=== PATIENT | female | born 1930 | race Caucasian/White ===

== ENCOUNTER 2018-06-11 18:42 | Inpatient (IN) | payer MEDICARE, OTHER ==
[~2018-06-11] VITALS: Ht 152.4 cm; Wt 66.4 kg
--- OUTSIDE RECORDS SUMMARY | ~2018-06-11 | XMS | Clinical Summary ---
Demographics + + + | Address | [address] | | | [place] [address] | + + + | Home Phone | | + + + | Preferred Language | Unknown | + + + | Marital Status | | + + + | Restorationist Affiliation | Unknown | + + + | Race | Unknown | + + + | Ethnic Group | Unknown | + + + Author + + + | Author | [facility] [employer] | + + + | Organization | [email or web address] | + + + | Address | Unknown | + + + | Phone | Unavailable | + + + Support + + +---------+ + | Name | Relationship | Address | Phone | + + +---------+ + | Fausto Mcgregor | ECON | Unknown | | | ([place]) | | | | + + +---------+ + | Deborah Kenyon | ECON | Unknown | | + + +---------+ + | Mat Arambula | ECON | Unknown | | + + +---------+ + Care Team Providers + +------+ + | Care [employer] Member Name | Role | Phone | + +------+ + | Devante Mercer MD | PP | | + +------+ + Allergies + [...] | Diarrhea | Low | 04/22/19 | | | | | | 16 | | + + + + + + Current Medications + + +--------+---------+------+------+-------+ | Prescription | Sig. | Disp. | Refills | Star | End | Statu | | | | | | t | Date | s | | | | | | Date | | | + + +--------+---------+------+------+-------+ | diltiazem | Take 300 mg by mouth | | | | | Activ | | (CARDIZEM CD) 300 MG | daily. | | | | | e | | 24 hr capsule | | | | | | | + + +--------+---------+------+------+-------+ | fenofibrate | Take 160 mg by mouth | | | | | Activ | | (TRICOR) 160 MG | daily. | | | | | e | | tablet | | | | | | | + + +--------+---------+------+------+-------+ | fluticasone | 2 sprays by Each | | | | | Activ | | (FLONASE) 50 MCG/ACT | Nare route daily. | | | | | e | | nasal | | | | | | | + + +--------+---------+------+------+-------+ | glipiZIDE | Take 10 mg by mouth | | | | | Activ | | (GLUCOTROL) 10 MG 24 | daily. | | | | | e | | hr tablet | | | | | | | + + +--------+---------+------+------+-------+ | latanoprost | Place 1 drop into | | | | | Activ | | (XALATAN) 0.005 % | both eyes nightly. | | | | | e | | ophthalmic solution | | | | | | | + + +--------+---------+------+------+-------+ | metFORMIN | Take 1,000 mg by | | | | | Activ | | (GLUCOPHAGE) 500 MG | mouth 2 (two) times | | | | | e | | tablet | daily with meals. | | | | | | + + +--------+---------+------+------+-------+ | potassium chloride | Take 20 mEq by mouth | | | | | Activ | | SA (ORALIA SAMSON) | daily. | | | | | e | | 20 MEQ tablet | | | | | | | + + +--------+---------+------+------+-------+ | torsemide | Take 20 mg by mouth | | | | | Activ | | (DEMADEX) 20 MG | every morning. | | | | | e | | tablet | | | | | | | + + +--------+---------+------+------+-------+ | Calcium | Take 1,000 mg by | | | | | Activ | | Carb-Cholecalciferol | mouth daily. | | | | | e | | 1000-800 MG-UNIT | | | | | | | | TABS | | | | | | | + + +--------+---------+------+------+-------+ | Cranberry 450 MG | Take 450 mg by mouth | | | | | Activ | | TABS | daily. | | | | | e | + + +--------+---------+------+------+-------+ | ascorbic acid | Take 1,000 mg by | | | | | Activ | | (VITAMIN C) 1000 MG | mouth daily. | | | | | e | | tablet | | | | | | | + + +--------+---------+------+------+-------+ | Cholecalciferol | Take 1,000 Units by | | | | | Activ | | 1000 UNITS capsule | mouth daily. | | | | | e | + + +--------+---------+------+------+-------+ | vitamin E 400 UNIT | Take 400 Units by | | | | | Activ | | capsule | mouth daily. | | | | | e | + + +--------+---------+------+------+-------+ | fish oil omega-3 | Take 1 g by mouth | | | | | Activ | | fatty acids 1000 MG | daily. | | | | | e | | capsule | | | | | | | + + +--------+---------+------+------+-------+ | Multiple | Take by mouth | | | | | Activ | | Vitamins-Minerals | daily. | | | | | e | | ([facility] | | | | | | | | PO) | | | | | | | + + +--------+---------+------+------+-------+ | cyanocobalamin | Take 1,000 mcg by | | | | | Activ | | (VITAMIN B-12) 1000 | mouth every other | | | | | e | | MCG tablet | day. | | | | | | + + +--------+---------+------+------+-------+ | warfarin | Take 1 tablet by | 30 | 11 | 02/2 | | Activ | | (COUMADIN) 2 MG | mouth daily. | tablet | | 1/20 | | e | | tablet | | | | 17 | | | + + +--------+---------+------+------+-------+ | levothyroxine | Take 1 tablet by | 30 | 11 | 02/2 | | Activ | | (SYNTHROID) 125 MCG | mouth every morning | tablet | | 1/20 | | e | | tablet | before breakfast. | | | 17 | | | + + +--------+---------+------+------+-------+ | omeprazole | Take 20 mg by mouth | | | | | Activ | | (PRILOSEC) 20 MG | every morning before | | | | | e | | capsule | breakfast. | | | | | | + + +--------+---------+------+------+-------+ | loperamide | Take 2 mg by mouth 4 | | | | | Activ | | (IMODIUM) 2 MG | (four) times daily | | | | | e | | capsule | as needed for | | | | | | | | Diarrhea. | | | | | | + + +--------+---------+------+------+-------+ | metoprolol | Take 1 tablet by | | | 04/0 | | Activ | | (TOPROL-XL) 100 MG | mouth nightly. | | | 3/20 | | e | | 24 hr tablet | | | | 19 | | | + + +--------+---------+------+------+-------+ | metoprolol | Take 100 mg by mouth | | | | 04/0 | Disco | | (TOPROL-XL) 50 MG 24 | nightly. | | | | 3/20 | ntinu | | hr tablet | | | | | 19 | ed | + + +--------+---------+------+------+-------+ Active Problems + + + | Problem | Noted Date | + + + | Impaired glucose tolerance | 05/03/2017 | + + + | Chronic atrial fibrillation (HCC) | 04/26/2016 | + + + | Hyperlipidemia | 03/24/2015 | + + + + + | Last Assessment & Plan: Hyperlipidemia, managed by PCP. | + + + + + | DMII (diabetes mellitus, type 2) | 03/24/2015 | + + + + + | Last Assessment & Plan: DM2, managed by PCP. | + + + + + | Essential hypertension | 03/24/2015 | + + + + + | Last Assessment & Plan: Hypertensive heart disease. | | Hypertension, treated controlled, continue current meds at | | current dose (diltiazem, metoprolol, torsemide, potassium.Lab, | | 12/04/2014: K: 4.0, BUN/Cr: 29/1.0 (GFR 55), glu: 146, M.0, | | INR: 2.0 | + + Resolved Problems + + + + | Problem | Noted | Resolved | | | Date | Date | + + + + | Annual physical exam | 05/03/19 | | | | 18 | 8 | + + + + | Persistent atrial fibrillation (HCC) | 03/23/19 | | | | 16 | 7 | + + + + + + | Last Assessment & Plan: Persistent atrial fibrillation, heart | | rate control, well-tolerated, CHADS2 Score 3 (CHF, HTN, age) on | | Eliquis. 84yo WF, with relatively new onset atrial | | fibrillation, November 2014. She presented to emergency room | | with shortness of breath, or soldering atrial fibrillation with | | rapid heart rate, congestive heart failure. Heart rate was | | controlled medically, his heart failure improved. She has a | | history of diabetes, but there is no history of CVA or TIAs. She | | is , lives with her , still drives, does | | housework, modestly active. She admits exertional shortness of | | breath, but no orthopnea or PND. Denies any chest discomfort. | | Denies any new visual disturbances, dysarthria, dysphasia, | | lateralizing signs or symptoms. No significant bleeding or | | bruising. There is no prior history of coronary artery disease, | | myocardial infarctions congenital heart disease, rheumatic heart | | disease, or syncope. She informs me that she is feeling better, | | able to do her work. We did talk about atrial fibrillation, the | | cause is most likely hypertensive heart disease. With regards to | | treatment strategy, rhythm control versus rate control. At this | | point she is happy with her current medical management, which is | | rate control and long-term anticoagulation. At this point we | | are not considering antiarrhythmic medications. | | Electrocardioversion has not been ruled out. 24 Holter monitor | | reveals reasonable heart rate control. No changes in medical | | therapy at this time.Hx CABG: noHx PCI/stent: noHx Pacemaker/ICD: | | NoLast Cath: naLast Echo, 12/02/2014: "significant LVH, LVEF | | 77%, LAE, BRODIE, RVE, trace AI, mild-moderate MR< mild-moderate TR, | | mild PI, moderate Pulmonary HTN, est systolic PAP 50mmHg.Last | | Stress Test: na24hr HM, 03/26/2015: A fib, 66-132, averaging | | 85bpm, rare PVC's 15 pauses (2.0-2.3sec), no symptoms | | reported.ECG, 03/23/2015: A fib, 92bpm, LAD, PRWP, LVH with ST-T | | changes. | + + Encounters +--------+---------+ + + + | Date | Type | Specialty | Care Team | Description | +--------+---------+ + + + | 06/06/ | Office | | Denise Chakraborty, | Essential | | 2019 | Visit | | MD | hypertension | | | | | | (Primary Dx); | | | | | | Chronic atrial | | | | | | fibrillation (HCC); | | | | | | Mixed hyperlipidemia | +--------+---------+ + + + from Last 3 Months [...] | Father | | | heart disease (MS), HTN,Hyperlipidemia | | | | (Age | | | | | 80) | | + +------+ + + | Mother | | | HTN,CVA | | | | (Age | | | | | 89) | | + +------+ + + Social [...] + +---------+ + | Alcohol Use | Drinks/We | oz/Week | Comments | | | ek | | | + + +---------+ + | No | 0 | 0.0 | | | | Standard | | | | | drinks or | | | | | | | | | | equivalen | | | | | t | | | + + +---------+ + + + + | Sex Assigned at | Date Recorded | | | | + + + | Not on file | | + + + Last Filed Vital Signs + + + + | Vital Sign | Reading | Time Taken | + + + + | Blood Pressure | 124/70 | 06/06/2018 12:43 PM PDT | + + + + | Pulse | 100 | 06/06/2018 12:43 PM PDT | + + + + | Temperature | - | - | + + + + | Respiratory Rate | 18 | 04/22/2015 11:22 AM PST | + + + + | Oxygen Saturation | 96% | 06/06/2018 12:43 PM PDT | + + + + | Inhaled Oxygen | - | - | | Concentration | | | + + + + | Weight | 68.8 kg (151 lb 9.6 | 06/06/2018 12:43 PM PDT | | | oz) | | + + + + | Height | 149.9 cm (4' 11") | 06/06/2018 12:43 PM PDT | + + + + | Body Mass Index | 30.62 | 06/06/2018 12:43 PM PDT | + + + + Plan of Treatment +--------+ + + + + | Date | Type | Specialty | Care Team | Description | +--------+ + + + + | 06/14/ | Clinical | | | | | 2018 | Support | | | | +--------+ + + + + | 08/08/ | Office | | Denise Chakraborty, | | | 2018 | Visit | | MD Eduardo Nguyen | | | | | | [address], | | | | | | [place] [address] | | | | | | [phone] | | | | | | | | +--------+ + + + + + + + + + | Health Maintenance | Due Date | Last Done | Comments | + + + + + | Diabetic Eye Exam | | | | | | 0 | | | + + + + + | Diabetic Foot Exam | | | | | | 0 | | | + + + + + | Hemoglobin A1c | | | | | | 0 | | | + + + + + | Microalbumin | | | | | Screening | 0 | | | + + + + + | Vaccine: | | | | | Dtap/Tdap/Td (1 - | 9 | | | | Tdap) | | | | + + + + + | Vaccine: Zoster (1 | | | | | of 2) | 0 | | | + + + + + | DEXA SCAN SCREENING | | | | | | 5 | | | + + + + + | Vaccine: | | | | | Pneumococcal 65+ | 5 | | | | Low/Medium Risk (1 | | | | | of 2 - PCV13) | | | | + + + + + | Vaccine: Influenza | | | | | (Season Ended) | 9 | | | + + + + + Procedures + +--------+ + + + | Procedure Name | Priori | Date/Time | Associated Diagnosis | Comments | | | ty | | | | + +--------+ + + + | EKG STANDARD 12 LEAD | Routin | 06/06/2018 | Essential | Results for this | | | e | 12:50 PM | hypertension | procedure are in the | | | | PDT | Chronic atrial | results section. | | | | | fibrillation (HCC) | | + +--------+ + + + from Last 3 Months Results EK STANDARD 12 LEAD (06/06/2018 12:50 PM) + + + + + | Component | Value | Ref Range | Performed At | + + + + + | Ventricular Rate | 113 | BPM | [facility] | + + + + + | Atrial Rate | 113 | BPM | [facility] | + + + + + | P-R Interval | 230 | ms | [facility] | + + + + + | QRS Duration | 112 | ms | [facility] | + + + + + | Q-T Interval | 320 | ms | [facility] | + + + + + | QTC Calculation | 438 | ms | [facility] | | (Bezet) | | | | + + + + + | Calculated R [place] | -35 | degrees | [facility] | + + + + + | Calculated T [place] | 64 | degrees | [facility] | + + + + + | Diagnosis | Sinus tachycardia with | | [facility] | | | 1st degree A-V blockLeft | | | | | axis deviationMinimal | | | | | voltage criteria for | | | | | LVH, may be normal | | | | | variantSeptal infarct | | | | | (cited on or before | | | | | 23-MAR-2015)Abnormal | | | | | ECGWhen compared with | | | | | ECG of 03-MAY-2017 | | | | | 11:08,Sinus rhythm has | | | | | replaced Atrial | | | | | fibrillationPlease refer | | | | | to Providers office | | | | | visit note for Providers | | | | | | | | | | Interpretation.Confirmed | | | | | by [facility] Read Only, | | | | | [facility] Wendy ([id number]), | | | | | content editor Martell Kelly | | | | | ([id number]) on 06/07/2018 | | | | | 10:37:53 AM | | | + + + + + + + + + + | Performing | Address | City/State/Zipcode | Phone Number | | Organization | | | | + + + + + | [facility] | [address] | [place] [address] | | + + + + + from Last 3 Months Insurance + +--------+ +------+-------+ + | Payer | Benefi | Subscriber | Type | Phone | Address | | | t Plan | ID | | | | | | / | | | | | | | Group | | | | | + +--------+ +------+-------+ + | MEDICARE | MEDICA | [id number] | | | [address] | | | RE | | | | [place] [address] | | | IP-OP | | | | | + +--------+ +------+-------+ + | COMMERCIAL OTHER | COMMER | [id number] | | | | | | CIAL | | | | | | | GENERI | | | | | | | C PLAN | | | | | + +--------+ +------+-------+ + + +--------+ +--------+ + + | Guarantor Name | [employer]oun | Relation to | Date | Phone | Billing Address | | | t Type | Patient | of | | | | | | | | | | + +--------+ +--------+ + + | SHARI MCGREGOR | Person | Self [birth year] Home: | [address] | | | al/Fam | | [phone] | [phone] [place] | | | sonal | | | [phone] | [phone] | + +--------+ +--------+ + +
--- OUTSIDE RECORDS SUMMARY | ~2018-06-11 | XMS | Encounter Summary ---
Demographics + + + | Address | [address] | | | [place] [address] | + + + | Home Phone | | + + + | Preferred Language | Unknown | + + + | Marital Status | | + + + | Muslim Affiliation | Unknown | + + + | Race | Unknown | + + + | Ethnic Group | Unknown | + + + Author + + + | Author | [employer] | + + + | Organization | [facility] | + + + | Address | Unknown | + + + | Phone | Unavailable | + + + Support + + +---------+ + | Name | Relationship | Address | Phone | + + +---------+ + | Fausto Clark | ECON | Unknown | | | ([place]) | | | | + + +---------+ + | Deborah Kenyon | ECON | Unknown | | + + +---------+ + | Mat Arambula | ECON | Unknown | | + + +---------+ + Care Team Providers + +------+ + | Care Label Coder Name | Role | Phone | + +------+ + | Mandeep Mercer MD | PCP | | + +------+ + Reason for Referral Echo (Routine) + +--------+ + + + + | Status | Reason | Specialty | Diagnoses / | Referred By | Referred To | | | | | Procedures | Contact | Contact | + +--------+ + + + + | Authorized | | | Diagnoses | [place], | Department, | | | | | Essential | MD Denise | [facility] | | | | | hypertension | [address] | Diagnostic | | | | | Chronic | Wendy Stack | [address] | | | | | atrial | Juaquin F | Adal [address] | | | | | fibrillation | [place] | [place] | | | | | ([facility]) | [address] | [address] | | | | | Mixed | Phone: | Phone: | | | | | hyperlipidem | [phone] | [phone] | | | | | ia | Fax: | Fax: | | | | | Procedures | [phone] | [phone] | | | | | Echo cardiac | | | | | | | adult | | | | | | | complete | | | + +--------+ + + + + Reason for Visit + + + | Reason | Comments | + + + | Follow-up | Annual | + + + Encounter Details +--------+---------+ + + + | Date | Type | Department | Care Team | Description | +--------+---------+ + + + | 06/06/ | Office | [facility] | Denise Pinto, | Essential | | 2019 | Visit | Cardiology Natty | [address] | hypertension | | | | [address] | Dr Jaimes, | (Primary Dx); | | | | [address] | [place] [address] | Chronic atrial | | | | [place] [address] | [phone] | fibrillation (HCC); | | | | [phone] | | Mixed hyperlipidemia | +--------+---------+ + + + Social History [...] on file | | + + + as of this encounter Last Filed Vital [...] Respiratory Rate | - | - | + + + + | Oxygen [...] PM PDT | + + + + in this encounter Instructions Patient Instructions - Denise Pinto MD - 06/06/2018 12:45 PM PDTIncrease Metoprolol t o 100 mg daily. Take 2 pills of the 50 mg once in the morning. in this encounter Progress Notes Denise Pinto MD - 06/06/2018 12:45 PM PDTFormatting of this note may be different fro m the original. Date of visit: 06/06/2018 Primary Care Physician: MANDEEP MERCER CHIEF COMPLAINT: Chief Complaint Patient presents with Follow-up Annual HISTORY OF PRESENT ILLNESS: Francisca is 87 y.o. here for follow-up visit good historian and modestly active. No recent hospitalization, lately has been feeling mildly shortness of breath. Weight has b een stable. No change in medications. Last hospitalization was June 2016 secondary to diverticulitis. Has a history of chronic atrial fibrillation. She has been on anticoagulation and toleratin g therapy well. Follows up with [facility] Coumadin clinic. Past medical history, SH, FH, and medications were reviewed in the chart. Medications: Outpatient Encounter Prescriptions as of 06/06/2018 Medication Sig Dispense Refill ascorbic acid (VITAMIN C) 1000 MG tablet Take 1,000 mg by mouth daily. Calcium Carb-Cholecalciferol 1000-800 MG-UNIT TABS Take 1,000 mg by mouth daily. Cholecalciferol 1000 UNITS capsule Take 1,000 Units by mouth daily. Cranberry 450 MG TABS Take 450 mg by mouth daily. cyanocobalamin (VITAMIN B-12) 1000 MCG tablet Take 1,000 mcg by mouth every other day. diltiazem (CARDIZEM CD) 300 MG 24 hr capsule Take 300 mg by mouth daily. fenofibrate (TRICOR) 160 MG tablet Take 160 mg by mouth daily. fish oil omega-3 fatty acids 1000 MG capsule Take 1 g by mouth daily. fluticasone (FLONASE) 50 MCG/ACT nasal 2 sprays by Each Nare route daily. glipiZIDE (GLUCOTROL) 10 MG 24 hr tablet Take 10 mg by mouth daily. latanoprost (XALATAN) 0.005 % ophthalmic solution Place 1 drop into both eyes nightly. loperamide (IMODIUM) 2 MG capsule Take 2 mg by mouth 4 (four) times daily as needed for Diarrhea. metFORMIN (GLUCOPHAGE) 500 MG tablet Take 1,000 mg by mouth 2 (two) times daily with me als. metoprolol (TOPROL-XL) 50 MG 24 hr tablet Take 50 mg by mouth nightly. Multiple Vitamins-Minerals ( MACULAR HEALTH PO) Take by mouth daily. omeprazole (PRILOSEC) 20 MG capsule Take 20 mg by mouth every morning before breakfast. potassium chloride SA (K-DUR,KLOR-CON) 20 MEQ tablet Take 20 mEq by mouth daily. torsemide (DEMADEX) 20 MG tablet Take 20 mg by mouth every morning. vitamin E 400 UNIT capsule Take 400 Units by mouth daily. levothyroxine (SYNTHROID) 125 MCG tablet Take 1 tablet by mouth every morning before br eakfast. 30 tablet 11 warfarin (COUMADIN) 2 MG tablet Take 1 tablet by mouth daily. 30 tablet 11 No facility-administered encounter medications on file as of 06/06/2018. Allergies Allergies Allergen Reactions Celebrex [Celecoxib] Hives and Rash Warfarin Diarrhea REVIEW OF SYSTEMS: Constitutional: mild fatigue. HEENT: Negative for nosebleeds, ear discharge, nasal congestion or soar throat. Eyes: Negative for visual disturbance, redness, or secretion. Respiratory: Negative for cough, sputum production, hemoptysis, wheezing. Cardiovascular: As history of present illness. Gastrointestinal: Negative for nausea, vomiting, diarrhea, abdominal pain and blood in stoo l. Genitourinary: Negative for dysuria or hematuria. Musculoskeletal: Chronic arthritic and back pain. Skin: Negative for rash. Neurological: Negative for dizziness. No numbness. No recent falls. No slurred speech. Hematological: No significant bruising. Psychiatric/Behavioral: No depression or anxiety. PHYSICAL EXAM Vital Signs: BP 124/70 (BP Location: Left upper arm, Patient Position: Sitting) | Pulse 100 | Ht 1.499 m (4' 11") | Wt 68.8 kg (151 lb 9.6 oz) | SpO2 96% | BMI 30.62 kg/m GENERAL APPEARANCE: Alert, oriented, cooperative, no distress, appears stated age. HEENT: Extraocular movements were intact. No jaundice. Pupiles round and reactive. NECK: No JVD, lymphadenopathy. Carotid upstrokes normal. No carotid bruit heard. CARDIAC: regular rate and rhythm with ectopy. CHEST: Normal bilateral symmetrical chest excursion.ackles or wheezing. No evidence of dull ness. ABDOMEN: Soft.No tenderness or guarding. No palpable organs. Active bowel sounds. EXTREMITIES: No lower extremities edema, cyanosis or clubbing. NEURO: Alert and oriented times three with no focal deficit. Cranial nerves are grossly no rmal. SKIN: Warm and dry. No rash. Psych: Normal affect and mood. DATA 07/02/2016 WBC 11.8, hemoglobin 13.4, platelets 274, sodium 135, potassium 4.1, chloride 100, bicarbon ate 26, BUN 20, creatinine 0.93. GFR 57, 05, calcium 9.7. AST 13, AST 14, alk phos 91, pays 22. Lab Results Component Value Date/Time NA 138 05/01/2017 01:30 PM K 4.7 05/01/2017 01:30 PM CO2 25 05/01/2017 01:30 PM BUN 27 (A) 05/01/2017 01:30 PM CREATININE 0.94 05/01/2017 01:30 PM No results found for: WBC, HGB, HCT, MCV, PLT Lab Results Component Value Date GLUF 155 (A) 05/01/2017 EC06/06/2018 Showed atrial flutter with rapid ventricular response. Poor progression cannot rule out an anterior infarct of undetermined age. 05/03/2017 Ordered and reviewed by myself, showed atrial fibrillation, left axis deviation, poor R-wav e progression cannot rule out anterior infarct of undetermined age, controlled ventricular r ate. Last Echo, 12/02/2014: "significant LVH, LVEF 77%, LAE, BRODIE, RVE, trace AI, mild-moderate MR< mild-moderate TR, mi ld PI, moderate Pulmonary HTN, est systolic PAP 50mmHg. Last Stress Test: na 24hr , 03/26/2015: A fib, 66-132, averaging 85bpm, rare PVC's 15 pauses (2.0-2.3sec), no s ymptoms reported. ASSESSMENT: Patient is 87 y.o. female with the following medical problems 1. Chronic atrial fibrillation, rapid ventricular response. CHADSVASc score of 4. On antico agulation. Rate control strategy. 2. Hypertension blood pressures controlled. 3. Hypothyroidism. 4. Moderate pulmonary hypertension. 5. Mild mitral regurgitation. 6. Chronic kidney disease stage II. Plan: Patient is tachycardic today. 1. Continue with anticoagulation. Continue with rate control. 2. Increase metoprolol to 100 mg daily continue with diltiazem. 3. Walk in ECG in one week. 4. Consider adding digoxin if continues to be tachycardic. 5. Echocardiogram to evaluate LV function. 6. Continue the blood pressure control. 7. Follow-up in 1 month or earlier if needed. *This report has been prepared using a voice recognition system. The report was reviewed fo r accuracy, however, sound-alike word errors, addition and/or deletions may occur. If there is any question about this report please contact me. Denise Pinto MD, MPHin this encounter Plan of Treatment +--------+ + + + + | Date | Type | Specialty | Care Team | Description | +--------+ + + + + | 06/14/ | Clinical | Cardiology | | | | 2019 | Support | | | | +--------+ + + + + | 08/08/ | Office | Cardiology | Denise Pinto, | | | 2018 | Visit | | MD Eduardo Nguyen | | | | | | Dr [place], | | | | | | [place] [address] | | | | | | [phone] | | | | | | | | +--------+ + + + + + +--------+ + + | Name | Priori | Associated Diagnoses | Order Schedule | | | ty | | | + +--------+ + + | Echo cardiac adult complete | Routin | Essential | Expected: | | | e | hypertension | 06/06/2018, Expires: | | | | Chronic atrial | 06/07/2019 | | | | fibrillation (HCC) | | | | | Mixed hyperlipidemia | | + +--------+ + + as of this encounter Procedures + +--------+ [...] | | + +--------+ + + + in this encounter Results [facility] STANDARD 12 LEAD (06/06/2018 12:50 PM) + [...] + + + + | Calculated R [place] | -35 | degrees | [facility] | + + + + + | Calculated T [place] | 64 | degrees | [facility] | + + + + + | Diagnosis | Sinus tachycardia with | | [facility] | | | 1st degree A-V [...] | | | | | by ICA [place] Read Only, | | | | | ICA Wendy (502), | | | | | editorial cartoonist Martell Kelly | | | | | (253) on 06/07/2018 | | | | | 10:37:53 AM | | | + + + + + + + + + + | Performing | Address | City/State/Zipcode | Phone Number | | Organization | | | | + + + + + | [facility] | [address] | [place] [address] | | + + + + + in this encounter Visit Diagnoses + + | Diagnosis | + + | Essential hypertension - Primary | + + | Unspecified essential hypertension | + + | Chronic atrial fibrillation (HCC) | + + | Atrial fibrillation | + + | Mixed hyperlipidemia | + +
--- OUTSIDE RECORDS SUMMARY | ~2018-06-11 | XMS | Encounter Summary ---
Demographics + + + | Address | [address] | | | [place] [address] | + + + | Home Phone | | + + + | Preferred Language | Unknown | + + + | Marital Status | | + + + | Latter Day Affiliation | Unknown | + + + | Race | Unknown | + + + | Ethnic Group | Unknown | + + + Author + + + | Author | [employer] | + + + | Organization | [facility] [employer] [facility] | + + + | Address | Unknown | + + + | Phone | Unavailable | + + + Support + + +---------+ + | Name | Relationship | Address | Phone | + + +---------+ + | Fausto Clark | ECON | Unknown | | | ([place]) | | | | + + +---------+ + | Deborah Kenyon | ECON | Unknown | | + + +---------+ + | Mat Arambula | ECON | Unknown | | + + +---------+ + Care Team Providers + +------+ + | Care Magneto Electrician Name | Role | Phone | + [...] | | | | fibrillation | [address] | [place] | | | | | ([facility]) | [address] | [address] | | | | | Mixed | Phone: | Phone: | | | | | hyperlipidem | [phone] | [phone] | | | | | ia | Fax: | Fax: | | | | | Procedures | [phone] | [phone] | | | | | Echo cardiac [...] + + | 06/06/ | Office | [facility] | Denise Pinto, | Essential | | 2019 | Visit | Cardiology Natty | [address] | hypertension | | | | [address] | Dr Jaimes, | (Primary Dx); | | | | [address] | [place] [address] | Chronic atrial | | | | [place] [address] | [phone] | fibrillation (HCC); | | | | [phone] | | Mixed hyperlipidemia | +--------+---------+ + [...] toleratin g therapy well. Follows up with [facility] Coumadin clinic. Past medical history, SH, FH, [...] | | | | | | [place] [address] | | | | | | [phone] | | | | | | | [...] + + + in this encounter Results [facility] STANDARD 12 LEAD (06/06/2018 12:50 PM) + [...] + + + + | Calculated R [place] | -35 | degrees | [facility] | + + + + + | Calculated T [place] | 64 | degrees | [facility] | + + + + + | Diagnosis | Sinus tachycardia with | | [facility] | | | 1st degree [...] | | | | | by ICA [place] Read Only, | | | | | ICA Wendy (502), | | | | | desk editor Martell Kelly | | | | | (253) on 06/07/2018 | | | | | 10:37:53 AM | | | + + + + + + + + + + | Performing | Address | City/State/Zipcode | Phone Number | | Organization | | | | + + + + + | [facility] | [address] | [place] [address] | | + + + + + in this encounter Visit Diagnoses + + | Diagnosis | + + | Essential hypertension - Primary | + + | Unspecified essential hypertension | + + | Chronic atrial fibrillation (HCC) | + + | Atrial fibrillation | + + | Mixed hyperlipidemia | + +
--- OUTSIDE RECORDS SUMMARY | ~2018-06-11 | XMS | Clinical Summary ---
Demographics + + + | Address | [address] | | | [place] [address] | + + + | Home Phone | | + + + | Preferred Language | Unknown | + + + | Marital Status | Single | + + + | Hoahaoism Affiliation | Unknown | + + + | Race | Unknown | + + + | Ethnic Group | Other Race | + + + Author + + + | Author | [facility] | + + + | Organization | [facility] | + + + | Address | Unknown | + + + | Phone | Unavailable | + + + Care Team Providers + +------+ + | Care Instantizer Operator Name | Role | Phone | + +------+ + PP | Unavailable | + +------+ + Source Comments RODO is fully live on both [facility] Ambulatory and [facility] InPatient.[facility] Allergies Not on File Current [...] | | | | vaccination (#1) | 8 | | | + + [...] | Medica | +1- | [address] | | | RE A & | | re | [address] | [place] [address] | | | B | | | [...] Self | [birth year] Home: | [address] | | | al/Fam | | 1931 | [phone] | [place] [address] | | | sonal | | | [phone] | | + +--------+ +--------+ + +"
--- OUTSIDE RECORDS SUMMARY | ~2018-06-11 | XMS | Encounter Summary ---
Demographics + + + | Address | [address] | | | [place] [address] | + + + | Home Phone | | + + + | Preferred Language | Unknown | + + + | Marital Status | | + + + | Alevism Affiliation | Unknown | + + + | Race | Unknown | + + + | Ethnic Group | Unknown | + + + Author + + + | Author | [employer] | + + + | Organization | [facility] [employer] [facility] | + + + | Address | Unknown | + + + | Phone | Unavailable | + + + Support + + +---------+ + | Name | Relationship | Address | Phone | + + +---------+ + | Fausto Clark | ECON | Unknown | | | ([place]) | | | | + + +---------+ + | Deborah Kenyon | ECON | Unknown | | + + +---------+ + | Mat Arambula | ECON | Unknown | | + + +---------+ + Care Team Providers + +------+ + | Care Clinical Massage Therapist Name | Role | Phone | [...] | | | | fibrillation | [place] | [place] | | | | | ([facility]) | [address] | [address] | | | | | Mixed | Phone: | Phone: | | | | | hyperlipidem | [phone] | [phone] | | | | | ia | Fax: | Fax: | | | | | Procedures | [phone] | [phone] | | | | | Echo cardiac [...] + + | 06/06/ | Office | [facility] | Denise Pinto, | Essential | | 2019 | Visit | Cardiology Natty | [address] | hypertension | | | | [address] | Dr Jaimes, | (Primary Dx); | | | | [address] | [place] [address] | Chronic atrial | | | | [place] [address] | [phone] | fibrillation (HCC); | | | | [phone] | | Mixed hyperlipidemia | +--------+---------+ + [...] toleratin g therapy well. Follows up with [facility] Coumadin clinic. Past medical history, SH, [...] | | | | | | [place] [address] | | | | | | [phone] | | | | | | | [...] + + + in this encounter Results [facility] STANDARD 12 LEAD (06/06/2018 12:50 PM) + [...] + + + + | Calculated R [place] | -35 | degrees | [facility] | + + + + + | Calculated T [place] | 64 | degrees | [facility] | + + + + + | Diagnosis | Sinus tachycardia with | | [facility] | | | 1st degree [...] | | | | | by ICA [place] Read Only, | | | | | ICA Wendy (502), | | | | | senior editor Martell Kelly | | | | | (253) on 06/07/2018 | | | | | 10:37:53 AM | | | + + + + + + + + + + | Performing | Address | City/State/Zipcode | Phone Number | | Organization | | | | + + + + + | [facility] | [address] | [place] [address] | | + + + + + in this encounter Visit Diagnoses + + | Diagnosis | + + | Essential hypertension - Primary | + + | Unspecified essential hypertension | + + | Chronic atrial fibrillation (HCC) | + + | Atrial fibrillation | + + | Mixed hyperlipidemia | + +
--- OUTSIDE RECORDS SUMMARY | ~2018-06-11 | XMS | Clinical Summary ---
Demographics + + + | Address | [address] | | | [place] [address] | + + + | Home Phone | | + + + | Preferred Language | Unknown | + + + | Marital Status | | + + + | Orthodox Affiliation | Unknown | + + + | Race | Unknown | + + + | Ethnic Group | Unknown | + + + Author + + + | Author | [employer] | + + + | Organization | [facility] | + + + | Address | Unknown | + + + | Phone | Unavailable | + + + Support + + +---------+ + | Name | Relationship | Address | Phone | + + +---------+ + | Fausto Mcgregor | ECON | Unknown | | | ([place]) | | | | + + +---------+ + | Deborah Kenyon | ECON | Unknown | | + + +---------+ + | Mat Arambula | ECON | Unknown | | + + +---------+ + Care Team Providers + +------+ + | Care Forest Worker Name | Role | Phone | + [...] | | | | e | | ([facility] | | | | | [...] | Father | | | heart disease ([place]), HTN,Hyperlipidemia | | | | (Age | [...] [place], | | | | | | [place] [address] | | | | | | [phone] | | | | | | | [...] + + + + | Calculated R [place] | -35 | degrees | [facility] | + + + + + | Calculated T [place] | 64 | degrees | [facility] [...] | | | | | by ICA [place] Read Only, | | | | | ICA Wendy (502), | | | | | advertising editor Martell Kelly | | | | | (253) on 06/07/2018 | | | | | 10:37:53 AM | | | + + + + + + + + + + | Performing | Address | City/State/Zipcode | Phone Number | | Organization | | | | + + + + + | [facility] | [address] | [place] [address] | | + + + + + [...] +------+-------+ + | MEDICARE | MEDICA | [id number] | | | [address] | | | RE | | | | [place] [address] | | | IP-OP | | | | | + +--------+ +------+-------+ + | COMMERCIAL OTHER | COMMER | [id number] | | | | | | CIAL [...] | [place]onal | | | [address] | [address] | + +--------+ +--------+ + +
--- OUTSIDE RECORDS SUMMARY | ~2018-06-11 | XMS | Clinical Summary ---
Demographics + + + | Address | [address] | | | [place] [address] | + + + | Home Phone | | + + + | Preferred Language | Unknown | + + + | Marital Status | Single | + + + | Latter Day Affiliation | Unknown | + + + | Race | Unknown | + + + | Ethnic Group | Other Race | + + + Author + + + | Author | [facility] | + + + | Organization | [facility] | + + + | Address | Unknown | + + + | Phone | Unavailable | + + + Care Team Providers + +------+ + | Care Food Services Coordinator Name | Role | Phone | + +------+ + PP | Unavailable | + +------+ + Source Comments RODO is fully live [facility] and [facility] Allergies Not on File Current Medications Not [...] RE A & | | re | [address] | [place] [address] | | | B | | | [...] Self | [birth year] | Home: | [address] | | | al/Fam | | 1931 | [phone] | [place] [address] | | | sonal | | | [address] | | + +--------+ +--------+ + +"
--- OUTSIDE RECORDS SUMMARY | ~2018-06-11 | XMS | Clinical Summary ---
Demographics + + + | Address | [address] | | | [place] [address] | + + + | Home Phone | | + + + | Preferred Language | Unknown | + + + | Marital Status | | + + + | Pentecostal Affiliation | Unknown | + + + | Race | Unknown | + + + | Ethnic Group | Unknown | + + + Author + + + | Author | [employer] [facility] | + + + | Organization | [facility] | + + + | Address | Unknown | + + + | Phone | Unavailable | + + + Support + + +---------+ + | Name | Relationship | Address | Phone | + + +---------+ + | Fausto Mcgregor | ECON | Unknown | | | ([place]) | | | | + + +---------+ + | Deborah Kenyon | ECON | Unknown | | + + +---------+ + | Mat Arambula | ECON | Unknown | | + + +---------+ + Care Team Providers + +------+ + | Care Talent Scout Name | Role | Phone | + [...] | | | | e | | ([facility] | | | | [...] | Father | | | heart disease ([place]), HTN,Hyperlipidemia | | | | (Age | [...] [place], | | | | | | [place] [address] | | | | | | [phone] | | | | | | | [...] + + + + | Calculated R [place] | -35 | degrees | [facility] | + + + + + | Calculated T [place] | 64 | degrees | [facility] [...] | | | | | by I[facility] [place] Read Only, | | | | | ICA Wendy (502), | | | | | editor producer Martell Kelly | | | | | (253) on 06/07/2018 | | | | | 10:37:53 AM | | | + + + + + + + + + + | Performing | Address | City/State/Zipcode | Phone Number | | Organization | | | | + + + + + | [facility] | [address] | [place] [address] | | + + + + + [...] +------+-------+ + | MEDICARE | MEDICA | [id number] | | | [address] | | | RE | | | | [place] [address] | | | IP-OP | | | | | + +--------+ +------+-------+ + | COMMERCIAL OTHER | COMMER | [id number] | | | | | | CIAL [...] | sonal | | | [address] | [address] | + +--------+ +--------+ + +
--- OUTSIDE RECORDS SUMMARY | ~2018-06-11 | XMS | Clinical Summary ---
Demographics + + + | Address | [address] | | | [place] [address] | + + + | Home Phone | | + + + | Preferred Language | Unknown | + + + | Marital Status | Single | + + + | Shinto Affiliation | Unknown | + + + | Race | Unknown | + + + | Ethnic Group | Other Race | + + + Author + + + | Author | [facility] | + + + | Organization | [facility] | + + + | Address | Unknown | + + + | Phone | Unavailable | + + + Care Team Providers + +------+ + | Care Claim Rep Name | Role | Phone | + +------+ + PP | Unavailable | + +------+ + Source Comments RODO is fully live on both [facility] Ambulatory and [facility] InPatient.[facility] Allergies Not on File Current Medications [...] RE A & | | re | [address] | [place] [address] | | | B | | | [...] Self | [birth year] | Home: | [address] | | | al/Fam | | 1931 | [phone] | [place] [address] | | | sonal | | | [address] | | + +--------+ +--------+ + +"
[~2018-06-11 18:42] MED LIST: ASPIRIN EC81 MG PO; CALCIUM + VITA1 EACH PO; CARTIA XT300 MG PO; CARVEDILOL3.125 MG PO; CARVEDILOL6.25 MG PO; CIPRO500 MG PO; COUMADIN2 MG PO; COUMADIN4 MG PO; CRANBERRY450 MG PO; DILTIAZEM 24HR300 M1 PO; FENOFIBRATE160 MG PO; FLAGYL500 MG PO; FLUTICASONE PRO16 GM NAS; GLIPIZIDE ER10 MG PO; GLIPIZIDE XL10 MG PO; HYDROCHLOROTHIA25 MG PO; IMODIUM A-D2 M2 PO; KLOR-CON M2020 MEQ PO; LATANOPROST2.5 ML OU; LEVOTHYROXINE75 MCG PO; LOSARTAN POTASS50 MG PO; MACUVEX CAPSUL1 EACH PO; METFORMIN HCL500 MG PO; METOPROLOL SUCC50 MG PO; NORCO 5-325 TA1 EACH; NORCO 5-325 TA1 EACH PO; OMEGA 3 1,0001 EACH PO; OMEPRAZOLE20 MG PO; POTASSIUM CHLO10 ME1 PO; PRILOSEC OTC20 MG PO; RESTASIS1 DROP OD; SERTRALINE HCL25 MG PO; TOPROL XL100 MG PO; TORSEMIDE20 MG PO; VITAMIN B12-FO1 EACH PO; VITAMIN C1000 MG PO; VITAMIN D1000 UNIT PO; VITAMIN E400 UNI5 PO; WARFARIN SODIUM2 MG PO
[2018-06-11] MEDS ORDERED: TORSEMIDE20 MG PO (19:32)
--- NOTE | 2018-06-11 22:20 | NUR ---
ADMIT TO CCU. PT IS AWAKE, ALERT ORIENTED X3. GOOD HISTORIAN. STATES FELT WEAK EARLIER TODAY, HAD BEEN INSTRUCTED TO INCREASE METOPROLOL. HR NOW 60-70'S. FINISHING SANDWICH WHICH SHE HAD STARTED TO EAT IN THE ED. WAS ABLE TO STAND AND WALK A FEW STEPS FROM STRETCHER TO BED AND MONSERRAT WELL.
--- NOTE | 2018-06-11 22:45 | NUR ---
UP TO BSC TO VOID, MONSERRAT WELL.
--- NOTE | 2018-06-12 01:06 | NUR ---
HAS BEEN SLEEPING. USES CALL LIGHT APPROPRIATLY. UP TO BSC TO VOID AND MONSERRAT WELL. HR 70'S AT REST. SCD'S IN PLACE.
--- NOTE | 2018-06-12 03:15 | NUR ---
C/O BEING HUNGRY, GIVEN MILK AND PEANUT BUTTER ON CRACKERS, PT ATE 100%. THEN UP TO BSC TO VOID. HR HAS BEEN GRADUALLY INCREASING, 90'S WHILE AT REST UP TO 115 WITH ACTIVITY.
--- NOTE | 2018-06-12 05:00 | NUR ---
HAS BEEN RESTING. RHYTHM IS A-FLUTTER AT TIMES WITH 2:1 CONDUCTION. DENIES DIZZYNESS OR SOB.
--- NOTE | 2018-06-12 06:45 | NUR ---
UP TO VOID, MONSERRAT WELL. RESTING HR IS TRENDING UPWARDS. DR HAIDER CALLED. WILL GIVE AM MEDS NOW.
--- NOTE | 2018-06-12 08:27 | NUR ---
PATIENT RESTING IN BED UPON INITIAL ASSESSMENT. PATIENT USES CALL LIGHT AND STATES, "I'M HUNGRY, WHEN IS BREAKFAST GOING TO BE HERE?" PATIENT STATES SHE IS FEELING PRETTY WELL OVERALL AND IS READY TO GET OUT OF THE BED. HR NOTED TO BE IN THE 110-120s, AFLUTTER OR AFIB. PATIENT HELPED UP TO BEDSIDE CHAIR FOR BREAKFAST. CBG 125 - NO INSULIN NEEDED. ASSESSMENT COMPLETE. BILATERAL LOWER LEG EDEMA NOTED, 2+ IN ANKLES AND 1+ IN LOWER LEGS. BILATERAL CRACKLES AUSCULATED IN LOWER LUNG BASES POSTERIORLY. CALL LIGHT WITHIN REACH.
--- NOTE | 2018-06-12 08:54 | NUR ---
PATIENT UP TO BATHROOM TO VOID AGAIN. IVF FINISHED INFUSING AT THIS TIME. PATIENT SALINE LOCKED. CALL LIGHT WITHIN REACH. CONTINUE TO MONITOR. HR UP TO 130s WHILE AMBULATING, BUT NOW IN THE 90s, AFIB WHILE SITTING IN CHAIR.
--- NOTE | 2018-06-12 11:08 | NUR ---
MED REC COMPLETE
[2018-06-12] MEDS ORDERED: PRADAXA150 MG PO (11:10)
--- NOTE | 2018-06-12 11:20 | NUR ---
PATIENT AMBULATED HALLWAY WITH STANDBY ASSIST. HEART RATE REMAINED 120-123 DURING WALK AND TOLERATED WELL. PATIENT STATED "IT FEELS GOOD TO WALK." PATIENT DENIES ANY FURTHER NEED AT THIS TIME.
--- NOTE | 2018-06-12 12:30 | NUR ---
PT STATES SHE IS RETURNING TO HER HOME [place]. STATES WE ARE VERY INDEPENDENT AT THIS POINT, WE DON'T HAVE ANY PROBLEMS GETTING OUR BILLS PAID OR TAKING OURSELVES TO THE STORE OR GOING TO THE DRS OFFICE AT THIS TIME.
--- NOTE | 2018-06-12 13:49 | NUR ---
HAS RECIEVED MAG RIDERS TODAY. TOTAL OF 4 MG. SL TO LFA IS PATENT.
--- NOTE | 2018-06-12 14:00 | NUR ---
STAFF IN WITH PT NEEDS ME TO CHECK BACK AGAIN LATER. WILL FOLLOW NEEDED
--- NOTE | 2018-06-12 14:00 | EKG ---
[facility] [address] [facility] [place] [address] Signed Atrial fibrillation with slow ventricular response Left axis deviation Minimal voltage criteria for LVH, may be normal variant Possible Anterior infarct , age undetermined Abnormal ECG No previous ECGs available Confirmed by SHIRA HAIDER MD ([id number]) on 06/12/2018 2:00:15 PM Electronically Signed By: SHIRA HAIDER MD 06/12/18 1400 PATIENT NAME: MCGREGORSHARI Electrocardiogram DATE OF : [birth year] PHYSICIAN: SHIRA HAIDER MD REPORT #: [id number] REPORT IS CONFIDENTIAL AND NOT TO BE RELEASED WITHOUT AUTHORIZATION
--- NOTE | 2018-06-12 14:18 | NUR ---
PATIENT ASLEEP IN CHAIR AT THIS TIME. HR 100-106 AFIB AT THIS TIME. CONTINUE TO MONITOR.
--- NOTE | 2018-06-12 17:30 | NUR ---
PATIENT'S HEART RATE HAS BEEN TRENDING BACK UP SINCE AROUND 1600. LAST DOSE OF CARDIZEN WAS GIVEN AT 1240 AND NEXT DOSE IS DUE AT 1845. DR. HAIDER TO BE NOTIFIED. PATIENT GIVEN A BATH WHILE IN THE CHAIR, AND PROVIDED WITH A SHAMPOO CAP. PATIENT APPRECIATED THIS VERY MUCH. PT NOW EATING DINNER IN CHAIR. PATIENT'S AT BEDSIDE. CONTINUE TO MONITOR.
--- NOTE | 2018-06-12 17:45 | NUR ---
DR. HAIDER NOTIFIED OF ELEVATED HEART RATE. CHANGE MADE TO NEXT DOSE OF MEDICATIONS. SEE EMAR.
--- NOTE | 2018-06-12 20:24 | NUR ---
SITTING IN CHAIR. REQUESTING TO BRUSH TEETH. HS CARE DONE AND BACK TO BED. FEET AND ANKLES ARE EDEMATOUS FROM BEING DEPENDENT, L GREATER THAN R. HR 90'S. DENIES NEED TO VOID AT THIS TIME.
--- NOTE | 2018-06-12 21:50 | NUR ---
MEDS GIVEN. AMB TO BR TO VOID, HR TO 120. PT C/O FEELING BLOATED AND UNCOMFORTABLE SHE DIDN'T HAVE A BM TODAY. WILL ORDER MIRALAX.
--- NOTE | 2018-06-12 23:20 | NUR ---
AMB TO BR TO VOID. HR TO 122 WHILE UP. EDEMA IN FEET IS BETTER SINCE HAVING FEET UP. PT ADVICED NOT TO SIT WITH FEET DEPENDENT, TO KEEP FEET ELEVATED.
--- NOTE | 2018-06-12 23:43 | NUR ---
MEDS GIVEN. NO CHANGE.
--- NOTE | 2018-06-13 00:51 | NUR ---
AMB TO BR TO VOID. HR TO 118. NO SOB.
--- NOTE | 2018-06-13 02:29 | NUR ---
AWAKE, AMB TO BR TO VOID. HR 80'S RESTING AND UP TO 90'S WHILE UP.
--- NOTE | 2018-06-13 03:15 | NUR ---
TO BR THOUGHT NEEDED TO HAVE BM, DID HAVE UNMEASURED VOID. MONSERRAT BEING UP WELL HR 80-90'S WHILE UP.
--- NOTE | 2018-06-13 04:56 | NUR ---
AWAKE, STATES NOT SLEEPING WELL, NO SPEC C/O. HR CONTOLLED.
--- NOTE | 2018-06-13 07:00 | NUR ---
UP TO CHAIR PER REQUEST. MONSERRAT WELL HR CONTROLLED.
--- NOTE | 2018-06-13 07:30 | NUR ---
REPORT RECIEVED. PATIENT IS SITING UP IN CHAIR. IS W/O C/O. TALKED WITH PATIENT ABOUT PLAN OF CARE FOR DAY, IS UNDERSTANDING.
--- NOTE | 2018-06-13 08:00 | NUR ---
ASSESSMENT DONE. DENIES PAIN. READY FOR BREAKFAST. HR-60 TO 70. DENIES DIZZINESS WITH AMBULATION. IS STABLE ON FEET. ACCUCHECK-149. ROUTINE MEDS GIVEN WELL INSULIN 1 UNIT.
--- NOTE | 2018-06-13 08:30 | NUR ---
TOOK BREAKFAST WELL.
--- NOTE | 2018-06-13 08:38 | NUR ---
HR TO 39 FOR SECOND. PATIENT DENIES DIZZINESS. STATES SHE FEELS FINE.
--- NOTE | 2018-06-13 08:57 | NUR ---
PAUSE OF 2.45 SECONDS NOTED. PATIENT IS SITTING IN CHAIR, DENIES PROBLEMS.
--- NOTE | 2018-06-13 09:22 | NUR ---
DR. HAIDER HERE TO SEE PATIENT. ORDERS RECIEVED.
--- NOTE | 2018-06-13 11:35 | NUR ---
ASSESSMENT DONE. PATIENT DENIES POBLEMS. SITTING IN CHAIR. VISITING WITH AND FRIEND. REMAINS IN AFLUTTER. HR60-80 DEPENDING AON ACTIVITY.
--- NOTE | 2018-06-13 12:00 | NUR ---
ASSESSMENT DONE. NO CHANGES. DENIES PROBLEMS. ACCUCHECK-149. ONE UNIT INSULIN GIVEN.
--- NOTE | 2018-06-13 12:40 | NUR ---
TOOK LUNCH WELL. DENIES PROBLEMS. NO CHANGE IN RHYTHM.
--- NOTE | 2018-06-13 14:00 | NUR ---
SUPPOSITORY GIVEN. PATIENT HAS BEEN IN CHAIR.
--- NOTE | 2018-06-13 14:37 | NUR ---
PT WAS SITTING IN CHAIR, IN HER PERSONAL ROBE. SHE STATED SHE IS FEELING SO MUCH BETTER, HOPES TO BE DC'D TOMORROW. BY HER SIDE.SHE THANKED ME FOR COMING BY AND INVITED ME BACK. EXTENDED A BLESSING, WILL FOLLOW NEEDED
--- NOTE | 2018-06-13 15:30 | NUR ---
PATIENT STATES SHE HAS HAD 3 STOOLS SINCE SUPPOSITORY. SITTING IN CHAIR. NO CHANGES.
--- NOTE | 2018-06-13 16:00 | NUR ---
ASSESSMENT DONE. CONTINUE TO SIT IN CHAIR. NO CHANGES IS RHYTHM. IS IN ROOM.
--- NOTE | 2018-06-13 17:00 | NUR ---
1 UNIT INSULIN GIVEN FOR ACCUCHECK OF 145.
--- NOTE | 2018-06-13 19:47 | NUR ---
REPORT RC'D FROM DAY SHIFT NURSE JASE. PT ASSISTED BACK TO CHAIR FROM RESTROOM. FULL ASSESSMENT TO BE COMPLETED.
--- NOTE | 2018-06-13 21:24 | NUR ---
PT AAOX4 AND RESPONDING APPROPRIATELY. AFLUTTER ON MONITOR, HEAR SOUNDS IRREGULR, HR 70'S. ON ROOM AIR AND LUNG SOUNDS CLEAR THROUGHOUT. BOWEL TONES ACTIVE X4, DENIES NAUSEA, MIRALAX HELD FOR BM X3 TODAY. VOIDING QS. EDEMA TO BILATERAL LOWER EXTREMITIES, SEE DOCUMENTATION. DENIES N/T. DENIES PAIN. IV SITE FLUSHED, SMALL LEAK NOTED, WILL MONITOR. EDUCATION PROVIDED ON SAFETY AND FALL PREVENTION, PT VERBALIZED UNDERSTADNING AND AGREEABLE. DENIES OTHER NEEDS. CALL LIGHT WITHIN REACH.
--- NOTE | 2018-06-13 22:40 | NUR ---
CALL LIGHT ANSWERED, PT REQUESTING TO USE RESTROOM. PT SBA TO RESTROOM, GAIT STADY. UNMEASURABLE VOID. PT SBA BACK TO BED, TOLERATED WELL. DENIES OTHER NEEDS. CALL LIGHT WITHIN REACH.
--- NOTE | 2018-06-14 00:50 | NUR ---
CALL LIGHT ANSWERED, PT ASSISTED TO RESTROOM AND BACK TO BED, GAIT STEADY, TOLERATED WELL. NO ACUTE CHANGES TO ASSESSMENT.
--- NOTE | 2018-06-14 03:24 | NUR ---
CALL LIGHT ANSWERED, PT ASSISTED TO RESTROOM AND BACK TO BED, GAIT STEADY. CALL LIGHT WITHIN REACH.
--- NOTE | 2018-06-14 05:02 | NUR ---
PT RESTING WITH EYES CLOSED, RESPIRATIONS EVEN AND UNLABORED.
--- NOTE | 2018-06-14 06:30 | NUR ---
PT RESTED THROUGHOUT THE NIGHT WITH MINIMAL INTERVENTIONS. HR AND BLOOD PRESSURE STABLE. CALLING APPROPRIATELY. VOIDING QS. LUNGS REMAIN CLEAR.
--- NOTE | 2018-06-14 07:55 | NUR ---
REPORT RECEIVED FROM NIGHTSWYFT. PT UP IN CHAIR, DEBBIO. OLYA PAIN. CALL LIGHT IN REACH. NO NEEDS AT THIS TIME.
--- NOTE | 2018-06-14 08:57 | NUR ---
SBA TO BATHRTOOM TO CELAN UP. PT REFUSED SHOWER AND OPTED FOR WET WIPES. BACK TO CHAIR. ASSESSEMENT DONE. LUNGS CLEAR, HEART RATE IRREGULAR. EDEMA IN LLE +1 TRACE IN RLE. DENIES RADHA/NUMBNESS/TINGLING. ABDOMEN DISTENDED, NON-TENDER. PT REPORTING BM YESTERDAY. REFUSING MIRALAX. BOWEL TONES ACTIVE. VSS. ATE 100% BREAKFAST. CALL LIGHT IN REACH. DENEIS FURTHER NEEDS.
--- NOTE | 2018-06-14 09:20 | NUR ---
SPOKE WITH PATIENT AND IN ROOM. PATIENT IS ABLE TO DISCUSS DIAGNOSIS AND HER MEDICATIONS. SHE IS AWARE THAT SOME MAY CHANGE AT DISCHARGE. SHE STATES SHE KNOWS SHE WILL BE SEEING DR PULIDO AND DR BLANCO FOR FOLLOW UP. SHE STATES WILL DRIVE HER HOME AND TO APPOINTMENTS. WE DISCUSSED CHW PROGRAM AND SHE IS INTERESTED IN THIS. WE DISCUSSED FOR HER TO FEEL FREE TO ASK QUESTIONS AT DISCHARGE IF SHE IS NOT UNDERSTANDING SOMETHING. DISCUSSED SHE SHOULD KNOW HER DIAGNOSIS, TEST RESULTS, MEDICATIONS AND THEIR SIDE EFFECTS BEFORE SHE GOES HOME. SHE STATES SHE FEELS COMFORTABLE WITH THE PLAN OF GOING HOME WITH THIS FOLLOW UP. NO FURTHER QUESTIONS AT THIS TIME. STAFF UUPDATED.
--- NOTE | 2018-06-14 10:06 | NUR ---
SBA TO BATHROOM. MINIMAL HELP. VOIDED 300ML. BACK UP TO CHAIR. HEART RATE STABLE WITH A HIGH ON 110. CALL LIGHT IN REACH. DENIES SOB. NO FURTHER NEEDS. AT BEDSIDE.
[2018-06-14] MEDS ORDERED: TOPROL XL50 MG PO (10:54)
--- NOTE | 2018-06-14 12:27 | NUR ---
PT SITTING IN CHAIR, ALERT AND ORIENTED. HER IS AT BS. SHE STATED SHE IS PLANNING ON DC TODAY. VERY PLEASANT VISIT, GAVE EXIT INSTRUCTIONS TO . EXTENDED A BLESSING, WILL FOLLOW NEEDED
== END 2018-06-14 13:00 | disposition home or self-care (01) | DRG 309 ==
LOC: ED 18:42 → CCU 18:43
PROVIDERS: ADMIT Internal Medicine
DX: I49.5 Sick sinus syndrome (principal); N17.9 Acute kidney failure, unspecified; I50.32 Chronic diastolic (congestive) heart failure; I48.91 Unspecified atrial fibrillation; E86.0 Dehydration; I11.0 Hypertensive heart disease with heart failure; K21.9 Gastro-esophageal reflux disease without esophagitis; E11.9 Type 2 diabetes mellitus without complications; E03.9 Hypothyroidism, unspecified; E78.5 Hyperlipidemia, unspecified; H35.3190 Nonexudative age-related macular degeneration, unspecified eye, stage unspecified; H54.8 Legal blindness, as defined in USA; Z79.01 Long term (current) use of anticoagulants; Z79.84 Long term (current) use of oral hypoglycemic drugs; Z79.51 Long term (current) use of inhaled steroids; Z79.899 Other long term (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 therapy; Z88.8 Allergy status to other drugs, medicaments and biological substances
CPT/HCPCS: 36415; 80048; 80053; 80076; 84484; 85025; 93005; 93010; 99285-25; J1815; J7030

== ENCOUNTER 2018-07-09 09:03 | Emergency (ER) | payer MEDICARE, OTHER ==
[~2018-07-09] VITALS: Ht 152.4 cm; Wt 69.4 kg
--- OUTSIDE RECORDS SUMMARY | ~2018-07-09 | XMS | Clinical Summary ---
Demographics + + + | Address | [address] | | | [place] [address] | + + + | Home Phone | | + + + | Preferred Language | Unknown | + + + | Marital Status | Single | + + + | Zoroastrianism Affiliation | Unknown | + + + | Race | Unknown | + + + | Ethnic Group | Other Race | + + + Author + + + | Author | [facility] | + + + | Organization | [facility] | + + + | Address | Unknown | + + + | Phone | Unavailable | + + + Care Team Providers + +------+ + | Care Video Production Intern Name | Role | Phone | + +------+ + PP | Unavailable | + +------+ + Source Comments RODO is fully live on both [facility] Ambulatory and [facility] InPatient.[facility] Allergies Not on File Current Medications Not on file Active Problems Not on file Social History + +-------+ +--------+------+ | Tobacco [...] on file | | + + + Plan of Treatment + + + + + | Health Maintenance | Due Date | Last Done | Comments | + + + + + | Pneumococcal (Adult) | | | | | (1 of 2 - PCV13) | 5 | | | + + + + + | Influenza (Flu) | | | | | vaccination (Season | 9 | | | | Ended) | | | | + + + + + Results Not on filefrom Last 3 Months Insurance + +--------+ +--------+ + + | Payer | Benefi | Subscriber | Type | Phone | Address | | | t Plan | ID | | | | | | / | | | | | | | Group | | | | | + +--------+ +--------+ + + | MEDICARE | MEDICA | xxxxxxxxxx | Medica | +1- | [address] | | | RE A & | | re | [phone] | [place] [address] | | | B | | | | | + +--------+ +--------+ + + | COMMERCIAL GROUP | COMMER | xxxxxxx | Indemn | | | | | CIAL | | ity | | | | | GROUP | | | | | + +--------+ +--------+ + + + +--------+ +--------+ + + | Guarantor Name | Accoun | Relation to | Date | Phone | Billing Address | | | t Type | Patient | of | | | | | | | | | | + +--------+ +--------+ + + | SHARI MCGREGOR | Person | Self [birth year] Home: | [address] | | | al/Fam | | 1931 | [phone] | [place] [address] | | | sonal | | | [phone] | | + +--------+ +--------+ + +"
--- OUTSIDE RECORDS SUMMARY | ~2018-07-09 | XMS | Clinical Summary ---
Demographics + + + | Address | [address] | | | [place] [address] | + + + | Home Phone | | + + + | Preferred Language | Unknown | + + + | Marital Status | Single | + + + | Anabaptism Affiliation | Unknown | + + + | Race | Unknown | + + + | Ethnic Group | Other Race | + + + Author + + + | Author | [facility] | + + + | Organization | [facility] | + + + | Address | Unknown | + + + | Phone | Unavailable | + + + Care Team Providers + +------+ + | Care Undercover Operator Name | Role | Phone | + +------+ + PP | Unavailable | + +------+ + Source Comments RODO is fully live on both [facility] Ambulatory and [facility] InPatient.[facility] Allergies Not on File Current Medications Not [...] | Medica | +1- | [address] | | | RE A & | | re | [phone] | [place] [address] | | | B | | | [...] Self | [birth year] | Home: | [address] | | | al/Fam | | 1931 | [phone] | [place] [address] | | | sonal | | | [phone] | | + +--------+ +--------+ + +"
--- OUTSIDE RECORDS SUMMARY | ~2018-07-09 | XMS | Clinical Summary ---
Demographics + + + | Address | [address] | | | [place] [address] | + + + | Home Phone | | + + + | Preferred Language | Unknown | + + + | Marital Status | | + + + | Congregational Affiliation | Unknown | + + + | Race | Unknown | + + + | Ethnic Group | Unknown | + + + Author + + + | Author | [facility] | + + + | Organization | [facility] | + + + | Address | Unknown | + + + | Phone | Unavailable | + + + Support + + +---------+ + | Name | Relationship | Address | Phone | + + +---------+ + | Fausto Mcgregor | ECON | Unknown | | | ([place]) | | | | + + +---------+ + | Deborah Kenyon | ECON | Unknown | | + + +---------+ + | Mat Arambula | ECON | Unknown | | + + +---------+ + Care Team Providers + +------+ + | Care Tower Operator Name | Role | Phone | [...] | | | | e | | ([facility] | | | | | | [...] 19 | | | + + +--------+---------+------+------+-------+ Active Problems + [...] | Father | | | heart disease ([place]), HTN,Hyperlipidemia | | | | (Age | [...] Description | +--------+---------+ + + + | 07/11/ | Office | | Denise Chakraborty, | | | 2018 | Visit | | MD Eduardo Nguyen | | | | | | Dr Jaimes, | | | | | | [place] [address] | | | | | | [phone] | | | | | | | | +--------+---------+ + + + | 08/08/ | Office | | Denise Chakraborty, | | | 2018 | Visit | | MD Eduardo Nguyen | | | | | | Dr Jaimes, | | | | | | [place] [address] | | | | | | [phone] | | | | | | | [...] + + from Last 3 Months Results EKG STANDARD 12 LEAD (06/06/2018 12:50 PM) + [...] + + + + | Calculated R [place] | -35 | degrees | [facility] | + + + + + | Calculated T [place] | 64 | degrees | [facility] E[facility] [...] | | | | | by [facility] [place] [facility], | | | | | [facility] Wendy ([id number]), | | | | | assignment editor Guerdamario Martell | | | | | ([phone]) on 06/07/2018 | | | | | 10:37:53 AM | | | + + + + + + + + + + | Performing | Address | City/State/Zipcode | Phone Number | | Organization | | | | + + + + + | [facility] | [address] | [place] [address] | | + + + + + [...] +------+-------+ + | MEDICARE | MEDICA | [id number] | | | [address] | | | RE | | | | [place] [address] | | | IP-OP | | | | | + +--------+ +------+-------+ + | COMMERCIAL OTHER | COMMER | [id number] | | | | | | CIAL [...] [address] | | | al/Fam | | 1931 | [phone] | [place] | | | sonal | | | [phone] | [phone] | + +--------+ +--------+ + +
--- OUTSIDE RECORDS SUMMARY | ~2018-07-09 | XMS | Encounter Summary ---
Demographics + + + | Address | [address] | | | [place] [address] | + + + | Home Phone | | + + + | Preferred Language | Unknown | + + + | Marital Status | | + + + | Jainism Affiliation | Unknown | + + + | Race | Unknown | + + + | Ethnic Group | Unknown | + + + Author + + + | Author | [employer] [facility] [employer] | + + + | Organization | [facility] | + + + | Address | Unknown | + + + | Phone | Unavailable | + + + Support + + +---------+ + | Name | Relationship | Address | Phone | + + +---------+ + | Fausto Clark | ECON | Unknown | | | ([place]) | | | | + + +---------+ + | Deborah Kenyon | ECON | Unknown | | + + +---------+ + | Mat Arambula | ECON | Unknown | | + + +---------+ + Care Team Providers + +------+ + | Care Hotel Front Desk Clerk Name | Role | Phone | + [...] | | | | fibrillation | [place] | [place] | | | | | ([facility]) | [address] | [address] | | | | | Mixed | Phone: | Phone: | | | | | hyperlipidem | [phone] | [phone] | | | | | ia | Fax: | Fax: | | | | | Procedures | [phone] | [phone] | | | | | Echo cardiac [...] + + | 06/06/ | Office | [facility] | Denise Pinto, | Essential | | 2019 | Visit | Cardiology [place] | [address] | hypertension | | | | [address] | Dr Jaimes, | (Primary Dx); | | | | [place] [address] | [place] [address] | Chronic atrial | | | | [place] [address] | [phone] | fibrillation (HCC); | | | | [phone] | | Mixed hyperlipidemia | +--------+---------+ + [...] toleratin g therapy well. Follows up with [facility] Coumadin clinic. Past medical history, SH, FH, [...] MD, MPHin this encounter Plan of Treatment +--------+---------+ + + + | Date | Type | Specialty | Care Team | Description | +--------+---------+ + + + | 07/11/ | Office | Cardiology | Denise Pinto, | | | 2018 | Visit | | MD Eduardo Nguyen | | | | | | Dr Jaimes, | | | | | | [place] [address] | | | | | | [phone] | | | | | | | | +--------+---------+ + + + | 08/08/ | Office | Cardiology | Denise iPnto, | | | 2018 | Visit | | MD Eduadro Nguyen | | | | | | Dr Jaimes, | | | | | | [place] [address] | | | | | | [phone] | | | | | | | | +--------+---------+ + + + + +--------+ + + [...] + + + in this encounter Results EKG STANDARD 12 LEAD (06/06/2018 12:50 PM) + + + + + | Component | Value | Ref Range | Performed At | + + + + + | Ventricular Rate | 113 | BPM | [facility] | + + + + + | Atrial Rate | 113 | BPM | [facility] | + + + + + [...] + + + + | Calculated R [place] | -35 | degrees | [facility] | + + + + + | Calculated T [place] | 64 | degrees | [facility] | + + + + + | Diagnosis | Sinus tachycardia with | | [facility] E[facility] | | | 1st degree A-V [...] | | | | | by [facility] [place] Read Only, | | | | | [facility] Wendy ([id number]), | | | | | supervising film or videotape editor Martell Kelly | | | | | ([id number]) on 06/07/2018 | | | | | 10:37:53 AM | | | + + + + + + + + + + | Performing | Address | City/State/Zipcode | Phone Number | | Organization | | | | + + + + + | [facility] | [address] | [place] [address] | | + + + + + in this encounter Visit Diagnoses + + | Diagnosis | + + | Essential hypertension - Primary | + + | Unspecified essential hypertension | + + | Chronic atrial fibrillation (HCC) | + + | Atrial fibrillation | + + | Mixed hyperlipidemia | + +
--- OUTSIDE RECORDS SUMMARY | ~2018-07-09 | XMS | Clinical Summary ---
Demographics + + + | Address | [address] | | | [place] [address] | + + + | Home Phone | | + + + | Preferred Language | Unknown | + + + | Marital Status | | + + + | Quaker Affiliation | Unknown | + + + | Race | Unknown | + + + | Ethnic Group | Unknown | + + + Author + + + | Author | [employer] [facility] | + + + | Organization | [facility] | + + + | Address | Unknown | + + + | Phone | Unavailable | + + + Support + + +---------+ + | Name | Relationship | Address | Phone | + + +---------+ + | Fausto Mcgregor | ECON | Unknown | | | ([place]) | | | | + + +---------+ + | Deborah Kenyon | ECON | Unknown | | + + +---------+ + | Mat Arambula | ECON | Unknown | | + + +---------+ + Care Team Providers + +------+ + | Care Gifted Teacher Name | Role | Phone | + [...] | | | Activ | | SA (ROALIA SAMSON) | daily. | | | | [...] | | | | e | | ([facility] | | | | [...] | Father | | | heart disease ([place]), HTN,Hyperlipidemia | | | | (Age | [...] | | | | | | [place] [address] | | | | | | [phone] | | | | | | | | +--------+---------+ + + + | 08/08/ | Office | | Denise Chakraborty, | | | 2018 | Visit | | MD Eduardo Nguyen | | | | | | Dr Jaimes, | | | | | | [place] [address] | | | | | | [phone] | | | | | | | [...] + + + + | Calculated R [place] | -35 | degrees | [facility] | + + + + + | Calculated T [place] | 64 | degrees | [facility] E[facility] [...] | | | | | by [facility] Read Only, | | | | | [facility] Wendy ([id number]), | | | | | news assignment editor Guerdamario Martell | | | | | ([phone]) on 06/07/2018 | | | | | 10:37:53 AM | | | + + + + + + + + + + | Performing | Address | City/State/Zipcode | Phone Number | | Organization | | | | + + + + + | [facility] | [address] | [place] [address] | | + + + + + [...] +------+-------+ + | MEDICARE | MEDICA | [id number] | | | [address] | | | RE | | | | [place] [address] | | | IP-OP | | | | | + +--------+ +------+-------+ + | COMMERCIAL OTHER | COMMER | [id number] | | | | | | CIAL [...] | sonal | | | [phone] | [phone] | + +--------+ +--------+ + +
--- OUTSIDE RECORDS SUMMARY | ~2018-07-09 | XMS | Encounter Summary ---
Demographics + + + | Address | [address] | | | [place] [address] | + + + | Home Phone | | + + + | Preferred Language | Unknown | + + + | Marital Status | | + + + | Jainism Affiliation | Unknown | + + + | Race | Unknown | + + + | Ethnic Group | Unknown | + + + Author + + + | Author | [facility] | + + + | Organization | [facility] | + + + | Address | Unknown | + + + | Phone | Unavailable | + + + Support + + +---------+ + | Name | Relationship | Address | Phone | + + +---------+ + | Fausto Clark | ECON | Unknown | | | ([place]) | | | | + + +---------+ + | Deborah Kenyon | ECON | Unknown | | + + +---------+ + | Mat Arambula | ECON | Unknown | | + + +---------+ + Care Team Providers + +------+ + | Care Implementation Engineer Name | Role | Phone | + [...] | | | | fibrillation | [address] | [place] | | | | | ([facility]) | [address] | [address] | | | | | Mixed | Phone: | Phone: | | | | | hyperlipidem | [phone] | [phone] | | | | | ia | Fax: | Fax: | | | | | Procedures | [phone] | [phone] | | | | | Echo cardiac [...] + + | 06/06/ | Office | [facility] | Denise Pinto, | Essential | | 2019 | Visit | Cardiology [place] | [address] | hypertension | | | | [address] | Dr Jaimes, | (Primary Dx); | | | | [place] [address] | [place] [address] | Chronic atrial | | | | [place] [address] | [phone] | fibrillation (HCC); | | | | [phone] | | Mixed hyperlipidemia | +--------+---------+ + [...] toleratin g therapy well. Follows up with [facility]. Past medical history, SH, FH, [...] | | | | | | [place] [address] | | | | | | [phone] | | | | | | | | +--------+---------+ + + + | 08/08/ | Office | Cardiology | Denise Pinto, | | | 2018 | Visit | | MD Eduardo Nguyen | | | | | | Dr Jaimes, | | | | | | [place] [address] | | | | | | [phone] | | | | | | | [...] + + + + | Calculated R [place] | -35 | degrees | [facility] EKG | + + + + + | Calculated T [place] | 64 | degrees | [facility] EKG | + + + + + | Diagnosis | Sinus tachycardia with | | [facility] EKG | | | 1st [...] | | | | | by [facility] [place] Read Only, | | | | | [facility] Wendy ([id number]), | | | | | medical transcription editor Martell Kelly | | | | | ([id number]) on 06/07/2018 | | | | | 10:37:53 AM | | | + + + + + + + + + + | Performing | Address | City/State/Zipcode | Phone Number | | Organization | | | | + + + + + | [facility] EKG | [address] | [place] [address] | | + + + + + in this encounter Visit Diagnoses + + | Diagnosis | + + | Essential hypertension - Primary | + + | Unspecified essential hypertension | + + | Chronic atrial fibrillation (HCC) | + + | Atrial fibrillation | + + | Mixed hyperlipidemia | + +
[~2018-07-09 09:03] MED LIST changes: +PRADAXA150 MG PO; +TOPROL XL50 MG PO
--- OUTSIDE RECORDS SUMMARY | 2018-07-09 09:06 | XMS ---
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 E.D. VISIT COUNT (12 MO.) 2 [facility] TOTAL 2 NOTE: Visits indicate total known visits. ED/UCC VISIT TRACKING (12 MO.) 07/09/2018 09:04 [facility] [place] TYPE: Emergency COMPLAINT: - WEAKNESS 06/11/2018 18:42 [facility] [place] TYPE: Emergency COMPLAINT: - WEAKNESS INPATIENT VISIT TRACKING (12 MO.) 06/12/2018 12:[address] 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 (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 therapy - Nonexudative age-related macular degeneration, unspecified eye, stage unspecified - Nonexudative age-related macular degeneration, unspecified eye, stage unspecified - Other mcc (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 therapy - Hyperlipidemia, unspecified - Sick sinus syndrome - Hyperlipidemia, unspecified - Dehydration - Sick sinus syndrome - Legal blindness, 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[place] - Hypothyroidism, unspecified - Allergy status to other drugs, medicaments and biological substances status - Hypothyroidism, unspecified - Unspecified atrial fibrillation - Type 2 diabetes mellitus without complications - Acute kidney failure, unspecified - Allergy status to other drugs, medicaments and biological substances status - 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
--- NOTE | 2018-07-10 13:38 | EKG ---
[facility] [address] [place] [address] Signed Atrial fibrillation Left axis deviation Minimal voltage criteria for LVH, may be normal variant Septal infarct (cited on or before 11-JUN-2018) Abnormal ECG When compared with ECG of 11-JUN-2018 18:45, Current undetermined rhythm precludes rhythm comparison, needs review T wave inversion no longer evident in Inferior leads Confirmed by SHIRA HAIDER MD ([id number]) on 07/10/2018 1:38:14 PM Electronically Signed By: SHIRA HAIDER MD 07/10/18 1338 PATIENT NAME: SHARI MCGREGOR Electrocardiogram DATE OF : [birth year] PHYSICIAN: SHIRA HAIDER MD REPORT #: [id number] REPORT IS CONFIDENTIAL AND NOT TO BE RELEASED WITHOUT AUTHORIZATION
== END 2018-07-09 15:05 | disposition home or self-care (01) ==
LOC: ED 09:03
DX: R53.1 Weakness (principal); E11.9 Type 2 diabetes mellitus without complications; I10 Essential (primary) hypertension; E78.5 Hyperlipidemia, unspecified; I48.91 Unspecified atrial fibrillation; Z87.891 Personal history of nicotine dependence; Z88.1 Allergy status to other antibiotic agents; Z79.84 Long term (current) use of oral hypoglycemic drugs; Z79.899 Other long term (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 therapy
CPT/HCPCS: 80053; 81001; 83690; 85025; 93005; 93010; 99285-25

== ENCOUNTER 2018-09-01 17:34 | Emergency (ER) | payer MEDICARE, OTHER ==
[~2018-09-01] VITALS: Ht 152.4 cm; Wt 69.4 kg
--- NOTE | 2018-09-02 17:28 | EKG ---
[facility] [address] [facility] [place], [place] [address] Signed Atrial fibrillation Left axis deviation Left ventricular hypertrophy with QRS widening Abnormal ECG Confirmed by YAMILA MARES DO ([id number]) on 09/02/2018 5:28:06 PM Electronically Signed By: YAMILA MARES DO 09/02/18 1728 PATIENT NAME: SHARI MCGREGOR Electrocardiogram DATE OF : [birth year] PHYSICIAN: YAMILA MARES DO REPORT #: [id number] REPORT IS CONFIDENTIAL AND NOT TO BE RELEASED WITHOUT AUTHORIZATION
== END 2018-09-01 18:49 | disposition home or self-care (01) ==
LOC: ED 17:34
DX: R06.00 Dyspnea, unspecified (principal); I10 Essential (primary) hypertension; E11.9 Type 2 diabetes mellitus without complications; Z88.1 Allergy status to other antibiotic agents; Z79.899 Other long term (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 therapy
CPT/HCPCS: 71045; 80053; 83735; 83880; 84484; 85025; 93005; 93010; 99285-25

== ENCOUNTER 2019-01-21 16:05 | Emergency (ER) | payer MEDICARE, OTHER ==
[~2019-01-21] VITALS: Ht 152.4 cm; Wt 64.9 kg
--- OUTSIDE RECORDS SUMMARY | ~2019-01-21 | XMS | Encounter Summary ---
Demographics + + + | Address | [address] | | | [place] [address] | + + + | Home Phone | | + + + | Preferred Language | Unknown | + + + | Marital Status | Single | + + + | Buddhist Affiliation | Unknown | + + + | Race | Unknown | + + + | Ethnic Group | Other Race | + + + Author + + + | Author | [facility] | + + + | Organization | [facility] | + + + | Address | Unknown | + + + | Phone | Unavailable | + + + Care Team Providers + +------+ + | Care Medical Coordinator Pesticide Use Name | Role | Phone | + +------+ + PCP | Unavailable | + +------+ + Encounter Details +--------+ + + + + | Date | Type | Department | Care Team | Description | +--------+ + + + + | 09/14/ | Hospital | Dermatopathology | | | | 2012 | Encounter | [address] | | | | | | Mailcode: CH16D | | | | | | [facility] | | | | | | and Healing, | | | | | | [address] | | | | | | Floor [place], [place] | | | | | | [address] | | | | | | [phone] | | | +--------+ + + + + Social History + +-------+ +--------+------+ | Tobacco Use | Types | Packs/Day | Years | Date | | | | | Used | | + +-------+ +--------+------+ | Never Assessed | | | | | + +-------+ +--------+------+ + + + | Sex Assigned at | Date Recorded | | | | + + + | Not on file | | + + + + + + + | Job Start Date | Occupation | Industry | + + + + | Not on file | Not on file | Not on file | + + + + + + + + | Travel History | Travel Start | Travel End | + + + + + + | No recent travel history available. | + + documented as of this encounter Plan of Treatment Not on filedocumented as of this encounter Procedures + +--------+ + + + | Procedure Name | Priori | Date/Time | Associated Diagnosis | Comments | | | ty | | | | + +--------+ + + + | DERMATOPATHOLOGY(WET | Routin | 09/14/2012 | | Results for this | | [facility]) | e | | | procedure are in the | | | | | | results section. | + +--------+ + + + documented in this encounter Results DERMATOPATHOLOGY(WET [facility]) (09/14/2012) + + + + + + | Component | Value | Ref Range | Performed | Pathologist | | | | | At | Signature | + + + + + + | DERMATOPATH | SOURCE OF SPECIMEN:A Lt. | | [facility] | | | OLOGY(WET | dorsal foot, shave | | DERMATOPATH | | | [facility]) | biopsy CLINICAL | | OLOGY | | | | DESCRIPTION:10x8 mm | | | | | | variegated brown | | | | | | asymmetrical macule with | | | | | | irregular borders; | | | | | | r/oatypical nevus. | | | | | | GROSS | | | | | | DESCRIPTION:Received in | | | | | | formalin is a specimen | | | | | | labeled Francisca Clark:Karen: | | | | | | Specimen is labeled "L | | | | | | dorsal foot" and | | | | | | consists of an irregular | | | | | | shaveof brown-foy skin, | | | | | | [id number]. The surgical | | | | | | margin is inked black; | | | | | | thetissue is serially | | | | | | sectioned, and entirely | | | | | | submitted in cassette | | | | | | A1. MICROSCOPIC | | | | | | DESCRIPTION:There is a | | | | | | moderately broad, mostly | | | | | | well circumscribed, | | | | | | predominatelyjunctional | | | | | | melanocytic neoplasm | | | | | | characterized by nests, | | | | | | some of themfocally | | | | | | confluent, as well as | | | | | | single melanocytes | | | | | | primarily | | | | | | distributedalong the | | | | | | hyperpigmented basal | | | | | | layer. Most of the | | | | | | melanocytic nuclei | | | | | | aremoderately large and | | | | | | oval to fusiform, and | | | | | | most of the cells | | | | | | containamphophilic | | | | | | cytoplasm with melanin. | | | | | | There is a sparse | | | | | | underlyinglymphocytic | | | | | | infiltrate. 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 | | | | | | NOTE: The nevus | | | | | | appears to be completely | | | | | | excised in these | | | | | | sections. | | | | | | KPW:emr7/[id number] My | | | | | | electronic signature | | | | | | indicates that I have | | | | | | personally reviewed | | | | | | alldiagnostic slides, | | | | | | the gross and/or | | | | | | microscopic portion of | | | | | | thisreport and | | | | | | formulated the final | | | | | | diagnosis. | | | | | | Rendering Diagnostician: | | | | | | Nicolas De Anda | | | | | | Khloei | | | | | | alexsandra Signed 09/18/2012 | | | | | | 2:31PM | | | | + + + + + + + + | Specimen | + + | | + + + + + + + | Performing | Address | City/State/Zipcode | Phone Number | | Organization | | | | + + + + + | [facility] | Mailcode [address], [address] | [place] [address] | | | DERMATOPATHOLOGY | [address] | | | + + + + + documented in this encounter Visit Diagnoses Not on filedocumented in this encounter
--- OUTSIDE RECORDS SUMMARY | ~2019-01-21 | XMS | Encounter Summary ---
Demographics + + + | Address | [address] | | | [place] [address] | + + + | Home Phone | | + + + | Preferred Language | Unknown | + + + | Marital Status | | + + + | Mosque Affiliation | Unknown | + + + | Race | Unknown | + + + | Ethnic Group | Unknown | + + + Author + + + | Author | [facility] | | | and [place] | + + + | Organization | [facility] | | | and [place] | + + + | Address | Unknown | + + + | Phone | Unavailable | + + + Support + + +---------+ + | Name | Relationship | Address | Phone | + + +---------+ + | Fausto Eisenberg) | ECON | Unknown | | | [place] | | | | + + +---------+ + | Deborah Kenyon | ECON | Unknown | | + + +---------+ + | Mat Arambula | ECON | Unknown | | + + +---------+ + Care Team Providers + +------+ + | Care Polymerization Supervisor Name | Role | Phone | + +------+ + | Devante Mercer MD | PCP | | + +------+ + Reason for Visit Auth/Cert +--------+--------+ + + + + | Status | Reason | Specialty | Diagnoses / | Referred By | Referred To | | | | | Procedures | Contact | Contact | +--------+--------+ + + + + | | | | Diagnoses | | | | | | | Symptomatic | | | | | | | bradycardia | | | +--------+--------+ + + + + Encounter Details +--------+---------+ + + + | Date | Type | Department | Care Team | Description | +--------+---------+ + + + | 01/12/ | Surgery | [facility] | Leland Ulloa MD | CV EP PPM SYSTEM | | 2019 | | CENTER CV INTRA OP | [address] | IMPLANT | | | | [address] | [place] [address] | | | | | [place], [place] | [phone] | | | | | [address] | | | | | | [phone] | | | +--------+---------+ + + + Social History + +-------+ +--------+------+ | Tobacco Use | Types | Packs/Day | Years | Date | | | | | Used | | + +-------+ +--------+------+ | Never Smoker | | | | | + +-------+ +--------+------+ + +---+---+---+ | Smokeless Tobacco: | | | | | Never Used | | | | + +---+---+---+ + + +---------+ + | Alcohol Use | Drinks/Week | oz/Week | Comments | + + +---------+ + | Not Currently | | | | + + +---------+ + + + + + | Alcohol Habits | Answer | Date Recorded | + + + + | How often do you have a drink containing | Never | 11/13/2018 | | alcohol? | | | + + + + | How many drinks containing alcohol do you | Not asked | | | have on a typical day when you are | | | | drinking? | | | + + + + | How often do you have six or more drinks on | Not asked | | | one occasion? | | | + + + + + + + | Sex Assigned at [...] + + documented as of this encounter Last Filed Vital Signs + + + + + | Vital Sign | Reading | Time Taken | Comments | + + + + + | Blood Pressure | 115/58 | 01/13/2019 11:39 AM | | | | | PST | | + + + + + | Pulse | 89 | 01/13/2019 11:39 AM | | | | | PST | | + + + + + | Temperature | 36.8 C (98.2 F) | 01/13/2019 11:39 AM | | | | | PST | | + + + + + | Respiratory Rate | 20 | 01/13/2019 11:39 AM | | | | | PST | | + + + + + | Oxygen Saturation | 96% | 01/13/2019 11:39 AM | | | | | PST | | + + + + + | Inhaled Oxygen | - | - | | | Concentration | | | | + + + + + | Weight | 64.5 kg (142 lb 3.2 | 01/13/2019 4:12 AM | | | | oz) | PST | | + + + + + | Height | - | - | | + + + + + | Body Mass Index | 28.72 | 11/28/2018 10:36 AM | | | | | PDT | | + + + + + documented in this encounter Discharge Summaries Bettye Cheney DO - 01/13/2019 11:02 AM PSTFormatting of this note might be different fr om the original. ADULT HOSPITALIST DISCHARGE SUMMARY Patient: Francisca Clark : 1930 Date of Admission: 01/11/2019 Date of Discharge: 01/13/2019 Treatment Team: Denise Chakraborty MD; Leland Ulloa MD Discharging Provider: Bettye Cheney DO Discharge Diagnoses: Principal Problem: Symptomatic bradycardia Active Problems: DMII (diabetes mellitus, type 2) Paroxysmal atrial fibrillation Essential hypertension Procedures Performed: Chief Complaint: No chief complaint on file. Hospital Course: Francisca Clark is a 88 y.o. female who was admitted on 01/11/2019 with symptomatic bradycardia secondary to sick sinus syndrome. The patient is a88 y.o.femalewith significant past medical history of paroxysmal atri al fibrillation on pradaxa, hx cardioversion twice in the past and follows w Dr. Chakraborty, t ype 2 diabetes mellitus, hypertension, chronic kidney disease stage II, and hypothyroidism w mónica presented to emergency department of [facility] in [facility] today w ith severe dizziness and shortness of breath secondary to bradycardia. In emergency department she was found to be bradycardic with documented heart rate as low a s 34.Blood work-up was essentially normal. Shows sinus bradycardia with heart rate of 47/min. She was transferred to [facility] for Cardiology evaluation for possible pacemaker. Dr. Chakraborty has been consulted. Pacemaker was placed 01/12/19 without complication. Patient symptomatica lly improved post placement. Pradaxa was resumed prior to discharge. Discharge Exam and Data: Vital Signs: BP 115/58 | Pulse 89 | Temp 36.8 C (98.2 F) (Oral) | Resp 20 | Wt 64.5 kg (142 lb 3 .2 oz) | SpO2 96% | BMI 28.72 kg/m General: Alert, no distress, lying in bed Eyes: PERRL, no scleral icterus, no dischage ENT: External ears normal, Nose normal, oropharynx moist no exudates Neck: Supple, no thyromegaly Cardiovascular: Regular rate and rhythm, no murmurs, no rub Chest: Dressing over pacer c/d/i. Minimal shoulder pain. Mild left arm swelling. Respiratory: No respiratory distress, clear bilaterally, no wheezing Abdomen: Soft, non-tender, non-distended, active bowel sounds Back: No tenderness or deformity Skin: Warm and dry, no rashes Extremities: No edema, no joint deformities Neuro: No gross motor/sensory deficit. CN grossly intact. Alert and oriented to person, pl gavin, time. Recent Labs Recent Labs Lab 01/12/19 0539 WBC 9.94 HGB 12.4 HCT 37.8 PLT 381 Recent Labs Lab 01/12/19 0539 NA 140 K 3.9 CL 105 CO2 29 BUN 21 CALCIUM 9.7 No results for input(s): INR in the last 168 hours. Recent Radiology Results CXR 01/13/19 Pacing leads appear appropriately position and are stable. Bibasilar atelectasis and tiny bilateral effusions. No discharge procedures on file. Outstanding Issues: None Discharge Information: Follow up: Denise Chakraborty MD [address] [facility] [id number] In 2 weeks For follow up Discharge Medications New Medications Details metoprolol succinate 50 mg 24 hr tablet Take 1 tablet by mouth Daily. aka: TOPROL-XL Start: January 14, 2019 Unchanged Medications Details amiodarone 200 mg tablet Take 1 tablet by mouth Daily. aka: PACERONE ascorbic acid 1000 MG tablet Take 1,000 mg by mouth daily. aka: VITAMIN C CALCIUM 1000 + D 1000-800 MG-UNIT Tabs Generic drug: Calcium Carb-Cholecalciferol Take 1,000 mg by mouth daily. cholecalciferol 25 mcg (1,000 units) capsule Take 1,000 Units by mouth daily. aka: VITAMIN D-3 Cranberry 450 MG Caps Take by mouth. cyanocobalamin 1000 MCG tablet Take 1,000 mcg by mouth every other day. aka: VITAMIN B-12 dabigatran 150 mg capsule Take 1 capsule by mouth 2 times daily for 180 days. aka: PRADAXA fish oil 1,000 mg capsule Take 1 g by mouth daily. fluticasone 50 mcg/nasal spray 1 spray by Each Nare route as needed for Rhinitis. aka: FLONASE glipiZIDE 10 mg ER tablet Take 10 mg by mouth daily. aka: GLUCOTROL XL hydroCHLOROthiazide 25 mg tablet Take 1 tablet by mouth daily. isosorbide mononitrate 30 mg ER tablet Take 1 tablet by mouth daily. aka: IMDUR latanoprost 0.005% ophthalmic solution 1 drop nightly. aka: XALATAN levothyroxine 125 mcg tablet Take 125 mcg by mouth every morning before breakfast. aka: SYNTHROID lisinopril 40 MG tablet Take 1 tablet by mouth daily. aka: PRINIVIL,ZESTRIL metFORMIN 500 mg 24 hr tablet Take 1 tablet by mouth 2 (two) times daily with meals. aka: GLUCOPHAGE-XR MULTIPLE VITAMINS-MINERALS PO Take by mouth daily. tocopherol 400 units capsule Take 400 Units by mouth daily. aka: VITAMIN E Disposition: home Condition: Fair Code Status: Full Code Discharge took 40 minutes, to include final examination, discussion of admission, and prepa ration of prescriptions, instructions for on-going care, follow-up and documentation of disc harge summary. Bettye Cheney DO 1:39 PM documented in this e ncounter Discharge Instructions AttachmentsThe following attachments cannot be sent through Care Everywhere.PacemakerLinda with (Welsh)Pacemaker Implantation, Discharge Instructions for (Welsh)documented in t his encounter Medications at Time of Discharge + + + +---------+ + + | Medication | Sig | Dispensed | Refills | Start | End Date | | | | | | Date | | + + + +---------+ + + | amiodarone | Take 1 tablet by | 30 | 1 | 10/25/19 | | | (PACERONE) 200 mg | mouth Daily. | tablet | | 19 | 0 | | tabletIndications: | | | | | | | Persistent atrial | | | | | | | fibrillation | | | | | | + + + +---------+ + + | ascorbic acid | Take 1,000 mg by | | 0 | 09/14/19 | | | (VITAMIN C) 1000 MG | mouth daily. | | | 19 | | | tablet | | | | | | + + + +---------+ + + | Calcium | Take 1,000 mg by | | 0 | 03/23/19 | | | Carb-Cholecalciferol | mouth daily. | | | 16 | | | (CALCIUM 1000 + D) | | | | | | | 1000-800 MG-UNIT | | | | | | | TABS | | | | | | + + + +---------+ + + | cholecalciferol | Take 1,000 Units by | | 0 | 03/23/19 | | | (VITAMIN D-3) 1,000 | mouth daily. | | | 16 | | | units capsule | | | | | | + + + +---------+ + + | Cranberry 450 MG | Take by mouth. | | 0 | 09/14/19 | | | CAPS | | | | 19 | | + + + +---------+ + + | cyanocobalamin | Take 1,000 mcg by | | 0 | 03/23/19 | | | (VITAMIN B-12) 1000 | mouth every other | | | 16 | | | MCG tablet | day. | | | | | + + + +---------+ + + | dabigatran | Take 1 capsule by | 60 | 5 | 01/14/20 | | | (PRADAXA) 150 mg | mouth 2 times daily | capsule | | 19 | 0 | | capsule | for 180 days. | | | | | + + + +---------+ + + | fish oil 1,000 mg | Take 1 g by mouth | | 0 | 03/23/19 | | | capsule | daily. | | | 16 | | + + + +---------+ + + | fluticasone | 1 spray by Each Nare | | 0 | 09/14/19 | | | (FLONASE) 50 | route as needed for | | | 19 | | | mcg/nasal spray | Rhinitis. | | | | | + + + +---------+ + + | glipiZIDE | Take 10 mg by mouth | | 0 | 09/14/19 | | | (GLUCOTROL XL) 10 mg | daily. | | | 19 | | | ER tablet | | | | | | + + + +---------+ + + | | Take 1 tablet by | 30 | 2 | 09/15/19 | | | hydroCHLOROthiazide | mouth daily. | tablet | | 19 | 0 | | 25 mg tablet | | | | | | + + + +---------+ + + | isosorbide | Take 1 tablet by | 30 | 2 | 09/15/19 | | | mononitrate (IMDUR) | mouth daily. | tablet | | 19 | 0 | | 30 mg ER tablet | | | | | | + + + +---------+ + + | latanoprost | 1 drop nightly. | | 0 | 09/14/19 | | | (XALATAN) 0.005% | | | | 19 | | | ophthalmic solution | | | | | | + + + +---------+ + + | levothyroxine | Take 125 mcg by | | 0 | 09/14/19 | | | (SYNTHROID) 125 mcg | mouth every morning | | | 19 | | | tablet | before breakfast. | | | | | + + + +---------+ + + | lisinopril | Take 1 tablet by | 30 | 2 | 09/15/19 | | | (PRINIVIL,ZESTRIL) | mouth daily. | tablet | | 19 | 0 | | 40 MG tablet | | | | | | + + + +---------+ + + | metFORMIN | Take 1 tablet by | 60 | 2 | 09/14/19 | | | (GLUCOPHAGE-XR) 500 | mouth 2 (two) times | tablet | | 19 | 0 | | mg 24 hr tablet | daily with meals. | | | | | + + + +---------+ + + | metoprolol | Take 1 tablet by | 30 | 5 | 01/15/20 | | | succinate | mouth Daily. | tablet | | 19 | | | (TOPROL-XL) 50 mg 24 | | | | | | | hr tablet | | | | | | + + + +---------+ + + | MULTIPLE | Take by mouth | | 0 | 03/23/19 | | | VITAMINS-MINERALS PO | daily. | | | 16 | | + + + +---------+ + + | tocopherol | Take 400 Units by | | 0 | 09/14/19 | | | (VITAMIN E) 400 | mouth daily. | | | 19 | | | units capsule | | | | | | + + + +---------+ + + documented as of this encounter Progress Notes Lisha Bo RN - 01/13/2019 2:00 PM PSTPatient and family educated on S&S to watch for, follow-up appts, medications, and precautions and insertion site care following pacemak er insertion. Sling was applied. Answered all questions. VS stable. Patient took ID card , information booklet and CD. Patient escorted downstairs via wheelchair and family who sabrina l be transporting patient home. Patient advised to elevate L hand to decrease swelling and to remove ring until swelling is gone per MD. Chart check complete. Denise Abraham MD - 01/13/2019 8:[address] [facility] Service: Cardiology Progress Note Name of Reservoir Engineer: Denise Chakraborty MD I have seen the patient on 01/13/2019. S/P dual chamber pacemaker. Known history of paroxysmal atrial fibrillation on rhythm control strategy and anticoagulat ion. She has been having symptoms of dizziness and chronic shortness of breath plus weaknes s progressively getting worse. She has been using a walker more often. Her symptoms were w orse this morning hence she was evaluated in [facility] where she was found roderick ycardic heart rate reported to be done at the 30s. Hospitalized in September 2018 due to symptomatic atrial flutter/fibrillation had synchronized c ardioversion after starting amiodarone. Went back into atrial arrhythmia, had another cardioversion yesterday by electrophysiology. Continues to be on amiodarone. Was hospitalized in June 2018 secondary to weakness, ported to be bradycardic in the 30s. Admitted to the hospital however her heart rate was overall controlled. She had only one pause of 2.5 seconds. SUBJECTIVE Current Facility-Administered Medications: acetaminophen (TYLENOL) tablet 650 mg, 650 mg, Oral, Q4H PRN, Leland Ulloa MD, 650 mg at 01/12/19 1314 ascorbic acid (VITAMIN C) tablet 1,000 mg, 1,000 mg, Oral, Daily, Leland Ulloa MD, 1, 000 mg at 01/13/19 0805 atropine 1 mg/mL injection 1 mg, 1 mg, Intravenous, Once PRN, Leland Ulloa MD calcium-vitamin D 500 mg-200 units per tablet 1 tablet, 1 tablet, Oral, BID, Leland watkins MD, 1 tablet at 01/13/19 0805 cholecalciferol (VITAMIN D-3) tablet 3,000 Units, 3,000 Units, Oral, Daily, Leland Connolly si, MD, 3,000 Units at 01/13/19 0805 cyanocobalamin (VITAMIN B-12) tablet 1,000 mcg, 1,000 mcg, Oral, Every Other Day, Leland Ulloa MD, 1,000 mcg at 01/13/19 0804 Hypoglycemia Management, , , Until Discontinued AND POCT Glucose, , , PRN AND dextrose 50% injection 12.5-25 g, 12.5-25 g, Intravenous, PRN AND dextrose 10% (D10W) in fusion, , Intravenous, Continuous PRN, Leland Ulola MD Fish Oil delayed release capsule 1,000 mg, 1,000 mg, Oral, Daily, Leland Ulloa MD, 1, 000 mg at 01/13/19 0804 fluticasone (FLONASE) 50 mcg/nasal spray 1 spray, 1 spray, Each Nare, PRN, Leland Abdullahi i, MD glipiZIDE (GLUCOTROL) tablet 10 mg, 10 mg, Oral, QAM AC, Leland Ulloa MD, 10 mg at 0612 hydrALAZINE (APRESOLINE) injection 10 mg, 10 mg, Intravenous, Q4H PRN, Joan Elam D, 10 mg at 01/13/19 0423 hydrALAZINE (APRESOLINE) tablet 25 mg, 25 mg, Oral, BID, Leland Ulloa MD, 25 mg at 0804 insulin glargine (LANTUS SOLOSTAR) injection (pen) 6 Units, 0.1 Units/kg/day, Subcutan eous, CHENCHO, Leland Ulloa MD, 6 Units at 01/13/19 0805 insulin lispro (humaLOG) injection (vial) 0-6 Units, 0-6 Units, Subcutaneous, 4x Daily WC and HS, Leland Ulloa MD, 3 Units at 01/13/19 0806 isosorbide mononitrate (IMDUR) ER tablet 30 mg, 30 mg, Oral, Daily, Leland Ulloa MD, 30 mg at 01/13/19 0804 latanoprost (XALATAN) 0.005% ophthalmic solution 1 drop, 1 drop, Both Eyes, Nightly, F lyla Ulloa MD, 1 drop at 01/12/192037 levothyroxine (SYNTHROID) tablet 125 mcg, 125 mcg, Oral, QALeland DIEGO MD, 125 mcg at 01/13/19 0612 lidocaine 1%-EPINEPHrine 1:100,000 injection 5 mL, 5 mL, Infiltration, Once PRN, Leland Ulloa MD lisinopril (PRINIVIL, ZESTRIL) tablet 40 mg, 40 mg, Oral, Daily, Leland Ulloa MD, 40 mg at 01/13/19 0805 ondansetron (ZOFRAN ODT) disintegrating tablet 4 mg, 4 mg, Oral, Q6H PRN, Leland Ulloa MD, 4 mg at 01/13/19 0423 oxyCODONE (ROXICODONE) tablet 5-10 mg, 5-10 mg, Oral, Q6H PRN, Bettye Cheney DO, 5 mg at 01/12/19 1556 potassium chloride (KLOR-CON) ER tablet 10 mEq, 10 mEq, Oral, BID, Leland Ulloa MD, 1 0 mEq at 01/13/19 0804 sodium chloride (OCEAN) 0.65% nasal spray 2 spray, 2 spray, Each Nare, Q1H PRN, Leland treviño MD OBJECTIVE Vital Signs: BP 130/60 | Pulse 64 | Temp 36.8 C (98.3 F) (Oral) | Resp 18 | Wt 64.5 kg (142 lb 3 .2 oz) | SpO2 95% | BMI 28.72 kg/m Intake/Output Summary (Last 24 hours) at 01/13/2019 0815 Last data filed at 01/12/2019 1240 Gross per 24 hour Intake 236 ml Output 100 ml Net 136 ml Cardiovascular: Regular rhythm, S1 normal and S2 normal. Pulses: Radial pulses are 2+ on the right side, and 2+ on the left side. Pulmonary/Chest: Effort normal and breath sounds normal. No wheezes. No rales. Abdominal: Soft. No tenderness. Musculoskeletal: No edema. Neurological: Alert. No cranial nerve deficit. Skin: Warm and dry. DATA Recent Labs Lab 01/12/19 0539 01/11/19 1435 NA 140 -- K 3.9 -- CO2 29 -- BUN 21 -- CREA 0.9 -- EGFR 59* -- CALCIUM 9.7 -- MG 1.7 1.4* Recent Labs Lab 01/12/19 0539 WBC 9.94 HGB 12.4 HCT 37.8 MCV 84.0 PLT 381 Recent Labs Lab 01/11/19 1435 TSH 6.784* Lab Results Component Value Date GLUF 192 (H) 09/13/2018 TSH 6.784 (H) 01/11/2019 EK01/10/2019 From [facility] showed sinus bradycardia with heart rate 47. 09/05/2018 Ordered and reviewed by myself showed atypical flutter with rapid ventricular response. 06/06/2018 Showed atrial flutter with rapid ventricular response. Poor progression cannot rule out a n anterior infarct of undetermined age. 05/03/2017 Ordered and reviewed by myself, showed atrial fibrillation, left axis deviation, poor R-wav e progression cannot rule out anterior infarct of undetermined age, controlled ventricular r ate. Last Echo, 09/07/2018 Normal LV size with hyperdynamic systolic function EF more than 70%. Mild pulmonary hypertension. 12/02/2014: "significant LVH, LVEF 77%, LAE, BRODIE, RVE, trace AI, mild-moderate MR< mild-moderate TR, mi ld PI, moderate Pulmonary HTN, est systolic PAP 50mmHg. Last Stress Test: na 24hr , 03/26/2015: A fib, 66-132, averaging 85bpm, rare PVC's 15 pauses (2.0-2.3sec), no s ymptoms reported. ASSESSMENT: Patient is 88 y.o. female with the following medical problems 1. Sick sinus syndrome S/P dual chamber pacemaker. 2. Paroxysmal atrial flutter/fibrillation. States post cardioversion. Rhythm control stra tegy on amiodarone, and anticoagulation. 3. Hypertension blood pressures controlled. 4. Hypothyroidism. 5. Mild pulmonary hypertension. 6. Mild mitral regurgitation. 7. Chronic kidney disease stage III. Plan: S/P dual chamber pacemaker. Needs rhythm control strategy secondary to paroxysmal atrial fibrillation that required mul tiple cardioversions. Restart amiodarone 200 mg p.o. daily. Restart anticoagulation with Dabigatran 150 mg bid Had 2 cardioversions one in September and another in the beginning of symptom November 2018. Stop hydralazine. 1. Continue the blood pressure control. 2. Further recommendation will follow. Can be followed as an outpatient. Code Status: Full Code Denise Chakraborty MD 01/13/2019 etzy, Lisha Jones RN - 01/12/2019 5:53 PM PSTPatient had pacemaker placed today, HR 50s-70s, BP 110s-170s, gi joel PRN hydralazine x1. Patient c/o pain x2, given PRN tylenol x1, given PRN oxy x1. Patie nt did become a little teary this evening, states she feels useless d/t arm in sling. Chart check complete. Lay OlveraBettyeDO - 01/12/2019 8:10 AM PSTFormatting of this note might be different f rom the original. [facility] Adult Hospitalist Progress Note Hospital Day: 1 HPI SUMMARY: The patient is a 88 y.o. female with significant past medical history of paroxysmal atrial fibrillation and was cardioverted twice in the past and follows Dr. Chakraborty, type 2 diabete s mellitus, patient hypertension, chronic kidney disease stage II, hypothyroidism presented to emergency department of [facility] in [facility] today with severe di zziness and shortness of breath secondary to bradycardia. In emergency department she was found to be bradycardic with documented heart rate as low a s 34. Blood work-up is essentially normal. Shows sinus bradycardia with heart rate of 47/m in. She was transferred to [facility] for Cardiology evaluation for possible pacemaker. Dr. Chakraborty has been consulted. SUBJECTIVE Events Overnight: Cardiology consulted, plan for pacemaker placement today. Patient did well overnight, HR 50 s-60s. BP running high 170s, prn hydralazine ordered. OBJECTIVE Vital Signs: Blood pressure 170/74, pulse 68, temperature 36.4 C (97.6 F), temperature source Oral, resp. rate 18, weight 63.9 kg (140 lb 14 oz), SpO2 96 %, not currently . General: Alert, no distress, lying in bed Eyes: PERRL, no scleral icterus, no dischage ENT: External ears normal, Nose normal, oropharynx moist no exudates Neck: Supple, no thyromegaly Cardiovascular: Regular rate and rhythm, HR 60s, no murmurs, no rub Respiratory: No respiratory distress, clear bilaterally, no wheezing Abdomen: Soft, non-tender, non-distended, active bowel sounds Back: No tenderness or deformity Skin: Warm and dry, no rashes Extremities: Trace edema, no joint deformities Neuro: No gross motor/sensory deficit. CN grossly intact. Alert and oriented to person, pl gavin, time. DATA No results for input(s): INR in the last 168 hours. Recent Labs Lab 01/12/19 0539 01/11/19 1435 WBC 9.94 -- HGB 12.4 -- HCT 37.8 -- PLT 381 -- NA 140 -- K 3.9 -- CL 105 -- CO2 29 -- BUN 21 -- EGFR 59* -- CALCIUM 9.7 -- ANIONGAP 10 -- MG 1.7 1.4* No results for input(s): TROPONINT, CKMB in the last 168 hours. Invalid input(s): CKTOTAL, TROPONINI, CKMBINDEX, PCOTNI No results for input(s): CLARITYU, LEUKOCYTESUR, UROBILINOGEN, PHUR, BLOODU, KETONES, BILIR UBINUR, GLUCOSEU, RBCU, BACTERIA, COMU in the last 168 hours. Invalid input(s): UCOL, SPECGRAV, NITRITE, UPRO PROBLEM LIST Principal Problem: Symptomatic bradycardia Active Problems: DMII (diabetes mellitus, type 2) Paroxysmal atrial fibrillation Essential hypertension IMPRESSION/PLAN: Symptomatic bradycardia History of Afib s/p cardioversion x2 - Dr. Chakraborty consulted - pradaxa on hold for pacemaker placement today Accelerated hypertension. Patient is on amlodipine, hydrochlorothiazide, lisinopril and is osorbide mononitrate. Will avoid beta-blockers and dihydropyridine calcium channel blockers . Will keep IV hydralazine on board for systolic blood pressure greater than 160. 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 - Patient is on glipizide and on metformin at home, hold while inpatient - A1c is 9.8, start low dose lantus and continue SSI Hypothyroidism. Patient is on levothyroxine and has bradycardia. TSH slightly high at 6, check FT4 DVT prophylaxis. Patient is on Pradaxa. Anticoagulation will be kept on hold as patient g etting pacer today. Bettye Cheney DO 01/12/2019 Denise Ashley M D - 01/12/2019 7:[address] [facility] Service: Cardiology Progress Note Name of Reservoir Engineer: Denise Chakraborty MD I have seen the patient on 01/12/2019. Continues to be bradycardic. Known history of paroxysmal atrial fibrillation on rhythm control strategy and anticoagulat ion. She has been having symptoms of dizziness and chronic shortness of breath plus weaknes s progressively getting worse. She has been using a walker more often. Her symptoms were w orse this morning hence she was evaluated in [facility] where she was found roderick ycardic heart rate reported to be done at the 30s. Hospitalized in September 2018 due to symptomatic atrial flutter/fibrillation had synchronized c ardioversion after starting amiodarone. Went back into atrial arrhythmia, had another cardioversion yesterday by electrophysiology. Continues to be on amiodarone. Was hospitalized in June 2018 secondary to weakness, ported to be bradycardic in the 30s. Admitted to the hospital however her heart rate was overall controlled. She had only one pause of 2.5 seconds. SUBJECTIVE Continues to be tired however no syncopal episodes. Current Facility-Administered Medications: acetaminophen (TYLENOL) tablet 650 mg, 650 mg, Oral, Q4H PRN, George Muro MD ascorbic acid (VITAMIN C) tablet 1,000 mg, 1,000 mg, Oral, Daily, George Muro MD atropine 1 mg/mL injection 1 mg, 1 mg, Intravenous, Once PRN, George Muro MD calcium-vitamin D 500 mg-200 units per tablet 1 tablet, 1 tablet, Oral, BID, George Muro MD cholecalciferol (VITAMIN D-3) tablet 3,000 Units, 3,000 Units, Oral, Daily, George Muro MD cyanocobalamin (VITAMIN B-12) tablet 1,000 mcg, 1,000 mcg, Oral, Every Other Day, Pretty Muro MD Hypoglycemia Management, , , Until Discontinued AND POCT Glucose, , , PRN AND dextrose 50% injection 12.5-25 g, 12.5-25 g, Intravenous, PRN AND dextrose 10% (D10W) in fusion, , Intravenous, Continuous PRN, George Muro MD Fish Oil delayed release capsule 1,000 mg, 1,000 mg, Oral, Daily, George Muro MD fluticasone (FLONASE) 50 mcg/nasal spray 1 spray, 1 spray, Each Nare, PRN, George Muro MD glipiZIDE (GLUCOTROL) tablet 10 mg, 10 mg, Oral, QAM AC, George Muro MD, 10 mg at 01/12/19 0637 hydrALAZINE (APRESOLINE) injection 10 mg, 10 mg, Intravenous, Q4H PRN, George duggan MD, 10 mg at 01/12/19 0639 hydrALAZINE (APRESOLINE) tablet 25 mg, 25 mg, Oral, BID, Denise Chakraborty MD, 25 mg a t 01/11/19 193 insulin lispro (humaLOG) injection (vial) 0-6 Units, 0-6 Units, Subcutaneous, 4x Daily WC and HS, George Muro MD, 1 Units at 01/11/19 1849 isosorbide mononitrate (IMDUR) ER tablet 30 mg, 30 mg, Oral, Daily, George pastrana MD latanoprost (XALATAN) 0.005% ophthalmic solution 1 drop, 1 drop, Both Eyes, Nightly, S ana lilia Muro MD, 1 drop at 01/11/19 1934 levothyroxine (SYNTHROID) tablet 125 mcg, 125 mcg, Oral, QAM AC, George Muro MD, 125 mcg at 01/12/19 0637 lisinopril (PRINIVIL, ZESTRIL) tablet 40 mg, 40 mg, Oral, Daily, George Muro MD, 40 mg at 01/11/19 1523 ondansetron (ZOFRAN ODT) disintegrating tablet 4 mg, 4 mg, Oral, Q6H PRN, George Muro MD potassium chloride (KLOR-CON) ER tablet 10 mEq, 10 mEq, Oral, BID, George Ayon i, MD, 10 mEq at 01/11/19 193 sodium chloride (OCEAN) 0.65% nasal spray 2 spray, 2 spray, Each Nare, Q1H PRN, George Muro MD OBJECTIVE Vital Signs: BP 170/74 | Pulse 68 | Temp 36.4 C (97.6 F) (Oral) | Resp 18 | Wt 63.9 kg (140 lb 1 4 oz) | SpO2 96% | BMI 28.45 kg/m Intake/Output Summary (Last 24 hours) at 01/12/2019 07 Last data filed at 01/12/2019 0508 Gross per 24 hour Intake 236 ml Output 400 ml Net -164 ml Cardiovascular: Regular rhythm, S1 normal and S2 normal. Bradycardic. Pulses: Radial pulses are 2+ on the right side, and 2+ on the left side. Pulmonary/Chest: Effort normal and breath sounds normal. No wheezes. No rales. Abdominal: Soft. No tenderness. Musculoskeletal: No edema. Neurological: Alert. No cranial nerve deficit. Skin: Warm and dry. DATA Recent Labs Lab 01/12/19 0539 01/11/19 1435 NA 140 -- K 3.9 -- CO2 29 -- BUN 21 -- CREA 0.9 -- EGFR 59* -- CALCIUM 9.7 -- MG 1.7 1.4* Recent Labs Lab 01/12/19 0539 WBC 9.94 HGB 12.4 HCT 37.8 MCV 84.0 PLT 381 Recent Labs Lab 01/11/19 1435 TSH 6.784* Lab Results Component Value Date GLUF 192 (H) 09/13/2018 TSH 6.784 (H) 01/11/2019 EK01/10/2019 From [facility] showed sinus bradycardia with heart rate 47. 09/05/2018 Ordered and reviewed by myself showed atypical flutter with rapid ventricular response. 06/06/2018 Showed atrial flutter with rapid ventricular response. Poor progression cannot rule out a n anterior infarct of undetermined age. 05/03/2017 Ordered and reviewed by myself, showed atrial fibrillation, left axis deviation, poor R-wav e progression cannot rule out anterior infarct of undetermined age, controlled ventricular r ate. Last Echo, 09/07/2018 Normal LV size with hyperdynamic systolic function EF more than 70%. Mild pulmonary hypertension. 12/02/2014: "significant LVH, LVEF 77%, LAE, BRODIE, RVE, trace AI, mild-moderate MR< mild-moderate TR, mi ld PI, moderate Pulmonary HTN, est systolic PAP 50mmHg. Last Stress Test: na 24hr , 03/26/2015: A fib, 66-132, averaging 85bpm, rare PVC's 15 pauses (2.0-2.3sec), no s ymptoms reported. ASSESSMENT: Patient is 88 y.o. female with the following medical problems 1. Sick sinus syndrome with symptomatic bradycardia. 2. Paroxysmal atrial flutter/fibrillation. States post cardioversion. Rhythm control stra tegy on amiodarone, and anticoagulation. 3. Sinus bradycardia currently asymptomatic. 4. Hypertension blood pressures controlled. 5. Hypothyroidism. 6. Mild pulmonary hypertension. 7. Mild mitral regurgitation. 8. Chronic kidney disease stage III. Plan: Continues to have symptomatic bradycardia. Needs rhythm control strategy secondary to paroxysmal atrial fibrillation that required mul tiple cardioversions. We will continue with current dose of amiodarone 200 mg p.o. daily. Had 2 cardioversions one in September and another in the beginning of symptom November 2018. Diltiazem and metoprolol were stopped secondary to bradycardia. 1. 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 2. Continue the blood pressure control we will add hydralazine 25 mg twice daily. 3. Further recommendation will follow. Code Status: Full Code Denise Chakraborty MD 01/12/2019 Alecia Estrada RN - 01/11/2019 4:34 PM PST 01/11/19 1558 Vitals Temp 36.7 C (98 F) Temp Source Oral Pulse (!) 36 Heart Rate Source Monitor Resp 28 BP (!) 210/79 BP Method Automatic BP Location Right arm SpO2 97 % MEWS Total Score (!) 6 Pt assessed for MEWS of 6. Pt alert and appears in NAD, no complaints at this time. Pt hodges s not know what her BP normally runs. BP recheck 164/71, discussed with primary RN at [facility]. documented in this en counter Plan of Treatment +--------+---------+ + + + | Date | Type | Specialty | Care Team | Description | +--------+---------+ + + + | 02/20/ | Office | Cardiology | Denise Chakraborty, | | | 2019 | Visit | | MD Eduardo AGUILLON | | | | | | [place] | | | | | | [address] | | | | | | | | +--------+---------+ + + + documented as of this encounter Procedures + +--------+ + + + | Procedure Name | Priori | Date/Time | Associated Diagnosis | Comments | | | ty | | | | + +--------+ + + + | POC GLUCOSE (NON | Routin | 01/13/2019 | | Results for this | | ORD) | e | 11:39 AM | | procedure are in the | | | | PST | | results section. | + +--------+ + + + | POC GLUCOSE (NON | Routin | 01/13/2019 | | Results for this | | ORD) | e | 7:53 AM | | procedure are in the | | | | PST | | results section. | + +--------+ + + + | XR CHEST PA AND | Routin | 01/13/2019 | | Results for this | | LATERAL | e | 7:23 AM | | procedure are in the | | | | PST | | results section. | + +--------+ + + + | POC GLUCOSE (NON | Routin | 01/12/2019 | | Results for this | | ORD) | e | 8:35 PM | | procedure are in the | | | | PST | | results section. | + +--------+ + + + | POC GLUCOSE (NON | Routin | 01/12/2019 | | Results for this | | ORD) | e | 4:13 PM | | procedure are in the | | | | PST | | results section. | + +--------+ + + + | POC GLUCOSE (NON | Routin | 01/12/2019 | | Results for this | | ORD) | e | 11:11 AM | | procedure are in the | | | | PST | | results section. | + +--------+ + + + | CV EP PPM SYSTEM | Routin | 01/12/2019 | Paroxysmal atrial | Results for this | | IMPLANT | e | 10:47 AM | fibrillation (HCC) | procedure are in the | | | | PST | Symptomatic | results section. | | | | | bradycardia | | | | | | Essential | | | | | | hypertension | | + +--------+ + + + | POC GLUCOSE (NON | Routin | 01/12/2019 | | Results for this | | ORD) | e | 8:36 AM | | procedure are in the | | | | PST | | results section. | + +--------+ + + + | CBC WITH | Routin | 01/12/2019 | | Results for this | | DIFFERENTIAL | e | 5:39 AM | | procedure are in the | | | | PST | | results section. | + +--------+ + + + | T4, FREE | Add-On | 01/12/2019 | | Results for this | | | | 5:39 AM | | procedure are in the | | | | PST | | results section. | + +--------+ + + + | MAGNESIUM | Routin | 01/12/2019 | | Results for this | | | e | 5:39 AM | | procedure are in the | | | | PST | | results section. | + +--------+ + + + | BASIC METABOLIC | Routin | 01/12/2019 | | Results for this | | PANEL | e | 5:39 AM | | procedure are in the | | | | PST | | results section. | + +--------+ + + + | POC GLUCOSE (NON | Routin | 01/11/2019 | | Results for this | | ORD) | e | 9:04 PM | | procedure are in the | | | | PST | | results section. | + +--------+ + + + | POC GLUCOSE (NON | Routin | 01/11/2019 | | Results for this | | ORD) | e | 7:07 PM | | procedure are in the | | | | PST | | results section. | + +--------+ + + + | POC GLUCOSE (NON | Routin | 01/11/2019 | | Results for this | | ORD) | e | 5:15 PM | | procedure are in the | | | | PST | | results section. | + +--------+ + + + | XR CHEST 1 VIEW | Routin | 01/11/2019 | | Results for this | | | e | 3:37 PM | | procedure are in the | | | | PST | | results section. | + +--------+ + + + | TSH | STAT | 01/11/2019 | | Results for this | | | | 2:35 PM | | procedure are in the | | | | PST | | results section. | + +--------+ + + + | MAGNESIUM | STAT | 01/11/2019 | | Results for this | | | | 2:35 PM | | procedure are in the | | | | PST | | results section. | + +--------+ + + + | HEMOGLOBIN A1C | Routin | 01/11/2019 | | Results for this | | | e | 2:35 PM | | procedure are in the | | | | PST | | results section. | + +--------+ + + + documented in this encounter Results POC Glucose (01/13/2019 11:39 AM PST) + + + + + + | Component | Value | Ref Range | Performed | Pathologist | | | | | At | Signature | + + + + + + | Glucose, | 324 (H)Comment: Testing | 65 - 99 mg/dL | [facility] | | | POC | performed at [facility];[address] | | LABORATORY | | | | [facility];[place], [place] | | | | | | [address] | | | | + + + + + + + + | Specimen | + + | | + + + + + + + | Performing | Address | City/State/Zipcode | Phone Number | | Organization | | | | + + + + + | [facility] | [address] | [place] [address] | [phone] | + + + + + POC Glucose (01/13/2019 7:53 AM PST) + + + + + + | Component | Value | Ref Range | Performed | Pathologist | | | | | At | Signature | + + + + + + | Glucose, | 290 (H)Comment: Testing | 65 - 99 mg/dL | [facility] | | | POC | performed at [facility];[address] | | LABORATORY | | | | [address];[place], [place] | | | | | | [address] | | | | + + + + + + + + | Specimen | + + | | + + + + + + + | Performing | Address | City/State/Zipcode | Phone Number | | Organization | | | | + + + + + | [facility] | [address] | [place] [address] | [phone] | + + + + + XR Chest PA and Lateral (01/13/2019 7:23 AM PST) + + | Specimen | + + | | + + + + + | Impressions | Performed At | + + + | Pacing leads appear appropriately position and are stable. | [facility] | | Bibasilar atelectasis and tiny bilateral effusions. | | | Signed by: Stacey Zavaleta, Nuha Sign Date/Time: 01/13/2019 7:29 AM | | | | | + + + + + + | Narrative | Performed At | + + + | CHEST PA AND LATERAL CLINICAL INFORMATION: Post cardiac | [facility] | | device procedure. COMPARISON: XR CHEST 1 VIEW (01/11/2019); | | | FINDINGS: Cardiomediastinal contours are stable. Cardiomegaly. | | | Pacing leads are stable in position with a lead overlying the right | | | atrial appendage and a lead overlying the right ventricle. | | | Bibasilar atelectasis and tiny bilateral pleural effusions. No | | | visible pneumothorax. No acute bony abnormalities. | | + + + + + | Procedure Note | + + | Thomas, Rad Results In - 01/13/2019 7:32 AM PST | | CHEST PA AND LATERAL | | | | CLINICAL INFORMATION: | | Post cardiac device procedure. | | | | COMPARISON: | | XR CHEST 1 VIEW (01/11/2019); | | | | FINDINGS: | | Cardiomediastinal contours are stable. Cardiomegaly. Pacing leads are | | stable in position with a lead overlying the right atrial appendage and | | a lead overlying the right ventricle. Bibasilar atelectasis and tiny | | bilateral pleural effusions. No visible pneumothorax. No acute bony | | abnormalities. | | | | IMPRESSION: | | Pacing leads appear appropriately position and are stable. Bibasilar | | atelectasis and tiny bilateral effusions. | | | | | | | | Signed by: Stacey Zavaleta Julie | | Sign Date/Time: 01/13/2019 7:29 AM | + + + +---------+ + + | Performing | Address | City/State/Zipcode | Phone Number | | Organization | | | | + +---------+ + + | [facility] | | | | + +---------+ + + POC Glucose (01/12/2019 8:35 PM PST) + + + + + + | Component | Value | Ref Range | Performed | Pathologist | | | | | At | Signature | + + + + + + | Glucose, | 271 (H)Comment: Testing | 65 - 99 mg/dL | [facility] | | | POC | performed at [facility];[address] | | LABORATORY | | | | [address];[place] | | | | | | [address] | | | | + + + + + + + + | Specimen | + + | | + + + + + + + | Performing | Address | City/State/Zipcode | Phone Number | | Organization | | | | + + + + + | [facility] | [address] | [place] [address] | [phone] | + + + + + POC Glucose (01/12/2019 4:13 PM PST) + + + + + + | Component | Value | Ref Range | Performed | Pathologist | | | | | At | Signature | + + + + + + | Glucose, | 362 (H)Comment: Testing | 65 - 99 mg/dL | [facility] | | | POC | performed at [facility];[address] | | LABORATORY | | | | [address];[place], [place] | | | | | | [address] | | | | + + + + + + + + | Specimen | + + | | + + + + + + + | Performing | Address | City/State/Zipcode | Phone Number | | Organization | | | | + + + + + | [facility] | [address] | [place] [address] | [phone] | + + + + + POC Glucose (01/12/2019 11:11 AM PST) + + + + + + | Component | Value | Ref Range | Performed | Pathologist | | | | | At | Signature | + + + + + + | Glucose, | 270 (H)Comment: Testing | 65 - 99 mg/dL | [facility] | | | POC | performed at [facility];[address] | | LABORATORY | | | | [address];[place] | | | | | | [address] | | | | + + + + + + + + | Specimen | + + | | + + + + + + + | Performing | Address | City/State/Zipcode | Phone Number | | Organization | | | | + + + + + | [facility] | [address] | [place] [address] | [phone] | + + + + + CV EP PROCEDURE (01/12/2019 10:47 AM PST) + + | Specimen | + + | | + + + + + | Narrative | Performed At | + + + | | | | ConclusionSuccessful insertion of dual-chamber permanent pacemaker, | | | MRI compatible, [employer] unit. Equipments:Generator: [employer] | | | [employer] DR IS-1 (). Model #[id number], serial #[id number] | | | lead: Smarp. IS-1 Bi-positive fix RA/RV 45 | | | cm, model #7740, serial #[id number].RV lead: [employer] | | | [employer] IS-1 Bi-positive fix RA/RV 52 cm, model #7741, serial # [id number]. | | | Measurements:RA 3.3 mV, 0.9 V at 0.4 ms, impedance 652.RV 25 mV, 1.0 V | | | at 0.4 ms, impedance 955. Final settingsDDDR, 50/130. | | |RV lead: Smarp. IS-1 Bi-positive fix RA/RV 52 cm, | | |model #7741, serial # [id number]. | | | | | |Measurements: | | |RA 3.3 mV, 0.9 V at 0.4 ms, impedance 652. | | |RV 25 mV, 1.0 V at 0.4 ms, impedance 955. | | | | | |Final settings | | |DDDR, 50/130. | | | | | + + + POC Glucose (01/12/2019 8:36 AM PST) + + + + + + | Component | Value | Ref Range | Performed | Pathologist | | | | | At | Signature | + + + + + + | Glucose, | 211 (H)Comment: Testing | 65 - 99 mg/dL | [facility] | | | POC | performed at [facility];[address] | | LABORATORY | | | | [address];[place], [place] | | | | | | [address] | | | | + + + + + + + + | Specimen | + + | | + + + + + + + | Performing | Address | City/State/Zipcode | Phone Number | | Organization | | | | + + + + + | [facility] | [address] | [place] [address] | [phone] | + + + + + T4, Free (01/12/2019 5:39 AM PST) + + + + + + | Component | Value | Ref Range | Performed | Pathologist | | | | | At | Signature | + + + + + + | FT4 | 1.4Comment: Testing | 0.7 - 1.5 ng/dL | [facility] | | | | performed at [facility], [address] | | LABORATORY | | | | [address], | | | | | | [place] [address] | | | | + + + + + + + + | Specimen | + + | Blood | + + + + + + + | Performing | Address | City/State/Zipcode | Phone Number | | Organization | | | | + + + + + | [facility] | [address] | [place] [address] | [phone] | + + + + + Magnesium (01/12/2019 5:39 AM PST) + + + + + + | Component | Value | Ref Range | Performed | Pathologist | | | | | At | Signature | + + + + + + | Magnesium | 1.7Comment: Testing | 1.7 - 2.4 mg/dL | [facility] | | | | performed at [facility], [address] | | LABORATORY | | | | [address], | | | | | | [place] [address] | | | | + + + + + + + + | Specimen | + + | Blood | + + + + + + + | Performing | Address | City/State/Zipcode | Phone Number | | Organization | | | | + + + + + | [facility] | [address] | [place] [address] | [phone] | + + + + + Basic Metabolic Panel (01/12/2019 5:39 AM PST) + + + + + + | Component | Value | Ref Range | Performed | Pathologist | | | | | At | Signature | + + + + + + | Na | 140 | 135 - 145 | [facility] | | | | | mmol/L | LABORATORY | | + + + + + + | K | 3.9 | 3.5 - 4.9 | [facility] | | | | | mmol/L | LABORATORY | | + + + + + + | Cl | 105 | 99 - 109 mmol/L | [facility] | | | | | | LABORATORY | | + + + + + + | CO2 | 29 | 23 - 32 mmol/L | [facility] | | | | | | LABORATORY | | + + + + + + | Anion Gap | 10 | 5 - 20 mmol/L | [facility] | | | | | | LABORATORY | | + + + + + + | Glucose | 232 (H) | 65 - 99 mg/dL | [facility] | | | | | | LABORATORY | | + + + + + + | BUN | 21 | 8 - 25 mg/dL | [facility] | | | | | | LABORATORY | | + + + + + + | Creatinine | 0.9 | 0.50 - 1.00 | [facility] | | | | | mg/dL | LABORATORY | | + + + + + + | BUN/Creatin | 23 | | [facility] | | | ine Ratio | | | LABORATORY | | + + + + + + | Calcium | 9.7 | 8.5 - 10.5 | [facility] | | | | | mg/dL | LABORATORY | | + + + + + + | Estimated | 59 (L)Comment: GFR <60: | >60 | [facility] | | | GFR | CHRONIC KIDNEY DISEASE, | mL/min/1.73m2 | LABORATORY | | | | IF FOUND OVER A 3 MONTH | | | | | | PERIOD.GFR <15: KIDNEY | | | | | | FAILURE.FOR | | | | | | AMERICANS, MULTIPLY THE | | | | | | CALCULATED GFR BY | | | | | | 1.210.This eGFR is | | | | | | calculated using the | | | | | | MDRD IDMS traceable | | | | | | equation.Testing | | | | | | performed at [facility], [address] | | | | | | [facility], | | | | | | [place] [address] | | | | + + + + + + + + | Specimen | + + | Blood | + + + + + + + | Performing | Address | City/State/Zipcode | Phone Number | | Organization | | | | + + + + + | [facility] | [address] | [place] [address] | [phone] | + + + + + CBC with Differential (01/12/2019 5:39 AM PST) + + + + + + | Component | Value | Ref Range | Performed | Pathologist | | | | | At | Signature | + + + + + + | WBC | 9.94 | 3.80 - 11.00 | [facility] | | | | | K/uL | LABORATORY | | + + + + + + | RBC | 4.50 | 3.70 - 5.10 | [facility] | | | | | M/uL | LABORATORY | | + + + + + + | Hemoglobin | 12.4 | 11.3 - 15.5 | [facility] | | | | | g/dL | LABORATORY | | + + + + + + | Hematocrit | 37.8 | 34.0 - 46.0 % | [facility] | | | | | | LABORATORY | | + + + + + + | MCV | 84.0 | 80.0 - 100.0 fl | [facility] | | | | | | LABORATORY | | + + + + + + | MCH | 27.5 | 27.0 - 34.0 pg | [facility] | | | | | | LABORATORY | | + + + + + + | MCHC | 32.7 | 32.0 - 35.5 | [facility] | | | | | g/dL | LABORATORY | | + + + + + + | RDW-SD | 50.8 | 37 - 53 fl | [facility] | | | | | | LABORATORY | | + + + + + + | Platelet | 381 | 150 - 400 K/uL | [facility] | | | Count | | | LABORATORY | | + + + + + + | MPV | 9.0 | fl | [facility] | | | | | | LABORATORY | | + + + + + + | Diff Type | AUTOMATED | | [facility] | | | | | | LABORATORY | | + + + + + + | % | 65.69 | % | [facility] | | | Neutrophils | | | LABORATORY | | + + + + + + | % | 21.65 | % | [facility] | | | Lymphocytes | | | LABORATORY | | + + + + + + | Monocyte % | 10.85 | % | [facility] | | | | | | LABORATORY | | + + + + + + | Eosinophils | 1.05 | % | [facility] | | | % | | | LABORATORY | | + + + + + + | Basophils % | 0.76 | % | [facility] | | | | | | LABORATORY | | + + + + + + | Neutrophils | 6.53 | 1.90 - 7.40 | [facility] | | | , Absolute | | K/uL | LABORATORY | | + + + + + + | Absolute | 2.15 | 1.00 - 3.90 | [facility] | | | Lymphocytes | | K/uL | LABORATORY | | + + + + + + | Absolute | 1.08 (H) | 0.00 - 0.80 | [facility] | | | Monocytes | | K/uL | LABORATORY | | + + + + + + | Eosinophils | 0.10 | 0.00 - 0.50 | [facility] | | | , Absolute | | K/uL | LABORATORY | | + + + + + + | Basophils, | 0.08Comment: Testing | 0.00 - 0.10 | [facility] | | | Absolute | performed at [facility], [address] | K/uL | LABORATORY | | | | [address], | | | | | | [place] [address] | | | | + + + + + + + + | Specimen | + + | Blood | + + + + + + + | Performing | Address | City/State/Zipcode | Phone Number | | Organization | | | | + + + + + | [facility] | [address] | [place] [address] | [phone] | + + + + + POC Glucose (01/11/2019 9:04 PM PST) + + + + + + | Component | Value | Ref Range | Performed | Pathologist | | | | | At | Signature | + + + + + + | Glucose, | 200 (H)Comment: Testing | 65 - 99 mg/dL | [facility] | | | POC | performed at [facility];[address] | | LABORATORY | | | | [address];[place] | | | | | | [address] | | | | + + + + + + + + | Specimen | + + | | + + + + + + + | Performing | Address | City/State/Zipcode | Phone Number | | Organization | | | | + + + + + | [facility] | [address] | [place] [address] | [phone] | + + + + + POC Glucose (01/11/2019 7:07 PM PST) + + + + + + | Component | Value | Ref Range | Performed | Pathologist | | | | | At | Signature | + + + + + + | Glucose, | 175 (H)Comment: Testing | 65 - 99 mg/dL | [facility] | | | POC | performed at [facility];[address] | | LABORATORY | | | | [address];[place], [place] | | | | | | [address] | | | | + + + + + + + + | Specimen | + + | | + + + + + + + | Performing | Address | City/State/Zipcode | Phone Number | | Organization | | | | + + + + + | [facility] | [address] | [place] [address] | [phone] | + + + + + POC Glucose (01/11/2019 5:15 PM PST) + + + + + + | Component | Value | Ref Range | Performed | Pathologist | | | | | At | Signature | + + + + + + | Glucose, | 178 (H)Comment: Testing | 65 - 99 mg/dL | [facility] | | | POC | performed at [facility];[address] | | LABORATORY | | | | [address];[place] | | | | | | [address] | | | | + + + + + + + + | Specimen | + + | | + + + + + + + | Performing | Address | City/State/Zipcode | Phone Number | | Organization | | | | + + + + + | [facility] | [address] | [place] [address] | [phone] | + + + + + XR Chest 1 Vw (01/11/2019 3:37 PM PST) + + | Specimen | + + | | + + + + + | Impressions | Performed At | + + + | Left basilar airspace opacity and blunting of the left costophrenic | [facility] | | angle. These findings are consistent with left basilar pneumonia or | | | atelectasis and a small left pleural effusion. Follow-up to | | | radiographic resolution is recommended. Signed by: Michael | | George Stokes M.D. Sign Date/Time: 01/11/2019 4:10 PM | | + + + + + + | Narrative | Performed At | + + + | [facility] CLINICAL INFORMATION: Shortness of breath. | [facility] | | COMPARISON: None FINDINGS: There is a left basilar airspace | | | opacity and blunting of the left costophrenic angle. The right lung | | | is clear. There is no pneumothorax. The cardiomediastinal | | | silhouette is normal.. | | + + + + + | Procedure Note | + + | Axel Guzman Results In - 01/11/2019 4:14 PM PST | | [facility] | | | | CLINICAL INFORMATION: | | Shortness of breath. | | | | COMPARISON: | | None | | | | FINDINGS: | | There is a left basilar airspace opacity and blunting of the left | | costophrenic angle. The right lung is clear. There is no | | pneumothorax. The cardiomediastinal silhouette is normal.. | | | | IMPRESSION: | | Left basilar airspace opacity and blunting of the left costophrenic | | angle. These findings are consistent with left basilar pneumonia or | | atelectasis and a small left pleural effusion. Follow-up to | | radiographic resolution is recommended. | | | | | | | | Signed by: Stacey Rodriguez Matthew | | Sign Date/Time: 01/11/2019 4:10 PM | + + + +---------+ + + | Performing | Address | City/State/Zipcode | Phone Number | | Organization | | | | + +---------+ + + | [facility] | | | | + +---------+ + + Magnesium (01/11/2019 2:35 PM PST) + + + + + + | Component | Value | Ref Range | Performed | Pathologist | | | | | At | Signature | + + + + + + | Magnesium | 1.4 (L)Comment: Testing | 1.7 - 2.4 mg/dL | [place] | | | | performed at [facility] | | LABORATORY | | | | [address];[place] | | | | | | [address] | | | | + + + + + + + + | Specimen | + + | Blood | + + + + + + + | Performing | Address | City/State/Zipcode | Phone Number | | Organization | | | | + + + + + | [facility] | [address] | [place] [address] | [phone] | + + + + + TSH (01/11/2019 2:35 PM PST) + + + + + + | Component | Value | Ref Range | Performed | Pathologist | | | | | At | Signature | + + + + + + | TSH | 6.784 (H)Comment: | 0.450 - 5.100 | [facility] | | | | Testing performed at | uIU/mL | LABORATORY | | | | [facility];[address];[place] [address] | | | | + + + + + + + + | Specimen | + + | Blood | + + + + + + + | Performing | Address | City/State/Zipcode | Phone Number | | Organization | | | | + + + + + | [facility] | [address] | [place] [address] | [phone] | + + + + + Hemoglobin A1C (01/11/2019 2:35 PM PST) + + + + + + | Component | Value | Ref Range | Performed | Pathologist | | | | | At | Signature | + + + + + + | Hemoglobin | 9.8 (H)Comment: HbA1c | 4.0 - 6.0 % | [facility] | | | A1c | method is certified by | | LABORATORY | | | | [facility] and traceable to | | | | | | the DCCT reference | | | | | | method.ADA guidelines | | | | | | indicate: | | | | | | Prediabetes: 5.7 - 6.4 | | | | | | Diabetes: >6.4 | | | | | | Glycemic control for | | | | | | adults with diabetes: | | | | | | <7.0Effective 03/21/2018: | | | | | | Note New Method | | | | + + + + + + | Estimated | 235 (H)Comment: | <154 mg/dL | [facility] | | | Average | Estimated Average | | LABORATORY | | | Glucose | Glucose calculated from | | | | | | hemoglobin A1c by use of | | | | | | the ADArecommended | | | | | | formula.Testing | | | | | | performed at [facility], [address] | | | | | [facility], | | | | | | [place] [address] | | | | + + + + + + + + | Specimen | + + | Blood | + + + + + + + | Performing | Address | City/State/Zipcode | Phone Number | | Organization | | | | + + + + + | [facility] | [address] | [place] [address] | [phone] | + + + + + documented in this encounter Visit Diagnoses + + | Diagnosis | + + | Paroxysmal atrial fibrillation (HCC) Atrial fibrillation | + + | Symptomatic bradycardia Other specified cardiac dysrhythmias | + + | Essential hypertension Unspecified essential hypertension | + + documented in this encounter Administered Medications + +--------+ +--------+------+------+ | Medication Order | MAR | Action | Dose | Rate | Site | | | Action | Date | | | | + +--------+ +--------+------+------+ | acetaminophen (TYLENOL) tablet | Given | 01/13/20 | 650 mg | | | | 650 mg 650 mg, Oral, EVERY 4 | | 19 1:14 | | | | | HOURS PRN, Pain, or fever >= 38.6 | | PM PST | | | | | C (101.5 F), Starting Fri | | | | | | | 01/11/19 at 1433 | | | | | | + +--------+ +--------+------+------+ +---+---+ | | | +---+---+ + +-------+ +--------+---+---+ | amiodarone (PACERONE) tablet | Given | 01/14/20 | 200 mg | | | | 200 mg 200 mg, Oral, DAILY, | | 19 9:58 | | | | | First dose on Mon01/13/19 at | | AM PST | | | | | 0900 | | | | | | + +-------+ +--------+---+---+ +---+---+ | | | +---+---+ + +-------+ + +---+---+ | ascorbic acid (VITAMIN C) | Given | 01/14/20 | 1,000 mg | | | | tablet 1,000 mg 1,000 mg, Oral, | | 19 8:05 | | | | | DAILY, First dose on Mon01/11/19 | | AM PST | | | | | at 1500 | | | | | | + +-------+ + +---+---+ +-------+ + +---+---+ | Given | 01/13/20 | 1,000 mg | | | | | 19 8:34 | | | | | | AM PST | | | | +-------+ + +---+---+ +---+---+ | | | +---+---+ + +-------+ +--------+---+---+ | bacitracin 50,000 units/10 mL | Given | 01/13/20 | 10 mLs | | | | 10 Units in sodium chloride (PF) | | 19 9:52 | | | | | 0.9% injection 10 mL irrigation | | AM PST | | | | | ONCE PRN, Starting 01/12/19 at | | | | | | | 0952, Intra-op | | | | | | + +-------+ +--------+---+---+ +---+---+ | | | +---+---+ + +-------+ + +---+---+ | calcium-vitamin D 500 mg-200 | Given | 01/14/20 | 1 tablet | | | | units per tablet 1 tablet 1 | | 19 8:05 | | | | | tablet, Oral, 2 TIMES DAILY, | | AM PST | | | | | First dose on Mon01/11/19 at 2100 | | | | | | + +-------+ + +---+---+ +---+---+ | | | +---+---+ + +-------+ +--------+---+---+ | cholecalciferol (VITAMIN D-3) | Given | 01/14/20 | 3,000 | | | | tablet 3,000 Units 3,000 Units, | | 19 8:05 | Units | | | | Oral, DAILY, First dose on Mon | | AM PST | | | | | 01/11/19 at 1500 | | | | | | + +-------+ +--------+---+---+ +-------+ +--------+---+---+ | Given | 01/13/20 | 3,000 | | | | | 19 8:34 | Units | | | | | AM PST | | | | +-------+ +--------+---+---+ +---+---+ | | | +---+---+ + +-------+ +--------+---+---+ | cyanocobalamin (VITAMIN B-12) | Given | 01/14/20 | 1,000 | | | | tablet 1,000 mcg 1,000 mcg, | | 19 8:04 | mcg | | | | Oral, EVERY OTHER DAY, First dose | | AM PST | | | | | on Mon01/11/19 at 1500 | | | | | | + +-------+ +--------+---+---+ +---+---+ | | | +---+---+ + +-------+ +--------+---+---+ | dabigatran (PRADAXA) capsule | Given | 01/14/20 | 150 mg | | | | 150 mg 150 mg, Oral, 2 TIMES | | 19 11:42 | | | | | DAILY, First dose on 01/13/19 | | AM PST | | | | | at 1130, Do not break, chew, or | | | | | | | open capsules., | | | | | | + +-------+ +--------+---+---+ + +---+ | | | + +---+ | dextrose 10% (D10W) infusion | | | at 50 mL/hr, Intravenous, | | | CONTINUOUS PRN, hypoglycemia, | | | Starting Mon01/11/19 at 1433, | | | Start infusion if unable to | | | maintain blood glucose greater | | | than 70 mg/dL after two rounds of | | | hypoglycemia treatment. Recheck | | | blood glucose 30 minutes after | | | starting D10W then at least | | | hourly and PRN until it is | | | discontinued. Call provider to | | | discuss parameters for D10W | | | discontinuation., | | + +---+ | | | + +---+ | dextrose 50% injection 12.5-25 | | | g 12.5-25 g, Intravenous, PRN, | | | Low Blood Sugar, Starting Mon | | | 01/11/19 at 1433, For blood | | | glucose 50-69 mg/dl - give 12.5 g | | | For blood glucose less than 50 | | | mg/dl - give 25 g, | | + +---+ | | | + +---+ + +-------+ +--------+---+---+ | fentaNYL (PF) injection ONCE | Given | 01/13/20 | 50 mcg | | | | PRN, Starting 01/12/19 at | | 19 10:22 | | | | | 0941, Intra-op | | AM PST | | | | + +-------+ +--------+---+---+ +-------+ +--------+---+---+ | Given | 01/13/20 | 50 mcg | | | | | 19 9:41 | | | | | | AM PST | | | | +-------+ +--------+---+---+ +---+---+ | | | +---+---+ + +-------+ + +---+---+ | Fish Oil delayed release | Given | 01/14/20 | 1,000 mg | | | | capsule 1,000 mg 1,000 mg, Oral, | | 19 8:04 | | | | | DAILY, First dose on Mon01/11/19 | | AM PST | | | | | at 1500 | | | | | | + +-------+ + +---+---+ +-------+ + +---+---+ | Given | 01/13/20 | 1,000 mg | | | | | 19 11:19 | | | | | | AM PST | | | | +-------+ + +---+---+ +---+---+ | | | +---+---+ + +-------+ +-------+---+---+ | glipiZIDE (GLUCOTROL) tablet 10 | Given | 01/14/20 | 10 mg | | | | mg 10 mg, Oral, DAILY BEFORE | | 19 6:12 | | | | | BREAKFAST, First dose on Sat | | AM PST | | | | | 01/12/19 at 0730 | | | | | | + +-------+ +-------+---+---+ +-------+ +-------+---+---+ | Given | 01/13/20 | 10 mg | | | | | 19 6:37 | | | | | | AM PST | | | | +-------+ +-------+---+---+ +---+---+ | | | +---+---+ + +-------+ +-------+---+---+ | hydrALAZINE (APRESOLINE) | Given | 01/14/20 | 10 mg | | | | injection 10 mg 10 mg, | | 19 4:23 | | | | | Intravenous, EVERY 4 HOURS PRN, | | AM PST | | | | | For SBP greater than 160, | | | | | | | Starting 01/11/19 at 1431 | | | | | | + +-------+ +-------+---+---+ +-------+ +-------+---+---+ | Given | 01/13/20 | 10 mg | | | | | 19 4:28 | | | | | | PM PST | | | | +-------+ +-------+---+---+ | Given | 01/13/20 | 10 mg | | | | | 19 6:39 | | | | | | AM PST | | | | +-------+ +-------+---+---+ +---+---+ | | | +---+---+ + +-------+ +---------+---+ + | insulin glargine (LANTUS | Given | 01/14/20 | 6 Units | | Arm-Righ | | SOLOSTAR) injection (pen) 6 Units | | 19 8:05 | | | t Upper | | 6 Units (rounded from 6.39 | | AM PST | | | | | Units = 0.1 Units/kg/day | | | | | | | 63.9 kg), Subcutaneous, EVERY | | | | | | | MORNING, First dose on Mon | | | | | | | 01/12/19 at 1030, For subcutaneous | | | | | | | use only. Basal (long acting) | | | | | | | insulin., If NPO: Decrease dose, | | | | | | | by: 25% | | | | | | + +-------+ +---------+---+ + +---+---+ | | | +---+---+ + +-------+ +---------+---+ + | insulin lispro (humaLOG) | Given | 01/14/20 | 4 Units | | Arm-Righ | | injection (vial) 0-6 Units 0-6 | | 19 11:42 | | | t Upper | | Units, Subcutaneous, 4 TIMES | | AM PST | | | | | DAILY WITH MEALS & NIGHTLY, First | | | | | | | dose on Mon01/11/19 at 1700, | | | | | | | CORRECTION SCALE: Blood Glucose | | | | | | | (BG) < 150: None BG | | | | | | | 150-200: DAY: 1 units. NIGHT: 0 | | | | | | | units BG 201-250: DAY: 2 | | | | | | | units. NIGHT: 1 units BG | | | | | | | 251-300: DAY: 3 units. NIGHT: 2 | | | | | | | units BG 301-350: DAY: 4 units. | | | | | | | NIGHT: 3 units BG 351-400: | | | | | | | DAY: 5 units. NIGHT: 4 units | | | | | | | BG > 400 : DAY: 6 units. | | | | | | | NIGHT: 5 units | | | | | | | AND CALL PROVIDER Use DAY | | | | | | | DOSE for doses scheduled: | | | | | | | AC, NPO, Daytime 5554-1457 Use | | | | | | | NIGHT DOSE for doses scheduled: | | | | | | | HS, 3AM, Nighttime 9441-9339 | | | | | | | If the BG is not checked before | | | | | | | the patient starts eating, do not | | | | | | | give correction insulin. If HS | | | | | | | insulin given, check blood | | | | | | | glucose at 3AM. Only for use with | | | | | | | U-100 insulin syringe., | | | | | | + +-------+ +---------+---+ + +-------+ +---------+---+ + | Given | 01/14/20 | 3 Units | | Arm-Righ | | | 19 8:06 | | | t Upper | | | AM PST | | | | +-------+ +---------+---+ + | Given | 01/13/20 | 2 Units | | Arm-Righ | | | 19 8:37 | | | t Upper | | | PM PST | | | | +-------+ +---------+---+ + +---+---+ | | | +---+---+ + +-------+ +-------+---+---+ | isosorbide mononitrate (IMDUR) | Given | 01/14/20 | 30 mg | | | | ER tablet 30 mg 30 mg, Oral, | | 19 8:04 | | | | | DAILY, First dose on Mon01/11/19 | | AM PST | | | | | at 1500, Tablet may be cut where | | | | | | | scored but do not crush., | | | | | | + +-------+ +-------+---+---+ +-------+ +-------+---+---+ | Given | 01/13/20 | 30 mg | | | | | 19 8:35 | | | | | | AM PST | | | | +-------+ +-------+---+---+ +---+---+ | | | +---+---+ + +-------+ +--------+---+---+ | latanoprost (XALATAN) 0.005% | Given | 01/13/20 | 1 drop | | | | ophthalmic solution 1 drop 1 | | 19 8:38 | | | | | drop, Both Eyes, NIGHTLY, First | | PM PST | | | | | dose on Mon01/11/19 at 2100 | | | | | | + +-------+ +--------+---+---+ +-------+ +--------+---+---+ | Given | 01/12/20 | 1 drop | | | | | 19 7:34 | | | | | | PM PST | | | | +-------+ +--------+---+---+ +---+---+ | | | +---+---+ + +-------+ +---------+---+---+ | levothyroxine (SYNTHROID) | Given | 01/14/20 | 125 mcg | | | | tablet 125 mcg 125 mcg, Oral, | | 19 6:12 | | | | | DAILY BEFORE BREAKFAST, First | | AM PST | | | | | dose on Mon01/11/19 at 1600, Give | | | | | | | before breakfast., | | | | | | + +-------+ +---------+---+---+ +-------+ +---------+---+---+ | Given | 01/13/20 | 125 mcg | | | | | 19 6:37 | | | | | | AM PST | | | | +-------+ +---------+---+---+ | Given | 01/12/20 | 125 mcg | | | | | 19 4:39 | | | | | | PM PST | | | | +-------+ +---------+---+---+ +---+---+ | | | +---+---+ + +-------+ +--------+---+---+ | lidocaine 1% injection ONCE | Given | 01/13/20 | 20 mLs | | | | PRN, Starting 01/12/19 at | | 19 9:42 | | | | | 0942, Intra-op | | AM PST | | | | + +-------+ +--------+---+---+ +---+---+ | | | +---+---+ + +-------+ +--------+---+---+ | lidocaine 1%-EPINEPHrine | Given | 01/13/20 | 20 mLs | | | | 1:100,000 injection ONCE PRN, | | 19 9:43 | | | | | Starting 01/12/19 at 0943, | | AM PST | | | | | Intra-op | | | | | | + +-------+ +--------+---+---+ +---+---+ | | | +---+---+ + +-------+ +-------+---+---+ | lisinopril (PRINIVIL, ZESTRIL) | Given | 01/14/20 | 40 mg | | | | tablet 40 mg 40 mg, Oral, DAILY, | | 19 8:05 | | | | | First dose on Mon01/11/19 at | | AM PST | | | | | 1500 | | | | | | + +-------+ +-------+---+---+ +-------+ +-------+---+---+ | Given | 01/13/20 | 40 mg | | | | | 19 8:34 | | | | | | AM PST | | | | +-------+ +-------+---+---+ | Given | 01/12/20 | 40 mg | | | | | 19 3:23 | | | | | | PM PST | | | | +-------+ +-------+---+---+ +---+---+ | | | +---+---+ + +-------+ +-------+---+---+ | metoprolol succinate | Given | 01/14/20 | 50 mg | | | | (TOPROL-XL) ER tablet 50 mg 50 | | 19 9:58 | | | | | mg, Oral, DAILY, First dose on | | AM PST | | | | | 01/13/19 at 0900, Tablet may | | | | | | | be cut where scored but do not | | | | | | | crush., | | | | | | + +-------+ +-------+---+---+ +---+---+ | | | +---+---+ + +-------+ +--------+---+---+ | midazolam (VERSED) 1 mg/mL | Given | 01/13/20 | 0.5 mg | | | | injection ONCE PRN, Starting Sat | | 19 10:22 | | | | | 01/12/19 at 0941, Intra-op | | AM PST | | | | + +-------+ +--------+---+---+ +-------+ +--------+---+---+ | Given | 01/13/20 | 0.5 mg | | | | | 19 9:41 | | | | | | AM PST | | | | +-------+ +--------+---+---+ +---+---+ | | | +---+---+ + +-------+ +------+---+---+ | ondansetron (ZOFRAN ODT) | Given | 01/14/20 | 4 mg | | | | disintegrating tablet 4 mg 4 mg, | | 19 4:23 | | | | | Oral, EVERY 6 HOURS PRN, Nausea, | | AM PST | | | | | Vomiting, Starting 01/11/19 | | | | | | | at 1433, First line agent, | | | | | | + +-------+ +------+---+---+ +---+---+ | | | +---+---+ + +-------+ +------+---+---+ | oxyCODONE (ROXICODONE) tablet | Given | 01/14/20 | 5 mg | | | | 5-10 mg 5-10 mg, Oral, EVERY 6 | | 19 8:20 | | | | | HOURS PRN, Pain, Starting Sat | | AM PST | | | | | 01/12/19 at 1529 | | | | | | + +-------+ +------+---+---+ +-------+ +------+---+---+ | Given | 01/13/20 | 5 mg | | | | | 19 3:56 | | | | | | PM PST | | | | +-------+ +------+---+---+ +---+---+ | | | +---+---+ + +-------+ +--------+---+---+ | potassium chloride (KLOR-CON) | Given | 01/14/20 | 10 mEq | | | | ER tablet 10 mEq 10 mEq, Oral, 2 | | 19 8:04 | | | | | TIMES DAILY, First dose on Fri | | AM PST | | | | | 01/11/19 at 2100, May take with | | | | | | | food to decrease GI upset., | | | | | | + +-------+ +--------+---+---+ +-------+ +--------+---+---+ | Given | 01/13/20 | 10 mEq | | | | | 19 8:35 | | | | | | PM PST | | | | +-------+ +--------+---+---+ | Given | 01/13/20 | 10 mEq | | | | | 19 11:20 | | | | | | AM PST | | | | +-------+ +--------+---+---+ + +---+ | | | + +---+ | sodium chloride (OCEAN) 0.65% | | | nasal spray 2 spray 2 spray, | | | Each Nare, EVERY 1 HOUR PRN, | | | Nasal Dryness, Starting Fri | | | 01/11/19 at 2100 | | + +---+ | | | + +---+ documented in this encounter
--- OUTSIDE RECORDS SUMMARY | ~2019-01-21 | XMS | Encounter Summary ---
Demographics + + + | Address | [address] | | | [place] [address] | + + + | Home Phone | | + + + | Preferred Language | Unknown | + + + | Marital Status | Single | + + + | Muslim Affiliation | Unknown | + + + | Race | Unknown | + + + | Ethnic Group | Other Race | + + + Author + + + | Author | [facility] | + + + | Organization | [facility] | + + + | Address | Unknown | + + + | Phone | Unavailable | + + + Care Team Providers + +------+ + | Care Pnp Name | Role | Phone | + [...] [id number] | | | | | | [facility] | | | | | | and Healing, | | | | | | [address] | | | | | | Floor [place], [place] | | | | | | [address] | | | | | | [phone] | | | +--------+ + + + [...] skin, | | | | | | [id number]. The surgical | | | | | [...] + + | [facility] | [address] [id number], [address] | [place] [address] | | | DERMATOPATHOLOGY | [address] | | | + + + + + documented in this encounter Visit Diagnoses Not on filedocumented in this encounter
--- OUTSIDE RECORDS SUMMARY | ~2019-01-21 | XMS | Clinical Summary ---
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 | Role | Phone | + +------+ + | Devante Mercer MD | PCP | | + +------+ + Allergies + + + + + + | Active Allergy | Reactions | Severity | Noted | Comments | | | | | Date | | + + + + + + | Celecoxib | Hives, Rash | High | 03/23/19 | | | | | | 16 | | + + + + + + | Warfarin | Diarrhea | Low | 04/22/19 | Diarrhea | | | | | 16 | | + + + + + + Medications + + + +---------+------+------+-------+ | Medication | Sig | Dispensed | Refills | Star | End | Statu | | | | | | t | Date | s | | | | | | Date | | | + + + +---------+------+------+-------+ | | Take 1 tablet by | 30 | 2 | 07/1 | 07/1 | Activ | | hydroCHLOROthiazide | mouth daily. | tablet | | 2/20 | 1/20 | e | | 25 mg tablet | | | | 19 | 20 | | + + + +---------+------+------+-------+ | isosorbide | Take 1 tablet by | 30 | 2 | 07/1 | 07/1 | Activ | | mononitrate (IMDUR) | mouth daily. | tablet | | 2/20 | 1/20 | e | | 30 mg ER tablet | | | | 19 | 20 | | + + + +---------+------+------+-------+ | lisinopril | Take 1 tablet by | 30 | 2 | 07/1 | 07/1 | Activ | | (PRINIVIL,ZESTRIL) | mouth daily. | tablet | | 2/20 | 1/20 | e | | 40 MG tablet | | | | 19 | 20 | | + + + +---------+------+------+-------+ | metFORMIN | Take 1 tablet by | 60 | 2 | 07/1 | 07/1 | Activ | | (GLUCOPHAGE-XR) 500 | mouth 2 (two) times | tablet | | 03/25 | 0/20 | e | | mg 24 hr tablet | daily with meals. | | | 19 | 20 | | + + + +---------+------+------+-------+ | fluticasone | 1 spray by Each Nare | | 0 | 09/03 | | Activ | | (FLONASE) 50 | route as needed for | | | 20 | | e | | mcg/nasal spray | Rhinitis. | | | 19 | | | + + + +---------+------+------+-------+ | glipiZIDE | Take 10 mg by mouth | | 0 | 09/03 | | Activ | | (GLUCOTROL XL) 10 mg | daily. | | | 03/25 | | e | | ER tablet | | | | 19 | | | + + + +---------+------+------+-------+ | latanoprost | 1 drop nightly. | | 0 | 07/ | | Activ | | (XALATAN) 0.005% | | | | 03/25 | | e | | ophthalmic solution | | | | 19 | | | + + + +---------+------+------+-------+ | levothyroxine | Take 125 mcg by | | 0 | 07/1 | | Activ | | (SYNTHROID) 125 mcg | mouth every morning | | | 1/20 | | e | | tablet | before breakfast. | | | 19 | | | + + + +---------+------+------+-------+ | Cranberry 450 MG | Take by mouth. | | 0 | 07/1 | | Activ | | CAPS | | | | 1/20 | | e | | | | | | 19 | | | + + + +---------+------+------+-------+ | ascorbic acid | Take 1,000 mg by | | 0 | 07/1 | | Activ | | (VITAMIN C) 1000 MG | mouth daily. | | | 1/20 | | e | | tablet | | | | 19 | | | + + + +---------+------+------+-------+ | tocopherol | Take 400 Units by | | 0 | 07/1 | | Activ | | (VITAMIN E) 400 | mouth daily. | | | 20 | | e | | units capsule | | | | 19 | | | + + + +---------+------+------+-------+ | MULTIPLE | Take by mouth | | 0 | 01/1 | | Activ | | VITAMINS-MINERALS PO | daily. | | | 10/23 | | e | | | | | | 16 | | | + + + +---------+------+------+-------+ | Calcium | Take 1,000 mg by | | 0 | /1 | | Activ | | Carb-Cholecalciferol | mouth daily. | | | 8 | | e | | (CALCIUM 1000 + D) | | | | 16 | | | | 1000-800 MG-UNIT | | | | | | | | TABS | | | | | | | + + + +---------+------+------+-------+ | cholecalciferol | Take 1,000 Units by | | 0 | 01/1 | | Activ | | (VITAMIN D-3) 1,000 | mouth daily. | | | 820 | | e | | units capsule | | | | 16 | | | + + + +---------+------+------+-------+ | fish oil 1,000 mg | Take 1 g by mouth | | 0 | 01/ | | Activ | | capsule | daily. | | | 8 | | e | | | | | | 16 | | | + + + +---------+------+------+-------+ | cyanocobalamin | Take 1,000 mcg by | | 0 | 01/1 | | Activ | | (VITAMIN B-12) 1000 | mouth every other | | | 10/23 | | e | | MCG tablet | day. | | | 16 | | | + + + +---------+------+------+-------+ | amiodarone | Take 1 tablet by | 30 | 1 | /2 | 08 | Activ | | (PACERONE) 200 mg | mouth Daily. | tablet | | 03/25 | 020 | e | | tabletIndications: | | | | 19 | 20 | | | Persistent atrial | | | | | | | | fibrillation | | | | | | | + + + +---------+------+------+-------+ | dabigatran | Take 1 capsule by | 60 | 5 | 11/1 | 05/0 | Activ | | (PRADAXA) 150 mg | mouth 2 times daily | capsule | | 0/20 | 8/20 | e | | capsule | for 180 days. | | | 19 | 20 | | + + + +---------+------+------+-------+ | metoprolol | Take 1 tablet by | 30 | 5 | 11/1 | | Activ | | succinate | mouth Daily. | tablet | | 1/20 | | e | | (TOPROL-XL) 50 mg 24 | | | | 19 | | | | hr tablet | | | | | | | + + + +---------+------+------+-------+ | dabigatran | Take 1 capsule by | | 0 | 07/0 | 11/1 | Disco | | (PRADAXA) 150 mg | mouth 2 (two) times | | | 3/20 | 0/20 | ntinu | | capsule | daily. | | | 19 | 19 | ed | | | | | | | | (Reor | | | | | | | | andreas) | + + + +---------+------+------+-------+ Active Problems + + + | Problem | Noted Date | + + + | Pacemaker | 01/21/2019 | + + + | Visit for wound check | 01/21/2019 | + + + | Symptomatic bradycardia | 01/11/2019 | + + + | Essential hypertension | 09/07/2018 | + + + | Atypical atrial flutter | 09/05/2018 | + + + | Impaired glucose tolerance | 05/03/2017 | + + + | Paroxysmal atrial fibrillation | 04/26/2016 | + + + | Hyperlipidemia | 03/24/2015 | + + + | DMII (diabetes mellitus, type 2) | 03/24/2015 | + + + Resolved Problems + + + + | Problem | Noted | Resolved | | | Date | Date | + + + + | Persistent atrial fibrillation | 10/25/19 | | | | 19 | 9 | + + + + + + | Overview: Added automatically from request for surgery | | [id number] | + + + + + + | Paroxysmal atrial fibrillation | 09/08/19 | | | | 19 | 9 | + + + + | Essential hypertension | 03/24/19 | | | | 16 | 9 | + + + + Encounters +--------+ + + + + | Date | Type | Specialty | Care Team | Description | +--------+ + + + + | 01/21/ | Office | Cardiology | Cammie Fuentes | Visit for wound | | 2019 | Visit | | HEATHER Bianchi | check (Primary Dx); | | | | | | Pacemaker; | | | | | | Paroxysmal atrial | | | | | | fibrillation (HCC) | +--------+ + + + + | 01/14/ | Telephone | Hospitalist | Josephine Muhammad | Advice Only | | 2018 | | | COLLETTE Borrero | | +--------+ + + + + | 01/12/ | Surgery | Radiology | Leland Ulloa MD | CV EP PPM SYSTEM | | 2019 | | | | IMPLANT | +--------+ + + + + | 01/11/ | Hospital | Internal Medicine | George Muro | Essential | | 2019 - | Encounter | | MD Shravan Go, | hypertension; | | | | | DO Bettye | Paroxysmal atrial | | 01/13/ | | | | fibrillation (HCC); | | 2019 | | | | Symptomatic | | | | | | bradycardia; Type 2 | | | | | | diabetes mellitus | | | | | | with stage 2 chronic | | | | | | kidney disease, | | | | | | without long-term | | | | | | current use of | | | | | | insulin (HCC) | +--------+ + + + + | 11/28/ | Office | Cardiology | Denise Chakraborty, | Atypical atrial | | 2018 | Visit | | MD | flutter (HCC) | | | | | | (Primary Dx); | | | | | | Essential | | | | | | hypertension; | | | | | | Paroxysmal atrial | | | | | | fibrillation ([facility]) | +--------+ + + + + | 11/14/ | Office | Cardiology | Denise Chakraborty, | Paroxysmal atrial | | 2018 | Visit | | MD | fibrillation ([facility]) | | | | | | (Primary Dx); | | | | | | Essential | | | | | | hypertension; Mixed | | | | | | hyperlipidemia | +--------+ + + + + | 11/13/ | Surgery | Radiology | Gideon Sevilla | CV EP CARDIOVERSION | | 2018 | | | MD [place] | | +--------+ + + + + | 11/13/ | Anesthesia | Radiology | Rivas Dumas, | | | 2019 | Event | | | | +--------+ + + + + | 11/13/ | Hospital | Radiology | Gideon Sevilla | Persistent atrial | | 2019 | Encounter | | MD [place] | fibrillation (HCC); | | | | | | Persistent atrial | | | | | | fibrillation (HCC) | +--------+ + + + + | 11/12/ | Telephone | Radiology | Gideon Sevilla | | | 2019 | | | MD [place] | | +--------+ + + + + | 10/24/ | Office | Cardiology | Gideon Sevilla | Persistent atrial | | 2019 | Visit | | MD [place] | fibrillation (HCC) | | | | | | (Primary Dx) | +--------+ + + + + from Last 3 Months Family History + + +------+ + | Medical History | Relation | Name | Comments | + + +------+ + | Heart disease | Father | | | + + +------+ + | High cholesterol | Father | | | + + +------+ + | Hypertension | Father | | | + + +------+ + | Hypertension | Mother | | | + + +------+ + | Stroke | Mother | | | + + +------+ + + +------+ + + | Relation | Name | Status | Comments | + +------+ + + | Father | | | heart disease (ME), HTN,Hyperlipidemia | | | | (Age | | | | | 80) | | + +------+ + + | Father | | | | + +------+ + + | Mother | | | HTN,CVA | | | | (Age | | | | | 89) | | + +------+ + + | Mother | | | | + +------+ + + Social History + +-------+ +--------+------+ [...] recent travel history available. | + + Last Filed Vital Signs + + + + + | Vital Sign | Reading | Time Taken | Comments | + + + + + | Blood Pressure | 142/70 | 01/21/2019 3:13 PM | | | | | PST | | + + + + + | Pulse | 98 | 01/21/2019 3:13 PM | | | | | PST | | + + + + + | Temperature | 37 C (98.6 F) | 01/21/2019 3:13 PM | | | | | PST | | + + + + + | Respiratory Rate | 20 | 01/13/2019 11:39 AM | | | | | PST | | + + + + + | Oxygen Saturation | 95% | 01/21/2019 3:13 PM | | | | | PST | | + + + + + | Inhaled Oxygen | - | - | | | Concentration | | | | + + + + + | Weight | 64.4 kg (142 lb) | 01/21/2019 3:13 PM | | | | | PST | | + + + + + | Height | 149.9 cm (4' 11") | 01/21/2019 3:13 PM | | | | | PST | | + + + + + | Body Mass Index | 28.68 | 01/21/2019 3:13 PM | | | | | PST | | + + + + + Plan of Treatment +--------+---------+ + + + | Date | Type | Specialty | Care Team | Description | +--------+---------+ + + + | 02/20/ | Office | Cardiology | Denise Chakraborty, | | | 2018 | Visit | | MD Eduardo AGUILLON | | | | | | [place] | | | | | | [id number] | | | | | | | | +--------+---------+ + + + + + + + + | Health Maintenance | Due Date | Last Done | Comments | + + + + + | Diabetic Eye Exam | | | | | | 8 | | | + + + + + | Diabetic Foot Exam | | | | | | 8 | | | + + + + + | Vaccine: | | | | | Dtap/Tdap/Td (1 - | 9 | | | | Tdap) | | | | + + + + + | Vaccine: Zoster (1 | | | | | of 2) | 0 | | | + + + + + | Vaccine: | | | | | Pneumococcal 65+ (1 | 5 | | | | of 2 - PCV13) | | | | + + + + + | Adult Annual | | | | | Wellness Visit | 9 | | | + + + + + | Hemoglobin A1c | | 01/11/2019, 09/08/2018 | | | Screening | 0 | | | + + + + + | Vaccine: Influenza | Completed | 01/05/2019 | | + + + + + Implants + +--------+-------+ +--------+--------+--------+ | Implanted | Type | Area | Manufacture | Device | Shelf | Model | | | | | r | | Expira | / | | | | | | Identi | tion | Serial | | | | | | fier | Date | / Lot | + +--------+-------+ +--------+--------+--------+ | Lead Pacer Actv Fix Str 52cm | Lead | | [place] | [id number] | 04/05/ | 7741 | | - [id number]: Qty: 1 on | | | SCIENTIFIC | [id number] | 2020 | /[id number] | | 01/12/2019 by Leland Ulloa, | | | MIAH - BSCI | 57 | | 7 / | | MD at [facility] | | | | | | | | [facility] | | | | | | | + +--------+-------+ +--------+--------+--------+ | Lead Pacer Actv Fix Str 45cm | Lead | N/A: | [place] | [id number] | 04/23/ | 7740 | | - [id number]: Qty: 1 | | Heart | SCIENTIFIC | [id number] | 2020 | /[id number] | | on 01/12/2019 by Artemio, | | | MIAH - BSCI | 27 | | 44 / | | MD Leland at [facility] | | | | | | | | [facility] | | | | | | | + +--------+-------+ +--------+--------+--------+ | Pacemaker Accolade Dr Armstrong Mri | Pacema | N/A: | KARELY | [id number] | 10/18/ | L331 | | - [id number]: Qty: 1 on | ker | Heart | SCIENTIFIC | [id number] | 2020 | /[id number] | | 01/12/2019 by Leland Ulloa, | | | MIAH - BSCI | 65 | | 0 / | | at [facility] | | | | | | | | [facility] | | | | | | | + +--------+-------+ +--------+--------+--------+ Procedures + +--------+ + + + | Procedure Name | Priori | Date/Time | Associated Diagnosis | Comments | | | ty | | | | + +--------+ + + + | ECG 12 LEAD | Routin | 01/21/2019 | Visit for wound | Results for this | | | e | 4:05 PM | check Pacemaker | procedure are in the | | | | PST | Paroxysmal atrial | results section. | | | | | fibrillation (HCC) | | + +--------+ + + + [...] | + +--------+ + + + | ECG 12 LEAD | STAT | 11/13/2018 | | Results for this | | | | 8:40 AM | | procedure are in the | | | | PDT | | results section. | + +--------+ + + + | CV EP CARDIOVERSION | Routin | 11/13/2018 | Persistent atrial | Results for this | | | e | 7:47 AM | fibrillation (HCC) | procedure are in the | | | | PDT | | results section. | + +--------+ + + + | BASIC METABOLIC | STAT | 11/13/2018 | | Results for this | | PANEL | | 6:53 AM | | procedure are in the | | | | PDT | | results section. | + +--------+ + + + | CBC WITH | STAT | 11/13/2018 | | Results for this | | DIFFERENTIAL | | 6:53 AM | | procedure are in the | | | | PDT | | results section. | + +--------+ + + + | ECG 12 LEAD | Routin | 11/13/2018 | | Results for this | | | e | 6:40 AM | | procedure are in the | | | | PDT | | results section. | + +--------+ + + + | POC GLUCOSE (NON | Routin | 11/13/2018 | | Results for this | | ORD) | e | 6:27 AM | | procedure are in the | | | | PDT | | results section. | + +--------+ + + + | ECG 12 LEAD | Routin | 10/24/2018 | Persistent atrial | Results for this | | | e | 2:08 PM | fibrillation (HCC) | procedure are in the | | | | PDT | | results section. | + +--------+ + + + from Last 3 Months Results ECG 12 lead (01/21/2019 4:05 PM PST)Only the most recent of 4 results within the time sal od is included. + + + + + + | Component | Value | Ref Range | Performed | Pathologist | | | | | At | Signature | + + + + + + | VENTRICULAR | 97 | BPM | [facility] | | | RATE EKG | | | | | + + + + + + | ATRIAL RATE | 97 | BPM | [facility] | | + + + + + + | P-R | 112 | ms | [facility] | | | INTERVAL | | | | | + + + + + + | QRS | 110 | ms | [facility] | | | DURATION | | | | | + + + + + + | Q-T | 362 | ms | [facility] | | | INTERVAL | | | | | + + + + + + | Q-T | 459 | ms | [facility] | | | INTERVAL | | | | | | (CORRECTED) | | | | | + + + + + + | P WAVE AXIS | -116 | degrees | [facility] | | + + + + + + | QRS AXIS | -34 | degrees | [facility] | | + + + + + + | T AXIS | 116 | degrees | [facility] | | + + + + + + | INTERPRETAT | Please refer to | | [facility] | | | ION TEXT | Providers office visit | | | | | | note for Providers | | | | | | Interpretation.Confirmed | | | | | | by [facility] Read Only, | | | | | | [facility]CA Wendy ([id number]), | | | | | | electronic news gathering editor Martell Kelly | | | | | | ([id number]) on 01/21/2019 | | | | | | 4:05:19 PM | | | | + + + + + + + + | Specimen | + + | | + + + + + | Narrative | Performed At | + + + | | | + + + + +---------+ + + | Performing | Address | City/State/Zipcode | Phone Number | | Organization | | | | + +---------+ + + | [facility] | | | | + +---------+ + + POC Glucose (01/13/2019 11:39 AM PST)Only the most recent of 10 results within the time per iod is included. + + + + + + | Component | Value | Ref Range | Performed | Pathologist | | | | | At | Signature | + + + + + + | Glucose, | 324 (H)Comment: Testing | 65 - 99 mg/dL | [facility] | | | POC | performed at [facility] | LABORATORY | | | | [address];[place], [place] | | | | | | [address] | | | | + + + + + + + + | Specimen | + + | | + + + + + + + | Performing | Address | City/State/Zipcode | Phone Number | | Organization | | | | + + + + + | [facility] | [address] | [place] [address] | [phone] | + + + + + XR [...] | | | + +---------+ + + CV EP PROCEDURE (01/12/2019 10:47 AM PST)Only the most recent of 2 results within the time period is included. + + | Specimen | + + | | + + + + + | Narrative | Performed At | + + + | | | | ConclusionSuccessful insertion of dual-chamber permanent pacemaker, | | | MRI compatible, [facility] unit. Equipments:Generator: [employer]Pad | | | [employer] [address] IS-1 (). Model #L331, serial #[id number] | | | lead: AAMPP IS-1 Bi-positive fix RA/RV 45 | | | cm, model #7740, serial #[id number].RV lead: [employer] | | | MRI IS-1 Bi-positive fix RA/RV 52 cm, model #7741, serial # [id number]. | | | Measurements:RA 3.3 mV, 0.9 V at 0.4 ms, impedance 652.RV 25 mV, 1.0 V | | | at 0.4 ms, impedance 955. Final settingsDDDR, 50/130. | | |RV lead: AAMPP IS-1 Bi-positive fix RA/RV 52 cm, | | |model #7741, serial # [id number]. | | | | | |Measurements: | | |RA 3.3 mV, 0.9 V at 0.4 ms, impedance 652. | | |RV 25 mV, 1.0 V at 0.4 ms, impedance 955. | | | | | |Final settings | | |DDDR, 50/130. | | | | | + + + CBC with Differential (01/12/2019 5:39 AM PST)Only the most recent of 2 results within the time period is included. + + + + + + | [...] 0.08Comment: Testing | 0.00 - 0.10 | [facility] | | | Absolute | performed at [facility], [address] | LABORATORY | | | | [address], | | | | | | [place] [address] | | | | + + + + + + + + | Specimen | + + | Blood | + + + + + + + | Performing | Address | City/State/Zipcode | Phone Number | | Organization | | | | + + + + + | [facility] | [address] | [place] [address] | [phone] | + + + + + T4, Free (01/12/2019 5:39 AM PST) + + + + + + | Component | Value | Ref Range | Performed | Pathologist | | | | | At | Signature | + + + + + + | FT4 | 1.4Comment: Testing | 0.7 - 1.5 ng/dL | [facility] | | | | performed at [facility], [address] | | LABORATORY | | | | [address], | | | | | | [place] [address] | | | | + + + + + + + + | Specimen | + + | Blood | + + + + + + + | Performing | Address | City/State/Zipcode | Phone Number | | Organization | | | | + + + + + | [facility] | [address] | [place] [address] | [phone] | + + + + + Magnesium (01/12/2019 5:39 AM PST)Only the most recent of 2 results within the time period is included. + + + + + + | Component | Value | Ref Range | Performed | Pathologist | | | | | At | Signature | + + + + + + | Magnesium | 1.7Comment: Testing | 1.7 - 2.4 mg/dL | [facility] | | | | performed at [facility], [address] | | LABORATORY | | | | [address], | | | | | | [place] [address] | | | | + + + + + + + + | Specimen | + + | Blood | + + + + + + + | Performing | Address | City/State/Zipcode | Phone Number | | Organization | | | | + + + + + | [facility] | [address] | [place] [address] | [phone] | + + + + + Basic Metabolic Panel (01/12/2019 5:39 AM PST)Only the most recent of 2 results within the time period is included. + + + + + + | [...] | | | | | performed at [facility], [address] | | | | | | [facility], | | | | | | [place] [address] | | | | + + + + + + + + | Specimen | + + | Blood | + + + + + + + | Performing | Address | City/State/Zipcode | Phone Number | | Organization | | | | + + + + + | [facility] | [address] | [place] [address] | [phone] | + + + + + XR [...] is recommended. Signed by: Michael | | | George Ibarra Sign Date/Time: 01/11/2019 4:10 PM | | [...] + | Thomas, Rad Results In - 01/11/2019 4:14 PM PST [...] | | | + +---------+ + + TSH (01/11/2019 2:35 PM PST) + + + + + + | Component | Value | Ref Range | Performed | Pathologist | | | | | At | Signature | + + + + + + | TSH | 6.784 (H)Comment: | 0.450 - 5.100 | [facility] | | | | Testing performed at | uIU/mL | LABORATORY | | | | [place];[address] | | | | | | [place] [address] | | | | + + + + + + + + | Specimen | + + | Blood | + + + + + + + | Performing | Address | City/State/Zipcode | Phone Number | | Organization | | | | + + + + + | [facility] | [address] | [place] [address] | [phone] | + + + + + Hemoglobin A1C (01/11/2019 2:35 PM PST) + + + + + + | Component | Value | Ref Range | Performed | Pathologist | | | | | At | Signature | + + + + + + | Hemoglobin | 9.8 (H)Comment: HbA1c | 4.0 - 6.0 % | [facility] | | | A1c | method is [...] | 235 (H)Comment: | <154 mg/dL | [facility] | | | Average | Estimated Average | | LABORATORY | | | Glucose | Glucose calculated from | | | | | | hemoglobin A1c by use of | | | | | | the ADArecommended | | | | | | formula.Testing | | | | | | performed at [facility], [address] | | | | | | [facility], | | | | | | [place] [address] | | | | + + + + + + + + | Specimen | + + | Blood | + + + + + + + | Performing | Address | City/State/Zipcode | Phone Number | | Organization | | | | + + + + + | [facility] | [address] | [place] [address] | [phone] | + + + + + from Last 3 Months Insurance + +--------+ +--------+ +---------+--------+ | Payer | Benefi | Subscriber | Effect | Phone | Address | Type | | | t Plan | ID | zeyad | | | | | | / | | Dates | | | | | | Group | | | | | | + +--------+ +--------+ +---------+--------+ | MEDICARE | MEDICA | [id number] | 09/03/18 | [phone] | | Medica | | | RE | | 95-Pre | 5 | | re | | | PART A | | sent | | | | | | AND B | | | | | | + +--------+ +--------+ +---------+--------+ | MEDICARE SUPPLEMENT | MEDICA | [id number] | 11/13/19 | [phone] | | Indemn | | OTHER | RE | | 19-Pre | 0 | | ity | | | SUPPLE | | sent | | | | | | MENT | | | | | | | | OTHER | | | | | | + +--------+ +--------+ +---------+--------+ + +--------+ +--------+ + + | Guarantor Name | Accoun | Relation to | Date | Phone | Billing Address | | | t Type | Patient | of | | | | | | | | | | + +--------+ +--------+ + + | Francisca Clark | Person | Self [birth year] [address] | | | [place] | | 1931 | [phone] | [place] | | | [place]onal | | | [address] (Home) | [address] | + +--------+ +--------+ + + Advance Directives + + + + + | Type | Date Recorded | Patient | Explanation | | | | 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
--- OUTSIDE RECORDS SUMMARY | ~2019-01-21 | XMS | Encounter Summary ---
Demographics + + + | Address | [address] | | | [place] [address] | + + + | Home Phone | | + + + | Preferred Language | Unknown | + + + | Marital Status | | + + + | Latter Day Affiliation | Unknown | + + + | Race | Unknown | + + + | Ethnic Group | Unknown | + + + Author + + + | Author | [facility] | | | and [place] | + + + | Organization | [facility] | | | [...] | + + +---------+ + | Deborah Yogisrinivaslorna | ECON | Unknown | | + + +---------+ + | Mat Arambula | ECON | Unknown | | + + +---------+ + Care Team Providers + +------+ + | Care Cafe Site Attendant Name | Role | Phone | + +------+ + PCP | Unavailable | + +------+ + Encounter Details +--------+ + + + + | Date | Type | Department | Care Team | Description | +--------+ + + + + | 09/07/ | Hospital | [facility] | Rajani, | Bradycardia; Altered | | 2019 - | Encounter | [facility] | MD [address] | mental status, | | | | CARE [address]LO[address] | unspecified altered | | | | [address] | [place] [address] | mental status type; | | 2018 | | [place], [place] | [phone] | Symptomatic | | | | [address] | | bradycardia; Atrial | | | | [phone] | | fibrillation, | | | | | | unspecified type | | | | | | ([facility]) | +--------+ + + + + Social [...] + + + | Blood Pressure | 144/65 | 09/13/2018 11:58 AM | | | | | PDT | | + + + + + | Pulse | 47 | 09/13/2018 11:58 AM | | | | | PDT | | + + + + + | Temperature | 36.5 C (97.7 F) | 09/13/2018 11:58 AM | | | | | PDT | | + + + + + | Respiratory Rate | 16 | 09/13/2018 11:58 AM | | | | | PDT | | + + + + + | Oxygen Saturation | - | - | | + + + + + | Inhaled Oxygen | - | - | | | Concentration | | | | + + + + + | Weight | 64.5 kg (142 lb 3.2 | 09/13/2018 11:58 AM | | | | oz) | PDT | | + + + + + | Height | 162.6 cm (5' 4.02") | 09/13/2018 11:58 AM | | | | | PDT | | + + + + + | Body Mass Index | 24.4 | 09/13/2018 11:58 AM | | | | | PDT | | + + + + + documented in this encounter Discharge Summaries Constantino Maza MD - 09/13/2018 2:21 PM PDTFormatting of this note might be different fr om the original. Discharge Summaries by Constantino Maza MD at 09/13/18 1421 Author: Constantino Maza MD Service: Hospitalist Author Type: Physician Filed: 09/13/18 1425 Date of Service: 09/13/18 142 Status: Signed Lead Burner Apprentice: Constantino Maza MD (Physician) [facility] Service: Hospitalist Discharge Summary Date of Admission: 09/07/2018 Date of Discharge: 09/13/2018 Discharge Provider: Constantino Maza MD Attending Provider: Constantino Maza MD Treatment Team: Consulting Physician: Leland Ulloa MD Consulting Physician: Ryan Barron MD Admitting Provider: Vito Gerard MD Discharge Diagnoses: Principal Problem (Resolved): Symptomatic bradycardia Active Problems: Atrial fibrillation (HCC) Essential hypertension Resolved Problems: Change in mental state BRIEF HISTORY OF PRESENTATION: Admission H&P Dr. Lester:"The patient is 87 yo female (Eduardo Espinosa C 1930)wit h significant past medical history of atrial fibirllation/a flutter (cardiology Dr Chakraborty) , hypothyroidism, hypertension, moderate pulmonary hypertension, chronic kidney disease a st age IIwho presents with dyspnea." The patient was admitted with bradycardia status post at ropine 1 mg x 2 doses and maintained on medical therapy. Re Examiner was consulted. HOSPITAL COURSE: The patient was admitted to regular medical floor bradycardia was presumed to be ia trogenic most likely versus less likely complete heart block the patient's home medications were adjusted and patient's home Cardizem was discontinued and metoprolol was down titrated and eventually discontinued. The patient was placed on rhythm control amiodarone 400 mg i nitially twice daily, down titrated to amiodarone 400 mg daily on discharge with appropriate heart rate as per discussion with palliative care nurse practitioner. The patient's hospital stay was complicated with aspiration pneumonitis, likely confirmed via CT of the chest without contrast. The patient was placed on Augmentin 1 tablet p.o. twice daily with appropriate r esponse. The patient was started on Pradaxa for atrial fibrillation with elevated chads 2 v asc score. The patient continues to demonstrate clinical, hemodynamic and from a laboratory perspective stability for discharge with outpatient follow-up. Patient is to follow-up wit h her primary care physician within 1 week after discharge and to follow-up with outpatient public service director within 1 to 2 weeks after discharge. The patient and [id number] at [facility] were able to reiterate what was discussed verbally demonstrating understanding. All quest ions answered. History reviewed. No pertinent past medical history. History reviewed. No pertinent surgical history. Allergies Allergen Reactions Celebrex [Celecoxib] Hives Prescriptions Prior to Admission Medication Sig Dispense Refill Last Dose ascorbic acid (VITAMIN C) 1000 MG tablet Take 1,000 mg by mouth daily. cholecalciferol (VITAMIN D-3) 1000 units tablet Take 1,000 Units by mouth daily. Cranberry 450 MG CAPS Take by mouth. fenofibrate 160 MG tablet Take 160 mg by mouth daily. fluticasone (FLONASE) 50 MCG/ACT nasal 1 spray by Each Nare route as needed for Rhiniti s. glipiZIDE (GLIPIZIDE XL) 10 MG 24 hr tablet Take 10 mg by mouth daily. latanoprost (XALATAN) 0.005 % ophthalmic solution 1 drop nightly. levothyroxine (SYNTHROID) 125 MCG tablet Take 125 mcg by mouth every morning before johnnie akfast. loperamide (IMODIUM) 2 MG capsule Take 2 mg by mouth 4 (four) times daily as needed for Diarrhea. metFORMIN (GLUCOPHAGE) 500 MG tablet Take 500 mg by mouth 2 (two) times daily with meal s. omega-3 acid ethyl esters (LOVAZA) 1 g capsule Take 1 g by mouth 2 (two) times daily. vitamin E 400 UNIT capsule Take 400 Units by mouth daily. DISCHARGE EXAM Vital Signs: BP 144/65 | Pulse (!) 47 | Temp 97.7 F (36.5 C) (Axillary) | Resp 16 | Ht 1.626 m ( 5' 4.02") | Wt 64.5 kg (142 lb 3.2 oz) | SpO2 97% | BMI 24.40 kg/m Physical Exam Physical Exam Constitutional: She is oriented to person, place, and time. No acute distress. Daughter-i n-law at bedside. Neck: No JVD present. Cardiovascular: Normal rate. Murmur heard. Irregular rhythm Pulmonary/Chest: Effort normal. No respiratory distress. She has rales. Abdomina/Gl: Soft. Bowel sounds are normal. Musculoskeletal: She exhibits no edema. Nursing note and vitals reviewed. DATA Labs, medications, allergies and other treatment team notes reviewed. Imaging reviewed. PLAN 1. Activity: As tolerated 2. Diet: 2 g low-sodium cardiac 3. Follow-up: As indicated below and as discussed in detail at bedside. The patient is to follow-up with her primary care physician within 1 week after discharge. Disposition: Home Condition: Stable Code Status: Full Code No discharge procedures on file. Follow up: Denise Chakraborty MD [address] [place] [address] Schedule an appointment as soon as possible for a visit in 2 weeks Post hospital discharge follow-up Medication List START taking these medications amiodarone 400 MG tablet QTY: 30 tablet Refills: 1 Commonly known as: PACERONE Take 1 tablet by mouth daily. Start taking on: 09/14/2018 amoxicillin-clavulanate 875-125 MG per tablet QTY: 20 tablet Refills: 0 Commonly known as: AUGMENTIN Take 1 tablet by mouth every 12 (twelve) hours for 10 days. dabigatran 150 MG Caps capsule QTY: 60 capsule Refills: 2 Commonly known as: PRADAXA Take 1 capsule by mouth 2 (two) times daily. hydrochlorothiazide 25 MG tablet QTY: 30 tablet Refills: 2 Commonly known as: HYDRODIURIL Take 1 tablet by mouth daily. Start taking on: 09/14/2018 isosorbide mononitrate 30 MG 24 hr tablet QTY: 30 tablet Refills: 2 Commonly known as: IMDUR Take 1 tablet by mouth daily. Start taking on: 09/14/2018 lisinopril 40 MG tablet QTY: 30 tablet Refills: 2 Commonly known as: ZESTRIL Take 1 tablet by mouth daily. Start taking on: 09/14/2018 CHANGE how you take these medications * levothyroxine 125 MCG tablet Refills: 0 Commonly known as: SYNTHROID What changed: Another medication with the same name was added. Make sure you understand ho w and when to take each. * levothyroxine 50 MCG tablet QTY: 30 tablet Refills: 2 Commonly known as: SYNTHROID Take 1 tablet by mouth every morning before breakfast. What changed: You were already taking a medication with the same name, and this prescripti on was added. Make sure you understand how and when to take each. * metFORMIN 500 MG tablet Refills: 0 Commonly known as: GLUCOPHAGE What changed: Another medication with the same name was added. Make sure you understand ho w and when to take each. * metFORMIN 500 MG 24 hr tablet QTY: 60 tablet Refills: 2 Commonly known as: GLUCOPHAGE-XR Take 1 tablet by mouth 2 (two) times daily with meals. What changed: You were already taking a medication with the same name, and this prescripti on was added. Make sure you understand how and when to take each. * This list has 4 medication(s) that are the same as other medications prescribed for you. Read the directions carefully, and ask your doctor or other care provider to review them wit h you. CONTINUE taking these medications ascorbic acid 1000 MG tablet Refills: 0 Commonly known as: VITAMIN C cholecalciferol 1000 units tablet Refills: 0 Commonly known as: VITAMIN D-3 Cranberry 450 MG Caps Refills: 0 fenofibrate 160 MG tablet Refills: 0 fluticasone 50 MCG/ACT nasal Refills: 0 Commonly known as: FLONASE GLIPIZIDE XL 10 MG 24 hr tablet Refills: 0 Generic drug: glipiZIDE loperamide 2 MG capsule Refills: 0 Commonly known as: IMODIUM omega-3 acid ethyl esters 1 g capsule Refills: 0 Commonly known as: LOVAZA vitamin E 400 UNIT capsule Refills: 0 You might also be taking other medications not listed above. If you have questions about an y of your other medications, talk to the person who prescribed them or your Primary Care Pro vider. STOP taking these medications diltiazem 300 MG 24 hr capsule Commonly known as: CARDIZEM CD metoprolol 100 MG 24 hr tablet Commonly known as: TOPROL-XL potassium chloride 20 MEQ packet Commonly known as: KLOR-CON torsemide 20 MG tablet Commonly known as: DEMADEX Where to Get Your Medications You can get these medications from any pharmacy Bring a paper prescription for each of these medications amiodarone 400 MG tablet amoxicillin-clavulanate 875-125 MG per tablet dabigatran 150 MG Caps capsule hydrochlorothiazide 25 MG tablet isosorbide mononitrate 30 MG 24 hr tablet levothyroxine 50 MCG tablet lisinopril 40 MG tablet metFORMIN 500 MG 24 hr tablet Discharge took 45 minutes, to include final examination, discussion of admission, and prepa ration of prescriptions, instructions for on-going care, follow-up and documentation of disc harge summary. Constantino Maza MD 09/13/2018 documented in this encounter Medications at Time of Discharge + [...] tablet by | 30 | 1 | 09/15/19 | | | (PACERONE) 400 MG | mouth daily. | tablet | | 19 | 9 | | tablet | | | | | | + + + +---------+ + + | ascorbic acid | Take 1,000 mg by | | 0 | 03/23/19 | | | (VITAMIN C) 1000 MG | mouth daily. | | | 16 | 9 | | tablet | | | | | | + + + +---------+ + + | cholecalciferol | Take 1,000 Units by | | 0 | 09/14/19 | | | (CHOLECALCIFEROL) | mouth daily. | | | 19 | 9 | | 1000 units TABS | | | | | | + + + +---------+ + + | Cranberry 450 MG | Take 450 mg by mouth | | 0 | 03/23/19 | | | TABS | daily. | | | 16 | 9 | + + + +---------+ + + | dabigatran | Take 1 capsule by | 60 | 2 | 09/14/19 | | | (PRADAXA) 150 mg | mouth 2 (two) times | capsule | | 19 | 9 | | capsule | daily. | | | | | + + + +---------+ + + | dabigatran | Take 1 capsule by | | 0 | 09/06/19 | | | (PRADAXA) 150 mg | mouth 2 (two) times | | | 19 | 9 | | capsule | daily. | | | | | + + + +---------+ + + | dilTIAZem | Take 300 mg by mouth | | 0 | 03/23/19 | | | (CARDIZEM CD) 300 mg | daily. | | | 16 | 9 | | 24 hr capsule | | | | | | + + + +---------+ + + | fenofibrate 160 mg | Take 160 mg by mouth | | 0 | 09/14/19 | | | tablet | daily. | | | 19 | 9 | + + + +---------+ + + | fenofibrate 160 mg | Take 160 mg by mouth | | 0 | 03/23/19 | | | tablet | daily. | | | 16 | 9 | + + + +---------+ + + | fluticasone | 2 sprays by Each | | 0 | 03/23/19 | | | (FLONASE) 50 | Nare route daily. | | | 16 | 9 | | mcg/nasal spray | | | | | | + + + +---------+ + + | glipiZIDE | Take 10 mg by mouth | | 0 | 03/23/19 | | | (GLUCOTROL XL) 10 mg | daily. | | | 16 | 9 | | ER tablet | | | | | | + + + +---------+ + + | latanoprost | Place 1 drop into | | 0 | 03/23/19 | | | (XALATAN) 0.005% | both eyes nightly. | | | 16 | 9 | | ophthalmic solution | | | | | | + + + +---------+ + + | levothyroxine | Take 1 tablet by | 30 | 2 | 09/14/19 | | | (SYNTHROID) 50 mcg | mouth every morning | tablet | | 19 | 9 | | tablet | before breakfast. | | | | | + + + +---------+ + + | loperamide | Take 2 mg by mouth 4 | | 0 | 09/14/19 | | | (IMODIUM) 2 mg | (four) times daily | | | 19 | 9 | | capsule | as needed for | | | | | | | Diarrhea. | | | | | + + + +---------+ + + | loperamide | Take 2 mg by mouth 4 | | 0 | 05/03/19 | | | (IMODIUM) 2 mg | (four) times daily | | | 18 | 9 | | capsule | as needed for | | | | | | | Diarrhea. | | | | | + + + +---------+ + + | metFORMIN | Take 500 mg by mouth | | 0 | 09/14/19 | | | (GLUCOPHAGE) 500 mg | 2 (two) times daily | | | 19 | 9 | | tablet | with meals. | | | | | + + + +---------+ + + | metFORMIN | Take 1,000 mg by | | 0 | 03/23/19 | | | (GLUCOPHAGE) 500 mg | mouth 2 (two) times | | | 16 | 9 | | tablet | daily with meals. | | | | | + + + +---------+ + + | metoprolol | Take 1 tablet by | | 0 | 06/07/19 | | | succinate | mouth nightly. | | | 19 | 9 | | (TOPROL-XL) 100 mg | | | | | | | ER tablet | | | | | | + + + +---------+ + + | omega-3 acid ethyl | Take 1 g by mouth 2 | | 0 | 09/14/19 | | | esters (LOVAZA) 1 g | (two) times daily. | | | 19 | 9 | | capsule | | | | | | + + + +---------+ + + | omeprazole | Take 20 mg by mouth | | 0 | 05/03/19 | | | (PRILOSEC) 20 mg | every morning before | | | 18 | 9 | | capsule | breakfast. | | | | | + + + +---------+ + + | potassium chloride | Take 20 mEq by mouth | | 0 | 03/23/19 | | | (KLOR-CON M20) 20 | daily. | | | 16 | 9 | | mEq ER tablet | | | | | | + + + +---------+ + + | tocopherol | Take 400 Units by | | 0 | 03/23/19 | | | (VITAMIN E) 400 | mouth daily. | | | 16 | 9 | | units capsule | | | | | | + + + +---------+ + + | torsemide | Take 20 mg by mouth | | 0 | 03/23/19 | | | (DEMADEX) 20 mg | every morning. | | | 16 | 9 | | tablet | | | | | | + + + +---------+ + + documented as of this encounter Progress Notes Conversion Transaction, Provider Unknown - 09/13/2018 2:55 PM PDTFormatting of this note m ight be different from the original. Nurse Progress Note by Myla Thompson RN at 09/13/181454 Author: Myla Thompson RN Service: (none) Author Type: Registered Nurse Filed: 09/13/181455 Date of Service: 09/13/181454 Status: Signed Lead Burner Apprentice: Myla Thompson RN (Registered Nurse) No significant changes from shift assessment. No falls or new signs of skin breakdown. No c omplaints of pain, nausea or SOB. VSS for remainder of shift. WCM End of shift chart check done. Discharge papers reviewed with patient and family. Discharge teaching done. All questions answered. IV removed. Transportation called. Leland Cast i, MD - 09/13/2018 7:25 AM PDTFormatting of this note might be different from the sharifa ginal. Progress Notes by Leland Ulloa MD at 09/13/18724 Author: Leland Ulloa MD Service: Cardiology Author Type: Physician Filed: 09/13/1835 Date of Service: 09/13/18724 Status: Signed Lead Burner Apprentice: Leland Ulloa MD (Physician) [facility] Service: Cardiology Progress Note Name of Checkering Machine Adjuster: Leland Ulloa MD I have seen the patient on 09/13/2018 SUBJECTIVE Feels better. Low heart rate and sinus bradycardia Elevated blood pressure. Medications were reviewed. OBJECTIVE Vital Signs: BP 173/74 (BP Location: Right upper arm) | Pulse 58 | Temp 98.5 F (36.9 C) (Oral) | Resp 18 | Ht 1.626 m (5' 4.02") | Wt 64.5 kg (142 lb 3.2 oz) | SpO2 93% | BMI 24.40 kg/m Cardiovascular: Regular rhythm, S1 normal and S2 normal. Systolic murmur, 1/6. Pulses: Radial pulses are 2+ on the right side, and 2+ on the left side. Pulmonary/Chest: Effort normal and breath sounds normal. No wheezes. No rales. Abdominal: Soft. No tenderness. Musculoskeletal: No edema. Neurological: Alert. No cranial nerve deficit. Skin: Warm and dry. DATA Recent Labs Lab 09/13/18 0628 NA 140 K 4.1 CO2 29 BUN 18 CREATININE 0.78 MG 1.6* Recent Labs Lab 09/13/1828 WBC 8.77 HGB 11.9 HCT 36.0 MCV 89.1 PLT 367 EKG: September 07, 2018, reviewed personally on September 08, 2018. Atrial fibrillation, heart rate 67, lef t axis deviation, left ventricular hypertrophy, septal infarct. September 07, 2018, reviewed personally on September 07, 2018. Underlying atrial flutter, complete hea rt block, junctional escape rhythm, heart rate 45, left axis deviation, septal infarct. September 05, 2018, reviewed personally on September 07, 2018. Atrial flutter, heart rate 107, left ax is deviation, left ventricular hypertrophy, septal infarction, nonspecific ST-T wave changes . June 06, 2018, reviewed personally on September 07, 2018. Atrial flutter, heart rate 113, left a xis deviation, left ventricular hypertrophy, septal infarct, nonspecific ST-T wave changes. May 03, 2017, reviewed personally on September 07, 2017. Atrial fibrillation, heart rate 80 , left axis deviation, left ventricular hypertrophy, septal infarct, nonspecific ST-T wave c hanges. April 26, 2016, reviewed personally on September 07, 2017. Atrial fibrillation, heart rate 74 , left axis deviation, left ventricular hypertrophy, septal infarct. Last Echo: September 07, 2018. EF >70%. Mild aortic valve regurgitation without stenosis. Mild mitral jodi ve regurgitation, mild ATR. Mild pulmonary hypertension December 02, 2014. EF 77%, LVH, left atrial enlargement, right atrial enlargement, right ventricular enlargement, trace AI, mild to moderate MR, mild to moderate TR. Moderate pulmo nary hypertension, PA pressure 50 mmHg. Last stress test: Last cath: Carotid US: AAA screening: Lower extremity US: OTHERS: 24-hour monitor. March 26, 2015. Permanent atrial fibrillation, average rate 85. ASSESSMENT & PLAN Shari Clark is 87 y.o. lady with the following medical: 1. Hypertension 2. Hypercholesterolemia 3. Diabetes, on oral hypoglycemic medications 4. Atrial fibrillation, permanent. 5. Atrial flutter 6. Chronic kidney disease Admitted on September 07, 2018 due to shortness of breath and weakness. Found to have severe bradycardia with complete heart block and junctional escape rhythm wit h underlying atrial flutter. Initial heart rate of 48 and blood pressure 115/56. Responded to atropine and glucagon. Mildly elevated troponin. 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 September 10, 2018 Electrical cardioversion to sinus bradycardia. Recommendations Continue amiodarone at 400 mg once a day. Discontinue metoprolol succinate Continue lisinopril 40 mg Continue Pradaxa Continue hydrochlorothiazide Add isosorbide mononitrate 30 mg once a day. Code Status: Full Code Leland Ulloa MD 09/13/2018 onversion Transaction , Provider Unknown - 09/12/2018 7:02 PM PDT Nurse Progress Note by Paulette Lagos RN at 09/12/181901 Author: Paulette Lagos RN Service: (none) Author Type: Registered Nurse Filed: 09/12/181905 Date of Service: 09/12/181901 Status: Signed Lead Burner Apprentice: Paulette Lagos RN (Registered Nurse) HR remains in low 50s high 40s. Spoke with Dr. Maza about holding metoprolol, he suggested to talk with cardiology. Dr. Ulloa said give all the home meds as ordered, monitor HR. Patient up in chair most of shift. Uses walker to ambulate to bathroom without standby assi st, steady on feet. Will start antibiotics and maybe d/c tomorrow? End of shift chart check complete. onstantino Carolina MD - 09/12/2018 3:52 PM PDT Progress Notes by Constantino Maza MD at 09/12/181551 Author: Constantino Maza MD Service: Hospitalist Author Type: Physician Filed: 09/12/181554 Date of Service: 09/12/181551 Status: Signed Lead Burner Apprentice: Constantino Maza MD (Physician) [facility] Service: Hospitalist Progress Note Hospital Day: LOS: 5 days Post-Op Day: * No surgery found * SUBJECTIVE Patient Summary: Admission H&P Dr. Lester:"The patient is 87 yo female (Eduardo Espinosa C 1930) with significant past medical history of atrial fibirllation/a flutter (cardiol ogy Dr Chakraborty), hypothyroidism, hypertension, moderate pulmonary hypertension, chronic kid margo disease a stage II who presents with dyspnea." The patient was admitted with bradycardia status post atropine 1 mg x 2 doses and maintained on medical therapy. Re Examiner was co nsulted. Events Overnight: No acute overnight events. Alert and oriented. Daughter in law at bedside. Patient notes shortness of breath improvement as compared to yesterday. Patient denies any angina, light headedness/dizziness. Patient notes associated mild fatigue and malaise, improving from yes terday. Progression stable with mild improvement. OBJECTIVE Vital Signs: BP 157/68 (BP Location: Right upper arm) | Pulse 54 | Temp 98.7 F (37.1 C) (Oral) | Resp 16 | Ht 1.626 m (5' 4.02") | Wt 61.3 kg (135 lb 2.3 oz) | SpO2 96% | BMI 23.19 kg/m Temp: [98.3 F (36.8 C)-98.9 F (37.2 C)] 98.7 F (37.1 C) (09/12 1144) BP: (148-178)/(68-81) 157/68 (09/12 1144) Heart Rate: [50-57] 54 (09/12 1144) Resp: [16-24] 16 (09/12 1144) SpO2: [93 %-96 %] 96 % (09/12 1144) Weight: [61.3 kg (135 lb 2.3 oz)] 61.3 kg (135 lb 2.3 oz) (09/12 0309) Physical Exam Constitutional: She is oriented to person, place, and time. Awake alert lying in bed No acute distress Neck: No JVD present. Cardiovascular: Normal rate. Murmur heard. Irregular Pulmonary/Chest: Effort normal. No respiratory distress. She has rales. Abdomina/Gl: Soft. Bowel sounds are normal. Musculoskeletal: She exhibits no edema. Neurological: She is alert and oriented to person, place, and time. Skin: Skin is warm and dry. Psychiatric: She has a normal mood and affect. Her behavior is normal. Nursing note and vitals reviewed. DATA: Labs, medications, allergies and other treatment team notes reviewed. Imaging reviewed. PROBLEM LIST Principal Problem: Symptomatic bradycardia Active Problems: Change in mental state Atrial fibrillation (HCC) Essential hypertension ASSESSMENT & PLAN #1. Bradycardia: -Resolving. -Hemodynamically stable. Heart rate trends reviewed. -Dr. Ulloa /cardiology consulted by prior hospitalist colleague whose input is much appre ciated recommends Amiodarone 400 mg daily and Toprol-XL to be decreased from 100 mg daily to 50 mg daily with the addition of hydrochlorothiazide 25 mg daily. -Continue with telemetry and supportive care. Aspiration pneumonia/pneumonitis: -CT of the chest without contrast reviewed -Patient started on Augmentin 1 tablet p.o. twice daily -We will monitor. Atrial fibrillation with elevated chads 2 VASc score: -Continue with rate and rhythm control as per point number 1. -Continue with PRADAXA Non-STEMI -Demand mismatch -No further intervention as per cardiology Hypothyroidism -TSH was 10.5 - synthroid 125 mcg DVT prophylaxis: Pradaxa Code Status: Full Code Constantino Maza MD 09/12/2018 onversion Transact ion, Provider Unknown - 09/12/2018 6:05 AM PDTFormatting of this note might be different fr om the original. Nurse Progress Note by Aniceto Scott RN at 09/12/18604 Author: Aniceto Scott RN Service: (none) Author Type: Registered Nurse Filed: 09/12/18606 Date of Service: 09/12/18604 Status: Signed Lead Burner Apprentice: Aniceto Scott RN (Registered Nurse) Pt resting comfortably in room. Pt c/o SOB when ambulating to bathroom, resolved with rest . No c/o pain. End of shift review complete. Aniceto Scott RN onver blanquita Transaction, Provider Unknown - 09/11/2018 6:53 PM PDT Nurse Progress Note by Roni Dominguez RN at 09/11/181852 Author: Roni Dominguez RN Service: (none) Author Type: Registered Nurse Filed: 09/11/181853 Date of Service: 09/11/181852 Status: Signed Lead Burner Apprentice: Roni Dominguez RN (Registered Nurse) Chart check complete. Roni Dominguez RN blemo Constantino daley MD - 09/11/2018 4:37 PM PDT Progress Notes by Constantino Maza MD at 09/11/181636 Author: Constantino Maza MD Service: Hospitalist Author Type: Physician Filed: 09/11/18 164 Date of Service: 09/11/181636 Status: Signed Lead Burner Apprentice: Constantino Maza MD (Physician) [facility] Service: Hospitalist Progress Note Hospital Day: LOS: 4 days Post-Op Day: * No surgery found * SUBJECTIVE Patient Summary: Admission H&P Dr. Lester:"The patient is 87 yo female (Eduardo Espinosa 1930) with significant past medical history of atrial fibirllation/a flutter (cardiol ogy Dr Chakraborty), hypothyroidism, hypertension, moderate pulmonary hypertension, chronic kid margo disease a stage II who presents with dyspnea." The patient was admitted with bradycardia status post atropine 1 mg x 2 doses and maintained on medical therapy. Re Examiner was co nsulted. Events Overnight: No acute overnight events. Alert and oriented. Daughter at bedside. Patient notes shortn ess of breath with minimal movement. Patient denies any angina, lightheadedness/dizziness. Associated with fatigue and malaise. Progression stable. OBJECTIVE Vital Signs: BP 174/77 (BP Location: Right upper arm) | Pulse 50 | Temp 98.4 F (36.9 C) (Oral) | Resp 24 | Ht 1.626 m (5' 4.02") | Wt 66.1 kg (145 lb 11.6 oz) | SpO2 96% | BMI 25.00 kg/ m Temp: [97.7 F (36.5 C)-99 F (37.2 C)] 98.4 F (36.9 C) (09/11 160) BP: (171-193)/(76-89) 174/77 (09/11 1223) Heart Rate: [50-77] 50 (09/11 160) Resp: [20-24] 24 (09/11 160) SpO2: [93 %-98 %] 96 % (09/12 1607) Physical Exam Constitutional: She is oriented to person, place, and time. No distress. Awake alert lying in bed No acute distress HENT: Head: Normocephalic. Eyes: Pupils are equal, round, and reactive to light. EOM are normal. Neck: Neck supple. No JVD present. Cardiovascular: Normal rate. Murmur heard. Irregular Pulmonary/Chest: Effort normal. No respiratory distress. Abdomina/Gl: Soft. Bowel sounds are normal. Musculoskeletal: She exhibits no edema. Neurological: She is alert and oriented to person, place, and time. Skin: Skin is warm and dry. She is not diaphoretic. Psychiatric: She has a normal mood and affect. Her behavior is normal. Nursing note and vitals reviewed. DATA: Labs, medications, allergies and other treatment team notes reviewed. Imaging reviewed. PROBLEM LIST Principal Problem: Symptomatic bradycardia Active Problems: Change in mental state Atrial fibrillation (HCC) Essential hypertension ASSESSMENT & PLAN #1. Bradycardia: -Possibly iatrogenic versus complete heart block. -Hemodynamically stable. Heart rate ranging from 50 to 77 bpm. -Dr. Ulloa /cardiology consulted by prior hospitalist colleague whose input is much appre ciated recommends Amiodarone 400 mg twice daily and Toprol-XL 100mg qd - S/P cardioversion: Will require an additional 24 hours to monitor. -Continue with telemetry and supportive care. Atrial fibrillation with elevated chads 2 VASc score: -Continue with rate and rhythm control as per point number 1. -Continue with PRADAXA Non-STEMI -Demand mismatch -No further intervention as per cardiology Hypothyroidism -TSH was 10.5 - synthroid 125 mcg DVT prophylaxis: Pradaxa Code Status: Full Code Constantino Maza MD 09/11/2018 onversion Transact ion, Provider Unknown - 09/11/2018 11:26 AM PDTFormatting of this note might be different fr om the original. Case Management by ANA Vaz at 09/11/181125 Author: ANA Vaz Service: (none) Author Type: Electronics Assembler And Tester Filed: 09/11/181127 Date of Service: 09/11/181125 Status: Signed Lead Burner Apprentice: ANA Vaz (Electronics Assembler And Tester) Attended daily rounds. DCP: Home with spouse- [facility] Per previous assessment, pt declined any discharge needs at this time. CM to follow. Laverne Romo MS onver blanquita Transaction, Provider Unknown - 09/10/2018 9:14 PM PDT Nurse Progress Note by Regina Manuel RN at 09/10/182113 Author: Regina Manuel RN Service: (none) Author Type: Registered Nurse Filed: 09/11/18 0534 Date of Service: 09/10/182113 Status: Signed Lead Burner Apprentice: Regina Manuel RN (Registered Nurse) Pt had uneventful shift. All VSS. No pain reported. Continues in NSR. All other needs met a t this time. Hourly rounding will continue. 24 hour and end of shift chart check complete. Regina Manuel RN onver blanquita Transaction, Provider Unknown - 09/10/2018 5:48 PM PDT Nurse Progress Note by Miesha Nichole RN at 09/10/18 5789 Author: Miesha Nichole RN Service: (none) Author Type: Registered Nurse Filed: 09/10/181747 Date of Service: 09/10/181747 Status: Signed Lead Burner Apprentice: Miesha Nichole RN (Registered Nurse) End of shift chart check completed. All medications given within required parameters. Vini Nichole RN onver blanquita Transaction, Provider Unknown - 09/10/2018 5:46 PM PDT Nurse Progress Note by Miesha Nichole RN at 09/10/181745 Author: Miesha Nichole RN Service: (none) Author Type: Registered Nurse Filed: 09/10/181747 Date of Service: 09/10/181745 Status: Signed Lead Burner Apprentice: Miesha Nichole RN (Registered Nurse) Patient sitting up in bed, no sign of distress. Vital signs are stable: normotensive, afebr ile. Denies pain when asked. Patient cardioverted earlier this shift. Currently sustaining S inus rhythm with occasional PAC's. Patient calls appropriately. Call button within reach. HOB up 35 deg. Siderail up x2. Famil y at bedside. Pathway is cleared of clutter. Non-skid socks on. Bed in lowest position. Whee ls are locked. Leon continue to monitor patient. Miesha Nichole RN Lai Yarbrough MD - 09/10/2018 1:39 PM PDT Progress Notes by Lai Sy MD at 09/10/18 9880 Author: Lai Sy MD Service: Hospitalist Author Type: Physician Filed: 09/10/18 2045 Date of Service: 09/10/181338 Status: Signed Lead Burner Apprentice: Lai Sy MD (Physician) [facility] Service: Hospitalist Progress Note Hospital Day: LOS: 3 days Post-Op Day: * No surgery found * SUBJECTIVE Patient Summary: Admission H&P Dr. 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 She denies any chest pain, dyspnea, abdominal pain, nausea, vomiting, diarrhea. No recent dysuria or hematuria. Due to confusion patient is not able to provide further history. Apparently, patient was hospitalized in June 2018 due to generalized weakness due to sever e bradycardia in the 30s. On 09/05, the patient was seen by her public service director and there were concerns that she was having A. fib a flutter with RVR. Due to her previous history of isidoro re bradycardia, the patient has been refer to the paraffin machine operator team for possible card ioversion. In the meantime, she was placed on metoprolol 100 mg and diltiazem 300 mg daily and to continue anticoagulation. Patient was brought to [facility] via [facility]. She was found bradycardic with a heart rate i n the 20s and hypotension. Patient received atropine 1 mg x 2 with moderate improvement of h er bradycardia. Here at [facility] she received glucagon with heart rate improving to the 60 and normal blood p ressure. Patient will be admitted under the hospital service for further management" Events Overnight: 87-year-old female, followed, hypertension, type 2 diabetes, hypothy roidism, moderate pulmonary hypertension,followed by Dr. Chakraborty, history of atrial fibril lation with bradycardia and rapid ventricular rates, in July 03 noted to have heart rates in the 30s with 2.5-second pauses, according to her public service director note unable to increase ra te controlling medications due to pauses, electrophysiology team had recommended a cardiover blanquita this has not been done yet. Chads 2 score 4, patient on anticoagulated. Currently pat ient on diltiazem 300 mg, metoprolol 100 mg. Patient presented to [facility] emergency department with symptoms of weakness, according t o notes she was found to be bradycardic heart rates in the 20s she was hypotensive, she rece ived atropine 1 mg x 2 and life flighted to our facility. EKG indicated a flutter with AV heart block, rate 45 bpm, blood pressure 91/52. Subsequently heart rate has increased to flutter, 105, currently blood pressure 141/79. Dr. Ulloa consulted, reviewed the EKGs, tracings felt to represent transitory complete h eart block. Subsequently Cardizem held, metoprolol dose started, heart rates have been atrial flutter l ow 100s. Amiodarone loaded started 400 twice daily, and underwent cardioversion today. Currently patient sinus rhythm, eating lunch, doing well, Case discussed with Dr. Ulloa, recommends continuing close monitoring/telemetry for add itional 24 to 48 hours Scheduled Medications amiodarone 400 mg Oral BID dabigatran 150 mg Oral BID famotidine 20 mg Oral Daily Or famotidine 20 mg Intravenous Daily insulin lispro (human) 0-3 Units Subcutaneous Nightly insulin lispro (human) 0-6 Units Subcutaneous TID AC levothyroxine 125 mcg Oral QAM AC lisinopril 40 mg Oral Daily metoprolol 100 mg Oral Daily Continuous Infusions dextrose PRN Medications acetaminophen OR acetaminophen, atropine sulfate, calcium carbonate, dextrose, dextrose , dextrose, glucagon, glucagon, glucagon, hydrALAZINE, ondansetron OR ondansetron, polye thylene glycol OBJECTIVE Vital Signs: BP 131/64 (BP Location: Right upper arm) | Pulse 62 | Temp 98.7 F (37.1 C) (Oral) | Resp 24 | Ht 1.626 m (5' 4.02") | Wt 66.1 kg (145 lb 11.6 oz) | SpO2 99% | BMI 25.00 kg/ m Temp: [97 F (36.1 C)-99.3 F (37.4 C)] 98.7 F (37.1 C) (09/10 1305) BP: (131-176)/(64-98) 131/64 (09/10 1305) Heart Rate: [50-123] 62 (09/10 1305) Resp: [16-28] 24 (09/10 1305) SpO2: [94 %-99 %] 99 % (09/10 1254) Weight: [66.1 kg (145 lb 11.6 oz)] 66.1 kg (145 lb 11.6 oz) (09/11 439) Physical Exam Constitutional: She is oriented to person, place, and time. She appears well-developed and well-nourished. Awake alert lying in bed No acute distress Cardiovascular: Irregular Pulmonary/Chest: Effort normal and breath sounds normal. Abdomina/Gl: Soft. Bowel sounds are normal. Musculoskeletal: She exhibits no edema. Neurological: She is alert and oriented to person, place, and time. Skin: Skin is warm and dry. Psychiatric: She has a normal mood and affect. Her behavior is normal. Nursing note and vitals reviewed. DATA CBC: Lab Results Component Value Date WBC 10.20 09/08/2018 RBC 4.19 09/08/2018 HGB 12.2 09/08/2018 HCT 37.4 09/08/2018 MCV 89.3 09/08/2018 MCH 29.2 09/08/2018 MCHC 32.7 09/08/2018 RDW 46.8 09/08/2018 PLT 371 09/08/2018 MPV 8.2 09/08/2018 DIFFTYPE AUTOMATED 09/07/2018 BMP: Lab Results Component Value Date NA 140 09/08/2018 K 4.4 09/08/2018 CL 108 09/08/2018 CO2 23 09/08/2018 ANIONGAP 13 09/08/2018 GLUF 168 (H) 09/08/2018 BUN 22 09/08/2018 CREATININE 0.9 09/08/2018 BCR 24 09/08/2018 CA 8.9 09/08/2018 EGFR 59 (L) 09/08/2018 Last 3 Troponin: Lab Results Component Value Date TROPONINI 0.087 (H) 09/07/2018 TROPONINI 0.043 (H) 09/07/2018 CPK: Lab Results Component Value Date CKTOTAL 231 09/07/2018 CKMB: Lab Results Component Value Date CKMB 2.5 09/07/2018 Ct Head Without Contrast Result Date: 09/07/2018 1. A few subtle areas of decreased density in the supratentorial white matter that are nons pecific but most likely on the basis of chronic white matter microvascular ischemic gliosis. 2. Subtle hypodensity within the left thalamus that is nonspecific and may represent small lacunar infarct of uncertain age. Signed by: Jya Kimbrough Chet Sign Date/Time: 09/07/2018 9 :00 AM Xr Chest Ap Portable Result Date: 09/07/2018 No definite evidence of traumatic injury or other acute process. Signed by: Stacey Campos, Laila graves Sign Date/Time: 09/07/2018 1:51 AM PROBLEM LIST Principal Problem: Symptomatic bradycardia Active Problems: Change in mental state Atrial fibrillation (HCC) Essential hypertension ASSESSMENT & PLAN #1. Atrial flutter -Tachycardia/bradycardia syndrome -Resolved complete heart block, possibly iatrogenic, Dr. Ulloa /cardiology consulted -Amiodarone 400 mg twice daily started -Toprol-XL 100 - S/P cardioversion: Will require an additional 24 -48 hours of moderate -History of symptomatic bradycardia/tachycardia -CHAD2 = 4 ON PRADAXA -We will monitor on telemetry -Cardiology following closely #2. Non-STEMI -Demand mismatch -No further intervention as per cardiology #2. Hypothyroidism -TSH elevated 10.5 - synthroid 125 mcg #3. Encephalopathy -Resolved -Patient noted to be somewhat confused on initial admission, currently mentation at bedside -Secondary to bradycardia Disposition: Continue monitoring on amiodarone Code Status: Full Code Lai Sy MD 09/10/2018 Leland Kennedy MD - 09/10/2018 9:11 AM PDT Progress Notes by Leland Ulloa MD at 09/10/18910 Author: Leland Ulloa MD Service: Cardiology Author Type: Physician Filed: 09/10/18 1003 Date of Service: 09/10/18910 Status: Signed Lead Burner Apprentice: Leland Ulloa MD (Physician) [facility] Service: Cardiology Progress Note Name of Checkering Machine Adjuster: Leland Ulloa MD I have seen the patient on 09/10/2018 SUBJECTIVE Elevated blood pressure and heart rate. Still in atrial flutter. Feeling overall weak. Medications were reviewed. OBJECTIVE Vital Signs: BP (!) 153/97 (BP Location: Right upper arm) | Pulse 123 | Temp 99.3 F (37.4 C) (Oral ) | Resp 28 | Ht 1.626 m (5' 4.02") | Wt 66.1 kg (145 lb 11.6 oz) | SpO2 94% | BMI 25.0 0 kg/m Cardiovascular: Regular rhythm, S1 normal and S2 normal. No murmurs. Pulses: Radial pulses are 2+ on the right side, and 2+ on the left side. Pulmonary/Chest: Effort normal and breath sounds normal. No wheezes. No rales. Abdominal: Soft. No tenderness. Musculoskeletal: No edema. Neurological: Alert. No cranial nerve deficit. Skin: Warm and dry. DATA Recent Labs Lab 09/08/18 0524 09/07/18 0543 NA 140 < > 140 K 4.4 < > 5.0* CO2 23 < > 20* BUN 22 < > 22 CREATININE 0.9 < > 1.24* MG -- -- 1.7 < > = values in this interval not displayed. Recent Labs Lab 09/08/18523 WBC 10.20 HGB 12.2 HCT 37.4 MCV 89.3 PLT 371 EKG: September 07, 2018, reviewed personally on September 08, 2018. Atrial fibrillation, heart rate 67, lef t axis deviation, left ventricular hypertrophy, septal infarct. September 07, 2018, reviewed personally on September 07, 2018. Underlying atrial flutter, complete hea rt block, junctional escape rhythm, heart rate 45, left axis deviation, septal infarct. September 05, 2018, reviewed personally on September 07, 2018. Atrial flutter, heart rate 107, left ax is deviation, left ventricular hypertrophy, septal infarction, nonspecific ST-T wave changes . June 06, 2018, reviewed personally on September 07, 2018. Atrial flutter, heart rate 113, left a xis deviation, left ventricular hypertrophy, septal infarct, nonspecific ST-T wave changes. May 03, 2017, reviewed personally on September 07, 2017. Atrial fibrillation, heart rate 80 , left axis deviation, left ventricular hypertrophy, septal infarct, nonspecific ST-T wave c hanges. April 26, 2016, reviewed personally on September 07, 2017. Atrial fibrillation, heart rate 74 , left axis deviation, left ventricular hypertrophy, septal infarct. Last Echo: September 07, 2018. EF >70%. Mild aortic valve regurgitation without stenosis. Mild mitral jodi ve regurgitation, mild ATR. Mild pulmonary hypertension December 02, 2014. EF 77%, LVH, left atrial enlargement, right atrial enlargement, right ventricular enlargement, trace AI, mild to moderate MR, mild to moderate TR. Moderate pulmo nary hypertension, PA pressure 50 mmHg. Last stress test: Last cath: Carotid US: AAA screening: Lower extremity US: OTHERS: 24-hour monitor. March 26, 2015. Permanent atrial fibrillation, average rate 85. ASSESSMENT & PLAN Shari Clark is 87 y.o. lady with the following medical: 1. Hypertension 2. Hypercholesterolemia 3. Diabetes, on oral hypoglycemic medications 4. Atrial fibrillation, permanent. 5. Atrial flutter 6. Chronic kidney disease Admitted on September 07, 2018 due to shortness of breath and weakness. Found to have severe bradycardia with complete heart block and junctional escape rhythm wit h underlying atrial flutter. Initial heart rate of 48 and blood pressure 115/56. Responded to atropine and glucagon. Mildly elevated troponin. 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 Recommendations Patient continues to be in atrial flutter. Continue loading with amiodarone. Proceed with electrical cardioversion. No need for a ELBA as she has been on uninterrupted Pradaxa. Consult EP for possible ablation. Code Status: Full Code Leland Ulloa MD 09/10/2018 onversion Transaction , Provider Unknown - 09/10/2018 4:49 AM PDT Nurse Progress Note by Regina Manuel RN at 09/10/18 5860 Author: Regina Manuel RN Service: (none) Author Type: Registered Nurse Filed: 09/10/18 0451 Date of Service: 09/10/18448 Status: Signed Lead Burner Apprentice: Regina Manuel RN (Registered Nurse) Pt had uneventful shift. NPO @ [place] for possible cardioversion. C/o of heartburn throughout s hift. Tums ordered by cross coverage helped but only for a few hours. All other VSS. All oth er needs met at this time. Hourly rounding will continue. 24 hour and end of shift chart check complete. Regina Manuel RN onver blanquita Transaction, Provider Unknown - 09/09/2018 3:08 PM PDT Nurse Progress Note by Erica Mckenzie RN at 09/09/18 1508 Author: Erica Mckenzie RN Service: (none) Author Type: Registered Nurse Filed: 09/09/18 1734 Date of Service: 09/09/18 1508 Status: Signed Lead Burner Apprentice: Erica Mckenzie RN (Registered Nurse) VSS. Hourly rounding uneventful. Chart check complete. Erica Mckenzie RN Lai Yarbrough MD - 09/09/2018 11:51 AM PDT Progress Notes by Lai Sy MD at 09/09/18 1151 Author: Lai Sy MD Service: Hospitalist Author Type: Physician Filed: 09/09/18 1231 Date of Service: 09/09/18 1151 Status: Signed Lead Burner Apprentice: Lai Sy MD (Physician) [facility] Service: Hospitalist Progress Note Hospital Day: LOS: 2 days Post-Op Day: * No surgery found * SUBJECTIVE Patient Summary: Admission H&P Dr. 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 She denies any chest pain, dyspnea, abdominal pain, nausea, vomiting, diarrhea. No recent dysuria or hematuria. Due to confusion patient is not able to provide further history. Apparently, patient was hospitalized in June 2018 due to generalized weakness due to sever e bradycardia in the 30s. On 09/05, the patient was seen by her public service director and there were concerns that she was having A. fib a flutter with RVR. Due to her previous history of isidoro re bradycardia, the patient has been refer to the paraffin machine operator team for possible card ioversion. In the meantime, she was placed on metoprolol 100 mg and diltiazem 300 mg daily and to continue anticoagulation. Patient was brought to [facility] via [facility]. She was found bradycardic with a heart rate i n the 20s and hypotension. Patient received atropine 1 mg x 2 with moderate improvement of h er bradycardia. Here at [facility] she received glucagon with heart rate improving to the 60 and normal blood p ressure. Patient will be admitted under the hospital service for further management" Events Overnight: 87-year-old female, followed, hypertension, type 2 diabetes, hypothy roidism, moderate pulmonary hypertension,followed by Dr. Chakraborty, history of atrial fibril lation with bradycardia and rapid ventricular rates, in July 03 noted to have heart rates in the 30s with 2.5-second pauses, according to her public service director note unable to increase ra te controlling medications due to pauses, electrophysiology team had recommended a cardiover blanquita this has not been done yet. Chads 2 score 4, patient on anticoagulated. Currently pat ient on diltiazem 300 mg, metoprolol 100 mg. Patient presented to [facility] emergency department with symptoms of weakness, according t o notes she was found to be bradycardic heart rates in the 20s she was hypotensive, she rece ived atropine 1 mg x 2 and life flighted to our facility. EKG indicated a flutter with ventricular rate 45 bpm, blood pressure 91/52. Subsequently heart rate has increased to flutter, 105, currently blood pressure 141/79. Dr. Ulloa consulted, reviewed the EKGs, tracings felt to represent transitory complete h eart block. Subsequently Cardizem held, metoprolol dose started, heart rates have been atrial flutter l ow 100s. Amiodarone being loaded 400 twice daily, being monitored closely by Dr. Ulloa, r ecommends continuing close monitoring/telemetry Patient seated in chair, eating lunch, conversing well with various family members. She indicates feeling well today no lightheadedness, no confusion, no chest pain or palpita tions. Telemetry; A. fib 103 Uneventful night, telemetry indicates atrial fibrillation heart rate low 100s Scheduled Medications amiodarone 400 mg Oral BID dabigatran 150 mg Oral BID famotidine 20 mg Oral Daily Or famotidine 20 mg Intravenous Daily insulin lispro (human) 0-3 Units Subcutaneous Nightly insulin lispro (human) 0-6 Units Subcutaneous TID AC levothyroxine 125 mcg Oral QAM AC [START ON 09/10/2018] lisinopril 40 mg Oral Daily metoprolol 100 mg Oral Daily Continuous Infusions dextrose PRN Medications acetaminophen OR acetaminophen, atropine sulfate, dextrose, dextrose, dextrose, glucago n, glucagon, glucagon, ondansetron OR ondansetron, polyethylene glycol OBJECTIVE Vital Signs: BP 153/84 (BP Location: Left upper arm) | Pulse 108 | Temp 97.6 F (36.4 C) (Oral) | Resp 20 | Ht 1.626 m (5' 4.02") | Wt 71.1 kg (156 lb 12 oz) | SpO2 98% | BMI 26.89 kg/m Temp: [97.5 F (36.4 C)-98.6 F (37 C)] 97.6 F (36.4 C) (09/10 827) BP: (130-160)/(75-93) 153/84 (09/10 827) Heart Rate: [103-112] 108 (09/10 827) Resp: [16-20] 20 (09/10 827) SpO2: [94 %-98 %] 98 % (09/10 827) Physical Exam Constitutional: She is oriented to person, place, and time. She appears well-developed and well-nourished. Awake alert lying in bed No acute distress Cardiovascular: Irregular Pulmonary/Chest: Effort normal and breath sounds normal. Abdomina/Gl: Soft. Bowel sounds are normal. Musculoskeletal: She exhibits no edema. Neurological: She is alert and oriented to person, place, and time. Skin: Skin is warm and dry. Psychiatric: She has a normal mood and affect. Her behavior is normal. Nursing note and vitals reviewed. DATA CBC: Lab Results Component Value Date WBC 10.20 09/08/2018 RBC 4.19 09/08/2018 HGB 12.2 09/08/2018 HCT 37.4 09/08/2018 MCV 89.3 09/08/2018 MCH 29.2 09/08/2018 MCHC 32.7 09/08/2018 RDW 46.8 09/08/2018 PLT 371 09/08/2018 MPV 8.2 09/08/2018 DIFFTYPE AUTOMATED 09/07/2018 BMP: Lab Results Component Value Date NA 140 09/08/2018 K 4.4 09/08/2018 CL 108 09/08/2018 CO2 23 09/08/2018 ANIONGAP 13 09/08/2018 GLUF 168 (H) 09/08/2018 BUN 22 09/08/2018 CREATININE 0.9 09/08/2018 BCR 24 09/08/2018 CA 8.9 09/08/2018 EGFR 59 (L) 09/08/2018 Last 3 Troponin: Lab Results Component Value Date TROPONINI 0.087 (H) 09/07/2018 TROPONINI 0.043 (H) 09/07/2018 CPK: Lab Results Component Value Date CKTOTAL 231 09/07/2018 CKMB: Lab Results Component Value Date CKMB 2.5 09/07/2018 Ct Head Without Contrast Result Date: 09/07/2018 1. A few subtle areas of decreased density in the supratentorial white matter that are nons pecific but most likely on the basis of chronic white matter microvascular ischemic gliosis. 2. Subtle hypodensity within the left thalamus that is nonspecific and may represent small lacunar infarct of uncertain age. Signed by: Jay Kimbrough, [place] Sign Date/Time: 09/07/2018 9 :00 AM Xr Chest Ap Portable Result Date: 09/07/2018 No definite evidence of traumatic injury or other acute process. Signed by: Stacey Campos, Ro bin Sign Date/Time: 09/07/2018 1:51 AM PROBLEM LIST Principal Problem: Symptomatic bradycardia Active Problems: Change in mental state Atrial fibrillation (HCC) Essential hypertension ASSESSMENT & PLAN #1. Atrial flutter -Tachycardia/bradycardia syndrome -Resolved complete heart block, possibly iatrogenic, Dr. Ulloa /cardiology consulted -Amiodarone 400 mg twice daily started -Toprol-XL 100 -May require pacemaker, -History of symptomatic bradycardia/tachycardia -CHAD2 = 4 ON PRADAXA -We will monitor on telemetry -Cardiology following closely #2. Non-STEMI -Demand mismatch -No further intervention as per cardiology #2. Hypothyroidism -TSH elevated 10.5 - synthroid 125 mcg #3. Encephalopathy -Resolved -Patient noted to be somewhat confused on initial admission, currently mentation at bedside -Secondary to bradycardia Disposition: Continue monitoring on amiodarone Code Status: Full Code Lai Sy MD 09/09/2018 Leland Kennedy MD - 09/09/2018 9:47 AM PDT Progress Notes by Leland Ulloa MD at 09/09/18946 Author: Leland Ulloa MD Service: Cardiology Author Type: Physician Filed: 09/09/18 1043 Date of Service: 09/09/18946 Status: Signed Lead Burner Apprentice: Leland Ulloa MD (Physician) [facility] Service: Cardiology Progress Note Name of Checkering Machine Adjuster: Leland Ulloa MD I have seen the patient on 09/09/2018 SUBJECTIVE Elevated blood pressure and heart rate. Still in atrial flutter. Feeling overall weak. Medications were reviewed. OBJECTIVE Vital Signs: BP 153/84 (BP Location: Left upper arm) | Pulse 108 | Temp 97.6 F (36.4 C) (Oral) | Resp 20 | Ht 1.626 m (5' 4.02") | Wt 71.1 kg (156 lb 12 oz) | SpO2 98% | BMI 26.89 kg/m Cardiovascular: Regular rhythm, S1 normal and S2 normal. Systolic murmur, 1/6, no radiation. Pulses: Radial pulses are 2+ on the right side, and 2+ on the left side. Pulmonary/Chest: Effort normal and breath sounds normal. No wheezes. No rales. Abdominal: Soft. No tenderness. Musculoskeletal: No edema. Neurological: Alert. No cranial nerve deficit. Skin: Warm and dry. DATA Recent Labs Lab 09/08/18 0524 09/07/18 0543 NA 140 < > 140 K 4.4 < > 5.0* CO2 23 < > 20* BUN 22 < > 22 CREATININE 0.9 < > 1.24* MG -- -- 1.7 < > = values in this interval not displayed. Recent Labs Lab 09/08/18 0524 WBC 10.20 HGB 12.2 HCT 37.4 MCV 89.3 PLT 371 EKG: September 07, 2018, reviewed personally on September 08, 2018. Atrial fibrillation, heart rate 67, lef t axis deviation, left ventricular hypertrophy, septal infarct. September 07, 2018, reviewed personally on September 07, 2018. Underlying atrial flutter, complete hea rt block, junctional escape rhythm, heart rate 45, left axis deviation, septal infarct. September 05, 2018, reviewed personally on September 07, 2018. Atrial flutter, heart rate 107, left ax is deviation, left ventricular hypertrophy, septal infarction, nonspecific ST-T wave changes . June 06, 2018, reviewed personally on September 07, 2018. Atrial flutter, heart rate 113, left a xis deviation, left ventricular hypertrophy, septal infarct, nonspecific ST-T wave changes. May 03, 2017, reviewed personally on September 07, 2017. Atrial fibrillation, heart rate 80 , left axis deviation, left ventricular hypertrophy, septal infarct, nonspecific ST-T wave c hanges. April 26, 2016, reviewed personally on September 07, 2017. Atrial fibrillation, heart rate 74 , left axis deviation, left ventricular hypertrophy, septal infarct. Last Echo: September 07, 2018. EF >70%. Mild aortic valve regurgitation without stenosis. Mild mitral jodi ve regurgitation, mild ATR. Mild pulmonary hypertension December 02, 2014. EF 77%, LVH, left atrial enlargement, right atrial enlargement, right ventricular enlargement, trace AI, mild to moderate MR, mild to moderate TR. Moderate pulmo nary hypertension, PA pressure 50 mmHg. Last stress test: Last cath: Carotid US: AAA screening: Lower extremity US: OTHERS: 24-hour monitor. March 26, 2015. Permanent atrial fibrillation, average rate 85. ASSESSMENT & PLAN Shari Clark is 87 y.o. lady with the following medical: 1. Hypertension 2. Hypercholesterolemia 3. Diabetes, on oral hypoglycemic medications 4. Atrial fibrillation, permanent. 5. Atrial flutter 6. Chronic kidney disease Admitted on September 07, 2018 due to shortness of breath and weakness. Found to have severe bradycardia with complete heart block and junctional escape rhythm wit h underlying atrial flutter. Initial heart rate of 48 and blood pressure 115/56. Responded to atropine and glucagon. Mildly elevated troponin. 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 Recommendations Continue loading with Amiodarone. We will monitor for the possibility of tachybradycardia syndrome and the need of pacemaker. Continue Pradaxa Double lisinopril to 40 mg once a day. Keep n.p.o. after midnight for possible cardioversion of the current atrial flutter if need ed. Continue observation. Code Status: Full Code Leland Ulloa MD 09/09/2018 onversion Transaction , Provider Unknown - 09/09/2018 1:30 AM PDT Nurse Progress Note by Regina Manuel RN at 09/09/18129 Author: Regina Manuel RN Service: (none) Author Type: Registered Nurse Filed: 09/09/18523 Date of Service: 09/09/18129 Status: Signed Lead Burner Apprentice: Regina Manuel RN (Registered Nurse) Pt had uneventful shift. VSS. No pain reported. All other needs met at this time. Hourly ro unding will continue. 24 hour and end of shift chart check complete. Regina Manuel RN onver blanquita Transaction, Provider Unknown - 09/08/2018 6:23 PM PDT Nurse Progress Note by Erica Mckenzie RN at 09/08/181822 Author: Erica Mckenzie RN Service: (none) Author Type: Registered Nurse Filed: 09/08/181823 Date of Service: 09/08/181822 Status: Signed Lead Burner Apprentice: Erica Mckenzie RN (Registered Nurse) VSS. Hourly rounding uneventful. Chart check complete. Erica Mckenzie RN Lai Yarbrough MD - 09/08/2018 12:10 PM PDT Progress Notes by Lai Sy MD at 09/08/18 1210 Author: Lai Sy MD Service: Hospitalist Author Type: Physician Filed: 09/08/18 1221 Date of Service: 09/08/181209 Status: Signed Lead Burner Apprentice: Lai Sy MD (Physician) [facility] Service: Hospitalist Progress Note Hospital Day: LOS: 1 day Post-Op Day: * No surgery found * SUBJECTIVE Patient Summary: Admission H&P Dr. 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 She denies any chest pain, dyspnea, abdominal pain, nausea, vomiting, diarrhea. No recent dysuria or hematuria. Due to confusion patient is not able to provide further history. Apparently, patient was hospitalized in June 2018 due to generalized weakness due to sever e bradycardia in the 30s. On 09/05, the patient was seen by her public service director and there were concerns that she was having A. fib a flutter with RVR. Due to her previous history of isidoro re bradycardia, the patient has been refer to the paraffin machine operator team for possible card ioversion. In the meantime, she was placed on metoprolol 100 mg and diltiazem 300 mg daily and to continue anticoagulation. Patient was brought to [facility] via [facility]. She was found bradycardic with a heart rate i n the 20s and hypotension. Patient received atropine 1 mg x 2 with moderate improvement of h er bradycardia. Here at [facility] she received glucagon with heart rate improving to the 60 and normal blood p ressure. Patient will be admitted under the hospital service for further management" Events Overnight: 87-year-old female, followed, hypertension, type 2 diabetes, hypothy roidism, moderate pulmonary hypertension,followed by Dr. Chakraborty, history of atrial fibril lation with bradycardia and rapid ventricular rates, in July 03 noted to have heart rates in the 30s with 2.5-second pauses, according to her public service director note unable to increase ra te controlling medications due to pauses, electrophysiology team had recommended a cardiover blanquita this has not been done yet. Chads 2 score 4, patient on anticoagulated. Currently pat ient on diltiazem 300 mg, metoprolol 100 mg. Patient presented to [place] emergency department with symptoms of weakness, according t o notes she was found to be bradycardic heart rates in the 20s she was hypotensive, she rece ived atropine 1 mg x 2 and life flighted to our facility. EKG indicated a flutter with ventricular rate 45 bpm, blood pressure 91/52. Subsequently heart rate has increased to flutter, 105, currently blood pressure 141/79. Dr. Ulloa consulted, reviewed the EKGs, tracings felt to represent transitory complete h eart block. Subsequently Cardizem held, metoprolol dose to be started, heart rates have been atrial flu tter low 100s. Amiodarone being loaded 400 twice daily Currently patient seen at bedside she denies any chest pain no shortness of breath Scheduled Medications amiodarone 400 mg Oral BID dabigatran 150 mg Oral BID famotidine 20 mg Oral Daily Or famotidine 20 mg Intravenous Daily insulin lispro (human) 0-3 Units Subcutaneous Nightly insulin lispro (human) 0-6 Units Subcutaneous TID AC levothyroxine 125 mcg Oral QAM AC lisinopril 20 mg Oral Daily metoprolol 100 mg Oral Daily Continuous Infusions dextrose PRN Medications acetaminophen OR acetaminophen, atropine sulfate, dextrose, dextrose, dextrose, glucago n, glucagon, glucagon, ondansetron OR ondansetron, polyethylene glycol OBJECTIVE Vital Signs: BP (!) 159/95 (BP Location: Left upper arm) | Pulse 109 | Temp 97.9 F (36.6 C) (Oral) | Resp 16 | Ht 1.626 m (5' 4.02") | Wt 71.1 kg (156 lb 12 oz) | SpO2 96% | BMI 26.89 k g/m Temp: [97.9 F (36.6 C)-98.5 F (36.9 C)] 97.9 F (36.6 C) (09/08 756) BP: (118-159)/(59-95) 159/95 (09/08 756) Heart Rate: [74-109] 109 (09/08 756) Resp: [16-18] 16 (09/08 756) SpO2: [91 %-99 %] 96 % (09/08 756) Physical Exam Constitutional: She is oriented to person, place, and time. She appears well-developed and well-nourished. Awake alert lying in bed No acute distress Cardiovascular: Irregular Pulmonary/Chest: Effort normal and breath sounds normal. Abdomina/Gl: Soft. Bowel sounds are normal. Musculoskeletal: She exhibits no edema. Neurological: She is alert and oriented to person, place, and time. Skin: Skin is warm and dry. Psychiatric: She has a normal mood and affect. Her behavior is normal. Nursing note and vitals reviewed. DATA CBC: Lab Results Component Value Date WBC 10.20 09/08/2018 RBC 4.19 09/08/2018 HGB 12.2 09/08/2018 HCT 37.4 09/08/2018 MCV 89.3 09/08/2018 MCH 29.2 09/08/2018 MCHC 32.7 09/08/2018 RDW 46.8 09/08/2018 PLT 371 09/08/2018 MPV 8.2 09/08/2018 DIFFTYPE AUTOMATED 09/07/2018 BMP: Lab Results Component Value Date NA 140 09/08/2018 K 4.4 09/08/2018 CL 108 09/08/2018 CO2 23 09/08/2018 ANIONGAP 13 09/08/2018 GLUF 168 (H) 09/08/2018 BUN 22 09/08/2018 CREATININE 0.9 09/08/2018 BCR 24 09/08/2018 CA 8.9 09/08/2018 EGFR 59 (L) 09/08/2018 Last 3 Troponin: Lab Results Component Value Date TROPONINI 0.087 (H) 09/07/2018 TROPONINI 0.043 (H) 09/07/2018 CPK: Lab Results Component Value Date CKTOTAL 231 09/07/2018 CKMB: Lab Results Component Value Date CKMB 2.5 09/07/2018 Ct Head Without Contrast Result Date: 09/07/2018 1. A few subtle areas of decreased density in the supratentorial white matter that are nons pecific but most likely on the basis of chronic white matter microvascular ischemic gliosis. 2. Subtle hypodensity within the left thalamus that is nonspecific and may represent small lacunar infarct of uncertain age. Signed by: Jay Kimbrough Chet Sign Date/Time: 09/07/2018 9 :00 AM Xr Chest Ap Portable Result Date: 09/07/2018 No definite evidence of traumatic injury or other acute process. Signed by: Stacey Campos, Laila graves Sign Date/Time: 09/07/2018 1:51 AM PROBLEM LIST Principal Problem: Symptomatic bradycardia Active Problems: Change in mental state Atrial fibrillation (HCC) Essential hypertension ASSESSMENT & PLAN #1. Atrial flutter -Tachycardia/bradycardia syndrome -Resolved complete heart block, possibly iatrogenic, Dr. Ulloa /cardiology consulted -Amiodarone 400 mg twice daily started -Toprol-XL 100 -May require pacemaker, -History of symptomatic bradycardia/tachycardia -CHAD2 = 4 ON PRADAXA -We will monitor on telemetry #2. Non-STEMI -Demand mismatch -No further intervention as per cardiology #2. Hypothyroidism -TSH elevated 10.5 - synthroid 125 mcg #3. Encephalopathy -Patient noted to be somewhat confused on initial admission, currently mentation seems to b e baseline -Hospital due to decreased cardiac output from bradycardia, currently BP normal. Disposition: Continue monitoring start of amiodarone Code Status: Full Code Lai Sy MD 09/08/2018 onversion Transact ion, Provider Unknown - 09/08/2018 10:08 AM PDTFormatting of this note might be different fr om the original. Case Management by ANA Vaz at 09/08/18 1008 Author: ANA Vaz Service: (none) Author Type: Electronics Assembler And Tester Filed: 09/08/18 1011 Date of Service: 09/08/18 1008 Status: Signed Lead Burner Apprentice: ANA Vaz (Electronics Assembler And Tester) 09/08/18 1007 Discharge Planning Evaluation Admitting Diagnosis Symptomatic bradycardia Readmission No Living Arrangements Spouse/significant other Support Systems Spouse/significant other;Family members;Friends/neighbors Type of Residence Private residence House type House-1 story Steps to enter Other (comment) (0) Bathrooms on 1st Floor 1-Full Independent with ADL's Yes Independent with Mobility Yes Home Care Services No Caregiver after Discharge No Mental Status Oriented Power of Utilization Manager Yes Anticipated Discharge Plan Post Acute Care Needs None at this time Plan communicated to patient/family Yes Resources Financial concerns No Transportation issues [place] [facility] [place] Anticipated Disposition Facility Type Home Met with Shari Clark and discussed discharge planning. Pt is a 87 y.o., female who resides wi th her at: [address] [place] [address]. Patient's PCP is: Ruslan Alcala MD [address] [place] [address] [address] [place] [address] Patient's insurance: Medicare and Commercial Coverage concerns: None Medication coverage/concerns: None Rx Bedside Delivery: Pt prefers [facility] in [place] [facility] resources utilized / needed: None at this time Assistance in transportation: Pt does not drive- will transport Identification of any specific education / training: None at this time Barriers to Discharge / Alternative housing needed: TBD- pending clinical course Anticipated DCP: Home- declines any needs at this time ANA Vaz Leland Cast i, MD - 09/08/2018 9:27 AM PDTFormatting of this note might be different from the sharifa ochoa. Progress Notes by Leland Ulloa MD at 09/08/18926 Author: Leland Ulloa MD Service: Cardiology Author Type: Physician Filed: 09/08/18 1008 Date of Service: 09/08/18926 Status: Signed Lead Burner Apprentice: Leland Ulloa MD (Physician) [facility] Service: Cardiology Progress Note Name of Checkering Machine Adjuster: Leland Ulloa MD I have seen the patient on 09/08/2018 SUBJECTIVE She was out of the atrial flutter and to atrial fibrillation, back into atrial flutter this morning. She denies chest pain. Elevated blood pressure and heart rate. Medications were reviewed. OBJECTIVE Vital Signs: BP (!) 159/95 (BP Location: Left upper arm) | Pulse 109 | Temp 97.9 F (36.6 C) (Oral) | Resp 16 | Ht 1.626 m (5' 4.02") | Wt 71.1 kg (156 lb 12 oz) | SpO2 96% | BMI 26.89 k g/m Cardiovascular: Regular rhythm, S1 normal and S2 normal. Systolic murmur, 1/6, no radiation. Pulses: Radial pulses are 2+ on the right side, and 2+ on the left side. Pulmonary/Chest: Effort normal and breath sounds normal. No wheezes. No rales. Abdominal: Soft. No tenderness. Musculoskeletal: No edema. Neurological: Alert. No cranial nerve deficit. Skin: Warm and dry. DATA Recent Labs Lab 09/08/18 0524 09/07/18 0543 NA 140 < > 140 K 4.4 < > 5.0* CO2 23 < > 20* BUN 22 < > 22 CREATININE 0.9 < > 1.24* MG -- -- 1.7 < > = values in this interval not displayed. Recent Labs Lab 09/08/18 0524 WBC 10.20 HGB 12.2 HCT 37.4 MCV 89.3 PLT 371 EKG: September 07, 2018, reviewed personally on September 08, 2018. Atrial fibrillation, heart rate 67, lef t axis deviation, left ventricular hypertrophy, septal infarct. September 07, 2018, reviewed personally on September 07, 2018. Underlying atrial flutter, complete hea rt block, junctional escape rhythm, heart rate 45, left axis deviation, septal infarct. September 05, 2018, reviewed personally on September 07, 2018. Atrial flutter, heart rate 107, left ax is deviation, left ventricular hypertrophy, septal infarction, nonspecific ST-T wave changes . June 06, 2018, reviewed personally on September 07, 2018. Atrial flutter, heart rate 113, left a xis deviation, left ventricular hypertrophy, septal infarct, nonspecific ST-T wave changes. May 03, 2017, reviewed personally on September 07, 2017. Atrial fibrillation, heart rate 80 , left axis deviation, left ventricular hypertrophy, septal infarct, nonspecific ST-T wave c hanges. April 26, 2016, reviewed personally on September 07, 2017. Atrial fibrillation, heart rate 74 , left axis deviation, left ventricular hypertrophy, septal infarct. Last Echo: September 07, 2018. EF >70%. Mild aortic valve regurgitation without stenosis. Mild mitral jodi ve regurgitation, mild ATR. Mild pulmonary hypertension December 02, 2014. EF 77%, LVH, left atrial enlargement, right atrial enlargement, right ventricular enlargement, trace AI, mild to moderate MR, mild to moderate TR. Moderate pulmo nary hypertension, PA pressure 50 mmHg. Last stress test: Last cath: Carotid US: AAA screening: Lower extremity US: OTHERS: 24-hour monitor. March 26, 2015. Permanent atrial fibrillation, average rate 85. ASSESSMENT & PLAN Shari Clark is 87 y.o. lady with the following medical: 1. Hypertension 2. Hypercholesterolemia 3. Diabetes, on oral hypoglycemic medications 4. Atrial fibrillation, permanent. 5. Atrial flutter 6. Chronic kidney disease Admitted on September 07, 2018 due to shortness of breath and weakness. Found to have severe bradycardia with complete heart block and junctional escape rhythm wit h underlying atrial flutter. Initial heart rate of 48 and blood pressure 115/56. Responded to atropine and glucagon. Mildly elevated troponin. 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 Recommendations The patient has recovered from the complete heart block. She has been back and forth between atrial fibrillation and flutter. I do not believe electrical cardioversion is needed at this time. I recommended to introduce amiodarone in addition to the metoprolol to prevent atrial flutt er. We will start with a loading dose. We will monitor for the possibility of tachybradycardia syndrome and the need of pacemaker. Continue Pradaxa Stop IV fluids Add lisinopril at 20 mg once a day. Continue observation. Code Status: Full Code Leland Ulloa MD 09/08/2018 onversion Transaction , Provider Unknown - 09/08/2018 5:10 AM PDT Nurse Progress Note by Nuha Escobedo RN at 09/08/18509 Author: Nuha Escobedo RN Service: (none) Author Type: Registered Nurse Filed: 09/08/18 0525 Date of Service: 09/08/18509 Status: Signed Lead Burner Apprentice: Nuha Escobedo RN (Registered Nurse) No acute events overnight. VSS. HR 70-100's. Patient has been A&O 4 all night. Steady w hen up walking. Chart check complete. Nuha Escobedo RN onver blanquita Transaction, Provider Unknown - 09/07/2018 1:41 PM PDT Pharmacy Note by Roni Ramos RPH at 09/07/18 228 Author: Roni Ramos RPH Service: Pharmacy Author Type: Pharmacist Filed: 09/07/18 1344 Date of Service: 09/07/181340 Status: Signed Lead Burner Apprentice: Roni Ramos [facility] (Pharmacist) Clinical Pharmacy Note: Renal Monitoring Height: 162 cm Weight: 71 kg Serum creatinine: 1.17 mg/dL (H) 09/07/18 0733 Estimated creatinine clearance: 32.2 mL/min (A) Will order the following dosage adjustments: Dabiagtran 150 mg BID (for CrCl > 30 mL/min) Pharmacy will continue to follow and adjust medications as needed. Roni Ramos, PharmChelsey 09/07/2018 1:41 PM Leland Cast i, MD - 09/07/2018 12:49 PM PDTFormatting of this note might be different from the sharifa ochoa. Progress Notes by Leland Ulloa MD at 09/07/18 5391 Author: Leland Ulloa MD Service: Cardiology Author Type: Physician Filed: 09/07/18 1447 Date of Service: 09/07/18 3027 Status: Signed Lead Burner Apprentice: Leland Ulloa MD (Physician) [facility] Service: Cardiology Progress Note Name of Checkering Machine Adjuster: Leland Ulloa MD I have seen the patient on 09/07/2018 MERCEDES Clark is 87 y.o. lady who presented to the emergency room complaining of difficulty b reathing since 2 in the morning. Shortness of breath occurs at rest, no specific precipitat ing factors. She was feeling very weak for the last 2 weeks. She denied chest pain or loss of consciousness. She was seen by Dr. Chakraborty on September 05 due to tachycardia due to atrial flutter. Electrica l cardioversion was recommended. She was continued on metoprolol and Cardizem. She has been compliant with her medications. Medications were reviewed. OBJECTIVE Vital Signs: BP 134/67 (BP Location: Left upper arm) | Pulse 68 | Temp 98.5 F (36.9 C) (Axillary) | Resp 16 | Ht 1.626 m (5' 4") | Wt 71.1 kg (156 lb 12 oz) | SpO2 96% | BMI 26.91 kg/m Cardiovascular: Irregular rhythm, S1 normal and S2 normal. Systolic murmur, 03/11, no radiation. Pulses: Radial pulses are 2+ on the right side, and 2+ on the left side. Pulmonary/Chest: Effort normal and breath sounds normal. No wheezes. No rales. Abdominal: Soft. No tenderness. Musculoskeletal: No edema. Neurological: Alert. No cranial nerve deficit. Skin: Warm and dry. DATA Recent Labs Lab 09/07/18 0733 09/07/18 0543 NA 141 140 K 5.0* 5.0* CO2 27 20* BUN 26* 22 CREATININE 1.17* 1.24* MG -- 1.7 Recent Labs Lab 09/07/18 0543 WBC 11.79* HGB 13.4 HCT 41.7 MCV 90.8 PLT 424* EKG: September 07, 2018, reviewed personally on September 07, 2018. Underlying atrial flutter, complete hea rt block, junctional escape rhythm, heart rate 45, left axis deviation, septal infarct. September 05, 2018, reviewed personally on September 07, 2018. Atrial flutter, heart rate 107, left ax is deviation, left ventricular hypertrophy, septal infarction, nonspecific ST-T wave changes . June 06, 2018, reviewed personally on September 07, 2018. Atrial flutter, heart rate 113, left a xis deviation, left ventricular hypertrophy, septal infarct, nonspecific ST-T wave changes. May 03, 2017, reviewed personally on September 07, 2017. Atrial fibrillation, heart rate 80 , left axis deviation, left ventricular hypertrophy, septal infarct, nonspecific ST-T wave c hanges. April 26, 2016, reviewed personally on September 07, 2017. Atrial fibrillation, heart rate 74 , left axis deviation, left ventricular hypertrophy, septal infarct. Last Echo: September 07, 2018. EF >70%. Mild aortic valve regurgitation without stenosis. Mild mitral jodi ve regurgitation, mild ATR. Mild pulmonary hypertension December 02, 2014. EF 77%, LVH, left atrial enlargement, right atrial enlargement, right ventricular enlargement, trace AI, mild to moderate MR, mild to moderate TR. Moderate pulmo nary hypertension, PA pressure 50 mmHg. Last stress test: Last cath: Carotid US: AAA screening: Lower extremity US: OTHERS: 24-hour monitor. March 26, 2015. Permanent atrial fibrillation, average rate 85. ASSESSMENT & PLAN Shari Clark is 87 y.o. lady with the following medical: 1. Hypertension 2. Hypercholesterolemia 3. Diabetes, on oral hypoglycemic medications 4. Atrial fibrillation, permanent. 5. Atrial flutter 6. Chronic kidney disease Admitted on September 07, 2018 due to shortness of breath and weakness. Found to have severe bradycardia with complete heart block and junctional escape rhythm wit h underlying atrial flutter. Initial heart rate of 48 and blood pressure 115/56. Responded to atropine and glucagon. Mildly elevated troponin. 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 Recommendations Complete heart block is most likely iatrogenic between the combination of metoprolol and Ca rdizem. We will discontinue Cardizem and continue only on metoprolol in the meantime. We will repeat ECG to check on the current rhythm. 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 Elevated troponin was most likely supply demand mismatch. In the presence of preserved EF and absence of any chest pain, no further evaluation is needed at the meantime. Continue anticoagulation with Pradaxa. Code Status: Full Code Leland Ulloa MD 09/07/2018 inci, MD Lai - 09/07/2018 9:32 AM PDT Progress Notes by Lai Sy MD at 09/07/18 0995 Author: Lai Sy MD Service: Hospitalist Author Type: Physician Filed: 09/07/18 1001 Date of Service: 09/07/18931 Status: Addendum Lead Burner Apprentice: Lai Sy MD (Physician) Related Notes: Original Note by Lai Sy MD (Physician) filed at 09/07/18 0958 [facility] Service: Hospitalist Progress Note Hospital Day: LOS: 0 days Post-Op Day: * No surgery found * SUBJECTIVE Patient Summary: Admission H&P Dr. Lester:"The patient is 87 yo female (Eduardo Espinosa C 1930) with significant past medical history of atrial fibirllation/a flutter (cardiol ogy Dr Chakraborty), hypothyroidism, hypertension, moderate pulmonary hypertension, chronic kid margo disease a stage II who presents with dyspnea Patient with confused/change in mental status but responding to verbal stimuli. She denies any chest pain, dyspnea, abdominal pain, nausea, vomiting, diarrhea. No recent dysuria or hematuria. Due to confusion patient is not able to provide further history. Apparently, patient was hospitalized in June 2018 due to generalized weakness due to sever e bradycardia in the 30s. On 09/05, the patient was seen by her public service director and there were concerns that she was having A. fib a flutter with RVR. Due to her previous history of isidoro re bradycardia, the patient has been refer to the paraffin machine operator team for possible card ioversion. In the meantime, she was placed on metoprolol 100 mg and diltiazem 300 mg daily and to continue anticoagulation. Patient was brought to [facility] via [facility]. She was found bradycardic with a heart rate i n the 20s and hypotension. Patient received atropine 1 mg x 2 with moderate improvement of h er bradycardia. Here at [facility] she received glucagon with heart rate improving to the 60 and normal blood p ressure. Patient will be admitted under the hospital service for further management" Events Overnight: 87-year-old female, followed, hypertension, type 2 diabetes, hypothy roidism, moderate pulmonary hypertension,followed by Dr. Chakraborty, history of atrial fibril lation with bradycardia and rapid ventricular rates, in July 03 noted to have heart rates in the 30s with 2.5-second pauses, according to her public service director note unable to increase ra te controlling medications due to pauses, electrophysiology team had recommended a cardiover blanquita this has not been done yet. Chads 2 score 4, patient on anticoagulated. Currently pat ient on diltiazem 300 mg, metoprolol 100 mg. Patient presented to [facility] emergency department yesterday evening with symptoms of weak ness, according to notes she was found to be bradycardic heart rates in the 20s she was hypo tensive, she received atropine 1 mg x 2 and life flighted to our facility. EKG indicated a flutter with ventricular rate 45 bpm, blood pressure 91/52. Subsequently heart rate has increased to flutter, 105, currently blood pressure 141/79. Currently patient seen at bedside she denies any chest pain no shortness of breath Scheduled Medications dabigatran 75 mg Oral BID famotidine 20 mg Oral Daily Or famotidine 20 mg Intravenous Daily levothyroxine 125 mcg Oral QAM AC Continuous Infusions sodium chloride (IV) PRN Medications acetaminophen OR acetaminophen, atropine sulfate, glucagon, ondansetron OR ondanset ashish, polyethylene glycol OBJECTIVE Vital Signs: BP 141/79 | Pulse 106 | Temp 98 F (36.7 C) (Oral) | Resp 18 | Ht 1.626 m (5' 4") | Wt 71.1 kg (156 lb 12 oz) | SpO2 96% | BMI 26.91 kg/m Temp: [97.3 F (36.3 C)-98 F (36.7 C)] 98 F (36.7 C) (09/07 852) BP: (91-177)/(51-118) 141/79 (09/07 852) Heart Rate: [41-106] 106 (09/08 835) Resp: [16-39] 18 (09/07 852) SpO2: [90 %-97 %] 96 % (09/07 852) Height: [162.6 cm (5' 4")] 162.6 cm (5' 4") (09/08 543) Weight: [54.4 kg (120 lb)-71.1 kg (156 lb 12 oz)] 71.1 kg (156 lb 12 oz) (09/08 543) BMI (Calculated): [27] 27 (09/08 543) Physical Exam Constitutional: She is oriented to person, place, and time. She appears well-developed and well-nourished. Awake alert lying in bed No acute distress Cardiovascular: Irregular Pulmonary/Chest: Effort normal and breath sounds normal. Abdomina/Gl: Soft. Bowel sounds are normal. Musculoskeletal: She exhibits no edema. Neurological: She is alert and oriented to person, place, and time. Skin: Skin is warm and dry. Psychiatric: She has a normal mood and affect. Her behavior is normal. Nursing note and vitals reviewed. DATA CBC: Lab Results Component Value Date WBC 11.79 (H) 09/07/2018 RBC 4.60 09/07/2018 HGB 13.4 09/07/2018 HCT 41.7 09/07/2018 MCV 90.8 09/07/2018 MCH 29.1 09/07/2018 MCHC 32.0 09/07/2018 RDW 45.9 09/07/2018 PLT 424 (H) 09/07/2018 MPV 8.8 09/07/2018 DIFFTYPE AUTOMATED 09/07/2018 BMP: Lab Results Component Value Date NA 141 09/07/2018 K 5.0 (H) 09/07/2018 CL 105 09/07/2018 CO2 27 09/07/2018 ANIONGAP 14 09/07/2018 GLUF 259 (H) 09/07/2018 BUN 26 (H) 09/07/2018 CREATININE 1.17 (H) 09/07/2018 BCR 22 09/07/2018 CA 10.2 09/07/2018 EGFR 44 (L) 09/07/2018 Last 3 Troponin: Lab Results Component Value Date TROPONINI 0.043 (H) 09/07/2018 CPK: Lab Results Component Value Date CKTOTAL 127 09/07/2018 CKMB: Lab Results Component Value Date CKMB 2.2 09/07/2018 Ct Head Without Contrast Result Date: 09/07/2018 1. A few subtle areas of decreased density in the supratentorial white matter that are nons pecific but most likely on the basis of chronic white matter microvascular ischemic gliosis. 2. Subtle hypodensity within the left thalamus that is nonspecific and may represent small lacunar infarct of uncertain age. Signed by: Jay Kimbrough Chet Sign Date/Time: 09/07/2018 9 :00 AM Xr Chest Ap Portable Result Date: 09/07/2018 No definite evidence of traumatic injury or other acute process. Signed by: Stacey Campos, Laila graves Sign Date/Time: 09/07/2018 1:51 AM PROBLEM LIST Principal Problem: Symptomatic bradycardia Active Problems: Change in mental state Atrial fibrillation (HCC) Essential hypertension ASSESSMENT & PLAN #1. Atrial flutter -History of symptomatic bradycardia/tachycardia -CHAD2 = 4 ON PRADAXA -Patient presented with symptomatic bradycardia, heart rate 20-40s, hypotensive outside fac ility required to discontinuation of beta-blockers, calcium channel alfred, atropine x2 -Currently heart rate has improved, 105, BP stable -According to patient's primary public service director, Dr. Chakraborty, patient would benefit cardiover blanquita, EP evaluation -Currently no paraffin machine operator available -I have contacted public service director, Dr. Ulloa who will evaluate the patient -Currently n.p.o. pending cardiology evaluation #2. Hypothyroidism -TSH elevated 10.5 - synthroid 125 mcg #3. Encephalopathy -Patient noted to be somewhat confused on initial admission, currently mentation seems to b e baseline -Hospital due to decreased cardiac output from bradycardia, currently BP normal. #4. Chronic kidney disease stage II -Potassium 5.0 -Renal function stable, avoid GEENA inhibitors -Continue light hydration Disposition: Code Status: Full Code Lai Sy MD 09/07/2018 onversion Transact ion, Provider Unknown - 09/07/2018 9:07 AM PDTFormatting of this note might be different fr om the original. Nurse Progress Note by Erica Mckenzie RN at 09/07/18906 Author: Erica Mckenzie RN Service: (none) Author Type: Registered Nurse Filed: 09/07/18 1824 Date of Service: 09/07/18906 Status: Signed Lead Burner Apprentice: Erica Mckenzie RN (Registered Nurse) Received report from KELLY Marinelli RN. Pt transferred to [id number]. By 1400 pt had yet to void. Blad andreas scan performed, see flowsheet. notified, see orders. Pt remained A&Ox3-4 throughout t he shift. Chart check complete. Erica Mckenzie RN onver blanquita Transaction, Provider Unknown - 09/07/2018 6:15 AM PDT Pharmacy Note by Wilber Aponte RPH at 09/07/18614 Author: Wilber Aponte RPH Service: Pharmacy Author Type: Pharmacist Filed: 09/07/18614 Date of Service: 09/07/18614 Status: Signed Lead Burner Apprentice: Wilber Aponte RPH (Pharmacist) Clinical Pharmacy Note: Renal Monitoring Height: 162.6 cm Weight: 71.1 kg Serum creatinine: 1.32 mg/dL (H) 09/07/18118 Estimated creatinine clearance: 29 mL/min (A) Pharmacy dosing for renal function per Dr. Lester. Will order the following dosage adjustments: Pepcid 20 mg IV/PO Q24H Dabigatran 75 mg PO BID (for clearance less than 30 mL/min) Pharmacy will continue to follow and adjust medications as indicated. WILBER APONTE, Pharmacist 09/07/2018 6:04 AM docume nted in this encounter Plan of Treatment +--------+---------+ + + + | Date | Type | Specialty | Care Team | Description | +--------+---------+ + + + | 02/20/ | Office | Cardiology | Denise Chakraborty, | | | 2018 | Visit | | MD Eduardo AGUILLON | | | | | | [place] [place] | | | | | | [id number] | | | | | | | | +--------+---------+ + + + documented as of this encounter Procedures + +--------+ + + + | Procedure Name | Priori | Date/Time | Associated Diagnosis | Comments | | | ty | | | | + +--------+ + + + | POC GLUCOSE | Routin | 09/13/2018 | | Results for this | | | e | 11:20 AM | | procedure are in the | | | | PDT | | results section. | + +--------+ + + + | EXTERNAL LAB: CBC | Routin | 09/13/2018 | | Results for this | | | e | 6:28 AM | | procedure are in the | | | | PDT | | results section. | + +--------+ + + + | MAGNESIUM | Routin | 09/13/2018 | | Results for this | | | e | 6:28 AM | | procedure are in the | | | | PDT | | results section. | + +--------+ + + + | RENAL FUNCTION PANEL | Routin | 09/13/2018 | | Results for this | | | e | 6:28 AM | | procedure are in the | | | | PDT | | results section. | + +--------+ + + + | POC GLUCOSE | Routin | 09/13/2018 | | Results for this | | | e | 5:34 AM | | procedure are in the | | | | PDT | | results section. | + +--------+ + + + | POC GLUCOSE | Routin | 09/12/2018 | | Results for this | | | e | 9:19 PM | | procedure are in the | | | | PDT | | results section. | + +--------+ + + + | POC GLUCOSE | Routin | 09/12/2018 | | Results for this | | | e | 4:54 PM | | procedure are in the | | | | PDT | | results section. | + +--------+ + + + | POC GLUCOSE | Routin | 09/12/2018 | | Results for this | | | e | 11:43 AM | | procedure are in the | | | | PDT | | results section. | + +--------+ + + + | POC GLUCOSE | Routin | 09/12/2018 | | Results for this | | | e | 5:59 AM | | procedure are in the | | | | PDT | | results section. | + +--------+ + + + | EXTERNAL LAB: CBC | Routin | 09/12/2018 | | Results for this | | | e | 5:49 AM | | procedure are in the | | | | PDT | | results section. | + +--------+ + + + | MAGNESIUM | Routin | 09/12/2018 | | Results for this | | | e | 5:49 AM | | procedure are in the | | | | PDT | | results section. | + +--------+ + + + | RENAL FUNCTION PANEL | Routin | 09/12/2018 | | Results for this | | | e | 5:49 AM | | procedure are in the | | | | PDT | | results section. | + +--------+ + + + | POC GLUCOSE | Routin | 09/11/2018 | | Results for this | | | e | 9:39 PM | | procedure are in the | | | | PDT | | results section. | + +--------+ + + + | CT CHEST WO CONTRAST | Routin | 09/11/2018 | | Results for this | | | e | 5:50 PM | | procedure are in the | | | | PDT | | results section. | + +--------+ + + + | POC GLUCOSE | Routin | 09/11/2018 | | Results for this | | | e | 4:11 PM | | procedure are in the | | | | PDT | | results section. | + +--------+ + + + | EXTERNAL LAB: CBC | Routin | 09/11/2018 | | Results for this | | | e | 1:47 PM | | procedure are in the | | | | PDT | | results section. | + +--------+ + + + | MAGNESIUM | Routin | 09/11/2018 | | Results for this | | | e | 1:47 PM | | procedure are in the | | | | PDT | | results section. | + +--------+ + + + | RENAL FUNCTION PANEL | Routin | 09/11/2018 | | Results for this | | | e | 1:47 PM | | procedure are in the | | | | PDT | | results section. | + +--------+ + + + | POC GLUCOSE | Routin | 09/11/2018 | | Results for this | | | e | 12:22 PM | | procedure are in the | | | | PDT | | results section. | + +--------+ + + + | POC GLUCOSE | Routin | 09/11/2018 | | Results for this | | | e | 5:24 AM | | procedure are in the | | | | PDT | | results section. | + +--------+ + + + | POC GLUCOSE | Routin | 09/10/2018 | | Results for this | | | e | 7:25 PM | | procedure are in the | | | | PDT | | results section. | + +--------+ + + + | POC GLUCOSE | Routin | 09/10/2018 | | Results for this | | | e | 4:03 PM | | procedure are in the | | | | PDT | | results section. | + +--------+ + + + | POC GLUCOSE | Routin | 09/10/2018 | | Results for this | | | e | 11:38 AM | | procedure are in the | | | | PDT | | results section. | + +--------+ + + + | POC GLUCOSE | Routin | 09/10/2018 | | Results for this | | | e | 5:16 AM | | procedure are in the | | | | PDT | | results section. | + +--------+ + + + | POC GLUCOSE | Routin | 09/09/2018 | | Results for this | | | e | 9:22 PM | | procedure are in the | | | | PDT | | results section. | + +--------+ + + + | POC GLUCOSE | Routin | 09/09/2018 | | Results for this | | | e | 4:50 PM | | procedure are in the | | | | PDT | | results section. | + +--------+ + + + | POC GLUCOSE | Routin | 09/09/2018 | | Results for this | | | e | 12:22 PM | | procedure are in the | | | | PDT | | results section. | + +--------+ + + + | POC GLUCOSE | Routin | 09/09/2018 | | Results for this | | | e | 5:18 AM | | procedure are in the | | | | PDT | | results section. | + +--------+ + + + | POC GLUCOSE | Routin | 09/08/2018 | | Results for this | | | e | 9:34 PM | | procedure are in the | | | | PDT | | results section. | + +--------+ + + + | POC GLUCOSE | Routin | 09/08/2018 | | Results for this | | | e | 4:17 PM | | procedure are in the | | | | PDT | | results section. | + +--------+ + + + | POC GLUCOSE | Routin | 09/08/2018 | | Results for this | | | e | 12:31 PM | | procedure are in the | | | | PDT | | results section. | + +--------+ + + + | POC GLUCOSE | Routin | 09/08/2018 | | Results for this | | | e | 8:46 AM | | procedure are in the | | | | PDT | | results section. | + +--------+ + + + | CBC NO DIFFERENTIAL | Routin | 09/08/2018 | | Results for this | | | e | 5:24 AM | | procedure are in the | | | | PDT | | results section. | + +--------+ + + + | HEMOGLOBIN A1C | Routin | 09/08/2018 | | Results for this | | | e | 5:24 AM | | procedure are in the | | | | PDT | | results section. | + +--------+ + + + | COMPREHENSIVE | Routin | 09/08/2018 | | Results for this | | METABOLIC PANEL | e | 5:24 AM | | procedure are in the | | | | PDT | | results section. | + +--------+ + + + | POC GLUCOSE | Routin | 09/08/2018 | | Results for this | | | e | 5:08 AM | | procedure are in the | | | | PDT | | results section. | + +--------+ + + + | POC GLUCOSE | Routin | 09/07/2018 | | Results for this | | | e | 9:16 PM | | procedure are in the | | | | PDT | | results section. | + +--------+ + + + | POC GLUCOSE | Routin | 09/07/2018 | | Results for this | | | e | 4:39 PM | | procedure are in the | | | | PDT | | results section. | + +--------+ + + + | POC GLUCOSE | Routin | 09/07/2018 | | Results for this | | | e | 12:06 PM | | procedure are in the | | | | PDT | | results section. | + +--------+ + + + | TROPONIN I | Routin | 09/07/2018 | | Results for this | | | e | 11:56 AM | | procedure are in the | | | | PDT | | results section. | + +--------+ + + + | CK-MB | Routin | 09/07/2018 | | Results for this | | | e | 11:56 AM | | procedure are in the | | | | PDT | | results section. | + +--------+ + + + | CK TOTAL | Routin | 09/07/2018 | | Results for this | | | e | 11:56 AM | | procedure are in the | | | | PDT | | results section. | + +--------+ + + + | ECHO COMPLETE | Routin | 09/07/2018 | | Results for this | | | e | 9:30 AM | | procedure are in the | | | | PDT | | results section. | + +--------+ + + + | CT HEAD WO CONTRAST | Routin | 09/07/2018 | | Results for this | | | e | 8:36 AM | | procedure are in the | | | | PDT | | results section. | + +--------+ + + + | CULTURE, BLOOD, 2ND | Timed | 09/07/2018 | | Results for this | | SPECIMEN (NON-ORD) | | 7:33 AM | | procedure are in the | | | | PDT | | results section. | + +--------+ + + + | BASIC METABOLIC | Routin | 09/07/2018 | | Results for this | | PANEL | e | 7:33 AM | | procedure are in the | | | | PDT | | results section. | + +--------+ + + + | URINALYSIS WITH | Routin | 09/07/2018 | | Results for this | | MICROSCOPIC IF | e | 6:43 AM | | procedure are in the | | INDICATED | | PDT | | results section. | + +--------+ + + + | CULTURE, URINE | Timed | 09/07/2018 | | Results for this | | | | 6:43 AM | | procedure are in the | | | | PDT | | results section. | + +--------+ + + + | TROPONIN I | Routin | 09/07/2018 | | Results for this | | | e | 5:45 AM | | procedure are in the | | | | PDT | | results section. | + +--------+ + + + | CK-MB | Routin | 09/07/2018 | | Results for this | | | e | 5:45 AM | | procedure are in the | | | | PDT | | results section. | + +--------+ + + + | CK TOTAL | Routin | 09/07/2018 | | Results for this | | | e | 5:45 AM | | procedure are in the | | | | PDT | | results section. | + +--------+ + + + | CULTURE, BLOOD | Timed | 09/07/2018 | | Results for this | | | | 5:44 AM | | procedure are in the | | | | PDT | | results section. | + +--------+ + + + | EXTERNAL LAB: CBC | Routin | 09/07/2018 | | Results for this | | | e | 5:43 AM | | procedure are in the | | | | PDT | | results section. | + +--------+ + + + | MAGNESIUM | Routin | 09/07/2018 | | Results for this | | | e | 5:43 AM | | procedure are in the | | | | PDT | | results section. | + +--------+ + + + | BILIRUBIN, DIRECT | Routin | 09/07/2018 | | Results for this | | | e | 5:43 AM | | procedure are in the | | | | PDT | | results section. | + +--------+ + + + | COMPREHENSIVE | Routin | 09/07/2018 | | Results for this | | METABOLIC PANEL | e | 5:43 AM | | procedure are in the | | | | PDT | | results section. | + +--------+ + + + | XR CHEST 1 VIEW | Routin | 09/07/2018 | | Results for this | | | e | 1:30 AM | | procedure are in the | | | | PDT | | results section. | + +--------+ + + + | HISTORICAL LAB PANEL | Routin | 09/07/2018 | | Results for this | | RESULT | e | 1:19 AM | | procedure are in the | | | | PDT | | results section. | + +--------+ + + + | TSH | Routin | 09/07/2018 | | Results for this | | | e | 1:19 AM | | procedure are in the | | | | PDT | | results section. | + +--------+ + + + | MAGNESIUM | Routin | 09/07/2018 | | Results for this | | | e | 1:19 AM | | procedure are in the | | | | PDT | | results section. | + +--------+ + + + documented in this encounter Results POC Glucose (09/13/2018 11:20 AM PDT) + + + + + + | Component | Value | Ref Range | Performed | Pathologist | | | | | At | Signature | + + + + + + | Glucose, | 316 (H)Comment: Testing | 65 - 99 mg/dL | EXTERNAL | | | Fingerstick | performed at [facility] [place] | | LAB | | | | [facility];[place] | | | | | | [id number] | | | | + + + + + + + + | Specimen | + + | | + + + +---------+ + + | Performing | Address | City/State/Zipcode | Phone Number | | Organization | | | | + +---------+ + + | EXTERNAL LAB | | | | + +---------+ + + External Lab: CBC (09/13/2018 6:28 AM PDT) + + + + + + | Component | Value | Ref Range | Performed | Pathologist | | | | | At | Signature | + + + + + + | WBC | 8.77 | 3.80 - 11.00 | EXTERNAL | | | | | K/uL | LAB | | + + + + + + | RED CELL | 4.04 | 3.70 - 5.10 | EXTERNAL | | | COUNT | | M/uL | LAB | | + + + + + + | Hgb | 11.9 | 11.3 - 15.5 | EXTERNAL | | | | | g/dL | LAB | | + + + + + + | Hematocrit, | 36.0 | 34.0 - 46.0 % | EXTERNAL | | | POC | | | LAB | | + + + + + + | MCV | 89.1 | 80.0 - 100.0 fl | EXTERNAL | | | | | | LAB | | + + + + + + | MCH | 29.4 | 27.0 - 34.0 pg | EXTERNAL | | | | | | LAB | | + + + + + + | MCHC | 33.0 | 32.0 - 35.5 | EXTERNAL | | | | | g/dL | LAB | | + + + + + + | RDW-CV | 45.1 | 37 - 53 fl | EXTERNAL | | | | | | LAB | | + + + + + + | Platelet | 367 | 150 - 400 K/uL | EXTERNAL | | | Count | | | LAB | | | Plasma | | | | | + + + + + + | MPV | 8.6 | fl | EXTERNAL | | | | | | LAB | | + + + + + + | Differentia | AUTOMATED | | EXTERNAL | | | l Type | | | LAB | | + + + + + + | % Segmented | 64.61 | % | EXTERNAL | | | | | | LAB | | | Neutrophils | | | | | + + + + + + | % | 21.01 | % | EXTERNAL | | | Lymphocytes | | | LAB | | + + + + + + | % Monocytes | 11.03 | % | EXTERNAL | | | | | | LAB | | + + + + + + | % | 1.92 | % | EXTERNAL | | | Eosinophils | | | LAB | | + + + + + + | % Basophils | 1.43 | % | EXTERNAL | | | | | | LAB | | + + + + + + | Absolute | 5.67 | 1.90 - 7.40 | EXTERNAL | | | Segmented | | K/uL | LAB | | | Neutrophils | | | | | + + + + + + | Absolute | 1.84 | 1.00 - 3.90 | EXTERNAL | | | Lymphocytes | | K/uL | LAB | | + + + + + + | Absolute | 0.97 (H) | 0.00 - 0.80 | EXTERNAL | | | Monocytes | | K/uL | LAB | | + + + + + + | Absolute | 0.17 | 0.00 - 0.50 | EXTERNAL | | | Eosinophils | | K/uL | LAB | | + + + + + + | Absolute | 0.13 (H)Comment: Testing | 0.00 - 0.10 | EXTERNAL | | | Basophils | performed at [facility] [place];[address] | K/uL | LAB | | | | [address];[place] | | | | | | [address] | | | | + + + + + + + + | Specimen | + + | Blood specimen | | (specimen) | + + + +---------+ + + | Performing | Address | City/State/Zipcode | Phone Number | | Organization | | | | + +---------+ + + | EXTERNAL LAB | | | | + +---------+ + + Magnesium (09/13/2018 6:28 AM PDT) + + + + + + | Component | Value | Ref Range | Performed | Pathologist | | | | | At | Signature | + + + + + + | Magnesium | 1.6 (L)Comment: Testing | 1.7 - 2.4 mg/dL | EXTERNAL | | | | performed at [facility] [place];[address] | | LAB | | | | [address];[place], [place] | | | | | | [address] | | | | + + + + + + + + | Specimen | + + | Blood specimen | | (specimen) | + + + +---------+ + + | Performing | Address | City/State/Zipcode | Phone Number | | Organization | | | | + +---------+ + + | EXTERNAL LAB | | | | + +---------+ + + Renal Function Panel (09/13/2018 6:28 AM PDT) + + + + + + | Component | Value | Ref Range | Performed | Pathologist | | | | | At | Signature | + + + + + + | Na | 140 | 135 - 145 | EXTERNAL | | | | | mmol/L | LAB | | + + + + + + | K | 4.1 | 3.5 - 4.9 | EXTERNAL | | | | | mmol/L | LAB | | + + + + + + | Cl | 104 | 99 - 109 mmol/L | EXTERNAL | | | | | | LAB | | + + + + + + | CO2 | 29 | 23 - 32 mmol/L | EXTERNAL | | | | | | LAB | | + + + + + + | Anion Gap | 11 | 5 - 20 mmol/L | EXTERNAL | | | | | | LAB | | + + + + + + | Glucose, | 192 (H) | 65 - 99 mg/dL | EXTERNAL | | | Fasting | | | LAB | | + + + + + + | BUN | 18 | 8 - 25 mg/dL | EXTERNAL | | | | | | LAB | | + + + + + + | Creatinine | 0.78 | 0.50 - 1.00 | EXTERNAL | | | | | mg/dL | LAB | | + + + + + + | Calcium | 9.6 | 8.5 - 10.5 | EXTERNAL | | | | | mg/dL | LAB | | + + + + + + | Albumin | 3.9 | 3.3 - 4.8 g/dL | EXTERNAL | | | | | | LAB | | + + + + + + | PHOSPHORUS | 2.9 | 2.3 - 4.8 mg/dL | EXTERNAL | | | | | | LAB | | + + + + + + | Estimated | >60Comment: GFR <60: | mL/min/1.73m2 | EXTERNAL | | | GFR | CHRONIC KIDNEY DISEASE, | | LAB | | | | IF FOUND OVER [...] | | | | | performed at [facility] | | | | | | [address];[place], [place] | | | | | | [address] | | | | + + + + + + + + | Specimen | + + | | + + + +---------+ + + | Performing | Address | City/State/Zipcode | Phone Number | | Organization | | | | + +---------+ + + | EXTERNAL LAB | | | | + +---------+ + + POC Glucose (09/13/2018 5:34 AM PDT) + + + + + + | Component | Value | Ref Range | Performed | Pathologist | | | | | At | Signature | + + + + + + | Glucose, | 196 (H)Comment: Testing | 65 - 99 mg/dL | EXTERNAL | | | Fingerstick | performed at [facility] | | LAB | | | | [address];[place] | | | | | | [address] | | | | + + + + + + + + | Specimen | + + | | + + + +---------+ + + | Performing | Address | City/State/Zipcode | Phone Number | | Organization | | | | + +---------+ + + | EXTERNAL LAB | | | | + +---------+ + + POC Glucose (09/12/2018 9:19 PM PDT) + + + + + + | Component | Value | Ref Range | Performed | Pathologist | | | | | At | Signature | + + + + + + | Glucose, | 284 (H)Comment: Testing | 65 - 99 mg/dL | EXTERNAL | | | Fingerstick | performed at [facility] | | LAB | | | | [address];[place] | | | | | | [address] | | | | + + + + + + + + | Specimen | + + | | + + + +---------+ + + | Performing | Address | City/State/Zipcode | Phone Number | | Organization | | | | + +---------+ + + | EXTERNAL LAB | | | | + +---------+ + + POC Glucose (09/12/2018 4:54 PM PDT) + + + + + + | Component | Value | Ref Range | Performed | Pathologist | | | | | At | Signature | + + + + + + | Glucose, | 327 (H)Comment: Testing | 65 - 99 mg/dL | EXTERNAL | | | Fingerstick | performed at [facility] | | LAB | | | | [address];[place] | | | | | | [address] | | | | + + + + + + + + | Specimen | + + | | + + + +---------+ + + | Performing | Address | City/State/Zipcode | Phone Number | | Organization | | | | + +---------+ + + | EXTERNAL LAB | | | | + +---------+ + + POC Glucose (09/12/2018 11:43 AM PDT) + + + + + + | Component | Value | Ref Range | Performed | Pathologist | | | | | At | Signature | + + + + + + | Glucose, | 371 (H)Comment: Testing | 65 - 99 mg/dL | EXTERNAL | | | Fingerstick | performed at [facility] | | LAB | | | | [address];[place], [place] | | | | | | [address] | | | | + + + + + + + + | Specimen | + + | | + + + +---------+ + + | Performing | Address | City/State/Zipcode | Phone Number | | Organization | | | | + +---------+ + + | EXTERNAL LAB | | | | + +---------+ + + POC Glucose (09/12/2018 5:59 AM PDT) + + + + + + | Component | Value | Ref Range | Performed | Pathologist | | | | | At | Signature | + + + + + + | Glucose, | 209 (H)Comment: Testing | 65 - 99 mg/dL | EXTERNAL | | | Fingerstick | performed at [facility] | | LAB | | | | [address];[place], [place] | | | | | | [address] | | | | + + + + + + + + | Specimen | + + | | + + + +---------+ + + | Performing | Address | City/State/Zipcode | Phone Number | | Organization | | | | + +---------+ + + | EXTERNAL LAB | | | | + +---------+ + + External Lab: RUBY (09/12/2018 5:49 AM PDT) + + + + + + | Component | Value | Ref Range | Performed | Pathologist | | | | | At | Signature | + + + + + + | WBC | 10.15 | 3.80 - 11.00 | EXTERNAL | | | | | K/uL | LAB | | + + + + + + | RED CELL | 3.64 (L) | 3.70 - 5.10 | EXTERNAL | | | COUNT | | M/uL | LAB | | + + + + + + | Hgb | 11.0 (L) | 11.3 - 15.5 | EXTERNAL | | | | | g/dL | LAB | | + + + + + + | Hematocrit, | 32.9 (L) | 34.0 - 46.0 % | EXTERNAL | | | POC | | | LAB | | + + + + + + | MCV | 90.3 | 80.0 - 100.0 fl | EXTERNAL | | | | | | LAB | | + + + + + + | MCH | 30.1 | 27.0 - 34.0 pg | EXTERNAL | | | | | | LAB | | + + + + + + | MCHC | 33.3 | 32.0 - 35.5 | EXTERNAL | | | | | g/dL | LAB | | + + + + + + | RDW-CV | 44.2 | 37 - 53 fl | EXTERNAL | | | | | | LAB | | + + + + + + | Platelet | 333 | 150 - 400 K/uL | EXTERNAL | | | Count | | | LAB | | | Plasma | | | | | + + + + + + | MPV | 9.1 | fl | EXTERNAL | | | | | | LAB | | + + + + + + | Differentia | AUTOMATED | | EXTERNAL | | | l Type | | | LAB | | + + + + + + | % Segmented | 67.77 | % | EXTERNAL | | | | | | LAB | | | Neutrophils | | | | | + + + + + + | % | 18.72 | % | EXTERNAL | | | Lymphocytes | | | LAB | | + + + + + + | % Monocytes | 11.84 | % | EXTERNAL | | | | | | LAB | | + + + + + + | % | 1.05 | % | EXTERNAL | | | Eosinophils | | | LAB | | + + + + + + | % Basophils | 0.62 | % | EXTERNAL | | | | | | LAB | | + + + + + + | Absolute | 6.88 | 1.90 - 7.40 | EXTERNAL | | | Segmented | | K/uL | LAB | | | Neutrophils | | | | | + + + + + + | Absolute | 1.90 | 1.00 - 3.90 | EXTERNAL | | | Lymphocytes | | K/uL | LAB | | + + + + + + | Absolute | 1.20 (H) | 0.00 - 0.80 | EXTERNAL | | | Monocytes | | K/uL | LAB | | + + + + + + | Absolute | 0.11 | 0.00 - 0.50 | EXTERNAL | | | Eosinophils | | K/uL | LAB | | + + + + + + | Absolute | 0.06Comment: Testing | 0.00 - 0.10 | EXTERNAL | | | Basophils | performed at [facility], [address] | [address] | LAB | | | | [address], | | | | | | [place] [address] | | | | + + + + + + + + | Specimen | + + | Blood specimen | | (specimen) | + + + +---------+ + + | Performing | Address | City/State/Zipcode | Phone Number | | Organization | | | | + +---------+ + + | EXTERNAL LAB | | | | + +---------+ + + Magnesium (09/12/2018 5:49 AM PDT) + + + + + + | Component | Value | Ref Range | Performed | Pathologist | | | | | At | Signature | + + + + + + | Magnesium | 2.0Comment: Testing | 1.7 - 2.4 mg/dL | EXTERNAL | | | | performed at [facility], [address] | | LAB | | | | [address], | | | | | | [place] [address] | | | | + + + + + + + + | Specimen | + + | Blood specimen | | (specimen) | + + + +---------+ + + | Performing | Address | City/State/Zipcode | Phone Number | | Organization | | | | + +---------+ + + | EXTERNAL LAB | | | | + +---------+ + + Renal Function Panel (09/12/2018 5:49 AM PDT) + + + + + + | Component | Value | Ref Range | Performed | Pathologist | | | | | At | Signature | + + + + + + | Na | 138 | 135 - 145 | EXTERNAL | | | | | mmol/L | LAB | | + + + + + + | K | 4.0 | 3.5 - 4.9 | EXTERNAL | | | | | mmol/L | LAB | | + + + + + + | Cl | 103 | 99 - 109 mmol/L | EXTERNAL | | | | | | LAB | | + + + + + + | CO2 | 28 | 23 - 32 mmol/L | EXTERNAL | | | | | | LAB | | + + + + + + | Anion Gap | 11 | 5 - 20 mmol/L | EXTERNAL | | | | | | LAB | | + + + + + + | Glucose, | 200 (H) | 65 - 99 mg/dL | EXTERNAL | | | Fasting | | | LAB | | + + + + + + | BUN | 20 | 8 - 25 mg/dL | EXTERNAL | | | | | | LAB | | + + + + + + | Creatinine | 0.7 | 0.50 - 1.00 | EXTERNAL | | | | | mg/dL | LAB | | + + + + + + | Calcium | 9.3 | 8.5 - 10.5 | EXTERNAL | | | | | mg/dL | LAB | | + + + + + + | Albumin | 2.6 (L) | 3.3 - 4.8 g/dL | EXTERNAL | | | | | | LAB | | + + + + + + | PHOSPHORUS | 2.5 | 2.3 - 4.8 mg/dL | EXTERNAL | | | | | | LAB | | + + + + + + | Estimated | >60Comment: GFR <60: | mL/min/1.73m2 | EXTERNAL | | | GFR | CHRONIC KIDNEY DISEASE, | | LAB | | | | IF FOUND OVER [...] | | | | | performed at [facility], [address] | | | | | | [facility], | | | | | | [place] [address] | | | | + + + + + + + + | Specimen | + + | | + + + +---------+ + + | Performing | Address | City/State/Zipcode | Phone Number | | Organization | | | | + +---------+ + + | EXTERNAL LAB | | | | + +---------+ + + POC Glucose (09/11/2018 9:39 PM PDT) + + + + + + | Component | Value | Ref Range | Performed | Pathologist | | | | | At | Signature | + + + + + + | Glucose, | 295 (H)Comment: Testing | 65 - 99 mg/dL | EXTERNAL | | | Fingerstick | performed at [facility] | | LAB | | | | [address];[place], [place] | | | | | | [address] | | | | + + + + + + + + | Specimen | + + | | + + + +---------+ + + | Performing | Address | City/State/Zipcode | Phone Number | | Organization | | | | + +---------+ + + | EXTERNAL LAB | | | | + +---------+ + + CT Chest wo Contrast (09/11/2018 5:50 PM PDT) + + | Specimen | + + | | + + + + + | Impressions | Performed At | + + + | Numerous patchy ground-glass opacities in the right upper and lower | | | lobes could represent infectious or inflammatory etiology, possibly | | | aspiration pneumonitis. Tiny bilateral pleural effusions. No | | | pneumothorax. Dictated by: Stacey Ness Natalie Signed by: | | | Stacey Boykin Scott Sign Date/Time: 09/11/2018 7:38 PM The | | | radiologist has reviewed the images and edited/approved the report. | | | For interventional procedures, the signing radiologist was present | | | for the harrell portions of the exam. | | + + + + + + | Narrative | Performed At | + + + | CT CHEST WITHOUT CONTRAST CLINICAL INFORMATION: Shortness of | | | breath COMPARISON: None PROCEDURE: Axial images through the chest. | | | Multiplanar reconstructions. At least one of the following CT dose | | | optimization techniques were used: Automated exposure control; | | | Adjustment of mA and/or kV according to patient size; Use of | | | iterative reconstruction technique. FINDINGS: Lungs, Pleura and | | | Airways: Numerous patchy ground-glass nodules in a tree-in-bud | | | distribution in the posterior right upper lobe and throughout the | | | basilar segments of the right lower lobe. No airway narrowing or | | | obstruction. Tiny bilateral pleural effusions. No pneumothorax. | | | Mediastinum: No significant pericardial, great vessel or esophageal | | | abnormality. No mediastinal mass. Lymph Nodes: No adenopathy. Upper | | | Abdomen: Probable gallstones. BODY WALL Soft Tissues: The soft | | | tissues of the chest wall are unremarkable. Bones: No acute fracture | | | or vertebral end plate destruction. No lytic or blastic lesion. | | + + + + + | Procedure Note | + + | Thomas, Rad Conversion - 10/16/2018 11:[address] CHEST WITHOUT CONTRAST | | CLINICAL INFORMATION: | | Shortness of breath | | COMPARISON: | | None | | PROCEDURE: | | Axial images through the chest. Multiplanar reconstructions. | | At least one of the following CT dose optimization techniques were | | used: Automated exposure control; Adjustment of mA and/or kV according | | to patient size; Use of iterative reconstruction technique. | | FINDINGS: | | Lungs, Pleura and Airways: Numerous patchy ground-glass nodules in a | | tree-in-bud distribution in the posterior right upper lobe and | | throughout the basilar segments of the right lower lobe. No airway | | narrowing or obstruction. Tiny bilateral pleural effusions. No | | pneumothorax. | | Mediastinum: No significant pericardial, great vessel or esophageal | | abnormality. No mediastinal mass. | | Lymph Nodes: No adenopathy. | | Upper Abdomen: Probable gallstones. | | BODY WALL | | Soft Tissues: The soft tissues of the chest wall are unremarkable. | | Bones: No acute fracture or vertebral end plate destruction. No lytic | | or blastic lesion. | | IMPRESSION: | | Numerous patchy ground-glass opacities in the right upper and lower | | lobes could represent infectious or inflammatory etiology, possibly | | aspiration pneumonitis. Tiny bilateral pleural effusions. No | | pneumothorax. | | Dictated by: Stacey Ness Natalie | | Signed by: Stacey Boykin Scott | | Sign Date/Time: 09/11/2018 7:38 PM | | The radiologist has reviewed the images and edited/approved | | the report. For interventional procedures, the signing | | radiologist was present for the harrell portions of the exam. | + + POC Glucose (09/11/2018 4:11 PM PDT) + + + + + + | Component | Value | Ref Range | Performed | Pathologist | | | | | At | Signature | + + + + + + | Glucose, | 302 (H)Comment: Testing | 65 - 99 mg/dL | EXTERNAL | | | Fingerstick | performed at [facility] | | LAB | | | | [address];[place] | | | | | | [address] | | | | + + + + + + + + | Specimen | + + | | + + + +---------+ + + | Performing | Address | City/State/Zipcode | Phone Number | | Organization | | | | + +---------+ + + | EXTERNAL LAB | | | | + +---------+ + + External Lab: CBC (09/11/2018 1:47 PM PDT) + + + + + + | Component | Value | Ref Range | Performed | Pathologist | | | | | At | Signature | + + + + + + | WBC | 11.14 (H) | 3.80 - 11.00 | EXTERNAL | | | | | K/uL | LAB | | + + + + + + | RED CELL | 4.20 | 3.70 - 5.10 | EXTERNAL | | | COUNT | | M/uL | LAB | | + + + + + + | Hgb | 12.2 | 11.3 - 15.5 | EXTERNAL | | | | | g/dL | LAB | | + + + + + + | Hematocrit, | 37.8 | 34.0 - 46.0 % | EXTERNAL | | | POC | | | LAB | | + + + + + + | MCV | 90.0 | 80.0 - 100.0 fl | EXTERNAL | | | | | | LAB | | + + + + + + | MCH | 29.0 | 27.0 - 34.0 pg | EXTERNAL | | | | | | LAB | | + + + + + + | MCHC | 32.3 | 32.0 - 35.5 | EXTERNAL | | | | | g/dL | LAB | | + + + + + + | RDW-CV | 47.3 | 37 - 53 fl | EXTERNAL | | | | | | LAB | | + + + + + + | Platelet | 376 | 150 - 400 K/uL | EXTERNAL | | | Count | | | LAB | | | Plasma | | | | | + + + + + + | MPV | 8.8 | fl | EXTERNAL | | | | | | LAB | | + + + + + + | Differentia | AUTOMATED | | EXTERNAL | | | l Type | | | LAB | | + + + + + + | % Segmented | 73.06 | % | EXTERNAL | | | | | | LAB | | | Neutrophils | | | | | + + + + + + | % | 13.96 | % | EXTERNAL | | | Lymphocytes | | | LAB | | + + + + + + | % Monocytes | 11.78 | % | EXTERNAL | | | | | | LAB | | + + + + + + | % | 0.47 | % | EXTERNAL | | | Eosinophils | | | LAB | | + + + + + + | % Basophils | 0.73 | % | EXTERNAL | | | | | | LAB | | + + + + + + | Absolute | 8.14 (H) | 1.90 - 7.40 | EXTERNAL | | | Segmented | | K/uL | LAB | | | Neutrophils | | | | | + + + + + + | Absolute | 1.56 | 1.00 - 3.90 | EXTERNAL | | | Lymphocytes | | K/uL | LAB | | + + + + + + | Absolute | 1.31 (H) | 0.00 - 0.80 | EXTERNAL | | | Monocytes | | K/uL | LAB | | + + + + + + | Absolute | 0.05 | 0.00 - 0.50 | EXTERNAL | | | Eosinophils | | K/uL | LAB | | + + + + + + | Absolute | 0.08Comment: Testing | 0.00 - 0.10 | EXTERNAL | | | Basophils | performed at [facility] | [address] | LAB | | | | [address];[place] | | | | | | [address] | | | | + + + + + + + + | Specimen | + + | Blood specimen | | (specimen) | + + + +---------+ + + | Performing | Address | City/State/Zipcode | Phone Number | | Organization | | | | + +---------+ + + | EXTERNAL LAB | | | | + +---------+ + + Magnesium (09/11/2018 1:47 PM PDT) + + + + + + | Component | Value | Ref Range | Performed | Pathologist | | | | | At | Signature | + + + + + + | Magnesium | 1.6 (L)Comment: Testing | 1.7 - 2.4 mg/dL | EXTERNAL | | | | performed at [facility] | | LAB | | | | [address];[place], [place] | | | | | | [address] | | | | + + + + + + + + | Specimen | + + | Blood specimen | | (specimen) | + + + +---------+ + + | Performing | Address | City/State/Zipcode | Phone Number | | Organization | | | | + +---------+ + + | EXTERNAL LAB | | | | + +---------+ + + Renal Function Panel (09/11/2018 1:47 PM PDT) + + + + + + | Component | Value | Ref Range | Performed | Pathologist | | | | | At | Signature | + + + + + + | Na | 137 | 135 - 145 | EXTERNAL | | | | | mmol/L | LAB | | + + + + + + | K | 4.7 | 3.5 - 4.9 | EXTERNAL | | | | | mmol/L | LAB | | + + + + + + | Cl | 103 | 99 - 109 mmol/L | EXTERNAL | | | | | | LAB | | + + + + + + | CO2 | 28 | 23 - 32 mmol/L | EXTERNAL | | | | | | LAB | | + + + + + + | Anion Gap | 11 | 5 - 20 mmol/L | EXTERNAL | | | | | | LAB | | + + + + + + | Glucose, | 422 (H) | 65 - 99 mg/dL | EXTERNAL | | | Fasting | | | LAB | | + + + + + + | BUN | 21 | 8 - 25 mg/dL | EXTERNAL | | | | | | LAB | | + + + + + + | Creatinine | 1.15 (H) | 0.50 - 1.00 | EXTERNAL | | | | | mg/dL | LAB | | + + + + + + | Calcium | 9.2 | 8.5 - 10.5 | EXTERNAL | | | | | mg/dL | LAB | | + + + + + + | Albumin | 4.2 | 3.3 - 4.8 g/dL | EXTERNAL | | | | | | LAB | | + + + + + + | PHOSPHORUS | 2.4 | 2.3 - 4.8 mg/dL | EXTERNAL | | | | | | LAB | | + + + + + + | Estimated | 45 (L)Comment: GFR <60: | mL/min/1.73m2 | EXTERNAL | | | GFR | CHRONIC KIDNEY DISEASE, | | LAB | | | | IF FOUND OVER [...] | | | | | performed at [facility] | | | | | | [address];[place], [place] | | | | | | [address] | | | | + + + + + + + + | Specimen | + + | | + + + +---------+ + + | Performing | Address | City/State/Zipcode | Phone Number | | Organization | | | | + +---------+ + + | EXTERNAL LAB | | | | + +---------+ + + POC Glucose (09/11/2018 12:22 PM PDT) + + + + + + | Component | Value | Ref Range | Performed | Pathologist | | | | | At | Signature | + + + + + + | Glucose, | 329 (H)Comment: Testing | 65 - 99 mg/dL | EXTERNAL | | | Fingerstick | performed at [facility] | | LAB | | | | [address];[place] | | | | | | [address] | | | | + + + + + + + + | Specimen | + + | | + + + +---------+ + + | Performing | Address | City/State/Zipcode | Phone Number | | Organization | | | | + +---------+ + + | EXTERNAL LAB | | | | + +---------+ + + POC Glucose (09/11/2018 5:24 AM PDT) + + + + + + | Component | Value | Ref Range | Performed | Pathologist | | | | | At | Signature | + + + + + + | Glucose, | 218 (H)Comment: Testing | 65 - 99 mg/dL | EXTERNAL | | | Fingerstick | performed at [facility] | | LAB | | | | [address];[place] | | | | | | [address] | | | | + + + + + + + + | Specimen | + + | | + + + +---------+ + + | Performing | Address | City/State/Zipcode | Phone Number | | Organization | | | | + +---------+ + + | EXTERNAL LAB | | | | + +---------+ + + POC Glucose (09/10/2018 7:25 PM PDT) + + + + + + | Component | Value | Ref Range | Performed | Pathologist | | | | | At | Signature | + + + + + + | Glucose, | 305 (H)Comment: Testing | 65 - 99 mg/dL | EXTERNAL | | | Fingerstick | performed at [facility] | | LAB | | | | [address];[place] | | | | | | [address] | | | | + + + + + + + + | Specimen | + + | | + + + +---------+ + + | Performing | Address | City/State/Zipcode | Phone Number | | Organization | | | | + +---------+ + + | EXTERNAL LAB | | | | + +---------+ + + POC Glucose (09/10/2018 4:03 PM PDT) + + + + + + | Component | Value | Ref Range | Performed | Pathologist | | | | | At | Signature | + + + + + + | Glucose, | 273 (H)Comment: Testing | 65 - 99 mg/dL | EXTERNAL | | | Fingerstick | performed at [facility] | | LAB | | | | [address];[place], [place] | | | | | | [address] | | | | + + + + + + + + | Specimen | + + | | + + + +---------+ + + | Performing | Address | City/State/Zipcode | Phone Number | | Organization | | | | + +---------+ + + | EXTERNAL LAB | | | | + +---------+ + + POC Glucose (09/10/2018 11:38 AM PDT) + + + + + + | Component | Value | Ref Range | Performed | Pathologist | | | | | At | Signature | + + + + + + | Glucose, | 218 (H)Comment: Testing | 65 - 99 mg/dL | EXTERNAL | | | Fingerstick | performed at [facility] | | LAB | | | | [address];[place], [place] | | | | | | [address] | | | | + + + + + + + + | Specimen | + + | | + + + +---------+ + + | Performing | Address | City/State/Zipcode | Phone Number | | Organization | | | | + +---------+ + + | EXTERNAL LAB | | | | + +---------+ + + POC Glucose (09/10/2018 5:16 AM PDT) + + + + + + | Component | Value | Ref Range | Performed | Pathologist | | | | | At | Signature | + + + + + + | Glucose, | 222 (H)Comment: Testing | 65 - 99 mg/dL | EXTERNAL | | | Fingerstick | performed at [facility] | | LAB | | | | [address];[place], [place] | | | | | | [address] | | | | + + + + + + + + | Specimen | + + | | + + + +---------+ + + | Performing | Address | City/State/Zipcode | Phone Number | | Organization | | | | + +---------+ + + | EXTERNAL LAB | | | | + +---------+ + + POC Glucose (09/09/2018 9:22 PM PDT) + + + + + + | Component | Value | Ref Range | Performed | Pathologist | | | | | At | Signature | + + + + + + | Glucose, | 344 (H)Comment: Testing | 65 - 99 mg/dL | EXTERNAL | | | Fingerstick | performed at [facility] | | LAB | | | | [address];[place] | | | | | | [address] | | | | + + + + + + + + | Specimen | + + | | + + + +---------+ + + | Performing | Address | City/State/Zipcode | Phone Number | | Organization | | | | + +---------+ + + | EXTERNAL LAB | | | | + +---------+ + + POC Glucose (09/09/2018 4:50 PM PDT) + + + + + + | Component | Value | Ref Range | Performed | Pathologist | | | | | At | Signature | + + + + + + | Glucose, | 226 (H)Comment: Testing | 65 - 99 mg/dL | EXTERNAL | | | Fingerstick | performed at [facility] | | LAB | | | | [address];[place] | | | | | | [address] | | | | + + + + + + + + | Specimen | + + | | + + + +---------+ + + | Performing | Address | City/State/Zipcode | Phone Number | | Organization | | | | + +---------+ + + | EXTERNAL LAB | | | | + +---------+ + + POC Glucose (09/09/2018 12:22 PM PDT) + + + + + + | Component | Value | Ref Range | Performed | Pathologist | | | | | At | Signature | + + + + + + | Glucose, | 349 (H)Comment: Testing | 65 - 99 mg/dL | EXTERNAL | | | Fingerstick | performed at [facility] | | LAB | | | | [address];[place] | | | | | | [address] | | | | + + + + + + + + | Specimen | + + | | + + + +---------+ + + | Performing | Address | City/State/Zipcode | Phone Number | | Organization | | | | + +---------+ + + | EXTERNAL LAB | | | | + +---------+ + + POC Glucose (09/09/2018 5:18 AM PDT) + + + + + + | Component | Value | Ref Range | Performed | Pathologist | | | | | At | Signature | + + + + + + | Glucose, | 166 (H)Comment: Testing | 65 - 99 mg/dL | EXTERNAL | | | Fingerstick | performed at [facility] | | LAB | | | | [address];[place] | | | | | | [address] | | | | + + + + + + + + | Specimen | + + | | + + + +---------+ + + | Performing | Address | City/State/Zipcode | Phone Number | | Organization | | | | + +---------+ + + | EXTERNAL LAB | | | | + +---------+ + + POC Glucose (09/08/2018 9:34 PM PDT) + + + + + + | Component | Value | Ref Range | Performed | Pathologist | | | | | At | Signature | + + + + + + | Glucose, | 235 (H)Comment: Testing | 65 - 99 mg/dL | EXTERNAL | | | Fingerstick | performed at [facility] [place] | | LAB | | | | [address];[place], [place] | | | | | | [address] | | | | + + + + + + + + | Specimen | + + | | + + + +---------+ + + | Performing | Address | City/State/Zipcode | Phone Number | | Organization | | | | + +---------+ + + | EXTERNAL LAB | | | | + +---------+ + + POC Glucose (09/08/2018 4:17 PM PDT) + + + + + + | Component | Value | Ref Range | Performed | Pathologist | | | | | At | Signature | + + + + + + | Glucose, | 189 (H)Comment: Testing | 65 - 99 mg/dL | EXTERNAL | | | Fingerstick | performed at [facility] [place] | | LAB | | | | [address];[place], [place] | | | | | | [address] | | | | + + + + + + + + | Specimen | + + | | + + + +---------+ + + | Performing | Address | City/State/Zipcode | Phone Number | | Organization | | | | + +---------+ + + | EXTERNAL LAB | | | | + +---------+ + + POC Glucose (09/08/2018 12:31 PM PDT) + + + + + + | Component | Value | Ref Range | Performed | Pathologist | | | | | At | Signature | + + + + + + | Glucose, | 362 (H)Comment: Testing | 65 - 99 mg/dL | EXTERNAL | | | Fingerstick | performed at [facility] [place] | | LAB | | | | [address];[place], [place] | | | | | | [address] | | | | + + + + + + + + | Specimen | + + | | + + + +---------+ + + | Performing | Address | City/State/Zipcode | Phone Number | | Organization | | | | + +---------+ + + | EXTERNAL LAB | | | | + +---------+ + + POC Glucose (09/08/2018 8:46 AM PDT) + + + + + + | Component | Value | Ref Range | Performed | Pathologist | | | | | At | Signature | + + + + + + | Glucose, | 149 (H)Comment: Testing | 65 - 99 mg/dL | EXTERNAL | | | Fingerstick | performed at [facility] | | LAB | | | | [address];[place] | | | | | | [address] | | | | + + + + + + + + | Specimen | + + | | + + + +---------+ + + | Performing | Address | City/State/Zipcode | Phone Number | | Organization | | | | + +---------+ + + | EXTERNAL LAB | | | | + +---------+ + + CBC no Differential (09/08/2018 5:24 AM PDT) + + + + + + | Component | Value | Ref Range | Performed | Pathologist | | | | | At | Signature | + + + + + + | WBC | 10.20 | 3.80 - 11.00 | EXTERNAL | | | | | K/uL | LAB | | + + + + + + | RED CELL | 4.19 | 3.70 - 5.10 | EXTERNAL | | | COUNT | | M/uL | LAB | | + + + + + + | Hgb | 12.2 | 11.3 - 15.5 | EXTERNAL | | | | | g/dL | LAB | | + + + + + + | Hematocrit, | 37.4 | 34.0 - 46.0 % | EXTERNAL | | | POC | | | LAB | | + + + + + + | MCV | 89.3 | 80.0 - 100.0 fl | EXTERNAL | | | | | | LAB | | + + + + + + | MCH | 29.2 | 27.0 - 34.0 pg | EXTERNAL | | | | | | LAB | | + + + + + + | MCHC | 32.7 | 32.0 - 35.5 | EXTERNAL | | | | | g/dL | LAB | | + + + + + + | RDW-CV | 46.8 | 37 - 53 fl | EXTERNAL | | | | | | LAB | | + + + + + + | Platelet | 371 | 150 - 400 K/uL | EXTERNAL | | | Count | | | LAB | | | Plasma | | | | | + + + + + + | MPV | 8.2Comment: Testing | fl | EXTERNAL | | | | performed at [facility] | | LAB | | | | [address];[place] | | | | | | [address] | | | | + + + + + + + + | Specimen | + + | | + + + +---------+ + + | Performing | Address | City/State/Zipcode | Phone Number | | Organization | | | | + +---------+ + + | EXTERNAL LAB | | | | + +---------+ + + Hemoglobin A1C (09/08/2018 5:24 AM PDT) + + + + + + | Component | Value | Ref Range | Performed | Pathologist | | | | | At | Signature | + + + + + + | Hemoglobin | 7.7 (H)Comment: HbA1c | 4.0 - 6.0 % | EXTERNAL | | | A1c | method is certified by | | LAB | | | | NGSP and traceable [...] + + + + + + | Glycohemogl | 174 (H)Comment: | mg/dL | EXTERNAL | | | obin | Estimated Average | | LAB | | | (GHb),Total | Glucose calculated from | | | | | | hemoglobin A1c by use of | | | | | | the ADA recommended | | | | | | formula.Testing | | | | | | performed at [facility], [address] | | | | | | [facility], | | | | | | [place] [address] | | | | + + + + + + + + | Specimen | + + | Blood specimen | | (specimen) | + + + +---------+ + + | Performing | Address | City/State/Zipcode | Phone Number | | Organization | | | | + +---------+ + + | EXTERNAL LAB | | | | + +---------+ + + Comprehensive Metabolic Panel (09/08/2018 5:24 AM PDT) + + + + + + | Component | Value | Ref Range | Performed | Pathologist | | | | | At | Signature | + + + + + + | Na | 140 | 135 - 145 | EXTERNAL | | | | | mmol/L | LAB | | + + + + + + | K | 4.4 | 3.5 - 4.9 | EXTERNAL | | | | | mmol/L | LAB | | + + + + + + | Cl | 108 | 99 - 109 mmol/L | EXTERNAL | | | | | | LAB | | + + + + + + | CO2 | 23 | 23 - 32 mmol/L | EXTERNAL | | | | | | LAB | | + + + + + + | Anion Gap | 13 | 5 - 20 mmol/L | EXTERNAL | | | | | | LAB | | + + + + + + | Glucose, | 168 (H) | 65 - 99 mg/dL | EXTERNAL | | | Fasting | | | LAB | | + + + + + + | BUN | 22 | 8 - 25 mg/dL | EXTERNAL | | | | | | LAB | | + + + + + + | Creatinine | 0.9 | 0.50 - 1.00 | EXTERNAL | | | | | mg/dL | LAB | | + + + + + + | BUN/Creatin | 24 | | EXTERNAL | | | ine Ratio | | | LAB | | + + + + + + | Calcium | 8.9 | 8.5 - 10.5 | EXTERNAL | | | | | mg/dL | LAB | | + + + + + + | Protein, | 6.1 (L) | 6.3 - 8.2 g/dL | EXTERNAL | | | Total | | | LAB | | + + + + + + | Albumin | 3.0 (L) | 3.3 - 4.8 g/dL | EXTERNAL | | | | | | LAB | | + + + + + + | Globulin | 3.1 | 1.3 - 4.9 g/dL | EXTERNAL | | | | | | LAB | | + + + + + + | A/G Ratio | 1.0 | 1.0 - 2.4 | EXTERNAL | | | | | | LAB | | + + + + + + | Bilirubin | 0.4 | 0.1 - 1.5 mg/dL | EXTERNAL | | | Total | | | LAB | | + + + + + + | ALP, | 71 | 35 - 115 U/L | EXTERNAL | | | External | | | LAB | | + + + + + + | AST | 32 | 10 - 45 U/L | EXTERNAL | | | | | | LAB | | + + + + + + | ALT | 50 | 10 - 65 U/L | EXTERNAL | | | | | | LAB | | + + + + + + | Estimated | 59 (L)Comment: GFR <60: | mL/min/1.73m2 | EXTERNAL | | | GFR | CHRONIC KIDNEY DISEASE, | | LAB | | | | IF FOUND OVER [...] | | | | | performed at [facility], [address] | | | | | | [address], | | | | | | [place] [address] | | | | + + + + + + + + | Specimen | + + | Blood specimen | | (specimen) | + + + +---------+ + + | Performing | Address | City/State/Zipcode | Phone Number | | Organization | | | | + +---------+ + + | EXTERNAL LAB | | | | + +---------+ + + POC Glucose (09/08/2018 5:08 AM PDT) + + + + + + | Component | Value | Ref Range | Performed | Pathologist | | | | | At | Signature | + + + + + + | Glucose, | 171 (H)Comment: Testing | 65 - 99 mg/dL | EXTERNAL | | | Fingerstick | performed at [facility] | | LAB | | | | [address];[place] | | | | | | [address] | | | | + + + + + + + + | Specimen | + + | | + + + +---------+ + + | Performing | Address | City/State/Zipcode | Phone Number | | Organization | | | | + +---------+ + + | EXTERNAL LAB | | | | + +---------+ + + POC Glucose (09/07/2018 9:16 PM PDT) + + + + + + | Component | Value | Ref Range | Performed | Pathologist | | | | | At | Signature | + + + + + + | Glucose, | 207 (H)Comment: Testing | 65 - 99 mg/dL | EXTERNAL | | | Fingerstick | performed at [facility] | | LAB | | | | [address];[place], [place] | | | | | | [address] | | | | + + + + + + + + | Specimen | + + | | + + + +---------+ + + | Performing | Address | City/State/Zipcode | Phone Number | | Organization | | | | + +---------+ + + | EXTERNAL LAB | | | | + +---------+ + + POC Glucose (09/07/2018 4:39 PM PDT) + + + + + + | Component | Value | Ref Range | Performed | Pathologist | | | | | At | Signature | + + + + + + | Glucose, | 188 (H)Comment: Testing | 65 - 99 mg/dL | EXTERNAL | | | Fingerstick | performed at [facility];[address] | | LAB | | | | [address];[place] | | | | | | [address] | | | | + + + + + + + + | Specimen | + + | | + + + +---------+ + + | Performing | Address | City/State/Zipcode | Phone Number | | Organization | | | | + +---------+ + + | EXTERNAL LAB | | | | + +---------+ + + POC Glucose (09/07/2018 12:06 PM PDT) + + + + + + | Component | Value | Ref Range | Performed | Pathologist | | | | | At | Signature | + + + + + + | Glucose, | 195 (H)Comment: Testing | 65 - 99 mg/dL | EXTERNAL | | | Fingerstick | performed at [facility];[address] | | LAB | | | | [address];[place] | | | | | | [address] | | | | + + + + + + + + | Specimen | + + | | + + + +---------+ + + | Performing | Address | City/State/Zipcode | Phone Number | | Organization | | | | + +---------+ + + | EXTERNAL LAB | | | | + +---------+ + + CK-MB (09/07/2018 11:56 AM PDT) + + + + + -+ | Component | Value | Ref Range | Performed | Pathologist | | | | | At | Signature | + + + + + -+ | CK-MB | 2.5 | 0.5 - 3.6 ng/mL | EXTERNAL | | | | | | LAB | | + + + + + -+ | CK-MB Index | 1.1Comment: CK INDEX | | EXTERNAL | | | | INTERPRETATION: | | LAB | | | | MMB ng/mL | | | | | | | | | | | |CK INDEX INTERPRETATION: | | | | | | MMB ng/mL | | | | | | | | | | + + + + + -+ + + | Specimen | + + | | + + + +---------+ + + | Performing | Address | City/State/Zipcode | Phone Number | | Organization | | | | + +---------+ + + | EXTERNAL LAB | | | | + +---------+ + + Troponin I (09/07/2018 11:56 AM PDT) + + + + + + | Component | Value | Ref Range | Performed | Pathologist | | | | | At | Signature | + + + + + + | Troponin I, | 0.087 (H)Comment: 0.04 | 0.00 - 0.04 | EXTERNAL | | | Qual | ng/mL or less | ng/mL | LAB | | | | Negative, repeat | | | | | | testing in four to six | | | | | | hour if clinically | | | | | | indicted0.05 to 0.77 | | | | | | ng/mL | | | | | | Suspicious for | | | | | | myocardial injury. | | | | | | Serial measurements may | | | | | | be necessary to confirm | | | | | | or exclude the diagnosis | | | | | | of acute coronary | | | | | | syndrome. Repeat testing | | | | | | in four to six hours if | | | | | | indicated.0.78 or | | | | | | greater ng/mL | | | | | | Consistent with | | | | | | myocardial injury. | | | | | | Clinical and laboratory | | | | | | correlation recommended. | | | | | | Testing performed at | | | | | | [facility] [facility] | | | | | | [address];[place] [address] | | | | + + + + + + + + | Specimen | + + | Blood specimen | | (specimen) | + + + +---------+ + + | Performing | Address | City/State/Zipcode | Phone Number | | Organization | | | | + +---------+ + + | EXTERNAL LAB | | | | + +---------+ + + CK Total (09/07/2018 11:56 AM PDT) + + + + + + | Component | Value | Ref Range | Performed | Pathologist | | | | | At | Signature | + + + + + + | CK, Total | 231Comment: Testing | 30 - 240 U/L | EXTERNAL | | | | performed at [facility];[address] | | LAB | | | | [address];[place], [place] | | | | | | [address] | | | | + + + + + + + + | Specimen | + + | Blood specimen | | (specimen) | + + + +---------+ + + | Performing | Address | City/State/Zipcode | Phone Number | | Organization | | | | + +---------+ + + | EXTERNAL LAB | | | | + +---------+ + + ECHO Complete (09/07/2018 9:30 AM PDT) + + | Specimen | + + | | + + + + + | Impressions | Performed At | + + + | 1. Left ventricular systolic function is hyperdynamic with an | | | estimated EF of >70%. 2. There is mild pulmonary hypertension. | | + + + + + + | Narrative | Performed At | + + + | Patient Name: SHARI CLARK Date of : 1930 | | | Performing Physician: Leland Ulloa MD | | | | | | INDICATIONS sob CONCLUSIONS 1. Left | | | ventricular systolic function is hyperdynamic with an estimated EF of | | | >70%. 2. There is mild pulmonary hypertension. FINDINGS -------- | | | ECG rhythm: Resting tachycardia (HR>100bpm). Study: A 2-dimensional | | | transthoracic echocardiogram with m-mode, spectral and color flow | | | Doppler was perfomed. Study: This was a technically adequate study. | | | Left Ventricle: Left ventricular systolic function is hyperdynamic | | | with an estimated EF of >70%. Left Ventricle: The cavity size is | | | decreased. Left Ventricle: There is mild concentric left ventricular | | | hypertrophy. Left Ventricle: Cannot assess diastolic function due to | | | tachycardia. Right Ventricle: The right ventricle is normal in size. | | | Left Atrium: The left atrial size is normal. Right Atrium: The right | | | atrial size is normal. Aortic Valve: The aortic valve is trileaflet. | | | Aortic Valve: The aortic valve is mildly calcified. Aortic Valve: | | | There is mild aortic regurgitation. Aortic Valve: There is no | | | evidence of aortic stenosis. Mitral Valve: Mitral valve is thickened. | | | Mitral Valve: Mild mitral regurgitation is present. Mitral Valve: | | | Mild mitral annular calcification present. Tricuspid Valve: The | | | tricuspid valve appears structurally normal. Tricuspid Valve: Mild | | | tricuspid regurgitation present. Tricuspid Valve: There is mild | | | pulmonary hypertension. Tricuspid Valve: The right ventricular | | | systolic pressure (pulmonary artery systolic pressure), as measured by | | | Doppler, is 39.10mmHg. Pulmonic Valve: The pulmonic valve is normal. | | | Pericardium: There is a trivial pericardial effusion present. | | | IVC/Hepatic Veins: The IVC was not well visualized. Pulmonary Veins: | | | The flow patterns, measured by Doppler, indicate systolic blunting. | | | MEASUREMENTS Ao sinus: 2.[address] junct: | | | 2.34 cm LA Diam: 4.02 cm EDV(Teich): 47.43 ml IVSd: 1.24 | | | cm LVIDd: 3.39 cm LVPWd: 1.13 cm LVOT Diam: 1.85 cm %FS: | | | 45.02 % EF(Teich): 77.42 % ESV(Teich): 10.70 ml IVSs: | | | 1.77 cm LVIDs: 1.86 cm LVPWs: 1.49 cm SV(Teich): 36.72 ml | | | RA Major: 4.47 cm RVIDd: 2.76 cm RVOT Diam: 3.07 cm | | | LAESV(A-L): 35.27 ml LAESV Index (A-L): 20.04 ml/m2 LAAs A2C: | | | 14.39 cm2 LAESV A-L A2C: 29.33 ml LALs A2C: 5.99 cm LAAs | | | A4C: 17.03 cm2 LAESV A-L A4C: 41.75 ml LALs A4C: 5.89 cm | | | Ao Diam: 2.97 cm AV Cusp: 1.91 cm LA Diam: 3.81 cm LA/Ao: | | | 1.28 TAPSE: 1.13 cm AR Dec [place]: 3.37 m/s2 AR Dec Time: | | | 1300.67 ms AR maxP.01 mmHg AR PHT: 377.19 ms AR Vmax: | | | 4.38 m/s ARend P.78 mmHg ARend Vmax: 3.59 m/s AV | | | maxP.07 mmHg AV meanP.89 mmHg AV Vmax: 1.58 m/s | | | AV Vmean: 1.14 m/s AV VTI: 28.30 cm JOSH Vmax: 1.96 cm2 JOSH | | | (VTI): 2.00 cm2 AVAI Vmax: 0.00 cm2/m2 AVAI (VTI): 0.00 | | | cm2/m2 LVCI Dopp: 3.33 l/minm2 LVCO Dopp: 5.86 l/min HR: | | | 103.03 BPM LVOT maxP.36 mmHg LVOT meanP.98 mmHg LVSI | | | Dopp: 32.31 ml/m2 LVSV Dopp: 56.88 ml LVOT Vmax: 1.15 m/s | | | LVOT Vmean: 0.82 m/s LVOT VTI: 21.08 cm MR dp/dt: 2773.79 | | | mmHg/s MV A [place]: 0.55 m/s MV DecT: 137.29 ms MV E [place]: | | | 1.34 m/s MV E/A Ratio: 2.40 E/E' Lat: 18.93 E' Lat: 0.07 | | | m/s MV PHT: 42.58 ms MVA By PHT: 5.16 cm2 MV A Dur: 74.21 | | | ms MV maxP.95 mmHg MV meanP.26 mmHg MV Vmax: 1.40 | | | m/s MV Vmean: 0.82 m/s MV VTI: 22.10 cm MVA (VTI): 2.57 | | | cm2 MV DecT: 143.94 ms RAP: 3 mmHg RV S': 0.13 m/s RVSP: | | | 39.09 mmHg TR maxP.09 mmHg TR Vmax: 3.00 m/s TV Dec | | | [place]: 6.14 m/s2 TV Dec Time: 133.65 ms TV E [place]: 0.82 m/s | | | Dealer Support Technician: FABIÁN Authenticated by: Leland Ulloa MD Report | | | Date/Time: 09-07-2018 14:25:36 | | + + + + + | Procedure Note | + + | Axel Guzman Conversion - 10/16/2018 11:32 PM PDT Patient Name: Benita CLARK | | : 1930 Performing Physician: Leland Ulloa | | INDICATIONS s | | ob CONCLUSIONS 1. Left ventricular systolic function is hyperdynamic with an | | estimated EF of >70%.2. There is mild pulmonary hypertension. FINDINGS--------ECG | | rhythm: Resting tachycardia (HR>100bpm).Study: A 2-dimensional transthoracic | | echocardiogram with m-mode, spectral and color flow Doppler was perfomed.Study: This was | | a technically adequate study.Left Ventricle: Left ventricular systolic function is | | hyperdynamic with an estimated EF of >70%.Left Ventricle: The cavity size is | | decreased.Left Ventricle: There is mild concentric left ventricular hypertrophy.Left | | Ventricle: Cannot assess diastolic function due to tachycardia.Right Ventricle: The | | right ventricle is normal in size.Left Atrium: The left atrial size is normal.Right | | Atrium: The right atrial size is normal.Aortic Valve: The aortic valve is | | trileaflet.Aortic Valve: The aortic valve is mildly calcified.Aortic Valve: There is | | mild aortic regurgitation.Aortic Valve: There is no evidence of aortic stenosis.Mitral | | Valve: Mitral valve is thickened.Mitral Valve: Mild mitral regurgitation is | | present.Mitral Valve: Mild mitral annular calcification present.Tricuspid Valve: The | | tricuspid valve appears structurally normal.Tricuspid Valve: Mild tricuspid | | regurgitation present.Tricuspid Valve: There is mild pulmonary hypertension.Tricuspid | | Valve: The right ventricular systolic pressure (pulmonary artery systolic pressure), as | | measured by Doppler, is 39.10mmHg.Pulmonic Valve: The pulmonic valve is | | normal.Pericardium: There is a trivial pericardial effusion present.IVC/Hepatic Veins: | | The IVC was not well visualized.Pulmonary Veins: The flow patterns, measured by Doppler, | | indicate systolic blunting. MEASUREMENTS Ao sinus: 2.[address] junct: | | 2.34 cmLA Diam: 4.02 cmEDV(Teich): 47.43 mlIVSd: 1.24 cmLVIDd: 3.39 cmLVPWd: | | 1.13 cmLVOT Diam: 1.85 cm%FS: 45.02 %EF(Teich): 77.42 %ESV(Teich): 10.70 mlIVSs: | | 1.77 cmLVIDs: 1.86 cmLVPWs: 1.49 cmSV(Teich): 36.72 mlRA Major: 4.47 cmRVIDd: | | 2.76 cmRVOT Diam: 3.07 cmLAESV(A-L): 35.27 mlLAESV Index (A-L): 20.04 ml/m2LAAs | | A2C: 14.39 [id number] A-L A2C: 29.33 mlLALs A2C: 5.99 cmLAAs A4C: 17.03 [id number] | | A-L A4C: 41.75 mlLALs A4C: 5.89 cmAo Diam: 2.97 cmAV Cusp: 1.91 cmLA Diam: | | 3.81 cmLA/Ao: 1.28TAPSE: 1.13 cmAR Dec Leslie: 3.37 m/s2AR Dec Time: 1300.67 msAR | | maxP.01 mmHgAR PHT: 377.19 msAR Vmax: 4.38 m/sARend P.78 mmHgARend | | Vmax: 3.59 m/Skylar maxP.07 mmHgAV meanP.89 mmHgAV Vmax: 1.58 m/Skylar Vmean: | | 1.14 m/Skylar VTI: 28.30 cmAVA Vmax: 1.96 cm2AVA (VTI): 2.00 [id number] Vmax: 0.00 | | cm2/m2AVAI (VTI): 0.00 cm2/m2LVCI Dopp: 3.33 l/[id number] Dopp: 5.86 l/minHR: | | 103.03 BPMLVOT maxP.36 mmHgLVOT meanP.98 mmHgLVSI Dopp: 32.31 ml/m2LVSV | | Dopp: 56.88 mlLVOT Vmax: 1.15 m/sLVOT Vmean: 0.82 m/sLVOT VTI: 21.08 cmMR dp/dt: | | 2773.79 mmHg/sMV A [place]: 0.55 m/sMV DecT: 137.29 msMV E [place]: 1.34 m/sMV E/A | | Ratio: 2.40E/E' Lat: 18.93E' Lat: 0.07 m/sMV PHT: 42.58 msMVA By PHT: 5.16 | | cm2MV A Dur: 74.21 msMV maxP.95 mmHgMV meanP.26 mmHgMV Vmax: 1.40 m/sMV | | Vmean: 0.82 m/sMV VTI: 22.10 cmMVA (VTI): 2.57 cm2MV DecT: 143.94 msRAP: 3 | | mmHgRV S': 0.13 m/sRVSP: 39.09 mmHgTR maxP.09 mmHgTR Vmax: 3.00 m/sTV Dec | | Leslie: 6.14 m/s2TV Dec Time: 133.65 msTV E [place]: 0.82 m/s Dealer Support Technician: | | CMAuthenticated by: Leland Ulloa MDReport Date/Time: 09-07-2018 14:25:36 IMPRESSION: 1. | | Left ventricular systolic function is hyperdynamic with an estimated EF of >70%.2. There | | is mild pulmonary hypertension. | | | |Ao sinus: 2.72 cm | |Ao st junct: 2.34 cm | |LA Diam: 4.02 cm | |EDV(Teich): 47.43 ml | |IVSd: 1.24 cm | |LVIDd: 3.39 cm | |LVPWd: 1.13 cm | |LVOT Diam: 1.85 cm | |%FS: 45.02 % | |EF(Teich): 77.42 % | |ESV(Teich): 10.70 ml | |IVSs: 1.77 cm | |LVIDs: 1.86 cm | |LVPWs: 1.49 cm | |SV(Teich): 36.72 ml | |RA Major: 4.47 cm | |RVIDd: 2.76 cm | |RVOT Diam: 3.07 cm | |LAESV(A-L): 35.27 ml | |LAESV Index (A-L): 20.04 ml/m2 | |LAAs A2C: 14.39 cm2 | |LAESV A-L A2C: 29.33 ml | |LALs A2C: 5.99 cm | |LAAs A4C: 17.03 cm2 | |LAESV A-L A4C: 41.75 ml | |LALs A4C: 5.89 cm | |Ao Diam: 2.97 cm | |AV Cusp: 1.91 cm | |LA Diam: 3.81 cm | |LA/Ao: 1.28 | |TAPSE: 1.13 cm | |AR Dec [place]: 3.37 m/s2 | |AR Dec Time: 1300.67 ms | |AR maxP.01 mmHg | |AR PHT: 377.19 ms | |AR Vmax: 4.38 m/s | |ARend P.78 mmHg | |ARend Vmax: 3.59 m/s | |AV maxP.07 mmHg | |AV meanP.89 mmHg | |AV Vmax: 1.58 m/s | |AV Vmean: 1.14 m/s | |AV VTI: 28.30 cm | |JOSH Vmax: 1.96 cm2 | |JOSH (VTI): 2.00 cm2 | |AVAI Vmax: 0.00 cm2/m2 | |AVAI (VTI): 0.00 cm2/m2 | |LVCI Dopp: 3.33 l/minm2 | |LVCO Dopp: 5.86 l/min | |HR: 103.03 BPM | |LVOT maxP.36 mmHg | |LVOT meanP.98 mmHg | |LVSI Dopp: 32.31 ml/m2 | |LVSV Dopp: 56.88 ml | |LVOT Vmax: 1.15 m/s | |LVOT Vmean: 0.82 m/s | |LVOT VTI: 21.08 cm | |MR dp/dt: 2773.79 mmHg/s | |MV A [place]: 0.55 m/s | |MV DecT: 137.29 ms | |MV E [place]: 1.34 m/s | |MV E/A Ratio: 2.40 | |E/E' Lat: 18.93 | |E' Lat: 0.07 m/s | |MV PHT: 42.58 ms | |MVA By PHT: 5.16 cm2 | |MV A Dur: 74.21 ms | |MV maxP.95 mmHg | |MV meanP.26 mmHg | |MV Vmax: 1.40 m/s | |MV Vmean: 0.82 m/s | |MV VTI: 22.10 cm | |MVA (VTI): 2.57 cm2 | |MV DecT: 143.94 ms | |RAP: 3 mmHg | |RV S': 0.13 m/s | |RVSP: 39.09 mmHg | |TR maxP.09 mmHg | |TR Vmax: 3.00 m/s | |TV Dec [place]: 6.14 m/s2 | |TV Dec Time: 133.65 ms | |TV E [place]: 0.82 m/s | | | |Dealer Support Technician: CM | |Authenticated by: Leland Ulloa MD | |Report Date/Time: 09-07-2018 14:25:36 | | | |IMPRESSION: | |1. Left ventricular systolic function is hyperdynamic with an estimated EF of >70%. | |2. There is mild pulmonary hypertension. | + + CT Head wo Contrast (09/07/2018 8:36 AM PDT) + + | Specimen | + + | | + + + + + | Impressions | Performed At | + + + | 1. A few subtle areas of decreased density in the supratentorial | | | white matter that are nonspecific but most likely on the basis of | | | chronic white matter microvascular ischemic gliosis. 2. Subtle | | | hypodensity within the left thalamus that is nonspecific and may | | | represent small lacunar infarct of uncertain age. Signed by: Luis E | | | Nato Thompson Sign Date/Time: 09/07/2018 9:00 AM | | + + + + + + | Narrative | Performed At | + + + | CT HEAD WITHOUT CONTRAST CLINICAL INFORMATION: Change in mental | | | status COMPARISON: None. PROCEDURE: Axial images were obtained | | | through the head without IV contrast. Multiplanar reformations were | | | obtained from the acquisition data. At least one of the following CT | | | dose optimization techniques were used: Automated exposure control; | | | Adjustment of mA and/or kV according to patient size; Use of | | | iterative reconstruction technique. FINDINGS: Brain: Mild diffuse | | | cerebral atrophy. Mild areas of decreased density within the | | | supratentorial white matter that are nonspecific but may be on the | | | basis of chronic white matter ischemic gliosis tiny hypodensity | | | within the left thalamus (series 2, image 34). No mass, hemorrhage, | | | or midline shift. Ventricles and extra-axial fluid spaces: Normal. | | | Paranasal sinuses and mastoid air cells: Normal. Calvarium and | | | extracranial soft tissues: Normal. Orbits: Prior lens surgery to the | | | orbits. | | + + + + + | Procedure Note | + + | Thomas, Rad Conversion - 10/16/2018 11:[address] HEAD WITHOUT CONTRAST | | CLINICAL INFORMATION: | | Change in mental status | | COMPARISON: | | None. | | PROCEDURE: | | Axial images were obtained through the head without IV contrast. | | Multiplanar reformations were obtained from the acquisition data. | | At least one of the following CT dose optimization techniques were | | used: Automated exposure control; Adjustment of mA and/or kV according | | to patient size; Use of iterative reconstruction technique. | | FINDINGS: | | Brain: Mild diffuse cerebral atrophy. Mild areas of decreased density | | within the supratentorial white matter that are nonspecific but may be | | on the basis of chronic white matter ischemic gliosis tiny hypodensity | | within the left thalamus (series 2, image 34). No mass, hemorrhage, or | | midline shift. | | Ventricles and extra-axial fluid spaces: Normal. | | Paranasal sinuses and mastoid air cells: Normal. | | Calvarium and extracranial soft tissues: Normal. | | Orbits: Prior lens surgery to the orbits. | | IMPRESSION: | | 1. A few subtle areas of decreased density in the supratentorial white | | matter that are nonspecific but most likely on the basis of chronic | | white matter microvascular ischemic gliosis. | | 2. Subtle hypodensity within the left thalamus that is nonspecific and | | may represent small lacunar infarct of uncertain age. | | Signed by: Jay Kimbrough Chet | | Sign Date/Time: 09/07/2018 9:00 AM | + + Culture, Blood, 2nd Specimen (09/07/2018 7:33 AM PDT) + + | Specimen | + + | Blood specimen | | (specimen) | + + + + + | Narrative | Performed At | + + + | Specimen Description BLOOD, PERIPHERAL DRAW | EXTERNAL LAB | | SPECIAL REQUESTS [facility] | | | NO GROWTH 6 DAYS | | + + + + +---------+ + + | Performing | Address | City/State/Zipcode | Phone Number | | Organization | | | | + +---------+ + + | EXTERNAL LAB | | | | + +---------+ + + Basic Metabolic Panel (09/07/2018 7:33 AM PDT) + + + + + + | Component | Value | Ref Range | Performed | Pathologist | | | | | At | Signature | + + + + + + | Na | 141 | 135 - 145 | EXTERNAL | | | | | mmol/L | LAB | | + + + + + + | K | 5.0 (H)Comment: MODERATE | 3.5 - 4.9 | EXTERNAL | | | | HEMOLYSIS | mmol/L | LAB | | + + + + + + | Cl | 105 | 99 - 109 mmol/L | EXTERNAL | | | | | | LAB | | + + + + + + | CO2 | 27 | 23 - 32 mmol/L | EXTERNAL | | | | | | LAB | | + + + + + + | Anion Gap | 14 | 5 - 20 mmol/L | EXTERNAL | | | | | | LAB | | + + + + + + | Glucose, | 259 (H) | 65 - 99 mg/dL | EXTERNAL | | | Fasting | | | LAB | | + + + + + + | BUN | 26 (H)Comment: MODERATE | 8 - 25 mg/dL | EXTERNAL | | | | HEMOLYSIS | | LAB | | + + + + + + | Creatinine | 1.17 (H) | 0.50 - 1.00 | EXTERNAL | | | | | mg/dL | LAB | | + + + + + + | BUN/Creatin | 22 | | EXTERNAL | | | ine Ratio | | | LAB | | + + + + + + | Calcium | 10.2 | 8.5 - 10.5 | EXTERNAL | | | | | mg/dL | LAB | | + + + + + + | Estimated | 44 (L)Comment: GFR <60: | mL/min/1.73m2 | EXTERNAL | | | GFR | CHRONIC KIDNEY DISEASE, | | LAB | | | | IF FOUND OVER [...] | | | | | performed at [facility] – [address] | | | | | | [facility];[place], [place] | | | | | | [address] | | | | + + + + + + + + | Specimen | + + | Blood specimen | | (specimen) | + + + +---------+ + + | Performing | Address | City/State/Zipcode | Phone Number | | Organization | | | | + +---------+ + + | EXTERNAL LAB | | | | + +---------+ + + Culture, Urine (09/07/2018 6:43 AM PDT) + + | Specimen | + + | Urine specimen | | (specimen) | + + + + + | Narrative | Performed At | + + + | Specimen Description URINE,CLEAN CATCH CULTURE | EXTERNAL LAB | | NO GROWTH | | + + + + +---------+ + + | Performing | Address | City/State/Zipcode | Phone Number | | Organization | | | | + +---------+ + + | EXTERNAL LAB | | | | + +---------+ + + Urinalysis with Microscopic if Indicated (09/07/2018 6:43 AM PDT) + + + + + + | Component | Value | Ref Range | Performed | Pathologist | | | | | At | Signature | + + + + + + | Color | YELLOW | | EXTERNAL | | | | | | LAB | | + + + + + + | Clarity | CLEAR | | EXTERNAL | | | | | | LAB | | + + + + + + | Specific | 1.012 | 1.002 - 1.030 | EXTERNAL | | | Hazel | | | LAB | | + + + + + + | Leukocyte | NEGATIVE | | EXTERNAL | | | Esterase, | | | LAB | | | Urine | | | | | + + + + + + | Nitrite, | NEGATIVE | | EXTERNAL | | | Urine | | | LAB | | + + + + + + | Urobilinoge | NORMAL | mg/dL | EXTERNAL | | | n, Urine | | | LAB | | + + + + + + | Protein, | NEGATIVE | mg/dL | EXTERNAL | | | Urine | | | LAB | | + + + + + + | pH, Urine | 6.0 | 5.0 - 8.0 | EXTERNAL | | | | | | LAB | | + + + + + + | Blood, | NEGATIVE | | EXTERNAL | | | Urine | | | LAB | | + + + + + + | Ketones | NEGATIVE | mg/dL | EXTERNAL | | | | | | LAB | | + + + + + + | Bilirubin, | NEGATIVE | | EXTERNAL | | | Urine | | | LAB | | + + + + + + | Glucose, | >500 (A)Comment: Testing | mg/dL | EXTERNAL | | | Urine | performed at [facility] [place] | | LAB | | | | [address];[place] | | | | | | [address] | | | | + + + + + + + + | Specimen | + + | Urine specimen | | (specimen) | + + + +---------+ + + | Performing | Address | City/State/Zipcode | Phone Number | | Organization | | | | + +---------+ + + | EXTERNAL LAB | | | | + +---------+ + + CK-MB (09/07/2018 5:45 AM PDT) + + + + + -+ | Component | Value | Ref Range | Performed | Pathologist | | | | | At | Signature | + + + + + -+ | CK-MB | 2.2 | 0.5 - 3.6 ng/mL | EXTERNAL | | | | | | LAB | | + + + + + -+ | CK-MB Index | 1.7Comment: CK INDEX | | EXTERNAL | | | | INTERPRETATION: | | LAB | | | | MMB ng/mL | | | | | | | | | | | |CK INDEX INTERPRETATION: | | | | | | MMB ng/mL | | | | | | | | | | + + + + + -+ + + | Specimen | + + | | + + + +---------+ + + | Performing | Address | City/State/Zipcode | Phone Number | | Organization | | | | + +---------+ + + | EXTERNAL LAB | | | | + +---------+ + + Troponin I (09/07/2018 5:45 AM PDT) + + + + + + | Component | Value | Ref Range | Performed | Pathologist | | | | | At | Signature | + + + + + + | Troponin I, | 0.043 (H)Comment: 0.04 | 0.00 - 0.04 | EXTERNAL | | | Qual | ng/mL or less | ng/mL | LAB | | | | Negative, repeat | | | | | | testing in four to six | | | | | | hour if clinically | | | | | | indicted0.05 to 0.77 | | | | | | ng/mL | | | | | | Suspicious for | | | | | | myocardial injury. | | | | | | Serial measurements may | | | | | | be necessary to confirm | | | | | | or exclude the diagnosis | | | | | | of acute coronary | | | | | | syndrome. Repeat testing | | | | | | in four to six hours if | | | | | | indicated.0.78 or | | | | | | greater ng/mL | | | | | | Consistent with | | | | | | myocardial injury. | | | | | | Clinical and laboratory | | | | | | correlation recommended. | | | | | | Testing performed at | | | | | | [facility] [address] | | | | | | [address] [address] | | | | + + + + + + + + | Specimen | + + | Blood specimen | | (specimen) | + + + +---------+ + + | Performing | Address | City/State/Zipcode | Phone Number | | Organization | | | | + +---------+ + + | EXTERNAL LAB | | | | + +---------+ + + CK Total (09/07/2018 5:45 AM PDT) + + + + + + | Component | Value | Ref Range | Performed | Pathologist | | | | | At | Signature | + + + + + + | CK, Total | 127Comment: Testing | 30 - 240 U/L | EXTERNAL | | | | performed at [facility] [address] | | LAB | | | | [address];[place] | | | | | | [address] | | | | + + + + + + + + | Specimen | + + | Blood specimen | | (specimen) | + + + +---------+ + + | Performing | Address | City/State/Zipcode | Phone Number | | Organization | | | | + +---------+ + + | EXTERNAL LAB | | | | + +---------+ + + Culture, Blood (09/07/2018 5:44 AM PDT) + + | Specimen | + + | Blood specimen | | (specimen) | + + + + + | Narrative | Performed At | + + + | Specimen Description BLOOD, PERIPHERAL DRAW | EXTERNAL LAB | | SPECIAL REQUESTS LAC CULTURE | | | NO GROWTH 6 DAYS | | + + + + +---------+ + + | Performing | Address | City/State/Zipcode | Phone Number | | Organization | | | | + +---------+ + + | EXTERNAL LAB | | | | + +---------+ + + External Lab: CBC (09/07/2018 5:43 AM PDT) + + + + + + | Component | Value | Ref Range | Performed | Pathologist | | | | | At | Signature | + + + + + + | WBC | 11.79 (H) | 3.80 - 11.00 | EXTERNAL | | | | | K/uL | LAB | | + + + + + + | RED CELL | 4.60 | 3.70 - 5.10 | EXTERNAL | | | COUNT | | M/uL | LAB | | + + + + + + | Hgb | 13.4 | 11.3 - 15.5 | EXTERNAL | | | | | g/dL | LAB | | + + + + + + | Hematocrit, | 41.7 | 34.0 - 46.0 % | EXTERNAL | | | POC | | | LAB | | + + + + + + | MCV | 90.8 | 80.0 - 100.0 fl | EXTERNAL | | | | | | LAB | | + + + + + + | MCH | 29.1 | 27.0 - 34.0 pg | EXTERNAL | | | | | | LAB | | + + + + + + | MCHC | 32.0 | 32.0 - 35.5 | EXTERNAL | | | | | g/dL | LAB | | + + + + + + | RDW-CV | 45.9 | 37 - 53 fl | EXTERNAL | | | | | | LAB | | + + + + + + | Platelet | 424 (H) | 150 - 400 K/uL | EXTERNAL | | | Count | | | LAB | | | Plasma | | | | | + + + + + + | MPV | 8.8 | fl | EXTERNAL | | | | | | LAB | | + + + + + + | Differentia | AUTOMATED | | EXTERNAL | | | l Type | | | LAB | | + + + + + + | % Segmented | 84.14 | % | EXTERNAL | | | | | | LAB | | | Neutrophils | | | | | + + + + + + | % | 10.07 | % | EXTERNAL | | | Lymphocytes | | | LAB | | + + + + + + | % Monocytes | 5.49 | % | EXTERNAL | | | | | | LAB | | + + + + + + | % | 0.01 | % | EXTERNAL | | | Eosinophils | | | LAB | | + + + + + + | % Basophils | 0.29 | % | EXTERNAL | | | | | | LAB | | + + + + + + | Absolute | 9.92 (H) | 1.90 - 7.40 | EXTERNAL | | | Segmented | | K/uL | LAB | | | Neutrophils | | | | | + + + + + + | Absolute | 1.19 | 1.00 - 3.90 | EXTERNAL | | | Lymphocytes | | K/uL | LAB | | + + + + + + | Absolute | 0.65 | 0.00 - 0.80 | EXTERNAL | | | Monocytes | | K/uL | LAB | | + + + + + + | Absolute | 0.00 | 0.00 - 0.50 | EXTERNAL | | | Eosinophils | | K/uL | LAB | | + + + + + + | Absolute | 0.03Comment: Testing | 0.00 - 0.10 | EXTERNAL | | | Basophils | performed at [facility], [address] | K/uL | LAB | | | | [address], | | | | | | [place] [address] | | | | + + + + + + + + | Specimen | + + | Blood specimen | | (specimen) | + + + +---------+ + + | Performing | Address | City/State/Zipcode | Phone Number | | Organization | | | | + +---------+ + + | EXTERNAL LAB | | | | + +---------+ + + Magnesium (09/07/2018 5:43 AM PDT) + + + + + + | Component | Value | Ref Range | Performed | Pathologist | | | | | At | Signature | + + + + + + | Magnesium | 1.7Comment: Testing | 1.7 - 2.4 mg/dL | EXTERNAL | | | | performed at [facility] [place] | | LAB | | | | [address];[place], [place] | | | | | | [address] | | | | + + + + + + + + | Specimen | + + | Blood specimen | | (specimen) | + + + +---------+ + + | Performing | Address | City/State/Zipcode | Phone Number | | Organization | | | | + +---------+ + + | EXTERNAL LAB | | | | + +---------+ + + Bilirubin, Direct (09/07/2018 5:43 AM PDT) + + + + + + | Component | Value | Ref Range | Performed | Pathologist | | | | | At | Signature | + + + + + + | Bilirubin | 0.2Comment: Testing | 0.0 - 0.3 mg/dL | EXTERNAL | | | Direct | performed at [facility] [place] | | LAB | | | | [address];[place] | | | | | | [address] | | | | + + + + + + + + | Specimen | + + | | + + + +---------+ + + | Performing | Address | City/State/Zipcode | Phone Number | | Organization | | | | + +---------+ + + | EXTERNAL LAB | | | | + +---------+ + + Comprehensive Metabolic Panel (09/07/2018 5:43 AM PDT) + + + + + + | Component | Value | Ref Range | Performed | Pathologist | | | | | At | Signature | + + + + + + | Na | 140 | 135 - 145 | EXTERNAL | | | | | mmol/L | LAB | | + + + + + + | K | 5.0 (H) | 3.5 - 4.9 | EXTERNAL | | | | | mmol/L | LAB | | + + + + + + | Cl | 106 | 99 - 109 mmol/L | EXTERNAL | | | | | | LAB | | + + + + + + | CO2 | 20 (L) | 23 - 32 mmol/L | EXTERNAL | | | | | | LAB | | + + + + + + | Anion Gap | 19 | 5 - 20 mmol/L | EXTERNAL | | | | | | LAB | | + + + + + + | Glucose, | 275 (H) | 65 - 99 mg/dL | EXTERNAL | | | Fasting | | | LAB | | + + + + + + | BUN | 22 | 8 - 25 mg/dL | EXTERNAL | | | | | | LAB | | + + + + + + | Creatinine | 1.24 (H) | 0.50 - 1.00 | EXTERNAL | | | | | mg/dL | LAB | | + + + + + + | BUN/Creatin | 18 | | EXTERNAL | | | ine Ratio | | | LAB | | + + + + + + | Calcium | 10.1 | 8.5 - 10.5 | EXTERNAL | | | | | mg/dL | LAB | | + + + + + + | Protein, | 6.4 | 6.3 - 8.2 g/dL | EXTERNAL | | | Total | | | LAB | | + + + + + + | Albumin | 4.5 | 3.3 - 4.8 g/dL | EXTERNAL | | | | | | LAB | | + + + + + + | Globulin | 1.9 | 1.3 - 4.9 g/dL | EXTERNAL | | | | | | LAB | | + + + + + + | A/G Ratio | 2.4 | 1.0 - 2.4 | EXTERNAL | | | | | | LAB | | + + + + + + | Bilirubin | 0.4 | 0.1 - 1.5 mg/dL | EXTERNAL | | | Total | | | LAB | | + + + + + + | ALP, | 81 | 35 - 115 U/L | EXTERNAL | | | External | | | LAB | | + + + + + + | AST | 82 (H) | 10 - 45 U/L | EXTERNAL | | | | | | LAB | | + + + + + + | ALT | 84 (H) | 10 - 65 U/L | EXTERNAL | | | | | | LAB | | + + + + + + | Estimated | 41 (L)Comment: GFR <60: | mL/min/1.73m2 | EXTERNAL | | | GFR | CHRONIC KIDNEY DISEASE, | | LAB | | | | IF FOUND OVER [...] | | | | | | [facility] traceable | | | | | | equation.Testing | | | | | | performed at [facility] | | | | | | [facility];[place], [place] | | | | | | [address] | | | | + + + + + + + + | Specimen | + + | Blood specimen | | (specimen) | + + + +---------+ + + | Performing | Address | City/State/Zipcode | Phone Number | | Organization | | | | + +---------+ + + | EXTERNAL LAB | | | | + +---------+ + + XR Chest 1 Vw (09/07/2018 1:30 AM PDT) + + | Specimen | + + | | + + + + + | Impressions | Performed At | + + + | No definite evidence of traumatic injury or other acute process. | | | Signed by: Stacey Campos Robin Sign Date/Time: 09/07/2018 1:51 AM | | + + + + + + | Narrative | Performed At | + + + | CHEST ONE VIEW CLINICAL INFORMATION: Chest pain. COMPARISON: | | | None FINDINGS: Cardiomediastinal contours are within normal limits. | | | Lungs are grossly clear. Pads overlie the left lung base. No | | | large effusion. No visible pneumothorax. No acute bony | | | abnormalities. | | + + + + + | Procedure Note | + + | Axel Guzman Conversion - 10/16/2018 11:32 PM PDT CHEST ONE VIEW | | CLINICAL INFORMATION: | | Chest pain. | | COMPARISON: | | None | | FINDINGS: | | Cardiomediastinal contours are within normal limits. Lungs are grossly | | clear. Pads overlie the left lung base. No large effusion. No | | visible pneumothorax. No acute bony abnormalities. | | IMPRESSION: | | No definite evidence of traumatic injury or other acute process. | | Signed by: Stacey Campos Robin | | Sign Date/Time: 09/07/2018 1:51 AM | + + HISTORICAL LAB PANEL RESULT (09/07/2018 1:19 AM PDT) + + + + + -+ | Component | Value | Ref Range | Performed | Pathologist | | | | | At | Signature | + + + + + -+ | WBC | 16.45 (H) | 3.80 - 11.00 | EXTERNAL | | | | | K/uL | LAB | | + + + + + -+ | RED CELL | 4.89Comment: QA FLAGS | 3.70 - 5.10 | EXTERNAL | | | COUNT | AND/OR RANGES MODIFIED | M/uL | LAB | | | | BY DEMOGRAPHIC UPDATE ON | | | | | | 07/05 AT 0249 | | | | + + + + + -+ | Hgb | 14.2Comment: QA FLAGS | 11.3 - 15.5 | EXTERNAL | | | | AND/OR RANGES MODIFIED | g/dL | LAB | | | | BY DEMOGRAPHIC UPDATE ON | | | | | | 07/05 AT 0249 | | | | + + + + + -+ | Hematocrit, | 44.5Comment: QA FLAGS | 34.0 - 46.0 % | EXTERNAL | | | POC | AND/OR RANGES MODIFIED | | LAB | | | | BY DEMOGRAPHIC UPDATE ON | | | | | | 07/05 AT 0249 | | | | + + + + + -+ | MCV | 90.9 | 80.0 - 100.0 fl | EXTERNAL | | | | | | LAB | | + + + + + -+ | MCH | 29.1 | 27.0 - 34.0 pg | EXTERNAL | | | | | | LAB | | + + + + + -+ | MCHC | 32.0 | 32.0 - 35.5 | EXTERNAL | | | | | g/dL | LAB | | + + + + + -+ | RDW-CV | 47.7 | 37 - 53 fl | EXTERNAL | | | | | | LAB | | + + + + + -+ | Platelet | 467 (H) | 150 - 400 K/uL | EXTERNAL | | | Count | | | LAB | | | Plasma | | | | | + + + + + -+ | MPV | 8.4 | fl | EXTERNAL | | | | | | LAB | | + + + + + -+ | Differentia | AUTOMATED | | EXTERNAL | | | l Type | | | LAB | | + + + + + -+ | % Segmented | 69.56 | % | EXTERNAL | | | | | | LAB | | | Neutrophils | | | | | + + + + + -+ | % | 21.55 | % | EXTERNAL | | | Lymphocytes | | | LAB | | + + + + + -+ | % Monocytes | 7.40 | % | EXTERNAL | | | | | | LAB | | + + + + + -+ | % | 0.86 | % | EXTERNAL | | | Eosinophils | | | LAB | | + + + + + -+ | % Basophils | 0.63 | % | EXTERNAL | | | | | | LAB | | + + + + + -+ | Absolute | 11.44 (H)Comment: QA | 1.90 - 7.40 | EXTERNAL | | | Segmented | FLAGS AND/OR RANGES | K/uL | LAB | | | Neutrophils | MODIFIED BY DEMOGRAPHIC | | | | | | UPDATE ON 09/07 AT 0249 | | | | + + + + + -+ | Absolute | 3.55 | 1.00 - 3.90 | EXTERNAL | | | Lymphocytes | | K/uL | LAB | | + + + + + -+ | Absolute | 1.22 (H) | 0.00 - 0.80 | EXTERNAL | | | Monocytes | | K/uL | LAB | | + + + + + -+ | Absolute | 0.14 | 0.00 - 0.50 | EXTERNAL | | | Eosinophils | | K/uL | LAB | | + + + + + -+ | Absolute | 0.10 | 0.00 - 0.10 | EXTERNAL | | | Basophils | | K/uL | LAB | | + + + + + -+ | Na | 137 | 135 - 145 | EXTERNAL | | | | | mmol/L | LAB | | + + + + + -+ | K | 6.0 (H) | 3.5 - 4.9 | EXTERNAL | | | | | mmol/L | LAB | | + + + + + -+ | Cl | 103 | 99 - 109 mmol/L | EXTERNAL | | | | | | LAB | | + + + + + -+ | CO2 | 25 | 23 - 32 mmol/L | EXTERNAL | | | | | | LAB | | + + + + + -+ | Anion Gap | 15 | 5 - 20 mmol/L | EXTERNAL | | | | | | LAB | | + + + + + -+ | Glucose, | 271 (H) | 65 - 99 mg/dL | EXTERNAL | | | Fasting | | | LAB | | + + + + + -+ | BUN | 30 (H) | 8 - 25 mg/dL | EXTERNAL | | | | | | LAB | | + + + + + -+ | Creatinine | 1.32 (H)Comment: QA | 0.50 - 1.00 | EXTERNAL | | | | FLAGS AND/OR RANGES | mg/dL | LAB | | | | MODIFIED BY DEMOGRAPHIC | | | | | | UPDATE ON 09/07 AT 0249 | | | | + + + + + -+ | BUN/Creatin | 23 | | EXTERNAL | | | ine Ratio | | | LAB | | + + + + + -+ | Calcium | 10.5 | 8.5 - 10.5 | EXTERNAL | | | | | mg/dL | LAB | | + + + + + -+ | Protein, | 6.6 | 6.3 - 8.2 g/dL | EXTERNAL | | | Total | | | LAB | | + + + + + -+ | Albumin | 4.6Comment: QA FLAGS | 3.3 - 4.8 g/dL | EXTERNAL | | | | AND/OR RANGES MODIFIED | | LAB | | | | BY DEMOGRAPHIC UPDATE ON | | | | | | 09/07 AT 0249 | | | | + + + + + -+ | Globulin | 2.0Comment: QA FLAGS | 1.3 - 4.9 g/dL | EXTERNAL | | | | AND/OR RANGES MODIFIED | | LAB | | | | BY DEMOGRAPHIC UPDATE ON | | | | | | 09/07 AT 0249 | | | | + + + + + -+ | A/G Ratio | 2.3Comment: QA FLAGS | 1.0 - 2.4 | EXTERNAL | | | | AND/OR RANGES MODIFIED | | LAB | | | | BY DEMOGRAPHIC UPDATE ON | | | | | | 07 AT 0249 | | | | + + + + + -+ | Bilirubin | 0.3 | 0.1 - 1.5 mg/dL | EXTERNAL | | | Total | | | LAB | | + + + + + -+ | ALP, | 90 | 35 - 115 U/L | EXTERNAL | | | External | | | LAB | | + + + + + -+ | AST | 111 (H) | 10 - 45 U/L | EXTERNAL | | | | | | LAB | | + + + + + -+ | ALT | 88 (H) | 10 - 65 U/L | EXTERNAL | | | | | | LAB | | + + + + + -+ | Estimated | NOT ABLE TO | mL/min/1.73m2 | EXTERNAL | | | GFR | CALCULATEComment: QA | | LAB | | | | FLAGS AND/OR RANGES | | | | | | MODIFIED BY DEMOGRAPHIC | | | | | | UPDATE ON 09/07 AT 0249 | | | | + + + + + -+ | CK, Total | 41Comment: QA FLAGS | 30 - 240 U/L | EXTERNAL | | | | AND/OR RANGES MODIFIED | | LAB | | | | BY DEMOGRAPHIC UPDATE ON | | | | | | 09/07 AT 0249 | | | | + + + + + -+ | INR | 1.4Comment: REFERENCE | | EXTERNAL | | | | RANGE:0.9 - 1.2 | | LAB | | | | NON-ANTICOAGULATED2.0 | | | | | | - 3.0 ALL OTHER | | | | | | THERAPEUTIC | | | | | | INDICATIONS2.5 - 3.5 | | | | | | MECHANICAL HEART VALVES, | | | | | | RECURRENT OR SYSTEMIC | | | | | | EMBOLISM | | | | + + + + + -+ | aPTT, | 46 (H) | 23 - 32 seconds | EXTERNAL | | | Patient | | | LAB | | + + + + + -+ | CK-MB | 1.6Comment: QA FLAGS | 0.5 - 3.6 ng/mL | EXTERNAL | | | | AND/OR RANGES MODIFIED | | LAB | | | | BY DEMOGRAPHIC UPDATE ON | | | | | | 09/07 AT 0249 | | | | + + + + + -+ | CK-MB Index | 3.9Comment: CK INDEX | | EXTERNAL | | | | INTERPRETATION: | | LAB | | | | MMB ng/mL | | | | | | | | | | | |CK INDEX INTERPRETATION: | | | | | | MMB ng/mL | | | | | | | | | | + + + + + -+ + + | Specimen | + + | | + + + +---------+ + + | Performing | Address | City/State/Zipcode | Phone Number | | Organization | | | | + +---------+ + + | EXTERNAL LAB | | | | + +---------+ + + TSH (09/07/2018 1:19 AM PDT) + + + + + + | Component | Value | Ref Range | Performed | Pathologist | | | | | At | Signature | + + + + + + | TSI | 10.584 (H)Comment: | 0.450 - 5.100 | EXTERNAL | | | | Testing performed at | uIU/mL | LAB | | | | [facility];[address];[place] [address] | | | | + + + + + + + + | Specimen | + + | Blood specimen | | (specimen) | + + + +---------+ + + | Performing | Address | City/State/Zipcode | Phone Number | | Organization | | | | + +---------+ + + | EXTERNAL LAB | | | | + +---------+ + + Magnesium (09/07/2018 1:19 AM PDT) + + + + + + | Component | Value | Ref Range | Performed | Pathologist | | | | | At | Signature | + + + + + + | Magnesium | 1.7Comment: Testing | 1.7 - 2.4 mg/dL | EXTERNAL | | | | performed at [facility] | | LAB | | | | [address];[place], [place] | | | | | | [address] | | | | + + + + + + + + | Specimen | + + | Blood specimen | | (specimen) | + + + +---------+ + + | Performing | Address | City/State/Zipcode | Phone Number | | Organization | | | | + +---------+ + + | EXTERNAL LAB | | | | + +---------+ + + documented in this encounter Visit Diagnoses + + | Diagnosis | + + | Bradycardia Other specified cardiac dysrhythmias | + + | Altered mental status, unspecified altered mental status type | + + | Symptomatic bradycardia Other specified cardiac dysrhythmias | + + | Atrial fibrillation, unspecified type (HCC) | + + documented in this encounter
--- OUTSIDE RECORDS SUMMARY | ~2019-01-21 | XMS | Encounter Summary ---
Demographics + + + | Address | [address] | | | [place] [address] | + + + | Home Phone | | + + + | Preferred Language | Unknown | + + + | Marital Status | | + + + | Jain Affiliation | Unknown | + + + | Race | Unknown | + + + | Ethnic Group | Unknown | + + + Author + + + | Author | [facility] | | | and [place] | + + + | Organization | [facility] | | | [...] Team Providers + +------+ + | Care Assistant Mechanic Name | Role | Phone | + +------+ + | Devante Mercer MD | PCP | | + +------+ + Encounter Details +--------+ + + + + | Date | Type | Department | Care Team | Description | +--------+ + + + + | 05/01/ | Orders Only | [facility] | Denise Chakraborty, | | | 2018 | | [address] | [address] | | | | | [address] | [place], [place] | | | | | [place], [place] | [address] | | | | | [address] | | | | | | [phone] | | | +--------+ + + + [...] as of this encounter Plan of Treatment +--------+---------+ + + + | Date | Type | Specialty | Care Team | Description | +--------+---------+ + + + | 02/20/ | Office | Cardiology | Denise Chakraborty, | | | 2019 | Visit | | MD [address]ardo [address] | | | | | | [place] | | | | | | [address] | | | | | | | | +--------+---------+ + + + documented as of this encounter Procedures + +--------+ + + + | Procedure Name | Priori | Date/Time | Associated Diagnosis | Comments | | | ty | | | | + +--------+ + + + | COMPREHENSIVE | Routin | 05/01/2017 | | Results for this | | METABOLIC PANEL | e | 1:30 PM | | procedure are in the | | | | PST | | results section. | + +--------+ + + + documented in this encounter Results Comprehensive Metabolic Panel (05/01/2017 1:30 PM PST) + + + + + + | Component | Value | Ref Range | Performed | Pathologist | | | | | At | Signature | + + + + + + | Glucose, | 155 (A) | 70 - 100 mg/dL | EXTERNAL | | | Fasting | | | LAB | | + + + + + + | BUN | 27 (A) | 6 - 23 mg/dL | EXTERNAL | | | | | | LAB | | + + + + + + | Creatinine | 0.94 | 0.70 - 1.11 | EXTERNAL | | | | | mg/dL | LAB | | + + + + + + | BUN/Creatin | 28.7 (A) | 6.0 - 28.6 | EXTERNAL | | | ine Ratio | | | LAB | | + + + + + + | Calcium | 9.9 | 8.4 - 10.2 | EXTERNAL | | | | | mg/dL | LAB | | + + + + + + | Protein, | 6.4 | 6.0 - 8.0 g/dL | EXTERNAL | | | Total | | | LAB | | + + + + + + | Albumin | 3.9 | 3.5 - 5.0 | EXTERNAL | | | | | | LAB | | + + + + + + | Globulin | 2.5 | 1.8 - 3.5 | EXTERNAL | | | | | | LAB | | + + + + + + | A/G Ratio | 1.6 | 1.1 - 2.4 | EXTERNAL | | | | | | LAB | | + + + + + + | Bilirubin | 0.4 | 0.0 - 1.2 mg/dL | EXTERNAL | | | Total | | | LAB | | + + + + + + | ALP, | 92 | 31 - 130 | EXTERNAL | | | External | | | LAB | | + + + + + + | ALT | 17 | 7 - 52 U/L | EXTERNAL | | | | | | LAB | | + + + + + + | AST | 20 | 13 - 39 U/L | EXTERNAL | | | | | | LAB | | + + + + + + | Na | 138 | 132 - 143 | EXTERNAL | | | | | mmol/L | LAB | | + + + + + + | K | 4.7 | 3.6 - 5.1 | EXTERNAL | | | | | mmol/L | LAB | | + + + + + + | Cl | 100 | 95 - 112 mmol/L | EXTERNAL | | | | | | LAB | | + + + + + + | CO2 | 25 | 19 - 31 mmol/L | EXTERNAL | | | | | | LAB | | + + + + + + | Anion Gap | 17.7 | 7 - 21 mmol/L | EXTERNAL | | | | | | LAB | | + + + + + + | Estimated | 56 (A) | 60 mg/dL | EXTERNAL | | | GFR | | | LAB | | + [...] Visit Diagnoses Not on filedocumented in this encounter"
--- OUTSIDE RECORDS SUMMARY | ~2019-01-21 | XMS | Encounter Summary ---
Demographics + + + | Address | [address] | | | [place] [address] | + + + | Home Phone | | + + + | Preferred Language | Unknown | + + + | Marital Status | | + + + | Anabaptist Affiliation | Unknown | + + + | Race | Unknown | + + + | Ethnic Group | Unknown | + + + Author + + + | Author | [facility] | | | and [place] | + + + | Organization | [facility] | | | and [...] Team Providers + +------+ + | Care Eyelet Maker Name | Role | Phone | + [...] + + | 01/12/ | Surgery | [facility] | Leland Ulloa MD | CV EP PPM SYSTEM | | 2019 | | CENTER CV INTRA OP | [address] | IMPLANT | | | | [address] | [place] [address] | | | | | [place], [place] | [phone] | | | | | [address] | | | | | | [phone] | | | +--------+---------+ + + + [...] w mónica presented to emergency department of [facility] in [facility] today w ith severe dizziness and shortness of breath secondary to bradycardia. In emergency department she was found to be bradycardic with documented heart rate as low a s 34.Blood work-up was essentially normal. Shows sinus bradycardia with heart rate of 47/min. She was transferred to [facility] for Cardiology evaluation for possible pacemaker. [...] Issues: None Discharge Information: Follow up: Denise Chakarborty MD [address] [facility] [address] In 2 weeks For follow up Discharge [...] cannot be sent through Care Everywhere.PacemakerLinda with (French)Pacemaker Implantation, Discharge Instructions for (French)documented in t his encounter Medications at Time [...] Abraham MD - 01/13/2019 8:15 AM PST [facility] Service: Cardiology Progress Note Name of Orthopaedic Doctor: Denise Chakraborty MD I have seen the [...] this morning hence she was evaluated in [facility] where she was found roderick ycardic heart [...] in fusion, , Intravenous, Continuous PRN, Leland Ulloa MD Fish Oil delayed release capsule 1,000 [...] 09/13/2018 TSH 6.784 (H) 01/11/2019 EK01/10/[address] [facility] showed sinus bradycardia with heart rate 47. [...] might be different f rom the original. [facility] Adult Hospitalist Progress Note Hospital Day: 1 HPI SUMMARY: The patient is a 88 y.o. female with significant past medical history of paroxysmal atrial fibrillation and was cardioverted twice in the past and follows Dr. Chakraborty, type 2 diabete s mellitus, patient hypertension, chronic kidney disease stage II, hypothyroidism presented to emergency department of [facility] in [facility] today with severe di zziness and shortness of breath secondary to bradycardia. In emergency department she was found to be bradycardic with documented heart rate as low a s 34. Blood work-up is essentially normal. Shows sinus bradycardia with heart rate of 47/m in. She was transferred to [facility] for Cardiology evaluation for possible pacemaker. [...] M D - 01/12/2019 7:18 AM PST [facility] Service: Cardiology Progress Note Name of Orthopaedic Doctor: Denise Chakraborty MD I have seen the [...] this morning hence she was evaluated in [facility] where she was found roderick ycardic heart [...] 09/13/2018 TSH 6.784 (H) 01/11/2019 EK01/10/[address] [facility] showed sinus bradycardia with heart rate 47. [...] recheck 164/71, discussed with primary RN at [facility]. documented in this en counter Plan of Treatment +--------+---------+ + + + | Date | Type | Specialty | Care Team | Description | +--------+---------+ + + + | 02/20/ | Office | Cardiology | Denise Chakraborty, | | | 2019 | Visit | | MD Eduardo AGUILLON | | | | | | [place] | | | | | | [address] | | | | | | | [...] Testing | 65 - 99 mg/dL | [facility] | | | POC | performed at [facility];[address] | | LABORATORY | | | | [address] [facility];[place], [place] | | | | | | [address] | | | | + + + + + + + + | Specimen | + + | | + + + + + + + | Performing | Address | City/State/Zipcode | Phone Number | | Organization | | | | + + + + + | [facility] | [address] | [place] [address] | [phone] | + + + + + POC Glucose (01/13/2019 7:53 AM PST) + + + + + + | Component | Value | Ref Range | Performed | Pathologist | | | | | At | Signature | + + + + + + | Glucose, | 290 (H)Comment: Testing | 65 - 99 mg/dL | [facility] | | | POC | performed at [facility];[address] | | LABORATORY | | | | [address];[place], [place] | | | | | | [address] | | | | + + + + + + + + | Specimen | + + | | + + + + + + + | Performing | Address | City/State/Zipcode | Phone Number | | Organization | | | | + + + + + | [facility] | [address] | [place] [address] | [phone] | + + + + + XR [...] Testing | 65 - 99 mg/dL | [facility] | | | POC | performed at [facility];[address] | | LABORATORY | | | | [address];[place] | | | | | | [address] | | | | + + + + + + + + | Specimen | + + | | + + + + + + + | Performing | Address | City/State/Zipcode | Phone Number | | Organization | | | | + + + + + | [facility] | [address] | [place] [address] | [phone] | + + + + + POC [...] | | | POC | performed at [facility];[address] | | LABORATORY | | | | [address];[place], [place] | | | | | | [address] | | | | + + + + + + + + | Specimen | + + | | + + + + + + + | Performing | Address | City/State/Zipcode | Phone Number | | Organization | | | | + + + + + | [facility] | [address] | [place] [address] | [phone] | + + + + + POC [...] | | | POC | performed at [facility];[address] | | LABORATORY | | | | [address];[place] | | | | | | [address] | | | | + + + + + + + + | Specimen | + + | | + + + + + + + | Performing | Address | City/State/Zipcode | Phone Number | | Organization | | | | + + + + + | [facility] | [address] | [place] [address] | [phone] | + + + + + CV EP PROCEDURE (01/12/2019 10:47 AM PST) + + | Specimen | + + | | + + + + + | Narrative | Performed At | + + + | | | | ConclusionSuccessful insertion of dual-chamber permanent pacemaker, | | | MRI compatible, [employer] unit. Equipments:Generator: 3 Four 5 Group | | | Retsly DR IS-1 (). Model #L331, serial #[id number] | | | lead: [employer] IS-1 Bi-positive fix RA/RV 45 | | | cm, model #7740, serial #[id number].RV lead: [employer] | | | [employer] IS-1 Bi-positive fix RA/RV 52 cm, model #7741, serial # [id number]. | | | Measurements:RA 3.3 mV, 0.9 V at 0.4 ms, impedance 652.RV 25 mV, 1.0 V | | | at 0.4 ms, impedance 955. Final settingsDDDR, 50/130. | | |RV lead: [employer] IS-1 Bi-positive fix RA/RV 52 cm, | | |model #7741, serial # [id number]. | | | | | |Measurements: | [...] | | | POC | performed at [facility];[address] | | LABORATORY | | | | [address];[place], [place] | | | | | | [address] | | | | + + + + + + + + | Specimen | + + | | + + + + + + + | Performing | Address | City/State/Zipcode | Phone Number | | Organization | | | | + + + + + | [facility] | [address] | [place] [address] | [phone] | + + + + + T4, Free (01/12/2019 5:39 AM PST) + + + + + + | Component | Value | Ref Range | Performed | Pathologist | | | | | At | Signature | + + + + + + | FT4 | 1.4Comment: Testing | 0.7 - 1.5 ng/dL | [facility] | | | | performed at [facility], [address] | | LABORATORY | | | | [address], | | | | | | [place] [address] | | | | + + + + + + + + | Specimen | + + | Blood | + + + + + + + | Performing | Address | City/State/Zipcode | Phone Number | | Organization | | | | + + + + + | [facility] | [address] | [place] [address] | [phone] | + + + + + Magnesium (01/12/2019 5:39 AM PST) + + + + + + | Component | Value | Ref Range | Performed | Pathologist | | | | | At | Signature | + + + + + + | Magnesium | 1.7Comment: Testing | 1.7 - 2.4 mg/dL | [facility] | | | | performed at [facility], [address] | | LABORATORY | | | | [address], | | | | | | [place] [address] | | | | + + + + + + + + | Specimen | + + | Blood | + + + + + + + | Performing | Address | City/State/Zipcode | Phone Number | | Organization | | | | + + + + + | [facility] | [address] | [place] [address] | [phone] | + + + + + Basic [...] | | | | | performed at [facility], [address] | | | | | | [facility], | | | | | | [place] [address] | | | | + + + + + + + + | Specimen | + + | Blood | + + + + + + + | Performing | Address | City/State/Zipcode | Phone Number | | Organization | | | | + + + + + | [facility] | [address] | [place] [address] | [phone] | + + + + + CBC [...] 0.08Comment: Testing | 0.00 - 0.10 | [facility] | | | Absolute | performed at [facility], [address] | K/uL | LABORATORY | | | | [address], | | | | | | [place] [address] | | | | + + + + + + + + | Specimen | + + | Blood | + + + + + + + | Performing | Address | City/State/Zipcode | Phone Number | | Organization | | | | + + + + + | [facility] | [address] | [place] [address] | [phone] | + + + + + POC [...] | | | POC | performed at [facility];[address] | | LABORATORY | | | | [address];[place] | | | | | | [address] | | | | + + + + + + + + | Specimen | + + | | + + + + + + + | Performing | Address | City/State/Zipcode | Phone Number | | Organization | | | | + + + + + | [facility] | [address] | [place] [address] | [phone] | + + + + + POC Glucose (01/11/2019 7:07 PM PST) + + + + + + | Component | Value | Ref Range | Performed | Pathologist | | | | | At | Signature | + + + + + + | Glucose, | 175 (H)Comment: Testing | 65 - 99 mg/dL | [facility] | | | POC | performed at [facility];[address] | | LABORATORY | | | | [address];[place], [place] | | | | | | [address] | | | | + + + + + + + + | Specimen | + + | | + + + + + + + | Performing | Address | City/State/Zipcode | Phone Number | | Organization | | | | + + + + + | [facility] | [address] | [place] [address] | [phone] | + + + + + POC Glucose (01/11/2019 5:15 PM PST) + + + + + + | Component | Value | Ref Range | Performed | Pathologist | | | | | At | Signature | + + + + + + | Glucose, | 178 (H)Comment: Testing | 65 - 99 mg/dL | [facility] | | | POC | performed at [facility];[address] | | LABORATORY | | | | [address];[place] | | | | | | [address] | | | | + + + + + + + + | Specimen | + + | | + + + + + + + | Performing | Address | City/State/Zipcode | Phone Number | | Organization | | | | + + + + + | [facility] | [address] | [place] [address] | [phone] | + + + + + XR [...] | | | | | Signed by: Stacye Rodriguez Matthew | | Sign Date/Time: 01/11/2019 [...] KR | | | | performed at [facility] | | LABORATORY | | | | [address];[place] | | | | | | [address] | | | | + + + + + + + + | Specimen | + + | Blood | + + + + + + + | Performing | Address | City/State/Zipcode | Phone Number | | Organization | | | | + + + + + | [facility] | [address] | [place] [address] | [phone] | + + + + + TSH (01/11/2019 2:35 PM PST) + + + + + + | Component | Value | Ref Range | Performed | Pathologist | | | | | At | Signature | + + + + + + | TSH | 6.784 (H)Comment: | 0.450 - 5.100 | [facility] | | | | Testing performed at | uIU/mL | LABORATORY | | | | [facility];[address];[place] [address] | | | | + + + + + + + + | Specimen | + + | Blood | + + + + + + + | Performing | Address | City/State/Zipcode | Phone Number | | Organization | | | | + + + + + | [facility] | [address] | [place] [address] | [phone] | + + + + + Hemoglobin A1C (01/11/2019 2:35 PM PST) + + + + + + | Component | Value | Ref Range | Performed | Pathologist | | | | | At | Signature | + + + + + + | Hemoglobin | 9.8 (H)Comment: HbA1c | 4.0 - 6.0 % | [facility] | | | A1c | method [...] | 235 (H)Comment: | <154 mg/dL | [facility] | | | Average | Estimated Average | | LABORATORY | | | Glucose | Glucose calculated from | | | | | | hemoglobin A1c by use of | | | | | | the ADArecommended | | | | | | formula.Testing | | | | | | performed at [facility], [address] | | | | | | [facility], | | | | | | [place] [address] | | | | + + + + + + + + | Specimen | + + | Blood | + + + + + + + | Performing | Address | City/State/Zipcode | Phone Number | | Organization | | | | + + + + + | [facility] | [address] | [place] [address] | [phone] | + + + + + documented [...] | | | | AC, NPO, Daytime 7858-3749 Use | | | | | | | NIGHT DOSE for doses scheduled: | | | | | | | HS, 3AM, Nighttime 4583-8756 | | | | | | | [...]
--- OUTSIDE RECORDS SUMMARY | ~2019-01-21 | XMS | Encounter Summary ---
Demographics + + + | Address | [address] | | | [place] [address] | + + + | Home Phone | | + + + | Preferred Language | Unknown | + + + | Marital Status | | + + + | Lutheran Affiliation | Unknown | + + + | Race | Unknown | + + + | Ethnic Group | Unknown | + + + Author + + + | Author | [facility] | | | and [place] | + + + | Organization | [facility] | | | and [...] Team Providers + +------+ + | Care Financial Aid Name | Role | Phone | + +------+ + | Devante Mercer MD | PCP | | + +------+ + Encounter Details +--------+ + + + + | Date | Type | Department | Care Team | Description | +--------+ + + + + | 04/26/ | Orders Only | [facility] | Denise Chakraborty, | | | 2017 | | [address] | [address] | | | | | [address] | [place], [place] | | | | | [place], [place] | [address] | | | | | [address] | | | | | | [phone] | | | +--------+ + + + [...] [place] | | | | | | [address] | | | | | | | | +--------+---------+ + + + documented as of this encounter Visit Diagnoses Not on filedocumented in this encounter"
--- OUTSIDE RECORDS SUMMARY | ~2019-01-21 | XMS | Encounter Summary ---
Demographics + + + | Address | [address] | | | [place] [address] | + + + | Home Phone | | + + + | Preferred Language | Unknown | + + + | Marital Status | | + + + | Tenriism Affiliation | Unknown | + + + | Race | Unknown | + + + | Ethnic Group | Unknown | + + + Author + + + | Author | [facility] | | | and [place] | + + + | Organization | [facility] | | | and [...] Team Providers + +------+ + | Care Home And Family Living Professor Name | Role | Phone | + +------+ + | Devante Mercer MD | PCP | | + +------+ + Encounter Details +--------+ + + + + | Date | Type | Department | Care Team | Description | +--------+ + + + + | 09/13/ | Orders Only | [facility] | Constantino Maza, | | | 2019 | | [facility] [address] | MD [address] | | | | | [facility] | [place] | | | | | [place] | [address] | | | | | [address] | | | | | | [phone] | | | +--------+ + + + [...] [place] | | | | | | [address] | | | | | | | | +--------+---------+ + + + documented as of this encounter Visit Diagnoses Not on filedocumented in this encounter"
--- OUTSIDE RECORDS SUMMARY | ~2019-01-21 | XMS | Encounter Summary ---
Demographics + + + | Address | [address] | | | [place] [address] | + + + | Home Phone | | + + + | Preferred Language | Unknown | + + + | Marital Status | | + + + | Pentecostalism Affiliation | Unknown | + + + | Race | Unknown | + + + | Ethnic Group | Unknown | + + + Author + + + | Author | [facility] | | | and [place] | + + + | Organization | [facility] | | | [...] Team Providers + +------+ + | Care Resident Care Provider Name | Role | Phone | + +------+ + | Devante Mercer MD | PCP | | + +------+ + Reason for Visit + + + | Reason | Comments | + + + | Advice Only | | + + + Encounter Details +--------+ + + + + | Date | Type | Department | Care Team | Description | +--------+ + + + + | 01/14/ | Telephone | [facility] | Josephine Muhammad | Advice Only | | 2019 | | [address] | [place] | | | | | [place] | | | | | | [address] | | | | | | [phone] | | | +--------+ + + + [...] | | | | | [place] | | | | | | [address] | | | | | | | | +--------+---------+ + + + documented as of this encounter Visit Diagnoses Not on filedocumented in this encounter"
--- OUTSIDE RECORDS SUMMARY | ~2019-01-21 | XMS | Encounter Summary ---
Demographics + + + | Address | [address] | | | [place] [address] | + + + | Home Phone | | + + + | Preferred Language | Unknown | + + + | Marital Status | | + + + | Confucianist Affiliation | Unknown | + + + | Race | Unknown | + + + | Ethnic Group | Unknown | + + + Author + + + | Author | [facility] | | | and [place] | + + + | Organization | [facility] | | | and [place] | + + + | Address | Unknown | + + + | Phone | Unavailable | + + + Support + + +---------+ + | Name | Relationship | Address | Phone | + + +---------+ + | Fausto Eisenberg) | ECON | Unknown | | | [place] | | | | + + +---------+ + | Deborah [place] | ECON | Unknown | | + + +---------+ + | Mat Arambula | ECON | Unknown | | + + +---------+ + Care Team Providers + +------+ + | Care Service Desk Associate Name | Role | Phone | + +------+ + | Devante Mercer MD | PCP | | + +------+ + Encounter Details +--------+ + + + + | Date | Type | Department | Care Team | Description | +--------+ + + + + | 03/23/ | Orders Only | [facility] | Conversion | | | 2016 | | CONVERSION [address] | Transaction, | | | | [address] | Provider Unknown | | | | | [place], [place] | [phone] | | | | | [address] | | | | | | [phone] | | | +--------+ + + + [...] [place] | | | | | | [address] | | | | | | | | +--------+---------+ + + + documented as of this encounter Visit Diagnoses Not on filedocumented in this encounter"
--- OUTSIDE RECORDS SUMMARY | ~2019-01-21 | XMS | Clinical Summary ---
Demographics + + + | Address | [address] | | | [place] [address] | + + + | Home Phone | | + + + | Preferred Language | Unknown | + + + | Marital Status | | + + + | Hinduism Affiliation | Unknown | + + + | Race | Unknown | + + + | Ethnic Group | Unknown | + + + Author + + + | Author | [employer] [facility] (Historical as of | | | 10-20-18) | + + + | Organization | [facility] (Historical as of | | | 10-20-18) | + + + | Address | Unknown | + + + | Phone | Unavailable | + + + Support + + + + + | Name | Relationship | Address | Phone | + + + + + | Fausto Mcgregor | ECON | Unknown | | | ([place]) | | | | + + + + + | Deborah Kenyon | ECON | Unknown | | + + + + + | Mat Arambula | ECON | Unknown | | + + + + + | Fausto Mcgregor ([place]) | ECON | [address] | | | | | [place] | | | | | [address] | | + + + + + | Deborah Kenyon | ECON | Unknown | | + + + + + | Mat Arambula | ECON | Unknown | | + + + + + Care Team Providers + +------+ + | Care Visual Merchandising Specialist Name | Role | Phone | + [...] + + + + | Celecoxib | Hives | High | 09/08/19 | | | | | | 19 | | + + + + + + | Warfarin | Diarrhea | Low | 04/22/19 | | | | | | 16 | | + + + + + + Current Medications + + +---------+---------+------+------+-------+ | Prescription | Sig. | Disp. | Refills | Star | End | Statu | | | | | | t | Date | s | | | | | | Date | | | + + +---------+---------+------+------+-------+ | diltiazem | Take 300 mg by mouth | | | | | Activ | | (CARDIZEM CD) 300 MG | daily. | | | | | e | | 24 hr capsule | | | | | | | + + +---------+---------+------+------+-------+ | fenofibrate | Take 160 mg by mouth | | | | | Activ | | (TRICOR) 160 MG | daily. | | | | | e | | tablet | | | | | | | + + +---------+---------+------+------+-------+ | fluticasone | 2 sprays by Each | | | | | Activ | | (FLONASE) 50 MCG/ACT | Nare route daily. | | | | | e | | nasal | | | | | | | + + +---------+---------+------+------+-------+ | glipiZIDE | Take 10 mg by mouth | | | | | Activ | | (GLUCOTROL) 10 MG 24 | daily. | | | | | e | | hr tablet | | | | | | | + + +---------+---------+------+------+-------+ | latanoprost | Place 1 drop into | | | | | Activ | | (XALATAN) 0.005 % | both eyes nightly. | | | | | e | | ophthalmic solution | | | | | | | + + +---------+---------+------+------+-------+ | metFORMIN | Take 1,000 mg by | | | | | Activ | | (GLUCOPHAGE) 500 MG | mouth 2 (two) times | | | | | e | | tablet | daily with meals. | | | | | | + + +---------+---------+------+------+-------+ | potassium chloride | Take 20 mEq by mouth | | | | | Activ | | SA (KJaiDUR,VIRYCON) | daily. | | | | | e | | 20 MEQ tablet | | | | | | | + + +---------+---------+------+------+-------+ | torsemide | Take 20 mg by mouth | | | | | Activ | | (DEMADEX) 20 MG | every morning. | | | | | e | | tablet | | | | | | | + + +---------+---------+------+------+-------+ | Calcium | Take 1,000 mg by | | | | | Activ | | Carb-Cholecalciferol | mouth daily. | | | | | e | | 1000-800 MG-UNIT | | | | | | | | TABS | | | | | | | + + +---------+---------+------+------+-------+ | Cranberry 450 MG | Take 450 mg by mouth | | | | | Activ | | TABS | daily. | | | | | e | + + +---------+---------+------+------+-------+ | ascorbic acid | Take 1,000 mg by | | | | | Activ | | (VITAMIN C) 1000 MG | mouth daily. | | | | | e | | tablet | | | | | | | + + +---------+---------+------+------+-------+ | Cholecalciferol | Take 1,000 Units by | | | | | Activ | | 1000 UNITS capsule | mouth daily. | | | | | e | + + +---------+---------+------+------+-------+ | vitamin E 400 UNIT | Take 400 Units by | | | | | Activ | | capsule | mouth daily. | | | | | e | + + +---------+---------+------+------+-------+ | fish oil omega-3 | Take 1 g by mouth | | | | | Activ | | fatty acids 1000 MG | daily. | | | | | e | | capsule | | | | | | | + + +---------+---------+------+------+-------+ | Multiple | Take by mouth | | | | | Activ | | Vitamins-Minerals | daily. | | | | | e | | ( [facility] | | | | | | | | PO) | | | | | | | + + +---------+---------+------+------+-------+ | cyanocobalamin | Take 1,000 mcg by | | | | | Activ | | (VITAMIN B-12) 1000 | mouth every other | | | | | e | | MCG tablet | day. | | | | | | + + +---------+---------+------+------+-------+ | omeprazole | Take 20 mg by mouth | | | | | Activ | | (PRILOSEC) 20 MG | every morning before | | | | | e | | capsule | breakfast. | | | | | | + + +---------+---------+------+------+-------+ | loperamide | Take 2 mg by mouth 4 | | | | | Activ | | (IMODIUM) 2 MG | (four) times daily | | | | | e | | capsule | as needed for | | | | | | | | Diarrhea. | | | | | | + + +---------+---------+------+------+-------+ | metoprolol | Take 1 tablet by | | | 04/0 | | Activ | | (TOPROL-XL) 100 MG | mouth nightly. | | | 3/20 | | e | | 24 hr tablet | | | | 19 | | | + + +---------+---------+------+------+-------+ | dabigatran | Take 1 capsule by | | | 07/0 | | Activ | | (PRADAXA) 150 MG | mouth 2 (two) times | | | 3/20 | | e | | CAPS capsule | daily. | | | 19 | | | + + +---------+---------+------+------+-------+ | amiodarone | Take 1 tablet by | 30 | 1 | 07/1 | 07/1 | Activ | | (PACERONE) 400 MG | mouth daily. | tablet | | 2/20 | 1/20 | e | | tablet | | | | 19 | 20 | | + + +---------+---------+------+------+-------+ | dabigatran | Take 1 capsule by | 60 | 2 | 07/1 | | Activ | | (PRADAXA) 150 MG | mouth 2 (two) times | capsule | | 1/20 | | e | | CAPS capsule | daily. | | | 19 | | | + + +---------+---------+------+------+-------+ | | Take 1 tablet by | 30 | 2 | /1 | / | Activ | | hydrochlorothiazide | mouth daily. | tablet | | 2/20 | /20 | e | | (HYDRODIURIL) 25 MG | | | | 19 | 20 | | | tablet | | | | | | | + + +---------+---------+------+------+-------+ | isosorbide | Take 1 tablet by | 30 | 2 | / | 09/03 | Activ | | mononitrate (IMDUR) | mouth daily. | tablet | | 2/20 | /20 | e | | 30 MG 24 hr tablet | | | | 19 | 20 | | + + +---------+---------+------+------+-------+ | lisinopril | Take 1 tablet by | 30 | 2 | / | 1 | Activ | | (ZESTRIL) 40 MG | mouth daily. | tablet | | 2/20 | /20 | e | | tablet | | | | 19 | 20 | | + + +---------+---------+------+------+-------+ | levothyroxine | Take 1 tablet by | 30 | 2 | /1 | 09/03 | Activ | | (SYNTHROID) 50 MCG | mouth every morning | tablet | | 1/20 | 0/20 | e | | tablet | before breakfast. | | | 19 | 20 | | + + +---------+---------+------+------+-------+ | metFORMIN | Take 1 tablet by | 60 | 2 | 09/03 | 09/03 | Activ | | (GLUCOPHAGE-XR) 500 | mouth 2 (two) times | tablet | | /20 | 0/20 | e | | MG 24 hr tablet | daily with meals. | | | 19 | 20 | | + + +---------+---------+------+------+-------+ | fenofibrate 160 MG | Take 160 mg by mouth | | | | | Activ | | tablet | daily. | | | | | e | + + +---------+---------+------+------+-------+ | fluticasone | 1 spray by Each Nare | | | | | Activ | | (FLONASE) 50 MCG/ACT | route as needed for | | | | | e | | nasal | Rhinitis. | | | | | | + + +---------+---------+------+------+-------+ | glipiZIDE | Take 10 mg by mouth | | | | | Activ | | (GLIPIZIDE XL) 10 MG | daily. | | | | | e | | 24 hr tablet | | | | | | | + + +---------+---------+------+------+-------+ | latanoprost | 1 drop nightly. | | | | | Activ | | (XALATAN) 0.005 % | | | | | | e | | ophthalmic solution | | | | | | | + + +---------+---------+------+------+-------+ | levothyroxine | Take 125 mcg by | | | | | Activ | | (SYNTHROID) 125 MCG | mouth every morning | | | | | e | | tablet | before breakfast. | | | | | | + + +---------+---------+------+------+-------+ | metFORMIN | Take 500 mg by mouth | | | | | Activ | | (GLUCOPHAGE) 500 MG | 2 (two) times daily | | | | | e | | tablet | with meals. | | | | | | + + +---------+---------+------+------+-------+ | loperamide | Take 2 mg by mouth 4 | | | | | Activ | | (IMODIUM) 2 MG | (four) times daily | | | | | e | | capsule | as needed for | | | | | | | | Diarrhea. | | | | | | + + +---------+---------+------+------+-------+ | cholecalciferol | Take 1,000 Units by | | | | | Activ | | (VITAMIN D-3) 1000 | mouth daily. | | | | | e | | units tablet | | | | | | | + + +---------+---------+------+------+-------+ | Cranberry 450 MG | Take by mouth. | | | | | Activ | | CAPS | | | | | | e | + + +---------+---------+------+------+-------+ | ascorbic acid | Take 1,000 mg by | | | | | Activ | | (VITAMIN C) 1000 MG | mouth daily. | | | | | e | | tablet | | | | | | | + + +---------+---------+------+------+-------+ | vitamin E 400 UNIT | Take 400 Units by | | | | | Activ | | capsule | mouth daily. | | | | | e | + + +---------+---------+------+------+-------+ | omega-3 acid ethyl | Take 1 g by mouth 2 | | | | | Activ | | esters (LOVAZA) 1 g | (two) times daily. | | | | | e | | capsule | | | | | | | + + +---------+---------+------+------+-------+ Active Problems + + + | Problem | Noted Date | + + + | Atrial fibrillation (HCC) | 09/07/2018 | + + + | Essential hypertension | 09/07/2018 | + + + | Atrial flutter (HCC) | 09/05/2018 | + + + | [...] Date | + + + + | Change in mental state | 09/08/19 | | | | 19 | 9 | + + + + | Symptomatic bradycardia | 09/08/19 | | | | 19 | 9 | + + + + | Annual [...] ST-T | | changes. | + + Family History + + +------+ + | [...] | Father | | | heart disease (HI), HTN,Hyperlipidemia | | | | (Age | [...] Pressure | 144/65 | 09/13/2018 11:58 AM PDT | + + + + | Pulse | 47 | 09/13/2018 11:58 AM PDT | + + + + | Temperature | 36.5 C (97.7 F) | 09/13/2018 11:17 AM PDT | + + + + | Respiratory Rate | 16 | 09/13/2018 11:17 AM PDT | + + + + | Oxygen Saturation | 97% | 09/13/2018 11:17 AM PDT | + + + + | Inhaled Oxygen | - | - | | Concentration | | | + + + + | Weight | 64.5 kg (142 lb 3.2 | 09/13/2018 3:58 AM PDT | | | oz) | | + + + + | Height | 162.6 cm (5' 4.02") | 09/07/2018 8:53 AM PDT | + + + + | Body Mass Index | 24.4 | 09/13/2018 3:58 AM PDT | + + + + Plan of Treatment + + + + + | Health [...] Vaccine: Influenza | | | | | (#1) | 9 | | | + + + + + | Hemoglobin A1c | | 09/08/2018 | | | | 0 | | | + + + + + Results Not on filefrom Last 3 Months Insurance + +--------+ +------+-------+ + | Payer | Benefi | Subscriber | Type | Phone | Address | | | t Plan | ID | | | | | | / | | | | | | | Group | | | | | + +--------+ +------+-------+ + | MEDICARE | MEDICA | [id number] | | | [address] | | | RE | | | | [place] [address] | | | IP-OP | | | | | + +--------+ +------+-------+ + | COMMERCIAL OTHER | COMMER | [id number] | | | | | | CIAL [...] Self | [birth year] Home: | [address] | | | [place] | | 1931 | [phone] [place] | | | sonal | | [phone] | [phone] | + +--------+ +--------+ + +
--- OUTSIDE RECORDS SUMMARY | ~2019-01-21 | XMS | Encounter Summary ---
Demographics + + + | Address | [address] | | | [place] [address] | + + + | Home Phone | | + + + | Preferred Language | Unknown | + + + | Marital Status | | + + + | Jewish Affiliation | Unknown | + + + | Race | Unknown | + + + | Ethnic Group | Unknown | + + + Author + + + | Author | [facility] | | | and [place] | + + + | Organization | [facility] | | | [...] Team Providers + +------+ + | Care Repatcher Name | Role | Phone | + +------+ + | Devante Mercer MD | PCP | | + +------+ + Reason for Visit + + + | Reason | Comments | + + + | Follow-up | | + + + Encounter Details +--------+---------+ + + + | Date | Type | Department | Care Team | Description | +--------+---------+ + + + | 11/28/ | Office | [facility] | [place], Roberthed, | Atypical atrial | | 2019 | Visit | [facility] | [address] | flutter (HCC) | | | | [address] | [place], [place] | (Primary Dx); | | | | [address] [place] | [phone] | Essential | | | | [place] | | hypertension; | | | | [address] | | Paroxysmal atrial | | | | [phone] | | fibrillation (HCC) | +--------+---------+ + + + Social History [...] + + + | Blood Pressure | 126/58 | 11/28/2018 10:36 AM | | | | | PDT | | + + + + + | Pulse | 51 | 11/28/2018 10:36 AM | | | | | PDT | | + + + + + | Temperature | - | - | | + + + + + | Respiratory Rate | - | - | | + + + + + | Oxygen Saturation | 97% | 11/28/2018 10:36 AM | | | | | PDT | | + + + + + | Inhaled Oxygen | - | - | | | Concentration | | | | + + + + + | Weight | 64.2 kg (141 lb 9.6 | 11/28/2018 10:36 AM | | | | oz) | PDT | | + + + + + | Height | 149.9 cm (4' 11") | 11/28/2018 10:36 AM | | | | | PDT | | + + + + + | Body Mass Index | 28.6 | 11/28/2018 10:36 AM | | | | | PDT | | + + + + + documented in this encounter Progress Notes Denise Pinto MD - 11/28/2018 10:30 AM PDTFormatting of this note might be different f rom the original. Date of visit: 11/28/2018 Primary Care Physician: Devante Mercer MD CHIEF COMPLAINT: Chief Complaint Patient presents with Follow-up HISTORY OF PRESENT ILLNESS: Francisca is 88 y.o. here for follow-up visit. Continues to feel better since yesterday after the cardioversion. Complaining of sinus congestion, sore throat. No fever or chills. Has been monitoring her blood pressure at home fairly controlled. Hospitalized again in September 2018 due to symptomatic atrial flutter/fibrillation had synchron ized cardioversion after starting amiodarone. Went back into atrial arrhythmia, had another cardioversion yesterday by electrophysiology. Continues to be on amiodarone. Was hospitalized in June 2018 secondary to weakness, ported to be bradycardic in the 30s. Admitted to the hospital however her heart rate was overall controlled. She had only one pause of 2.5 seconds. Weight has been stable. Has a history of chronic atrial fibrillation. She has been on anticoagulation and toleratin g therapy well. Past medical history, SH, FH, and medications were reviewed in the chart. Medications: Outpatient Encounter Medications as of 11/28/2018 Medication Sig Dispense Refill amiodarone (PACERONE) 200 mg tablet Take 1 tablet by mouth Daily. 30 tablet 1 ascorbic acid (VITAMIN C) 1000 MG tablet Take 1,000 mg by mouth daily. Calcium Carb-Cholecalciferol (CALCIUM 1000 + D) 1000-800 MG-UNIT TABS Take 1,000 mg by mouth daily. cholecalciferol (VITAMIN D-3) 1,000 units capsule Take 1,000 Units by mouth daily. Cranberry 450 MG CAPS Take by mouth. cyanocobalamin (VITAMIN B-12) 1000 MCG tablet Take 1,000 mcg by mouth every other day. dabigatran (PRADAXA) 150 mg capsule Take 1 capsule by mouth 2 (two) times daily. fish oil 1,000 mg capsule Take 1 g by mouth daily. fluticasone (FLONASE) 50 mcg/nasal spray 1 spray by Each Nare route as needed for Rhini tis. glipiZIDE (GLUCOTROL XL) 10 mg ER tablet Take 10 mg by mouth daily. hydroCHLOROthiazide 25 mg tablet Take 1 tablet by mouth daily. 30 tablet 2 isosorbide mononitrate (IMDUR) 30 mg ER tablet Take 1 tablet by mouth daily. 30 tablet 2 latanoprost (XALATAN) 0.005% ophthalmic solution 1 drop nightly. levothyroxine (SYNTHROID) 125 mcg tablet Take 125 mcg by mouth every morning before johnnie akfast. lisinopril (PRINIVIL,ZESTRIL) 40 MG tablet Take 1 tablet by mouth daily. 30 tablet 2 metFORMIN (GLUCOPHAGE-XR) 500 mg 24 hr tablet Take 1 tablet by mouth 2 (two) times mad[place] y with meals. 60 tablet 2 MULTIPLE VITAMINS-MINERALS PO Take by mouth daily. tocopherol (VITAMIN E) 400 units capsule Take 400 Units by mouth daily. No facility-administered encounter medications on file as of 11/28/2018. Allergies Allergies Allergen Reactions Celecoxib Hives and Rash Warfarin Diarrhea Diarrhea REVIEW OF SYSTEMS: Constitutional: Positive for mild fatigue. No fever, chills, and rigors. No report of weig ht change. HEENT: Positive for sinus congestion, ear discharge, positive for nasal congestion. Eyes: impaired vision bilaterally. Respiratory: Negative for cough, sputum production, hemoptysis, wheezing. Cardiovascular: As HPI. Gastrointestinal: Negative for nausea, vomiting, diarrhea, abdominal pain and blood in stoo l. Genitourinary: Negative for dysuria or hematuria. Musculoskeletal: Chronic arthritic and back pain uses a walker to ambulate. Skin: Negative for rash. Neurological: Negative for dizziness. No numbness. No recent falls. No slurred speech. Hematological: No significant bruising. Psychiatric/Behavioral: No depression or anxiety. PHYSICAL EXAM Vital Signs: BP 126/58 | Pulse 51 | Ht 1.499 m (4' 11") | Wt 64.2 kg (141 lb 9.6 oz) | SpO2 97% | B IA 28.60 kg/m GENERAL APPEARANCE: Alert, oriented, cooperative, no distress, appears stated age. HEENT: Extraocular movements were intact. No jaundice. Pupiles round and reactive. NECK: No JVD, lymphadenopathy. Carotid upstrokes normal. No carotid bruit heard. CARDIAC: Regular rhythm and rate. There is normal S1 and S2. Systolic murmur left lower sternal border. Bradycardic. CHEST: Normal bilateral symmetrical chest excursion.ackles or wheezing. No evidence of dull ness. ABDOMEN: Soft.No tenderness or guarding. No palpable organs. Active bowel sounds. EXTREMITIES: No lower extremities edema, cyanosis or clubbing. NEURO: Alert and oriented times three with no focal deficit. Cranial nerves are grossly no rmal. SKIN: Warm and dry. No rash. Psych: Normal affect and mood. DATA Lab Results Component Value Date/Time NA 139 11/13/2018 06:53 NA 140 09/13/2018 06:28 NA 138 09/12/2018 05:49 K 5.1 (H) 11/13/2018 06:53 K 4.1 09/13/2018 06:28 K 4.0 09/12/2018 05:49 CO2 26 11/13/2018 06:53 CO2 29 09/13/2018 06:28 CO2 28 09/12/2018 05:49 BUN 18 11/13/2018 06:53 BUN 18 09/13/2018 06:28 BUN 20 09/12/2018 05:49 LABCREA 0.78 09/13/2018 06:28 LABCREA 0.7 09/12/2018 05:49 LABCREA 1.15 (H) 09/11/2018 13:47 CALCIUM 9.2 11/13/2018 06:53 CALCIUM 9.6 09/13/2018 06:28 CALCIUM 9.3 09/12/2018 05:49 CALCIUM 9.2 09/11/2018 13:47 MG 1.6 (L) 09/13/2018 06:28 MG 2.0 09/12/2018 05:49 MG 1.6 (L) 09/11/2018 13:47 Lab Results Component Value Date/Time WBC 10.16 11/13/2018 06:53 WBC 8.77 09/13/2018 06:28 WBC 10.15 09/12/2018 05:49 WBC 11.14 (H) 09/11/2018 13:47 HGB 14.2 11/13/2018 06:53 HGB 11.9 09/13/2018 06:28 HGB 11.0 (L) 09/12/2018 05:49 HGB 12.2 09/11/2018 13:47 HCT 42.4 11/13/2018 06:53 MCV 83.7 11/13/2018 06:53 MCV 89.1 09/13/2018 06:28 MCV 90.3 09/12/2018 05:49 MCV 90.0 09/11/2018 13:47 Lab Results Component Value Date GLUF 192 (H) 09/13/2018 GLUF 200 (H) 09/12/2018 EC11/13/2018 Reviewed showed sinus bradycardia with nonspecific ST-T wave changes, finding consistent wi th LVH. 09/05/2018 Ordered and reviewed by myself showed atypical flutter with rapid ventricular response. 06/06/2018 Showed atrial flutter with rapid ventricular response. Poor progression cannot rule out an anterior infarct of undetermined age. 05/03/2017 Ordered [...] female with the following medical problems 1. Paroxysmal atrial flutter/fibrillation. States post cardioversion. Rhythm control stra tegy on amiodarone, and anticoagulation. 2. Sinus bradycardia currently asymptomatic. 3. Hypertension blood pressures controlled. 4. Hypothyroidism. 5. Mild pulmonary hypertension. 6. Mild mitral regurgitation. 7. Chronic kidney disease stage II. Plan: Patient continues to be in sinus bradycardia. We will continue with current dose of amiodarone 200 mg p.o. daily. Had 2 cardioversions one in September and another in the beginning of symptom November 2018. Diltiazem and metoprolol were stopped secondary to bradycardia. 1. Continue with anticoagulation. Continue with rhythm control. 2. Continue to monitor and patient symptomology, consider Holter monitor evaluation. 3. Continue the blood pressure control. 4. Follow-up in 2-3 month or earlier if needed. *This report has been prepared using a voice recognition system. The report was reviewed fo r accuracy, however, sound-alike word errors, addition and/or deletions may occur. If there is any question about this report please contact me. Denise Pinto MD, MPH documented in this encounter Plan of Treatment +--------+---------+ + + + | Date | Type | Specialty | Care Team | Description | +--------+---------+ + + + | 02/20/ | Office | Cardiology | Denise Pinto, | | | 2018 | Visit | | MD Eduardo AGUILLON | | | | | | [place], [place] | | | | | | [phone] | | | | | | | | +--------+---------+ + + + documented as of this encounter Visit Diagnoses + + | Diagnosis | + + | Atypical atrial flutter (HCC) - Primary Atrial flutter | + + | Essential hypertension Unspecified essential hypertension | + + | Paroxysmal atrial fibrillation (HCC) Atrial fibrillation | + + documented in this encounter
--- OUTSIDE RECORDS SUMMARY | ~2019-01-21 | XMS | Encounter Summary ---
Demographics + + + | Address | [address] | | | [place] [address] | + + + | Home Phone | | + + + | Preferred Language | Unknown | + + + | Marital Status | | + + + | Catholic Affiliation | Unknown | + + + | Race | Unknown | + + + | Ethnic Group | Unknown | + + + Author + + + | Author | [facility] | | | and [place] | + + + | Organization | [facility] | | [...] Team Providers + +------+ + | Care Slate Mixer Name | Role | Phone | + +------+ + PCP | Unavailable | + +------+ + Encounter Details +--------+ + + + + | Date | Type | Department | Care Team | Description | +--------+ + + + + | 09/07/ | Hospital | [facility] | Rajani, | Bradycardia; Altered | | 2019 - | Encounter | [facility] | MD [address] | mental status, | | | | CARE FLOOR [address] | unspecified altered | | | | [address] | [place] [address] | mental status type; | | 2018 | | [place], [place] | [phone] | Symptomatic | | | | [address] | | bradycardia; Atrial | | | | [phone] | | fibrillation, | | | | | | unspecified type | | | | | | ([facility]) | +--------+ + + + + Social [...] Date of Service: 09/13/18 142 Status: Signed Range Mechanic: Constantino Maza MD (Physician) [facility] Service: Hospitalist Discharge Summary Date of Admission: [...] 2 doses and maintained on medical therapy. Motorsports Technician was consulted. HOSPITAL COURSE: The patient was [...] appropriate heart rate as per discussion with lead accountant. The patient's hospital stay was complicated with [...] after discharge and to follow-up with outpatient umbrella frame maker within 1 to 2 weeks after discharge. The patient and [id number] at [facility] were able to reiterate what [...] up: Denise Chakraborty MD [address] [place] [address] Schedule an appointment as soon as [...] 09/13/181455 Date of Service: 09/13/181454 Status: Signed Range Mechanic: Myla Thompson RN (Registered Nurse) No significant [...] 09/13/1835 Date of Service: 09/13/18724 Status: Signed Range Mechanic: Leland Ulloa MD (Physician) [facility] Service: Cardiology Progress Note Name of Accounts Receivable Associate: Leland Ulloa MD I have seen the [...] 09/12/181905 Date of Service: 09/12/181901 Status: Signed Range Mechanic: Paulette Lagos RN (Registered Nurse) HR remains [...] 09/12/181554 Date of Service: 09/12/181551 Status: Signed Range Mechanic: Constantino Maza MD (Physician) [facility] Service: Hospitalist Progress Note Hospital Day: LOS: [...] 2 doses and maintained on medical therapy. Motorsports Technician was co nsulted. Events Overnight: No acute [...] 09/12/18606 Date of Service: 09/12/18604 Status: Signed Range Mechanic: Aniceto Scott RN (Registered Nurse) Pt resting [...] 09/11/181853 Date of Service: 09/11/181852 Status: Signed Range Mechanic: Roni Dominguez RN (Registered Nurse) Chart check complete. Roni Dominguez RN blemo Constantino daley MD - 09/11/2018 4:37 PM PDT Progress Notes by Constantino Maza MD at 09/11/181636 Author: Constantino Maza MD Service: Hospitalist Author Type: Physician Filed: 09/11/18 164 Date of Service: 09/11/181636 Status: Signed Range Mechanic: Constantino Maza MD (Physician) [facility] Service: Hospitalist Progress Note Hospital Day: LOS: [...] 2 doses and maintained on medical therapy. Motorsports Technician was co nsulted. Events Overnight: No acute [...] Author: ANA Vaz Service: (none) Author Type: Public Bath Attendant Filed: 09/11/181127 Date of Service: 09/11/181125 Status: Signed Range Mechanic: ANA Vaz (Public Bath Attendant) Attended daily rounds. DCP: Home with spouse- [place] Per previous assessment, pt declined any discharge needs at this time. CM to follow. Laverne Romo MS onver blanquita Transaction, Provider Unknown - 09/10/2018 9:14 PM PDT Nurse Progress Note by Regina Manuel RN at 09/10/182113 Author: Regina Manuel RN Service: (none) Author Type: Registered Nurse Filed: 09/11/18 0534 Date of Service: 09/10/182113 Status: Signed Range Mechanic: Regina Manuel RN (Registered Nurse) Pt had uneventful shift. All VSS. No pain reported. Continues in NSR. All other needs met a t this time. Hourly rounding will continue. 24 hour and end of shift chart check complete. Regina Manuel RN onver blanquita Transaction, Provider Unknown - 09/10/2018 5:48 PM PDT Nurse Progress Note by Miesha Nichole RN at 09/10/18 0673 Author: Miesha Nichole RN Service: (none) Author Type: Registered Nurse Filed: 09/10/181747 Date of Service: 09/10/181747 Status: Signed Range Mechanic: Miesha Nichole RN (Registered Nurse) End of shift chart check completed. All medications given within required parameters. Vini Nichole RN onver blanquita Transaction, Provider Unknown - 09/10/2018 5:46 PM PDT Nurse Progress Note by Miesha Nichole RN at 09/10/181745 Author: Miesha Nichole RN Service: (none) Author Type: Registered Nurse Filed: 09/10/181747 Date of Service: 09/10/181745 Status: Signed Range Mechanic: Miesha Nichole RN (Registered Nurse) Patient sitting [...] Notes by Lai Sy MD at 09/10/18 9070 Author: Lai Sy MD Service: Hospitalist Author Type: Physician Filed: 09/10/18 4381 Date of Service: 09/10/181338 Status: Signed Range Mechanic: Lai Sy MD (Physician) [facility] Service: Hospitalist Progress Note Hospital Day: LOS: 3 days Post-Op Day: * No surgery found * SUBJECTIVE Patient Summary: Admission H&P Dr. Lester:"The patient is 87 yo female (Clark Shrai C 1930) with significant past medical history [...] 09/05, the patient was seen by her umbrella frame maker and there were concerns that she was having A. fib a flutter with RVR. Due to her previous history of isidoro re bradycardia, the patient has been refer to the transformation coach team for possible card ioversion. In the meantime, she was placed on metoprolol 100 mg and diltiazem 300 mg daily and to continue anticoagulation. Patient was brought to [facility] via [facility]. She was found bradycardic with a heart rate i n the 20s and hypotension. Patient received atropine 1 mg x 2 with moderate improvement of h er bradycardia. Here at [facility] she received glucagon with heart rate improving [...] 30s with 2.5-second pauses, according to her umbrella frame maker note unable to increase ra te controlling medications due to pauses, electrophysiology team had recommended a cardiover blanquita this has not been done yet. Chads 2 score 4, patient on anticoagulated. Currently pat ient on diltiazem 300 mg, metoprolol 100 mg. Patient presented to [place] emergency department with symptoms of weakness, according [...] 1003 Date of Service: 09/10/18910 Status: Signed Range Mechanic: Leland Ulloa MD (Physician) [facility] Service: Cardiology Progress Note Name of Accounts Receivable Associate: Leland Ulloa MD I have seen the [...] Note by Regina Manuel RN at 09/10/18 8292 Author: Regina Manuel RN Service: (none) Author Type: Registered Nurse Filed: 09/10/18 0451 Date of Service: 09/10/18448 Status: Signed Range Mechanic: Regina Manuel RN (Registered Nurse) Pt had uneventful shift. NPO @ [facility] for possible cardioversion. C/o of heartburn throughout [...] Date of Service: 09/09/18 1508 Status: Signed Range Mechanic: Erica Mckenzie RN (Registered Nurse) VSS. Hourly rounding uneventful. Chart check complete. Erica Mckenzie RN Lai Yarbrough MD - 09/09/2018 11:51 AM PDT Progress Notes by Lai Sy MD at 09/09/18 1151 Author: Lai Sy MD Service: Hospitalist Author Type: Physician Filed: 09/09/18 1231 Date of Service: 09/09/18 1151 Status: Signed Range Mechanic: Lai Sy MD (Physician) [facility] Service: Hospitalist Progress Note Hospital Day: LOS: [...] 09/05, the patient was seen by her umbrella frame maker and there were concerns that she was having A. fib a flutter with RVR. Due to her previous history of isidoro re bradycardia, the patient has been refer to the transformation coach team for possible card ioversion. In the meantime, she was placed on metoprolol 100 mg and diltiazem 300 mg daily and to continue anticoagulation. Patient was brought to [facility] via [facility]. She was found bradycardic with a heart rate i n the 20s and hypotension. Patient received atropine 1 mg x 2 with moderate improvement of h er bradycardia. Here at [facility] she received glucagon with heart rate improving [...] 30s with 2.5-second pauses, according to her umbrella frame maker note unable to increase ra te controlling medications due to pauses, electrophysiology team had recommended a cardiover blanquita this has not been done yet. Chads 2 score 4, patient on anticoagulated. Currently pat ient on diltiazem 300 mg, metoprolol 100 mg. Patient presented to [place] emergency department with symptoms of weakness, according [...] 1043 Date of Service: 09/09/18946 Status: Signed Range Mechanic: Leland Ulloa MD (Physician) [facility] Service: Cardiology Progress Note Name of Accounts Receivable Associate: Leland Ulloa MD I have seen the [...] 09/09/18523 Date of Service: 09/09/18129 Status: Signed Range Mechanic: Regina Manuel RN (Registered Nurse) Pt had [...] 09/08/181823 Date of Service: 09/08/181822 Status: Signed Range Mechanic: Erica Mckenzie RN (Registered Nurse) VSS. Hourly rounding uneventful. Chart check complete. Erica Mckenzie RN Lai Yarbrough MD - 09/08/2018 12:10 PM PDT Progress Notes by Lai Sy MD at 09/08/18 1210 Author: Lai Sy MD Service: Hospitalist Author Type: Physician Filed: 09/08/18 1221 Date of Service: 09/08/181209 Status: Signed Range Mechanic: Lai Sy MD (Physician) [facility] Service: Hospitalist Progress Note Hospital Day: LOS: [...] 09/05, the patient was seen by her umbrella frame maker and there were concerns that she was having A. fib a flutter with RVR. Due to her previous history of isidoro re bradycardia, the patient has been refer to the transformation coach team for possible card ioversion. In the meantime, she was placed on metoprolol 100 mg and diltiazem 300 mg daily and to continue anticoagulation. Patient was brought to [facility] via [facility]. She was found bradycardic with a heart rate i n the 20s and hypotension. Patient received atropine 1 mg x 2 with moderate improvement of h er bradycardia. Here at [facility] she received glucagon with heart rate improving [...] 30s with 2.5-second pauses, according to her umbrella frame maker note unable to increase ra te controlling medications due to pauses, electrophysiology team had recommended a cardiover blanquita this has not been done yet. Chads 2 score 4, patient on anticoagulated. Currently pat ient on diltiazem 300 mg, metoprolol 100 mg. Patient presented to [place] emergency department with symptoms of weakness, according [...] Author: ANA Vaz Service: (none) Author Type: Public Bath Attendant Filed: 09/08/18 1011 Date of Service: 09/08/18 1008 Status: Signed Range Mechanic: ANA Vaz (Public Bath Attendant) 09/08/18 1007 Discharge Planning Evaluation Admitting Diagnosis Symptomatic bradycardia Readmission No Living Arrangements Spouse/significant other Support Systems Spouse/significant other;Family members;Friends/neighbors Type of Residence Private residence House type House-1 story Steps to enter Other (comment) (0) Bathrooms on 1st Floor 1-Full Independent with ADL's Yes Independent with Mobility Yes Home Care Services No Caregiver after Discharge No Mental Status Oriented Power of Logging Engineer Yes Anticipated Discharge Plan Post Acute Care Needs None at this time Plan communicated to patient/family Yes Resources Financial concerns No Transportation issues [place] [facility] [place] Anticipated Disposition Facility Type Home Met with Shari Clark and discussed discharge planning. Pt is a 87 y.o., female who resides wi th her at: [address] [place] [address]. Patient's PCP is: Ruslan Alcala MD [address] [place] [address] [address] [place] [address] Patient's insurance: Medicare and Commercial Coverage concerns: None Medication coverage/concerns: None Rx Bedside Delivery: Pt prefers [facility] [place] [facility] resources utilized / needed: None at this [...] 1008 Date of Service: 09/08/18926 Status: Signed Range Mechanic: Leland Ulloa MD (Physician) [facility] Service: Cardiology Progress Note Name of Accounts Receivable Associate: Leland Ulloa MD I have seen the [...] 0525 Date of Service: 09/08/18509 Status: Signed Range Mechanic: Nuha Escobedo RN (Registered Nurse) No acute events overnight. VSS. HR 70-100's. Patient has been A&O 4 all night. Steady w hen up walking. Chart check complete. Nuha Escobedo RN onver blanquita Transaction, Provider Unknown - 09/07/2018 1:41 PM PDT Pharmacy Note by Roni Ramos RPH at 09/07/18 404 Author: Roni Ramos RPH Service: Pharmacy Author Type: Pharmacist Filed: 09/07/18 1343 Date of Service: 09/07/181340 Status: Signed Range Mechanic: Roni Ramos [facility] (Pharmacist) Clinical Pharmacy Note: Renal Monitoring Height: [...] Notes by Leland Ulloa MD at 09/07/18 1281 Author: Leland Ulloa MD Service: Cardiology Author Type: Physician Filed: 09/07/18 1447 Date of Service: 09/07/18 4796 Status: Signed Range Mechanic: Leland Ulloa MD (Physician) [facility] Service: Cardiology Progress Note Name of Accounts Receivable Associate: Leland Ulloa MD I have seen the [...] Notes by Lai Sy MD at 09/07/18 0900 Author: Lai Sy MD Service: Hospitalist Author Type: Physician Filed: 09/07/18 1001 Date of Service: 09/07/18931 Status: Addendum Range Mechanic: Lai Sy MD (Physician) Related Notes: Original Note by Lai Sy MD (Physician) filed at 09/07/18 0958 [facility] Service: Hospitalist Progress Note Hospital Day: LOS: [...] 09/05, the patient was seen by her umbrella frame maker and there were concerns that she was having A. fib a flutter with RVR. Due to her previous history of isidoro re bradycardia, the patient has been refer to the transformation coach team for possible card ioversion. In the meantime, she was placed on metoprolol 100 mg and diltiazem 300 mg daily and to continue anticoagulation. Patient was brought to [facility]. She was found bradycardic with a heart rate i n the 20s and hypotension. Patient received atropine 1 mg x 2 with moderate improvement of h er bradycardia. Here at [facility] she received glucagon with heart rate improving [...] 30s with 2.5-second pauses, according to her umbrella frame maker note unable to increase ra te controlling medications due to pauses, electrophysiology team had recommended a cardiover blanquita this has not been done yet. Chads 2 score 4, patient on anticoagulated. Currently pat ient on diltiazem 300 mg, metoprolol 100 mg. Patient presented to [place] emergency department yesterday evening with symptoms of [...] 105, BP stable -According to patient's primary umbrella frame maker, Dr. Chakraborty, patient would benefit cardiover blanquita, EP evaluation -Currently no transformation coach available -I have contacted umbrella frame maker, Dr. Ulloa who will evaluate the patient [...] 1824 Date of Service: 09/07/18906 Status: Signed Range Mechanic: Erica Mckenzie RN (Registered Nurse) Received report [...] 09/07/18614 Date of Service: 09/07/18614 Status: Signed Range Mechanic: Wilber Aponte RPH (Pharmacist) Clinical Pharmacy Note: [...] | | | | | [place] | | | | | | [address] | | | | | | | [...] | | | Fingerstick | performed at [facility] | | LAB | | | | [facility];[place] | | | | | | [address] | | | | + + + [...] | | | Basophils | performed at [facility];[address] | K/uL | LAB | | | | [address];[place] | | | | | | [address] | | | | + + + [...] EXTERNAL | | | | performed at [facility];[address] | | LAB | | | | [address];[place], [place] | | | | | | [address] | | | | + + + [...] | | | | | performed at [facility];[address] | | | | | | [address];[place], [place] | | | | | | [address] | | | | + + + [...] | | | Fingerstick | performed at [facility];[address] | | LAB | | | | [address];[place] | | | | | | [address] | | | | + + + [...] | | | Fingerstick | performed at [facility];[address] | | LAB | | | | [address];[place] | | | | | | [address] | | | | + + + [...] | | | Fingerstick | performed at [facility];[address] | | LAB | | | | [address];[place] | | | | | | [address] | | | | + + + [...] | | | Fingerstick | performed at [facility];[address] | | LAB | | | | [address];[place], [place] | | | | | | [address] | | | | + + + [...] | | | Fingerstick | performed at [facility];[address] | | LAB | | | | [address];[place], [place] | | | | | | [address] | | | | + + + [...] | | | Basophils | performed at [facility], [address] | K[address] | LAB | | | | [address], | | | | | | [place] [address] | | | | + + + [...] EXTERNAL | | | | performed at [facility], [address] | | LAB | | | | [address], | | | | | | [place] [address] | | | | + + + [...] | | | | | performed at [facility], [address] | | | | | | [facility], | | | | | | [place] [address] | | | | + + + [...] | | | Fingerstick | performed at [facility];[address] | | LAB | | | | [address];[place], [place] | | | | | | [address] | | | | + + + [...] | | | Fingerstick | performed at [facility];[address] | | LAB | | | | [address];[place] | | | | | | [address] | | | | + + + [...] | | | Basophils | performed at [facility];[address] | K/uL | LAB | | | | [address];[place] | | | | | | [address] | | | | + + + [...] EXTERNAL | | | | performed at [facility];[address] | | LAB | | | | [address];[place], [place] | | | | | | [address] | | | | + + + [...] | | | | | performed at [facility];[address] | | | | | | [address];[place], [place] | | | | | | [address] | | | | + + + [...] | | | Fingerstick | performed at [facility];[address] | | LAB | | | | [address];[place] | | | | | | [address] | | | | + + + [...] | | | Fingerstick | performed at [facility];[address] | | LAB | | | | [address];[place] | | | | | | [address] | | | | + + + [...] | | | Fingerstick | performed at [facility];[address] | | LAB | | | | [address];[place] | | | | | | [address] | | | | + + + [...] | | | Fingerstick | performed at [facility];[address] | | LAB | | | | [address];[place], [place] | | | | | | [address] | | | | + + + [...] | | | Fingerstick | performed at [facility];[address] | | LAB | | | | [address];[place], [place] | | | | | | [address] | | | | + + + [...] | | | Fingerstick | performed at [facility];[address] | | LAB | | | | [address];[place], [place] | | | | | | [address] | | | | + + + [...] | | | Fingerstick | performed at [facility];[address] | | LAB | | | | [address];[place] | | | | | | [address] | | | | + + + [...] | | | Fingerstick | performed at [facility];[address] | | LAB | | | | [address];[place] | | | | | | [address] | | | | + + + [...] | | | Fingerstick | performed at [facility];[address] | | LAB | | | | [address];[place] | | | | | | [address] | | | | + + + [...] | | | Fingerstick | performed at [facility];[address] | | LAB | | | | [address];[place] | | | | | | [address] | | | | + + + [...] | | | Fingerstick | performed at [facility];[address] | | LAB | | | | [address];[place], [place] | | | | | | [address] | | | | + + + [...] | | | Fingerstick | performed at [facility];[address] | | LAB | | | | [address];[place], [place] | | | | | | [address] | | | | + + + [...] | | | Fingerstick | performed at [facility];[address] | | LAB | | | | [address];[place], [place] | | | | | | [address] | | | | + + + [...] | | | Fingerstick | performed at [facility] | | LAB | | | | [address];[place] | | | | | | [address] | | | | + + + [...] EXTERNAL | | | | performed at [facility];[address] | | LAB | | | | [address];[place] | | | | | | [address] | | | | + + + [...] | | | | | performed at [facility], [address] | | | | | | [facility], | | | | | | [place] [address] | | | | + + + [...] | | | | | performed at [facility], [address] | | | | | | [address], | | | | | | [place] [address] | | | | + + + [...] | | | Fingerstick | performed at [facility];[address] | | LAB | | | | [address];[place] | | | | | | [address] | | | | + + + [...] | | | Fingerstick | performed at [facility];[address] | | LAB | | | | [address];[place], [place] | | | | | | [address] | | | | + + + [...] | | | Fingerstick | performed at [facility];[address] | | LAB | | | | [address];[place] | | | | | | [address] | | | | + + + [...] | | | Fingerstick | performed at [facility];[address] | | LAB | | | | [address];[place] | | | | | | [address] | | | | + + + [...] at | | | | | | [facility];[address] [facility] | | | | | | [address];[place] [address] | | | | + + + [...] EXTERNAL | | | | performed at [facility];[address] | | LAB | | | | [address];[place], [place] | | | | | | [address] | | | | + + + [...] | 1.28 TAPSE: 1.13 cm AR Dec [place]: 3.37 m/s2 AR Dec Time: | | [...] 3.00 m/s TV Dec | | | [place]: 6.14 m/s2 TV Dec Time: 133.65 ms TV E [place]: 0.82 m/s | | | Change Attendant: FABIÁN Authenticated by: Leland Ulloa MD Report [...] (A-L): 20.04 ml/m2LAAs | | A2C: 14.39 [id number] A-L A2C: 29.33 mlLALs A2C: 5.99 cmLAAs A4C: 17.03 [id number] | | A-L A4C: 41.75 mlLALs A4C: 5.89 cmAo Diam: 2.97 cmAV Cusp: 1.91 cmLA Diam: | | 3.81 cmLA/Ao: 1.28TAPSE: 1.13 cmAR Dec [place]: 3.37 m/s2AR Dec Time: 1300.67 msAR | | maxP.01 mmHgAR PHT: 377.19 msAR Vmax: 4.38 m/sARend P.78 mmHgARend | | Vmax: 3.59 m/Skylar maxP.07 mmHgAV meanP.89 mmHgAV Vmax: 1.58 m/[place]yl[place] Vmean: | | 1.14 m/[place] VTI: 28.30 cmAVA Vmax: 1.96 cm2AVA (VTI): 2.00 lz2EQJE Vmax: 0.00 | | cm2/m2AVAI (VTI): 0.00 cm2/m2LVCI Dopp: 3.33 l/qaet0MACP Dopp: 5.86 l/minHR: | | 103.03 BPMLVOT [...] mmHgTR Vmax: 3.00 m/sTV Dec | | [place]: 6.14 m/s2TV Dec Time: 133.65 msTV E [place]: 0.82 m/s Change Attendant: | | CMAuthenticated by: Leland Ulloa MDReport [...] | |TAPSE: 1.13 cm | |AR Dec [place]: 3.37 m/s2 | |AR Dec Time: 1300.67 [...] |TR Vmax: 3.00 m/s | |TV Dec [place]: 6.14 m/s2 | |TV Dec Time: 133.65 ms | |TV E [place]: 0.82 m/s | | | |Change Attendant: CM | |Authenticated by: Leland Ulloa MD [...] | | | | | performed at [facility];[address] | | | | | | [facility] [facility];[place], [place] | | | | | | [address] | | | | + + + [...] - 1.030 | EXTERNAL | | | [place] | | | LAB | | + [...] | | | Urine | performed at [facility] | | LAB | | | | [address];[place] | | | | | | [address] | | | | + + + [...] at | | | | | | [facility] | | | | | | [place]ionic[place] [address] | | | | + + + [...] EXTERNAL | | | | performed at [facility] | | LAB | | | | [address];[place] | | | | | | [address] | | | | + + + [...] | | | Basophils | performed at [facility], [address] | [address] | LAB | | | | [address], | | | | | | [place] [address] | | | | + + + [...] EXTERNAL | | | | performed at [facility] | | LAB | | | | [address];[place], [place] | | | | | | [address] | | | | + + + [...] | | | Direct | performed at [facility] | | LAB | | | | Art [address]berg;[place] | | | | | | [address] | | | | + + + [...] | | | | | | [facility] traceable | | | | | | equation.Testing | | | | | | performed at [facility] | | | | | | [facility];[place], [place] | | | | | | [address] | | | | + + + [...] [address] | | | | | | [address];[place] [address] | | | | + + + [...] EXTERNAL | | | | performed at [facility] | | LAB | | | | [address];[place], [place] | | | | | | [address] | | | | + + + [...]
--- OUTSIDE RECORDS SUMMARY | ~2019-01-21 | XMS | Encounter Summary ---
Demographics + + + | Address | [address] | | | [place] [address] | + + + | Home Phone | | + + + | Preferred Language | Unknown | + + + | Marital Status | | + + + | Zoroastrianism Affiliation | Unknown | + + + | Race | Unknown | + + + | Ethnic Group | Unknown | + + + Author + + + | Author | [facility] | | | and [place] | + + + | Organization | [facility] | | | [...] Team Providers + +------+ + | Care Head End Desizing Machine Operator Name | Role | Phone [...] | | | | Diagnoses | | Di, | | | | | Persistent | | Gideon | | | | | atrial | | MD Trent | | | | | fibrillation | | [address] | | | | | Procedures | | Sherrill, Juaquin F | | | | | [place] | | [place] | | | | | CARDIOVERSIO | | [place] [address] | | | | | N ELECTIVE | | Phone: | | | | | ARRHYTHMIA | | [phone] | | | | | EXTERNAL CV | | Fax: | | | | | EP | | [phone] | | | | | CARDIOVERSIO | | | | | | | N | | | +--------+--------+ + + + + Encounter Details +--------+ + + + + | Date | Type | Department | Care Team | Description | +--------+ + + + + | 11/13/ | Anesthesia | [facility] | Rivas Dumas, | | | 2019 | Event | [facility] | [address] | | | | | [address] [place] | [place] [address] | | | | | [place], [place] | [phone] | | | | | [address] | | | | | | [phone] | | | +--------+ + + + + Anesthesia Record + + + + + | Procedure Name | Responsible | Anesthesia Start | Anesthesia Stop Time | | | Anesthesiologist | Time | | + + + + + | CV EP CARDIOVERSION | Rivas Dumas MD | 11/13/18 0643 | 11/13/18 0753 | | (N/A ) | | | | + + + + + +----+---+ + + | Da | T | Event | Comment | | te | i | | | | | m | | | | | e | | | +----+---+ + + | 09 | 0 | An Start | Reassessment prior to anesthesia induction/procedure. | | /1 | 6 | | | | 0/ | 4 | | | | 20 | 3 | | | | 19 | | | | +----+---+ + + | | 0 | | | | | 7 | | | | | 1 | | | | | 6 | | | +----+---+ + + | | 0 | First | | | | 7 | Inc/Proc St | | | | 3 | | | | | 0 | | | +----+---+ + + | | 0 | an stop | | | | 7 | data | | | | 5 | | | | | 1 | | | +----+---+ + + | | 0 | An Stop | Patient handed off to recovery nurse. | | | 5 | | | | | 3 | | | +----+---+ + + +------+ | Meds | +------+ + +-------+ | Name | Total | + +-------+ | lidocaine 2% | 30 mg | + +-------+ | propofol | 65 mg | + +-------+ + + | Name | + + | N2O Flow Rate (L/Min) | + + | O2 Flow Rate (L/Min) | + + | Insp O2 | + + | Exp N2O | + + | Air Flow Rate (L/Min) | + + + + | No blood administrations on file. | + + +--------+ + + + | Type | Details | Placement | Removal | +--------+ + + + | Periph | 11/13/18; 0639; Left; Forearm; | 11/13/18 0639 by | 11/17/18 1432 by | | eral | [id number] catheter system; | Zahira Mar RN | Miesha Nichole RN | | IV | 20 gauge; (inserted by Jeffrey Mar | | | | | COLLETTE); no longer indicated, | | | | | catheter/device intact; (d/c iv | | | | | tip intact and 2x2 and coban | | | | | applied); 11/17/18; 1432 | | | +--------+ + + + documented in this encounter Social History + +-------+ +--------+------+ | Tobacco [...] [place] | | | | | | [place] | | | | | | [address] | | | | | | | | +--------+---------+ + + + documented as of this encounter Visit Diagnoses Not on filedocumented in this encounter Administered Medications + +--------+ +-------+------+------+ | Medication Order | MAR | Action | Dose | Rate | Site | | | Action | Date | | | | + +--------+ +-------+------+------+ | lidocaine (PF) 2% injection | Given | 11/14/19 | 30 mg | | | | Intravenous, PRN, Starting Tue | | 19 7:33 | | | | | 11/13/18 at 0733, Anesthesia | | AM PDT | | | | | Intra-op | | | | | | + +--------+ +-------+------+------+ +---+---+ | | | +---+---+ + +-------+ +-------+---+---+ | propofol (DIPRIVAN) injection | Given | 11/14/19 | 65 mg | | | | Intravenous, PRN, Starting Tue | | 19 7:33 | | | | | 11/13/18 at 0733, Anesthesia | | AM PDT | | | | | Intra-op | | | | | | + +-------+ +-------+---+---+ +---+---+ | | | +---+---+ documented in this encounter"
--- OUTSIDE RECORDS SUMMARY | ~2019-01-21 | XMS | Encounter Summary ---
Demographics + + + | Address | [address] | | | [place] [address] | + + + | Home Phone | | + + + | Preferred Language | Unknown | + + + | Marital Status | | + + + | Denominational Affiliation | Unknown | + + + | Race | Unknown | + + + | Ethnic Group | Unknown | + + + Author + + + | Author | [facility] | | | and [place] | + + + | Organization | [facility] | | | [...] Team Providers + +------+ + | Care Snaker Tractor Driver Name | Role | Phone | + +------+ + | Devante Mercer MD | PCP | | + +------+ + Encounter Details +--------+ + + + + | Date | Type | Department | Care Team | Description | +--------+ + + + + | 06/06/ | Orders Only | [facility] | Denise Chakraborty, | | | 2019 | | CARDIOLOGY [place] | [address] | | | | | [address] | [place], [place] | | | | | [place], [place] | [address] | | | | | [address] | | | | | | [phone] | | | +--------+ + + + [...] [place] | | | | | | [address] | | | | | | | | +--------+---------+ + + + documented as of this encounter Visit Diagnoses Not on filedocumented in this encounter"
--- OUTSIDE RECORDS SUMMARY | ~2019-01-21 | XMS | Encounter Summary ---
Demographics + + + | Address | [address] | | | [place] [address] | + + + | Home Phone | | + + + | Preferred Language | Unknown | + + + | Marital Status | Single | + + + | Congregation Affiliation | Unknown | + + + | Race | Unknown | + + + | Ethnic Group | Other Race | + + + Author + + + | Organization | Unknown | + + + | Address | Unknown | + + + | Phone | Unavailable | + + + Care Team Providers + +------+ + | Care Sap Plant Maintenance Consultant Name | Role | Phone | + +------+ + PCP | Unavailable | + +------+ + Encounter Details +--------+ + + + + | Date | Type | Department | Care Team | Description | +--------+ + + + + | 06/16/ | Results | | Other, Faculty | | | 2004 | Only | | [phone] | | +--------+ + + + + [...] + + | DERMATOPATHOLOGY(WET | Routin | 06/16/2004 | | Results for this | | [place]) | e | | | procedure are in the | | | | | | results section. | + +--------+ + + + documented in this encounter Results DERMATOPATHOLOGY(WET [place]) (06/16/2004) + + + + + + | Component | Value | Ref Range | Performed | Pathologist | | | | | At | Signature | + + + + + + | DERMATOPATH | SOURCE OF SPECIMEN:A | | | | | SAMMIEOGY(WET | FIRST TISSUE LEVEL IV | | | | | MNT) | [address] CLINICAL | | | | | | DESCRIPTION:Excision, | | | | | | right upper medial | | | | | | chest; crusted papule; | | | | | | BCC evaluate margins. | | | | | | GROSS DESCRIPTION:Rt. | | | | | | upper medial chest, | | | | | | ellipse, 2.4 x 1.1 x 0.5 | | | | | | cm, inked, eight | | | | | | segments,two cassettes. | | | | | | MICROSCOPIC | | | | | | DESCRIPTION:Adjacent to | | | | | | the biopsy scar there is | | | | | | residual basal cell | | | | | | carcinomacharacterized | | | | | | by rounded collections | | | | | | of epithelial cells with | | | | | | epidermalconnection. | | | | | | The basaloid nuclei | | | | | | are mildly pleomorphic | | | | | | and hyperchromatic,some | | | | | | are in mitosis, and some | | | | | | have cytoplasm | | | | | | containing melanin. 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 | | | | | | HERMES/jyi06/22/04Rendering | | | | | | Diagnostician: Aelxandre | | | | | | Zeny De Anda Jr., | | | | | | StaceyPathologistElectroni | | | | | | alexsandra Signed | | | | | | 06/22/2004Comment: | | | | | | SOURCE OF SPECIMEN: | | | | | | FIRST TISSUE LEVEL IV | | | | | | [address] | | | | + + + + + + + + | Specimen | + + | | + + + + + | Narrative | Performed At | + + + | Ordered by Emil Kim | | + + + + + + + + | Performing | Address | City/State/Zipcode | Phone Number | | Organization | | | | + + + + + | [facility] | [address] | [place] [address] | | | DERMATOPATHOLOGY | [address] | | | + + + + + documented in this encounter Visit Diagnoses Not on filedocumented in this encounter"
--- OUTSIDE RECORDS SUMMARY | ~2019-01-21 | XMS | Encounter Summary ---
Demographics + + + | Address | [address] | | | [place] [address] | + + + | Home Phone | | + + + | Preferred Language | Unknown | + + + | Marital Status | | + + + | Latter Day Affiliation | Unknown | + + + | Race | Unknown | + + + | Ethnic Group | Unknown | + + + Author + + + | Author | [facility] | | | and [place] | + + + | Organization | [facility] | | | [...] Team Providers + +------+ + | Care Java J2Ee Lead Name | Role | Phone | + +------+ + | Devante Mercer MD | PCP | | + +------+ + Encounter Details +--------+ + + + + | Date | Type | Department | Care Team | Description | +--------+ + + + + | 04/26/ | Orders Only | [facility] | Denise Chakraborty, | | | 2017 | | [facility]ICA [address] | [address] | | | | | [address] | [place], [place] | | | | | [place], [place] | [address] | | | | | [address] | | | | | | [phone] | | | +--------+ + + + [...] [place] | | | | | | [address] | | | | | | | | +--------+---------+ + + + documented as of this encounter Visit Diagnoses Not on filedocumented in this encounter"
--- OUTSIDE RECORDS SUMMARY | ~2019-01-21 | XMS | Encounter Summary ---
Demographics + + + | Address | [address] | | | [place] [address] | + + + | Home Phone | | + + + | Preferred Language | Unknown | + + + | Marital Status | Single | + + + | Holiness Affiliation | Unknown | + + + | Race | Unknown | + + + | Ethnic Group | Other Race | + + + Author + + + | Organization | Unknown | + + + | Address | Unknown | + + + | Phone | Unavailable | + + + Care Team Providers + +------+ + | Care Corporate Relations Director Name | Role | Phone | + +------+ + PCP | Unavailable | + +------+ + Encounter Details +--------+ + + + + | Date | Type | Department | Care Team | Description | +--------+ + + + + | 06/16/ | Results | | Other, Faculty | | | 2004 | Only | | [phone] | | +--------+ + + + + [...] | | | | | MNT) | [address] CLINICAL | | | | | | [...] | | | | | | Diagnostician: Alexnadre | | | | | | Zeny De Anda Jr., | | | | | | StaceyPathologistElectroni | | | | | | alexsandra Signed | | | | | | 06/22/2004Comment: | | | | | | SOURCE OF SPECIMEN: | | | | | | FIRST TISSUE LEVEL IV | | | | | | [address] | | | | + + + [...] + + + | [facility] | [address] | [place] [address] | | | DERMATOPATHOLOGY | [address] | | | + + + + + documented in this encounter Visit Diagnoses Not on filedocumented in this encounter"
--- OUTSIDE RECORDS SUMMARY | ~2019-01-21 | XMS | Clinical Summary ---
Demographics + + + | Address | [address] | | | [place] [address] | + + + | Home Phone | | + + + | Preferred Language | Unknown | + + + | Marital Status | | + + + | Hindu Affiliation | Unknown | + + + | Race | Unknown | + + + | Ethnic Group | Unknown | + + + Author + + + | Author | [facility] (Historical as of | | | 10-20-18) | + + + | Organization | [facility] (Historical as of | | | 10-20-18) | + + + | Address | Unknown | + + + | Phone | Unavailable | + + + Support + + + + + | Name | Relationship | Address | Phone | + + + + + | Fausto Mcgregor | ECON | Unknown | | | ([place]) | | | | + + + + + | Deborah Kenyon | ECON | Unknown | | + + + + + | Mat Arambula | ECON | Unknown | | + + + + + | Fausto Mcgregor ([place]) | ECON | [address] | | | | | [place] | | | | | [address] | | + + + + + | Deborah Kenyon | ECON | Unknown | | + + + + + | Mat Arambula | ECON | Unknown | | + + + + + Care Team Providers + +------+ + | Care Track Liner Operator Name | Role | Phone | [...] | Father | | | heart disease (ND), HTN,Hyperlipidemia | | | | (Age | [...] +------+-------+ + | MEDICARE | MEDICA | [id number] | | | [address] | | | RE | | | | [place] [address] | | | IP-OP | | | | | + +--------+ +------+-------+ + | COMMERCIAL OTHER | COMMER | [id number] | | | | | | CIAL [...] | sonal | | | [address] | [address] | + +--------+ +--------+ + +
--- OUTSIDE RECORDS SUMMARY | ~2019-01-21 | XMS | Encounter Summary ---
Demographics + + + | Address | [address] | | | [place] [address] | + + + | Home Phone | | + + + | Preferred Language | Unknown | + + + | Marital Status | | + + + | Samaritan Affiliation | Unknown | + + + [...] Team Providers + +------+ + | Care Inside Sales Account Representative Name | Role | Phone | + +------+ + | Devante Mercer MD | PCP | | + +------+ + Encounter Details +--------+ + + + + | Date | Type | Department | Care Team | Description | +--------+ + + + + | 06/06/ | Orders Only | [facility] | Denise Chakraborty, | | | 2019 | | CARDIOLOGY BRENDA | [address] | | | | | [address] | [place], [place] | | | | | [place], [place] | [address] | | | | | [address] | | | | | | [phone] | | | +--------+ + + + [...] [place] | | | | | | [address] | | | | | | | | +--------+---------+ + + + documented as of this encounter Visit Diagnoses Not on filedocumented in this encounter"
--- OUTSIDE RECORDS SUMMARY | ~2019-01-21 | XMS | Encounter Summary ---
Demographics + + + | Address | [address] | | | [place] [address] | + + + | Home Phone | | + + + | Preferred Language | Unknown | + + + | Marital Status | | + + + | Buddhism Affiliation | Unknown | + + + | Race | Unknown | + + + | Ethnic Group | Unknown | + + + Author + + + | Author | [facility] | | | and [place] | + + + | Organization | [facility] | | | and [...] Team Providers + +------+ + | Care Machinist Job Setter Name | Role | Phone | + [...] Provider Unknown | | | | | [place], [place] | [phone] | | | | | [address] | | | | | | [phone] | | | +--------+ + + + [...] [place] | | | | | | [address] | | | | | | | | +--------+---------+ + + + documented as of this encounter Visit Diagnoses Not on filedocumented in this encounter"
--- OUTSIDE RECORDS SUMMARY | ~2019-01-21 | XMS | Encounter Summary ---
Demographics + + + | Address | [address] | | | [place] [address] | + + + | Home Phone | | + + + | Preferred Language | Unknown | + + + | Marital Status | | + + + | Jew Affiliation | Unknown | + + + | Race | Unknown | + + + | Ethnic Group | Unknown | + + + Author + + + | Author | [facility] | | | and [place] | + + + | Organization | [facility] | | | [...] Team Providers + +------+ + | Care Seed Buyer Name | Role | Phone | + +------+ + | Devante Mercer MD | PCP | | + +------+ + Encounter Details +--------+ + + + + | Date | Type | Department | Care Team | Description | +--------+ + + + + | 05/01/ | Orders Only | [facility] | Denise Chakraborty, | | | 2018 | | VER[address]NICA GUTIERREZ | [address] | | | | | [address] | [place], [place] | | | | | [place], [place] | [address] | | | | | [address] | | | | | | [phone] | | | +--------+ + + + [...] [place] | | | | | | [address] | | | | | | | [...]
--- OUTSIDE RECORDS SUMMARY | ~2019-01-21 | XMS | Encounter Summary ---
Demographics + + + | Address | [address] | | | [place] [address] | + + + | Home Phone | | + + + | Preferred Language | Unknown | + + + | Marital Status | | + + + | Mandaeism Affiliation | Unknown | + + + | Race | Unknown | + + + | Ethnic Group | Unknown | + + + Author + + + | Author | [facility] | | | and [place] | + + + | Organization | [facility] | | | and [...] Team Providers + +------+ + | Care Waiter/Waitress Informal Name | Role | Phone | + +------+ + | Devante Mercer MD | PCP | | + +------+ + Reason for Visit + + + | Reason | Comments | + + + | Consultation | | + + + Evaluate & Treat (Routine) + +--------+ + + + + | Status | Reason | Specialty | Diagnoses / | Referred By | Referred To | | | | | Procedures | Contact | Contact | + +--------+ + + + + | Authorized | | | Diagnoses | Alsamara, | Di, | | | | | Essential | MD Denise | Gideon | | | | | hypertension | [address] | | | | | Chronic | [address] | [address] | | | | | atrial | [address] | [address], [place] | | | | | fibrillation | [place], [place] | [place], | | | | | Type 2 | [address] | [place] [address] | | | | | diabetes | Phone: | Phone: | | | | | mellitus | [phone] | [phone] | | | | | with stage 3 | Fax: | Fax: | | | | | chronic | [phone] | [phone] | | | | | kidney | | | | | | | disease, | | | | | | | without | | | | | | | long-term | | | | | | | current use | | | | | | | of insulin | | | | | | | (HCC) | | | | | | | Atypical | | | | | | | atrial | | | | | | | flutter | | | | | | | (HCC) | | | + +--------+ + + + + Encounter Details +--------+---------+ + + + | Date | Type | Department | Care Team | Description | +--------+---------+ + + + | 10/24/ | Office | [facility] | Gideon Sevilla | Persistent atrial | | 2019 | Visit | CARDIOLOGY [place] | [address] | fibrillation (HCC) | | | | [address] | [facility] | (Primary Dx) | | | | [place] | [place] | | | | | [address] | [address] | | | | | [phone] | | | +--------+---------+ + + + [...] | | | + +---+---+---+ + + + | Sex Assigned at [...] + + + | Blood Pressure | 118/82 | 10/24/2018 2:08 PM | | | | | PDT | | + + + + + | Pulse | 103 | 10/24/2018 2:08 PM | | | | | PDT | | + + + + + | Temperature | - | - | | + + + + + | Respiratory Rate | - | - | | + + + + + | Oxygen Saturation | 96% | 10/24/2018 2:08 PM | | | | | PDT | | + + + + + | Inhaled Oxygen | - | - | | | Concentration | | | | + + + + + | Weight | 65.3 kg (144 lb) | 10/24/2018 2:08 PM | | | | | PDT | | + + + + + | Height | 133.4 cm (4' 4.5") | 10/24/2018 2:08 PM | | | | | PDT | | + + + + + | Body Mass Index | 36.73 | 10/24/2018 2:08 PM | | | | | PDT | | + + + + + documented in this encounter Progress Notes Gideon Sevilla MD - 10/24/2018 2:00 PM PDTFormatting of this note might be dif ferent from the original. Subjective: Referring MD: Denise Chakraborty MD Chief Complaint Patient presents with Consultation HPI: This is a 88 y.o. female who presents today for an initial evaluation of atrial dysrhy thmias. Ms. Clark is a poor historian for medical details but [facility] fibrillation. She was previously on anticoagulation with warfarin. She was hospitalized for weakness and occasional shortness of breath with ac tivity in September 2018. A persistent atrial dysrhythmia was noted and she ultimately underwent cardioversion with gnosticist of sinus rhythm. She was then placed on amiodarone 400 mg t wice a day. The dose was then decreased more recently to 400 mg daily. She was previously on diltiazem CD and Toprol-XL which were stopped due to bradycardia as per records. She was then referred to electrophysiology to discuss management of her atrial dysrhythmia. Warfar in was changed to Pradaxa during her recent admission due to ongoing diarrhea. She denies a ny current chest pain, dizziness, lightheadedness, or recent syncope. She continues to note some weakness and occasional shortness of breath with activity. Past Medical History: Diagnosis Date Atrial fibrillation (HCC) AC - CVN 09/21 - amio Cancer (HCC) skin DMII (diabetes mellitus, type 2) (HCC) GERD (gastroesophageal reflux disease) Glaucoma Hyperlipidemia Macular degeneration Past Surgical History: Procedure Laterality Date ABDOMEN SURGERY COLONOSCOPY EYE SURGERY HERNIA REPAIR abdominal OTHER SURGICAL HISTORY UNLISTED PROCEDURE ARTHROSCOPY OTHER SURGICAL HISTORY CATARACT EXTRACTION OTHER SURGICAL HISTORY HARDWARE PRESENT - titanium in Rt. Hip REVISION TOTAL HIP ARTHROPLASTY THYROIDECTOMY, PARTIAL TONSILLECTOMY AND ADENOIDECTOMY TRANSTHORACIC ECHOCARDIOGRAM 09/2018 EF >70%, mild conc LVH, mild AI, mild MR, mild TR, RVSP 39, tr pericardial effusion Family History Problem Relation Age of Onset Stroke Mother Hypertension Mother Heart disease Father Hypertension Father High cholesterol Father Social History Socioeconomic History Marital status: Spouse name: Not on file Number of children: Not on file Years of education: Not on file Highest education level: Not on file Tobacco Use Smoking status: Never Smoker Smokeless tobacco: Never Used Social History Narrative Merged History Encounter Review of Systems: Ten system review negative unless noted in HPI. Current Outpatient Medications Medication Sig Dispense Refill amiodarone (PACERONE) 200 [...] Take 400 Units by mouth daily. No current facility-administered medications for this visit. Allergies Allergen Reactions Celecoxib Hives and Rash Warfarin Diarrhea Diarrhea Objective: Vitals: 10/24/18 1408 BP: 118/82 Pulse: 103 Weight: 65.3 kg (144 lb) Height: 1.334 m (4' 4.5") Body mass index is 36.73 kg/m. Exam: General: Patient is alert, pleasant, cooperative, and in no acute distress. Eyes: Sclerae anicteric. Ears: External ears normal. Nose: External nose normal. Oral exam: No oral lesions noted. Neck: Trachea midline. No thyromegaly. No elevation of jugular venous pressure. No valente tid bruits. Lungs: Clear to auscultation bilaterally. No wheezes, rales, or rhonchi. Heart: irregular rate and rhythm. Normal S1/S2. No murmurs, gallops, rubs. Abdomen: Bowel sounds present. Soft, nondistended. No masses or hepatosplenomegaly noted . No significant tenderness noted. Extremities: No clubbing or cyanosis noted. No lower extremity edema noted. Pulses: Intact bilateral radial and pedal pulses. Musculoskeletal: No obvious arthritic change noted of the knees. Skin: Warm and dry. Psychiatric: Patient is alert and oriented to person, place, and day. Mood and affect nor mal. Neurological: Patient is intact to light touch in the upper and lower extremities bilateral ly. Review of studies: ECG: Atypical atrial flutter/coarse atrial fibrillation with ventricular response rate of 1 02 bpm, left axis deviation, possible anterior infarct, no significant change from September 2018 Impression/Plan: Francisca was seen today for consultation. Diagnoses and all orders for this visit: Persistent atrial fibrillation (HCC) - ECG 12 lead - Case Request - CV/EP LAB: CV EP [facility] - Basic Metabolic Panel; Future - CBC no Differential; Future - amiodarone (PACERONE) 200 mg tablet; Take 1 tablet by mouth Daily. Other orders - Planned procedure/nursing instructions: cardioversion; Standing - Diet NPO; except ice chips and sips with meds; Effective Midnight; Standing - ECG 12 lead; Standing - sodium chloride 0.9% (NS) infusion 1) Atrial fibrillation - Ms. Clark has a history of atrial fibrillation which has been persi stent for several years as per records. The oldest EKG available for review was from 2015 a nd atrial fibrillation was noted at that time. A rate controlling strategy was adopted prev iously and she had done well until more recently. She has noted some occasional shortness o f breath with activity and fatigue. Her atrial dysrhythmia appears more organized at times with suggestion of an atypical atrial flutter versus coarse atrial fibrillation. She was ho spitalized more recently and cardioversion was performed with gnosticist of sinus rhythm. She believes she may have felt better immediately following the procedure. She was then sta rted on amiodarone 400 mg twice a day. The dose was decreased recently to 400 mg daily. Kuldeep brody was taken off of diltiazem CD and Toprol-XL due to bradycardia as per records. Her echoca rdiogram during her recent admission demonstrated normal left ventricular function. I have recommended another cardioversion as she is now been more fully loaded with amiodarone. She will decrease amiodarone to 200 mg daily and we will plan for cardioversion in the near fut ure. She is aware that if significant bradycardia is noted following gnosticist of sinus r hythm she could require pacemaker implantation for rate support. She will continue anticoag ulation with Pradaxa. I reviewed the risks and benefits of the procedure and she agrees to proceed in the near future. This encounter was dictated with voice recognition software and may contain inadvertent rec ognition errors. documented in this encounter Plan of Treatment +--------+---------+ + + + | Date | Type | Specialty | Care Team | Description | +--------+---------+ + + + | 02/20/ | Office | Cardiology | Denise Chakraborty, | | | 2018 | Visit | | MD [address] | | | | | | [place] | | | | | | [address] | | | | | | | | +--------+---------+ + + + + +------+--------+ + + | Name | Type | Priori | Associated Diagnoses | Order Schedule | | | | ty | | | + +------+--------+ + + | Basic Metabolic | Lab | Routin | Persistent atrial | 1 Occurrences | | Panel | | e | fibrillation (HCC) | starting 10/24/2018 | | | | | | until 10/25/2019 | + +------+--------+ + + | CBC no Differential | Lab | Routin | Persistent atrial | 1 Occurrences | | | | e | fibrillation (HCC) | starting 10/24/2018 | | | | | | until 10/25/2019 | + +------+--------+ + + documented as of this encounter [...] + + documented in this encounter Results ECG 12 lead (10/24/2018 2:08 PM PDT) + + + + + + | Component | Value | Ref Range | Performed | Pathologist | | | | | At | Signature | + + + + + + | VENTRICULAR | 102 | BPM | [facility] | | | RATE EKG | | | | | + + + + + + | ATRIAL RATE | 102 | BPM | [facility] | | + + + + + + | P-R | 162 | ms | [facility] | | | INTERVAL | | | | | + + + + + + | QRS | 106 | ms | [facility] | | | DURATION | | | | | + + + + + + | Q-T | 354 | ms | [facility] | | | INTERVAL | | | | | + + + + + + | Q-T | 461 | ms | [facility] | | | INTERVAL | | | | | | (CORRECTED) | | | | | + + + + + + | P WAVE AXIS | -23 | degrees | [facility] | | + + + + + + | QRS AXIS | -49 | degrees | [facility] | | + + + + + + | T AXIS | 163 | degrees | [facility] | | + + + + + + | INTERPRETAT | Sinus tachycardiaLeft | | [facility] | | | ION TEXT | axis deviationSeptal | | | | | | infarct (cited on or | | | | | | before | | | | | | 23-MAR-2015)Lateral | | | | | | infarct (cited on or | | | | | | before | | | | | | 08-SEP-2018)Inferior | | | | | | infarct (cited on or | | | | | | before 08-SEP-2018) | | | | | | Please refer to | | | | | | Providers office visit | | | | | | note for Providers | | | | | | Interpretation.Confirmed | | | | | | by [facility] [place] Read Only, | | | | | | [facility] ([id number]), | | | | | | manuscript editor Martell Kelly | | | | | | ([id number]) on 10/24/2018 | | | | | | 2:39:36 PM | | | | + + [...] + | Diagnosis | + + | Persistent atrial fibrillation - Primary Atrial fibrillation | + + documented in this encounter
--- OUTSIDE RECORDS SUMMARY | ~2019-01-21 | XMS | Encounter Summary ---
Demographics + + + | Address | [address] | | | [place] [address] | + + + | Home Phone | | + + + | Preferred Language | Unknown | + + + | Marital Status | | + + + | Baptist Affiliation | Unknown | + + + | Race | Unknown | + + + | Ethnic Group | Unknown | + + + Author + + + | Author | [facility] | | | and [place] | + + + | Organization | [facility] | | | [...] Team Providers + +------+ + | Care Alley Cleaner Name | Role | Phone | + +------+ + | Devante Mercer MD | PCP | | + +------+ + Encounter Details +--------+ + + + + | Date | Type | Department | Care Team | Description | +--------+ + + + + | 11/12/ | Telephone | [facility] | Gideon Sevilla | | | 2019 | | CENTER CV INTRA OP | [address] | | | | | [address] | [facility] | | | | | [place], [place] | [place], [place] | | | | | [address] | [address] | | | | | [phone] | | | +--------+ + + + [...] | | | | | [place] | | | | | | [address] | | | | | | | | +--------+---------+ + + + documented as of this encounter Visit Diagnoses Not on filedocumented in this encounter"
--- OUTSIDE RECORDS SUMMARY | ~2019-01-21 | XMS | Encounter Summary ---
Demographics + + + | Address | [address] | | | [place] [address] | + + + | Home Phone | | + + + | Preferred Language | Unknown | + + + | Marital Status | | + + + | Restorationist Affiliation | Unknown | + + + | Race | Unknown | + + + | Ethnic Group | Unknown | + + + Author + + + | Author | [facility] | | | and [place] | + + + | Organization | [facility] | | [...] Team Providers + +------+ + | Care Loan Representative Name | Role | Phone | + +------+ + | Devante eMrcer MD | PCP | | + +------+ + Reason for Visit + + + | Reason | Comments | + + + | Follow-up | wound check | + + + Encounter Details +--------+---------+ + + + | Date | Type | Department | Care Team | Description | +--------+---------+ + + + | 01/21/ | Office | [facility] | Cammie Fuentes | Visit for wound | | 2019 | Visit | CARDIOLOGY [place] | [address] | check (Primary Dx); | | | | [address] | [address] | Pacemaker; | | | | [address] | [place] [address] | Paroxysmal atrial | | | | [place] | [phone] | fibrillation (HCC) | | | | [address] | | | | | | [phone] | | | +--------+---------+ + + + [...] + + + documented in this encounter Patient Instructions Patient Instructions Cammie Fuentes, HEATHER - 01/21/2019 3:30 PM PST Your pacer site today looks good, but avoid any lotions, powder, or anything else near inci blanquita, and let dermabond glue peel off by itself, as helps to prevent infection Make sure taking all your medications, including metoprolol, as should have started that rogelio miller on Jan 14, to help control heart rate. Discharge Instructions for Pacemaker Implantation You have had a procedure to insert a pacemaker. Once inside your body, this small electroni c device helps keep your heart from beating too slowly. A pacemaker can't fix existing heart problems. But it can help you feel better and have more energy. As you recover, follow all of the instructions you are given, including those below. Activity Don't drive until your doctor says it's OK. Plan to have someone drive you home after th e procedure. Follow the instructions you are given about limiting your activity. If you are fitted with an arm sling, keep your arm in the sling for as long as your doct or tells you to. Most often, the sling will be removed the following day though you may be i nstructed to sleep with it on for a period to prevent damage to the pacemaker while it's hea ling. Don't raise your arm on the incision side above shoulder level or stretch your arm behin d your back for as long as directed by your doctor. This gives the leads a chance to secure themselves inside your heart. Ask your doctor when you can expect to return to work. Depending on the type of work you do, you may have restrictions until your roving hand clears you for unrestricted activity. You can still exercise. It's good for your body and your heart. Talk with your doctor ab out an exercise plan and the types of exercise to minimize the risk of damaging your pacemak er. Other precautions Follow your doctor's directions carefully for wound care. If there is a dressing, ask wh ether you should remove it or keep it on until your next visit. Never put any creams, lotion s, or products like peroxide on an incision unless your doctor tells you to. Do not get the incision wet until your doctor says it's OK. Every day, take your temperature and check your incision for signs of infection (redness , swelling, drainage, or warmth). Do this for 7 days or as advised by your doctor. Learn to take your own pulse. Keep a record of your results. Ask your doctor what pulse rate means you should call for medical attention. Before you receive any treatment, tell all healthcare providers (including your dentist) that you have a pacemaker. You will be given an ID card that contains information about your pacemaker. Always boles y this card with you. You can show this card if your pacemaker sets off a metal detector. Yo u should also show it to avoid screening with a hand-held security wand. Keep your cell phone away from your pacemaker. Don't carry the phone in your shirt pocke t overlying the pacemaker, even when it's turned off. Stay away from strong magnets. Examples are those used in MRIs or in hand-held security wands. Some pacemakers are now safe to use with MRI scanners. Ask your doctor if you have waters ch a pacemaker. Stay way from strong electrical soria. Examples are those made by radio transmitting to wers, "Virtual DBS" radios, and heavy-duty electrical equipment. Don't lean over the open kam of a running car. A running engine creates an electrical f ield. Most household and yard appliances will not cause any problems. If you use any large p ower tools, such as an industrial aws solution architect, talk with your doctor. Follow-up care See your roving hand in the next 7 to 10 days. Call and make an appointment as soon as you get home. Make regular follow-up appointments with your doctor. He or she will check the pacemaker to make sure it's working properly. Plan on having periodic checkups with your healthcare provider to evaluate the battery l eliana of your pacemaker. Depending on your device and how much your body uses the pacing funct ions of the pacemaker, you will need a new device generator implanted at some point, general ly about every 5 to 7 years. Some pacemakers have a built-in antenna that can transmit information such as trouble al erts over the internet to your doctor. Ask your doctor if your pacemaker is capable of remot e monitoring. Ryot616 Call 911 if you have: Chest pain Severe trouble breathing When to call your healthcare provider Call your healthcare provider right away if you have any of these: Dizziness Lack of energy Fainting spells Twitching chest muscles Rapid pulse or pounding heartbeat Shortness of breath Pain around your pacemaker Fever above 100.4 F (38 C) or higher, or as directed by your healthcare provider Other signs of infection such as redness, swelling, drainage, or warmth at the incision site Your incision is not healing or your incision separates or opens Hiccups that won't stop Redness, severe swelling, drainage, worsening pain, bleeding, or warmth at the incision site If your pacemaker generator feels loose or like it is wiggling in the pocket under the s kin documented in this encounter Plan of Treatment +--------+---------+ + + + | Date | Type | Specialty | Care Team | Description | +--------+---------+ + + + | 02/20/ | Office | Cardiology | Denise Chakraborty, | | | 2018 | Visit | | MD [address]ardo [address] | | | | | | [place] | | | | | | [address] | | | | | | | [...] | | + +--------+ + + + documented in this encounter Results ECG 12 lead (01/21/2019 4:05 PM PST) + + + + + [...] | | | | | by [facility] [facility] Only, | | | | | | [facility] Pal ([id number]), | | | | | | manuscript editor Martell Kelly | | | | | | ([id number]) on 01/21/2019 | | | | | [...] + | Diagnosis | + + | Visit for wound check - Primary Encounter for other specified aftercare | + + | Pacemaker Cardiac pacemaker in situ | + + | Paroxysmal atrial fibrillation (HCC) Atrial fibrillation | + + documented in this encounter
--- OUTSIDE RECORDS SUMMARY | ~2019-01-21 | XMS | Encounter Summary ---
Demographics + + + | Address | [address] | | | [place] [address] | + + + | Home Phone | | + + + | Preferred Language | Unknown | + + + | Marital Status | Single | + + + | Uatsdin Affiliation | Unknown | + + + | Race | Unknown | + + + | Ethnic Group | Other Race | + + + Author + + + | Author | [facility] | + + + | Organization | [facility] | + + + | Address | Unknown | + + + | Phone | Unavailable | + + + Care Team Providers + +------+ + | Care Cement Sprayer Helper Name | Role | Phone | + +------+ + PCP | Unavailable | + +------+ + Encounter Details +--------+ + + + + | Date | Type | Department | Care Team | Description | +--------+ + + + + | 07/01/ | Hospital | LAB SURGICAL | | | | 2016 | Encounter | PATHOLOGY [address] | | | | | [address] | | | | | | [place] | | | | | | [address] | | | +--------+ + + + [...] | + +--------+ + + + | PATHOLOGY CONSULT - | Routin | 07/02/2015 | | Results for this | | REVIEW OUTSIDE | e | | | procedure are in the | | SLIDES | | | | results section. | + +--------+ + + + documented in this encounter Results PATHOLOGY CONSULT - REVIEW OUTSIDE SLIDES (07/02/2015) + + + + + + | Component | Value | Ref Range | Performed | Pathologist | | | | | At | Signature | + + + + + + | PATHOLOGY | SOURCE OF SPECIMEN:A | | [facility] | | | CONSULT - | Left thyroid with | | DEPARTMENT | | | SLIDES | nodule, partial | | OF | | | | thyroidectomy | | PATHOLOGY | | | | Materials | | | | | | Received:Referring | | | | | | Institution: [facility] | | | | | | [facility], | | | | | | [place], [place] | | | | | | [id number] Accession | | | | | | Number: [id number] | | | | | | Collection Date: | | | | | | 07/02/2015Sublabeled | | | | | | H&E 1 to 5 | | | | | | 5 | | | | | | Final Pathologic | | | | | | Diagnosis:Left thyroid | | | | | | with nodule, lobectomy | | | | | | ([id number], 07.02.15): | | | | | | - 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 Nacho Fletcher, for | | | | | | sharing this case, | | | | | | Icompletely concur with | | | | | | your diagnostic | | | | | | findings. Case | | | | | | reviewed by:Carson Gutierrez | | | | | | MD [place]/Staff | | | | | | Pathologist | | | | | | Clinical History:84 yo | | | | | | female, h/o left thyroid | | | | | | with nodule. My | | | | | | [...] Diagnostician: | | | | | | Carson Edmondson | | | | | | MDyanaPathologistElectroni | | | | | | alexsandra Signed 07/17/2015 | | | | | | 4:08PM | | | | + + + + + + + + | Specimen | + + | | + + + + + + + | Performing | Address | City/State/Zipcode | Phone Number | | Organization | | | | + + + + + | [facility] | [address] | [place] [address] | | | PATHOLOGY | [address] | | | + + + + + documented in this encounter Visit Diagnoses Not on filedocumented in this encounter"
--- OUTSIDE RECORDS SUMMARY | ~2019-01-21 | XMS | Encounter Summary ---
Demographics + + + | Address | [address] | | | [place] [address] | + + + | Home Phone | | + + + | Preferred Language | Unknown | + + + | Marital Status | | + + + | Jehovah'S Witness Affiliation | Unknown | + + + | Race | Unknown | + + + | Ethnic Group | Unknown | + + + Author + + + | Author | [facility] | | | and [place] | + + + | Organization | [facility] | | | [...] Team Providers + +------+ + | Care Hr Operations Advisor Name | Role | Phone | + [...] Juaquin F | | | | | [place] | | [place] | | | | | CARDIOVERSIO | | [place] [address] | | | | | N ELECTIVE | | Phone: | | | | | ARRHYTHMIA | | [phone] | | | | | EXTERNAL CV | | Fax: | | | | | EP | | [phone] | | | | | CARDIOVERSIO | | | | | | | N | | | +--------+--------+ + + + + Encounter Details +--------+---------+ + + + | Date | Type | Department | Care Team | Description | +--------+---------+ + + + | 11/13/ | Surgery | [facility] | Gideon Sevilla | CV EP CARDIOVERSION | | 2019 | | [facility] | MD [address] | | | | | LAB [address] | [facility] | | | | | [place], [place] | [place], [place] | | | | | [address] | [address] | | | | | [phone] | | | +--------+---------+ + + + [...] + + + | Blood Pressure | 145/65 | 11/13/2018 10:30 AM | | | | | PDT | | + + + + + | Pulse | 51 | 11/13/2018 10:30 AM | | | | | PDT | | + + + + + | Temperature | 36.5 C (97.7 F) | 11/13/2018 8:45 AM | | | | | PDT | | + + + + + | Respiratory Rate | 24 | 11/13/2018 10:30 AM | | | | | PDT | | + + + + + | Oxygen Saturation | 97% | 11/13/2018 10:30 AM | | | | | PDT | | + + + + + | Inhaled Oxygen | - | - | | | Concentration | | | | + + + + + | Weight | 64.1 kg (141 lb 5 | 11/13/2018 6:22 AM | | | | oz) | PDT | | + + + + + | Height | 149.9 cm (4' 11") | 11/13/2018 6:22 AM | | | | | PDT | | + + + + + | Body Mass Index | 28.54 | 11/13/2018 6:22 AM | | | | | PDT | | + + + + + documented in this encounter Discharge Instructions Instructions Zahira Mar RN - 11/13/2018Formatting of this note might be different fr om the original. Recovery After Procedural Sedation (Adult) You have been given medicine by vein to make you sleep during your procedure. This may have included both a pain medicine and sleeping medicine. Most of the effects have worn off. But you may still have some drowsiness for the next 6 to 8 hours. Home care Follow these guidelines when you get home: For the next 8 hours, you should be watched by a responsible adult. This person should m paulina sure your condition is not getting worse. Don't drink any alcoholfor the next [address], operate dangerous machinery,make important business or personal decisions , or sign legal documentsduring the next 24 hours. Note: Your healthcare provider may tell you not to take any medicine by mouth for pain or s leep in the next 4 hours. These medicines may react with the medicines you were given in the hospital. This could cause a much stronger response than usual. Follow-up care Follow up with your healthcare provider if you are not alert and back to your usual level o f activity within 12 hours. When to seek medical advice Call your healthcare provider right away if any of these occur: Drowsiness gets worse Weakness or dizziness gets worse Repeated vomiting You can't be awakened Date Last Reviewed: 12/22/201519997534-1568 [employer]. [address] [place] [address]. All righ ts reserved. This information is not intended as a substitute for professional medical care. Always follow your healthcare professional's instructions. Electrical Cardioversion Cut away image of heart showing SA node, right atrium, AV node, and left atrium You had a cardioversion today. This is an electrical shock applied to the chest. The shock reset your heart rhythmback to normal. Your chest wall and chest muscles may feel sore fo r a few days. Some redness may appear on the skin on your chest where the cardioversion patc hes were applied. That will go away within a week. To get ready for this procedure, you may have been given medicine to help you relax and to reduce pain. Depending on the medicine used,it could take up to8 hours for the effect to wear off. Home care Follow these guidelines when caring for yourself at home: You should be watched by a responsible adult for the next 8 hours. This is in case your condition gets worse. Don t take any oral medicine for pain or sleep during the next 4 hours. These medicine s might react with the medicines you were given in the hospital. This can cause a much stron yajaira response than usual. Don t drinkanyalcohol for the next 24 hours. Don tdriveor operate dangerous machinery during the next 24 hours. Your healthcare provider will have prescribed medicines to stop the abnormal heart rhyth m from coming back. Take these medicines as directed. Expect to take blood thinners for at l east 4 weeks. This course of blood thinners should not be interrupted. Do not schedule other invasive procedures during this time. Interrupting this medicine could increase your risk f or a stroke after a cardioversion. You may use acetaminophen or ibuprofen to control pain, unless another pain medicine was prescribed. If you have chronic liver or kidney disease, talk with your provider before zach ing these medicines. Also talk with your provider if you ve had a stomach ulcer or gastroi ntestinal bleeding. Follow-up care Follow up with your healthcare provider, or as advised, if you aren t alert and back to y our usual level of activity within 12 hours. Call 911 Call 911 if you have: Pain in your chest, arm, shoulder, neck or upper back You have problems speaking or seeing Weakness in an arm or leg You are unable to move your arm or leg on one side of your body You have uncrontrolled bleeding from blood thinning medicines When to seek medical advice Call your healthcare provider right away if any of these occur: Weakness, dizziness, lightheadedness, or fainting Shortness of breath You feel like your heart is fluttering or beating fast, hard, or irregularly (palpitatio ns) More than minor skin discomfort or redness where the cardioversion pads were placed Date Last Reviewed: 03/06/201619998689-9207 [employer]. [address] [place] [address]. All righ ts reserved. This information is not intended as a substitute for professional medical care. Always follow your healthcare professional's instructions. documented in this encounter Medications at Time [...] documented as of this encounter Progress Notes Zahira Mar RN - 11/13/2018 10:48 AM PDTD/C instructions given to patient and family. instructed family to text MD for the patients correct dose of amiodarone that she has b een taking at home. Pt is to take 200mg daily but MD wants to confirm. MD came to see pt kim or to going home. MD checked post procedure EKG and current ekg strip. Also update on curre nt vs. Pt denies chest pain or shortness of breath. ahira Mar RN - 11/13/2018 8:[address] Adelina marie's phone and Gem Dr. Muñoz's PA answered the phone, informed them that pt had an episode that heart rate dropped down to 28 bpm and that pt felt short of breath, sats on ro om air 98% see vs flow sheet for vs. EKG confirms SB with heart rate at 57. MD to come allison k and see pt before going home. 8 :46 AM PDTdocumented in this encounter Plan of Treatment +--------+---------+ + + + | Date | Type | Specialty | Care Team | Description | +--------+---------+ + + + | 02/20/ | Office | Cardiology | Denise Chakraborty, | | | 2019 | Visit | | [address] | | | | | | [place], [place] | | | | | | [address] | | | | | | | [...] in this encounter Results ECG 12 lead (11/13/2018 8:40 AM PDT) + + + + + + | Component | Value | Ref Range | Performed | Pathologist | | | | | At | Signature | + + + + + + | VENTRICULAR | 57 | BPM | [facility] | | | RATE EKG | | | | | + + + + + + | ATRIAL RATE | 57 | BPM | [facility] | | + + + + + + | P-R | 200 | ms | [facility] | | | INTERVAL | | | | | + + + + + + | QRS | 108 | ms | [facility] | | | DURATION | | | | | + + + + + + | Q-T | 460 | ms | [facility] | | | INTERVAL | | | | | + + + + + + | Q-T | 447 | ms | [facility] | | | INTERVAL | | | | | | (CORRECTED) | | | | | + + + + + + | P WAVE AXIS | 62 | degrees | [facility] | | + + + + + + | QRS AXIS | -38 | degrees | [facility] | | + + + + + + | T AXIS | 16 | degrees | [facility] | | + + + + + + | INTERPRETAT | Sinus bradycardia 1st | | [facility] | | | ION TEXT | degree A-V | | | | | | blockNonspecific atrial | | | | | | abnormalityLeft anterior | | | | | | fascicular blockLeft | | | | | | ventricular hypertrophy | | | | | | with repolarization | | | | | | abnormalityCannot rule | | | | | | out Septal infarct , age | | | | | | undeterminedNonspecific | | | | | | ST and/or T wave | | | | | | abnormalitiesAbnormal | | | | | | ECGWhen compared with | | | | | | ECG of 13-NOV-2018 | | | | | | 06:40,1st degree A-V | | | | | | block less or no longer | | | | | | evident since previous | | | | | | ECGVent. rate has | | | | | | decreased BY 35 | | | | | | BPMConfirmed by WAN | | | | | | MASSIEL MALLOY ([id number]) on | | | | | | 11/13/2018 2:57:17 PM | | | | + + [...] + +---------+ + + CV EP PROCEDURE (11/13/2018 7:47 AM PDT) + + | Specimen | + + | | + + + + + | Narrative | Performed At | + + + | See dictated | | | OP Report for details. | | + + + Basic Metabolic Panel (11/13/2018 6:53 AM PDT) + + + + + + | Component | Value | Ref Range | Performed | Pathologist | | | | | At | Signature | + + + + + + | Na | 139 | 135 - 145 | [facility] | | | | | mmol/L | LABORATORY | | + + + + + + | K | 5.1 (H)Comment: SLT | 3.5 - 4.9 | [facility] | | | | HEMOLYSIS | mmol/L | LABORATORY | | + + + + + + | Cl | 107 | 99 - 109 mmol/L | [facility] | | | | | | LABORATORY | | + + + + + + | CO2 | 26 | 23 - 32 mmol/L | [facility] | | | | | | LABORATORY | | + + + + + + | Anion Gap | 11 | 5 - 20 mmol/L | [facility] | | | | | | LABORATORY | | + + + + + + | Glucose | 235 (H) | 65 - 99 mg/dL | [facility] | | | | | | LABORATORY | | + + + + + + | BUN | 18Comment: SLT HEMOLYSIS | 8 - 25 mg/dL | [facility] | | | | | | LABORATORY | | + + + + + + | Creatinine | 0.80 | 0.50 - 1.00 | [facility] | | | | | mg/dL | LABORATORY | | + + + + + + | BUN/Creatin | 23 | | [facility] | | | ine Ratio | | | LABORATORY | | + + + + + + | Calcium | 9.2 | 8.5 - 10.5 | [facility] | | | | | mg/dL | LABORATORY | | + + + + + + | Estimated | >60Comment: GFR <60: | >60 | [facility] | [...] | | | | | performed at [facility] [place] | | | | | [address];[place], [place] | | | | | | [address] | | | | + + + + + + + + | Specimen | + + | Blood | + + + + + + + | Performing | Address | City/State/Zipcode | Phone Number | | Organization | | | | + + + + + | [facility] | [address] | [place] [address] | [phone] | + + + + + CBC with Differential (11/13/2018 6:53 AM PDT) + + + + + + | Component | Value | Ref Range | Performed | Pathologist | | | | | At | Signature | + + + + + + | WBC | 10.16 | 3.80 - 11.00 | [facility] | | | | | K/uL | LABORATORY | | + + + + + + | RBC | 5.07 | 3.70 - 5.10 | [facility] | | | | | M/uL | LABORATORY | | + + + + + + | Hemoglobin | 14.2 | 11.3 - 15.5 | [facility] | | | | | g/dL | LABORATORY | | + + + + + + | Hematocrit | 42.4 | 34.0 - 46.0 % | [facility] | | | | | | LABORATORY | | + + + + + + | MCV | 83.7 | 80.0 - 100.0 fl | [facility] | | | | | | LABORATORY | | + + + + + + | MCH | 28.1 | 27.0 - 34.0 pg | [facility] | | | | | | LABORATORY | | + + + + + + | MCHC | 33.6 | 32.0 - 35.5 | [facility] | | | | | g/dL | LABORATORY | | + + + + + + | RDW-SD | 48.1 | 37 - 53 fl | [facility] | | | | | | LABORATORY | | + + + + + + | Platelet | 359 | 150 - 400 K/uL | [facility] | | | Count | | | LABORATORY | | + + + + + + | MPV | 8.0 | fl | [facility] | | | | | | LABORATORY | | + + + + + + | Diff Type | AUTOMATED | | [facility] | | | | | | LABORATORY | | + + + + + + | % | 65.37 | % | [facility] | | | Neutrophils | | | LABORATORY | | + + + + + + | % | 23.11 | % | [facility] | | | Lymphocytes | | | LABORATORY | | + + + + + + | Monocyte % | 9.33 | % | [facility] | | | | | | LABORATORY | | + + + + + + | Eosinophils | 1.05 | % | [facility] | | | % | | | LABORATORY | | + + + + + + | Basophils % | 1.14 | % | [facility] | | | | | | LABORATORY | | + + + + + + | Neutrophils | 6.64 | 1.90 - 7.40 | [facility] | | | , Absolute | | K/uL | LABORATORY | | + + + + + + | Absolute | 2.35 | 1.00 - 3.90 | [facility] | | | Lymphocytes | | K/uL | LABORATORY | | + + + + + + | Absolute | 0.95 (H) | 0.00 - 0.80 | [facility] | | | Monocytes | | K/uL | LABORATORY | | + + + + + + | Eosinophils | 0.11 | 0.00 - 0.50 | [facility] | | | , Absolute | | K/uL | LABORATORY | | + + + + + + | Basophils, | 0.12 (H)Comment: Testing | 0.00 - 0.10 | [facility] | | | Absolute | performed at [facility] [place] | [address] | LABORATORY | | | | [address];[place] | | | | | | [address] | | | | + + + + + + + + | Specimen | + + | Blood | + + + + + + + | Performing | Address | City/State/Zipcode | Phone Number | | Organization | | | | + + + + + | [facility] | [address] | [place] [address] | [phone] | + + + + + ECG 12 lead (11/13/2018 6:40 AM PDT) + + + + + + | Component | Value | Ref Range | Performed | Pathologist | | | | | At | Signature | + + + + + + | VENTRICULAR | 92 | BPM | [facility] | | | RATE EKG | | | | | + + + + + + | ATRIAL RATE | 92 | BPM | [facility] | | + + + + + + | P-R | 360 | ms | [facility] | | | INTERVAL | | | | | + + + + + + | QRS | 124 | ms | [facility] | | | DURATION | | | | | + + + + + + | Q-T | 386 | ms | [facility] | | | INTERVAL | | | | | + + + + + + | Q-T | 477 | ms | [facility] | | | INTERVAL | | | | | | (CORRECTED) | | | | | + + + + + + | QRS AXIS | -38 | degrees | [facility] | | + + + + + + | T AXIS | 52 | degrees | [facility] | | + + + + + + | INTERPRETAT | Sinus rhythmmarkedly | | [facility] | | | ION TEXT | prolonged pr interval/ | | | | | | 1st degree A-V | | | | | | blockNonspecific atrial | | | | | | abnormalityLeft anterior | | | | | | fascicular blockLeft | | | | | | ventricular hypertrophy | | | | | | with QRS widening and | | | | | | repolarization | | | | | | abnormalityCannot rule | | | | | | out Septal infarct , age | | | | | | undeterminedNonspecific | | | | | | ST and/or T wave | | | | | | abnormalitiesAbnormal | | | | | | ECGWhen compared with | | | | | | ECG of 24-OCT-2018 | | | | | | 14:08,1st degree A-V | | | | | | block new or more | | | | | | evident since previous | | | | | | ECGPossible incorrect | | | | | | electrode placement less | | | | | | or no longer evident | | | | | | since previous ECG | | | | | | Confirmed by WAN MALLOY, | | | | | | MASSIEL ([id number]) on 11/13/2018 | | | | | | 2:44:20 PM | | | | + + [...] | + +---------+ + + POC Glucose (11/13/2018 6:27 AM PDT) + + + + + + | Component | Value | Ref Range | Performed | Pathologist | | | | | At | Signature | + + + + + + | Glucose, | 212 (H)Comment: Testing | 65 - 99 mg/dL | [facility] | | | POC | performed at [facility] [place] | | LABORATORY | | | | [address];[place] | | | | | | [address] | | | | + + + + + + + + | Specimen | + + | | + + + + + + + | Performing | Address | City/State/Zipcode | Phone Number | | Organization | | | | + + + + + | [facility] | [address] | [place] [address] | [phone] | + + + + + documented in this encounter Visit Diagnoses + + | Diagnosis | + + | Persistent atrial fibrillation Atrial fibrillation | + + documented in this encounter Admitting Diagnoses + + | Diagnosis | + + | Persistent atrial fibrillation Atrial fibrillation | + + documented in this encounter Administered Medications + +--------+---------+------+------+------+ | Medication Order | MAR | Action | Dose | Rate | Site | | | Action | Date | | | | + +--------+---------+------+------+------+ + +---+ | albuterol 2.5 mg/3 mL nebulizer | | | solution 2.5 mg 2.5 mg, | | | Nebulization, ONCE PRN, Wheezing, | | | Starting 11/13/18 at 0747, | | | For 1 dose, Notify anesthesia if | | | patient is wheezing and does not | | | have a history of asthma or COPD | | | or current smoking., | | | Recovery/Phase I | | + +---+ | | | + +---+ | dextrose 50% injection 12.5-25 | | | g 12.5-25 g, Intravenous, EVERY | | | 15 MIN PRN, Low Blood Sugar, For | | | hypoglycemia. Give 12.5g (25ml) | | | IV if blood glucose 50-69 | | | mg/dL. Give 25g (50ml) IV if | | | blood glucose < 50, Starting Tue | | | 11/13/18 at 0747, Give over 2 min. | | | Repeat in 15 min if blood | | | glucose remains < 70 mg/dL. | | | Repeat blood glucose in 30 min | | | once blood glucose > 70., | | | Recovery/Phase I | | + +---+ | | | + +---+ | fentaNYL (PF) injection 25-50 | | | mcg 25-50 mcg, Intravenous, | | | EVERY 5 MIN PRN, Pain, Initial | | | postop urgent pain or escalating | | | pain, Starting 11/13/18 at | | | 0747, For 4 doses, (2 doses | | | maximum for opioid naive, 4 doses | | | maximum for opioid tolerant) | | | First dose must be lowest dose. | | | Use Pasero Sedation Scale. | | | [Opioid tolerant = One week or | | | longer, wchggo-rht-monmg use of | | | at least the following DAILY | | | dose: 60mg oral morphine, 60mg | | | oral hydrocodone, 30mg oral | | | oxycodone, 8mg oral | | | hydromorphone, fentanyl patch | | | 25mcg/hr, or equivalent dose of | | | another opioid], Recovery/Phase I | | + +---+ | | | + +---+ | ondansetron (ZOFRAN) injection | | | 4 mg 4 mg, Intravenous, ONCE | | | PRN, Nausea, Starting Mon11/13/18 | | | at 0747, For 1 dose, | | | Recovery/Phase I | | + +---+ | | | + +---+ | oxyCODONE (ROXICODONE) tablet 5 | | | mg 5 mg, Oral, ONCE PRN, Pain, | | | Starting Mon11/13/18 at 0747, For | | | 1 dose, If able to take oral | | | medication., Recovery/Phase I | | + +---+ | | | + +---+ + +---------+ +---+ + + | sodium chloride 0.9% (NS) | New Bag | 11/14/19 | | 10 mL/hr | Left Arm | | infusion at 10 mL/hr, | | 19 6:42 | | | | | Intravenous, TACO MAKER, Starting | | AM PDT | | | | | 11/13/18 at 0609, For 1 dose, | | | | | | | Pre-op | | | | | | + +---------+ +---+ + + +---+---+ | | | +---+---+ documented in this encounter
--- OUTSIDE RECORDS SUMMARY | ~2019-01-21 | XMS | Encounter Summary ---
Demographics + + + | Address | [address] | | | [place] [address] | + + + | Home Phone | | + + + | Preferred Language | Unknown | + + + | Marital Status | | + + + | Cheondoism Affiliation | Unknown | + + + | Race | Unknown | + + + | Ethnic Group | Unknown | + + + Author + + + | Author | [facility] | | | and [place] | + + + | Organization | [facility] | | | [...] Team Providers + +------+ + | Care Ore Sampler Name | Role | Phone | + [...] + + | 01/11/ | Hospital | [facility] | George Muro | Essential | | 2019 - | Encounter | [facility] | MD Petra Go | hypertension; | | | | CARE FLOOR [address] | [place] | Paroxysmal atrial | | 01/13/ | | [address] | [address] | fibrillation (HCC); | | 2019 | | [place], [place] | | Symptomatic | | | | [address] | Bettye Cheney, | bradycardia; Type 2 | | | | [phone] | DO [address] | diabetes mellitus | | | | | [place] [address] | with stage 2 chronic | | | | | [phone] | kidney disease, | | | | | | without long-term | | | | | | current use of | | | | | | insulin (HCC) | +--------+ + + + + Social [...] twice in the past and follows w yaquelin Lamb 2 diabetes mellitus, hypertension, chronic kidney disease stage II, and hypothyroidism w ho presented to emergency department of [facility] in [facility] today w ith severe dizziness and shortness of breath secondary to bradycardia. In emergency department she was found to be bradycardic with documented heart rate as low a s 34.Blood work-up was essentially normal. Shows sinus bradycardia with heart rate of 47/min. She was transferred to [facility] for Cardiology evaluation for possible pacemaker. [...] Information: Follow up: Denise Chakraborty MD [address] [facility] [address] In 2 weeks For follow up Discharge [...] following attachments cannot be sent through Care Everywhere.Pacemaker, Linda ng with (Indonesian)Pacemaker Implantation, Discharge Instructions for (Indonesian)documented in t his encounter Medications at Time [...] Abraham MD - 01/13/2019 8:15 AM PST [facility] Service: Cardiology Progress Note Name of Complex Manager: Denise Chakraborty MD I have seen the [...] this morning hence she was evaluated in [facility] where she was found roderick ycardic [...] mg, 650 mg, Oral, Q4H PRN, Leland lUloa MD, 650 mg at 01/12/19 1314 ascorbic acid (VITAMIN C) tablet 1,000 mg, 1,000 mg, Oral, Daily, Leland Ulloa MD, 1, 000 mg at 01/13/19 0805 atropine 1 mg/mL injection 1 mg, 1 mg, Intravenous, Once PRN, Leland Ulloa MD calcium-vitamin D 500 mg-200 units per tablet 1 tablet, 1 tablet, Oral, BID, Leland watkins MD, 1 tablet at 01/13/19 08 cholecalciferol (VITAMIN D-3) tablet 3,000 Units, 3,000 Units, Oral, Daily, Leland Connolly si, MD, 3,000 Units at 01/13/19 08 cyanocobalamin (VITAMIN B-12) tablet 1,000 mcg, 1,000 mcg, Oral, Every Other Day, Leland Ulloa MD, 1,000 mcg at 01/13/19 08 Hypoglycemia Management, , , Until Discontinued AND [...] Leland Ulloa MD, 6 Units at 01/13/19 08 insulin lispro (humaLOG) injection (vial) 0-6 Units, 0-6 Units, Subcutaneous, 4x Daily WC and HS, Leland Ulloa MD, 3 Units at 01/13/19 0806 isosorbide mononitrate (IMDUR) ER tablet 30 mg, 30 mg, Oral, Daily, Leland Ulloa MD, 30 mg at 01/13/19 0804 latanoprost (XALATAN) 0.005% ophthalmic solution 1 drop, 1 drop, Both Eyes, Nightly, F lyla Ulloa MD, 1 drop at 01/12/19 203 levothyroxine (SYNTHROID) tablet 125 mcg, 125 mcg, Oral, QAM AC, Leland Ulloa MD, 125 mcg at 01/13/19 0612 lidocaine [...] 09/13/2018 TSH 6.784 (H) 01/11/2019 EK01/10/2019 From [facility] showed sinus bradycardia with heart rate [...] Status: Full Code Denise Chakraborty MD 01/13/2019 athis, Lisha Jones RN - 01/12/2019 5:53 PM PSTPatient had pacemaker placed today, HR 50s-70s, BP 110s-170s, gi joel PRN hydralazine x1. Patient c/o pain x2, given PRN tylenol x1, given PRN oxy x1. Patie nt did become a little teary this evening, states she feels useless d/t arm in sling. Chart check complete. P Bettye Olvera, - 01/12/2019 8:10 AM PSTFormatting of this note might be different f rom the original. [facility] Adult Hospitalist Progress Note Hospital Day: 1 HPI SUMMARY: The patient is a 88 y.o. female with significant past medical history of paroxysmal atrial fibrillation and was cardioverted twice in the past and follows Dr. Chakraborty, type 2 diabete s mellitus, patient hypertension, chronic kidney disease stage II, hypothyroidism presented to emergency department of [facility] in [facility] today with severe di zziness and shortness of breath secondary to bradycardia. In emergency department she was found to be bradycardic with documented heart rate as low a s 34. Blood work-up is essentially normal. Shows sinus bradycardia with heart rate of 47/m in. She was transferred to [facility] for Cardiology evaluation for possible pacemaker. [...] cardioversion x2 - Dr. Chakraborty consulted - pramiguel on hold for pacemaker placement today Accelerated [...] M D - 01/12/2019 7:18 AM PST [facility]: Cardiology Progress Note Name of Complex Manager: Denise Chakraborty MD I have seen the [...] this morning hence she was evaluated in [facility] where she was found roderick ycardic [...] George Muro MD, 1 Units at 01/11/19 184 isosorbide mononitrate (IMDUR) ER tablet 30 mg, 30 mg, Oral, Daily, George pastrana MD latanoprost (XALATAN) 0.005% ophthalmic solution 1 drop, 1 drop, Both Eyes, Nightly, S ana lilia Muro MD, 1 drop at 01/11/191933 levothyroxine (SYNTHROID) tablet 125 mcg, 125 mcg, [...] Ayon i, MD, 10 mEq at 01/11/19 1933 sodium chloride (OCEAN) 0.65% nasal spray 2 spray, 2 spray, Each Nare, Q1H PRN, George Muro MD OBJECTIVE Vital Signs: BP 170/74 | Pulse 68 | Temp 36.4 C (97.6 F) (Oral) | Resp 18 | Wt 63.9 kg (140 lb 1 4 oz) | SpO2 96% | BMI 28.45 kg/m Intake/Output Summary (Last 24 hours) at 01/12/2019 0718 Last data filed at 01/12/2019 0508 Gross [...] 09/13/2018 TSH 6.784 (H) 01/11/2019 EK01/10/2019 From [facility] showed sinus bradycardia with heart rate [...] PAP 50mmHg. Last Stress Test: na 24hr HM, 03/26/2015: A fib, 66-132, averaging 85bpm, rare [...] Status: Full Code Denise Chakraborty MD 01/12/2019 vilait, Alecia Wilson RN - 01/11/2019 4:34 PM PST 01/11/19 [...] recheck 164/71, discussed with primary RN at [facility]. documented in this en counter Plan of Treatment +--------+---------+ + + + | Date | Type | Specialty | Care Team | Description | +--------+---------+ + + + | 02/20/ | Office | Cardiology | Denise Chakraborty, | | | 2018 | Visit | | MD Eduardo AGUILLON | | | | | | [place] | | | | | | [id number] | | | | | | | [...] Testing | 65 - 99 mg/dL | [facility] | | | POC | performed at [facility];[address] | | LABORATORY | | | | [address];[place], [place] | | | | | | [address] | | | | + + + + + + + + | Specimen | + + | | + + + + + + + | Performing | Address | City/State/Zipcode | Phone Number | | Organization | | | | + + + + + | [facility] | [address] | [place] [address] | [phone] | + + + + + POC Glucose (01/13/2019 7:53 AM PST) + + + + + + | Component | Value | Ref Range | Performed | Pathologist | | | | | At | Signature | + + + + + + | Glucose, | 290 (H)Comment: Testing | 65 - 99 mg/dL | [facility] | | | POC | performed at [facility];[address] | | LABORATORY | | | | [address];[place] | | | | | | [address] | | | | + + + + + + + + | Specimen | + + | | + + + + + + + | Performing | Address | City/State/Zipcode | Phone Number | | Organization | | | | + + + + + | [facility] | [address] | [place] [address] | [phone] | + + + + + XR [...] | | | POC | performed at [facility];[address] | | LABORATORY | | | | [address];[place] | | | | | | [address] | | | | + + + + + + + + | Specimen | + + | | + + + + + + + | Performing | Address | City/State/Zipcode | Phone Number | | Organization | | | | + + + + + | [facility] | [address] | [place] [address] | [phone] | + + + + + POC Glucose (01/12/2019 4:13 PM PST) + + + + + + | Component | Value | Ref Range | Performed | Pathologist | | | | | At | Signature | + + + + + + | Glucose, | 362 (H)Comment: Testing | 65 - 99 mg/dL | [facility] | | | POC | performed at [facility];[address] | | LABORATORY | | | | [address];[place] | | | | | | [address] | | | | + + + + + + + + | Specimen | + + | | + + + + + + + | Performing | Address | City/State/Zipcode | Phone Number | | Organization | | | | + + + + + | [facility] | [address] | [place] [address] | [phone] | + + + + + POC Glucose (01/12/2019 11:11 AM PST) + + + + + + | Component | Value | Ref Range | Performed | Pathologist | | | | | At | Signature | + + + + + + | Glucose, | 270 (H)Comment: Testing | 65 - 99 mg/dL | [facility] | | | POC | performed at [facility];[address] | | LABORATORY | | | | [address];[place], [place] | | | | | | [address] | | | | + + + + + + + + | Specimen | + + | | + + + + + + + | Performing | Address | City/State/Zipcode | Phone Number | | Organization | | | | + + + + + | [facility] | [address] | [place] [address] | [phone] | + + + + + CV EP PROCEDURE (01/12/2019 10:47 AM PST) + + | Specimen | + + | | + + + + + | Narrative | Performed At | + + + | | | | ConclusionSuccessful insertion of dual-chamber permanent pacemaker, | | | MRI compatible, Adviqo unit. Equipments:Generator: [employer] | | | Impact Engine DR ISJai1 (). Model #L331, serial #[id number] | | | lead: MediSapiens IS-1 Bi-positive fix RA/RV 45 | | | cm, model #7740, serial #[id number].RV lead: [employer] | | | [employer] IS-1 Bi-positive fix RA/RV 52 cm, model #7741, serial # [id number]. | | | Measurements:RA 3.3 mV, 0.9 V at 0.4 ms, impedance 652.RV 25 mV, 1.0 V | | | at 0.4 ms, impedance 955. Final settingsDDDR, 50/130. | | |RV lead: Adviqo, FiberLight MRI IS-1 Bi-positive fix RA/RV 52 cm, | | |model #7741, serial # [id number]. | | | | | |Measurements: | [...] Testing | 65 - 99 mg/dL | [facility] | | | POC | performed at [facility];[address] | | LABORATORY | | | | [facility];[place], [place] | | | | | | [address] | | | | + + + + + + + + | Specimen | + + | | + + + + + + + | Performing | Address | City/State/Zipcode | Phone Number | | Organization | | | | + + + + + | [facility] | [address] | [place] [address] | [phone] | + + + + + T4, Free (01/12/2019 5:39 AM PST) + + + + + + | Component | Value | Ref Range | Performed | Pathologist | | | | | At | Signature | + + + + + + | FT4 | 1.4Comment: Testing | 0.7 - 1.5 ng/dL | [facility] | | | | performed at [facility], [address] | | LABORATORY | | | | [facility], | | | | | | [place] [address] | | | | + + + + + + + + | Specimen | + + | Blood | + + + + + + + | Performing | Address | City/State/Zipcode | Phone Number | | Organization | | | | + + + + + | [facility] | [address] | [place] [address] | [phone] | + + + + + Magnesium (01/12/2019 5:39 AM PST) + + + + + + | Component | Value | Ref Range | Performed | Pathologist | | | | | At | Signature | + + + + + + | Magnesium | 1.7Comment: Testing | 1.7 - 2.4 mg/dL | [facility] | | | | performed at [facility], [address] | | LABORATORY | | | | [address], | | | | | | [place] [address] | | | | + + + + + + + + | Specimen | + + | Blood | + + + + + + + | Performing | Address | City/State/Zipcode | Phone Number | | Organization | | | | + + + + + | [facility] | [address] | [place] [address] | [phone] | + + + + + Basic [...] 59 (L)Comment: GFR <60: | >60 | [facility] | | | GFR | CHRONIC KIDNEY [...] | | | | | performed at [facility], [address] | | | | | | [facility], | | | | | | [place] [address] | | | | + + + + + + + + | Specimen | + + | Blood | + + + + + + + | Performing | Address | City/State/Zipcode | Phone Number | | Organization | | | | + + + + + | [facility] | [address] | [place] [address] | [phone] | + + + + + CBC [...] 0.08Comment: Testing | 0.00 - 0.10 | [facility] | | | Absolute | performed at [facility], [address] | K/uL | LABORATORY | | | | [address], | | | | | | [place] [address] | | | | + + + + + + + + | Specimen | + + | Blood | + + + + + + + | Performing | Address | City/State/Zipcode | Phone Number | | Organization | | | | + + + + + | [facility] | [address] | [place] [address] | [phone] | + + + + + POC Glucose (01/11/2019 9:04 PM PST) + + + + + + | Component | Value | Ref Range | Performed | Pathologist | | | | | At | Signature | + + + + + + | Glucose, | 200 (H)Comment: Testing | 65 - 99 mg/dL | [facility] | | | POC | performed at [facility];[address] | | LABORATORY | | | | [address];[place] | | | | | | [address] | | | | + + + + + + + + | Specimen | + + | | + + + + + + + | Performing | Address | City/State/Zipcode | Phone Number | | Organization | | | | + + + + + | [facility] | [address] | [place] [address] | [phone] | + + + + + POC Glucose (01/11/2019 7:07 PM PST) + + + + + + | Component | Value | Ref Range | Performed | Pathologist | | | | | At | Signature | + + + + + + | Glucose, | 175 (H)Comment: Testing | 65 - 99 mg/dL | [facility] | | | POC | performed at [facility];[address] | | LABORATORY | | | | [address];[place] | | | | | | [address] | | | | + + + + + + + + | Specimen | + + | | + + + + + + + | Performing | Address | City/State/Zipcode | Phone Number | | Organization | | | | + + + + + | [facility] | [address] | [place] [address] | [phone] | + + + + + POC [...] | | | POC | performed at [facility];[address] | | LABORATORY | | | | [address];[place], [place] | | | | | | [address] | | | | + + + + + + + + | Specimen | + + | | + + + + + + + | Performing | Address | City/State/Zipcode | Phone Number | | Organization | | | | + + + + + | [facility] | [address] | [place] [address] | [phone] | + + + + + XR [...] Testing | 1.7 - 2.4 mg/dL | [facility] | | | | performed at [facility];[address] | | LABORATORY | | | | [address];[place], [place] | | | | | | [address] | | | | + + + + + + + + | Specimen | + + | Blood | + + + + + + + | Performing | Address | City/State/Zipcode | Phone Number | | Organization | | | | + + + + + | [facility] | [address] | [place] [address] | [phone] | + + + + + TSH (01/11/2019 2:35 PM PST) + + + + + + | Component | Value | Ref Range | Performed | Pathologist | | | | | At | Signature | + + + + + + | TSH | 6.784 (H)Comment: | 0.450 - 5.100 | [facility] | | | | Testing performed at | uIU/mL | LABORATORY | | | | [facility];[address] | | | | | | [address];[place] [address] | | | | + + + + + + + + | Specimen | + + | Blood | + + + + + + + | Performing | Address | City/State/Zipcode | Phone Number | | Organization | | | | + + + + + | [facility] | [address] | [place] [address] | [phone] | + + + + + Hemoglobin A1C (01/11/2019 2:35 PM PST) + + + + + + | Component | Value | Ref Range | Performed | Pathologist | | | | | At | Signature | + + + + + + | Hemoglobin | 9.8 (H)Comment: HbA1c | 4.0 - 6.0 % | [facility] | | | A1c | method [...] | 235 (H)Comment: | <154 mg/dL | [facility] | | | Average | Estimated Average | | LABORATORY | | | Glucose | Glucose calculated from | | | | | | hemoglobin A1c by use of | | | | | | the ADArecommended | | | | | | formula.Testing | | | | | | performed at [facility], [address] | | | | | | [facility], | | | | | | [place] [address] | | | | + + + + + + + + | Specimen | + + | Blood | + + + + + + + | Performing | Address | City/State/Zipcode | Phone Number | | Organization | | | | + + + + + | [facility] | [address] | [place] [address] | [phone] | + + + + + documented in this encounter Visit Diagnoses + + | Diagnosis | + + | Symptomatic bradycardia - Primary Other specified cardiac dysrhythmias | + + | Essential hypertension Unspecified essential hypertension | + + | Paroxysmal atrial fibrillation (HCC) Atrial fibrillation | + + | Type 2 diabetes mellitus with stage 2 chronic kidney disease, without long-term | | current use of insulin (HCC) | + + | DMII (diabetes mellitus, type 2) Type II or unspecified type diabetes mellitus | | without mention of complication, not stated as uncontrolled | + + documented in this encounter [...] +---+---+ +---+---+ | | | +---+---+ + +---------+ +-----+-------+---+ | ceFAZolin in dextrose (ANCEF) | New Bag | 01/13/20 | 2 g | 200 | | | IVPB 2 g 2 g, Intravenous, | | 19 9:00 | | mL/hr | | | Administer over 30 Minutes, Prior | | AM PST | | | | | to Incision, Starting Sat | | | | | | | 01/12/19 at 0845, For 1 dose, Keep | | | | | | | in refrigerator., Pre-op, | | | | | | | Indications: Surgical Prophylaxis | | | | | | + +---------+ +-----+-------+---+ +---+---+ | | | +---+---+ + +-------+ [...] | | | DAILY, First dose on Mon01/13/19 | | AM PST | | | | | at 1130, Do not break, chew, or | | | | | | | open capsules., | | | | | | + +-------+ +--------+---+---+ + +---+ | | | + +---+ | dextrose 10% (D10W) infusion | | | at 50 mL/hr, Intravenous, | | | CONTINUOUS PRN, hypoglycemia, | | | Starting 01/11/19 at 1433, | | | Start infusion [...] | | | Low Blood Sugar, Starting Fri | | | 01/11/19 at 1433, For blood | | | glucose 50-69 mg/dl - give 12.5 g | | | For blood glucose less than 50 | | | mg/dl - give 25 g, | | + +---+ | | | + +---+ + +-------+ + +---+---+ | Fish Oil [...] +---+---+ + +-------+ +-------+---+---+ | hydrALAZINE (APRESOLINE) tablet | Given | 01/13/20 | 25 mg | | | | 25 mg 25 mg, Oral, 2 TIMES | | 19 8:35 | | | | | DAILY, First dose on Mon01/11/19 | | PM PST | | | | | at 2100 | | | | | | + +-------+ +-------+---+---+ +-------+ +-------+---+---+ | Given | 01/13/20 | 25 mg | | | | | 19 8:34 | | | | | | AM PST | | | | +-------+ +-------+---+---+ | Given | 01/12/20 | 25 mg | | | | | 19 7:33 | | | | | | PM [...] | | | MORNING, First dose on Sat | | | | | | | [...] | | | | AC, NPO, Daytime 3421-3188 Use | | | | | | | NIGHT DOSE for doses scheduled: | | | | | | | HS, 3AM, Nighttime 9620-0502 | | | | | | | [...] | | + +---+ + +---------+ +---+ +---+ | sodium chloride 0.9% (NS) | New Bag | 01/12/20 | | 75 mL/hr | | | infusion at 75 mL/hr, | | 19 2:54 | | | | | Intravenous, CONTINUOUS, Starting | | PM PST | | | | | 01/11/19 at 1500 | | | | | | + +---------+ +---+ +---+ +---+---+ | | | +---+---+ documented in this encounter
--- OUTSIDE RECORDS SUMMARY | ~2019-01-21 | XMS | Encounter Summary ---
Demographics + + + | Address | [address] | | | [place] [address] | + + + | Home Phone | | + + + | Preferred Language | Unknown | + + + | Marital Status | | + + + | Oriental Orthodox Affiliation | Unknown | + + + | Race | Unknown | + + + | Ethnic Group | Unknown | + + + Author + + + | Author | [facility] | | | and [place] | + + + | Organization | [facility] | | | [...] Team Providers + +------+ + | Care Food Services Coordinator Name | Role | Phone | + [...] + + | 01/14/ | Telephone | [facility] | Josephine Muhammad | Advice Only | | 2019 | | [address] | [place] | | | | | [place] | | | | | | [address] | | | | | | [phone] | | | +--------+ + + + [...] | | | | | [place] | | | | | | [address] | | | | | | | | +--------+---------+ + + + documented as of this encounter Visit Diagnoses Not on filedocumented in this encounter"
--- OUTSIDE RECORDS SUMMARY | ~2019-01-21 | XMS | Encounter Summary ---
Demographics + + + | Address | [address] | | | [place] [address] | + + + | Home Phone | | + + + | Preferred Language | Unknown | + + + | Marital Status | Single | + + + | Baptist Affiliation | Unknown | + + + | Race | Unknown | + + + | Ethnic Group | Other Race | + + + Author + + + | Author | [facility] | + + + | Organization | [facility] | + + + | Address | Unknown | + + + | Phone | Unavailable | + + + Care Team Providers + +------+ + | Care Atmospheric Physicist Name | Role | Phone | + [...] [address] | | | | | | [place] | | | | | | [address] | | | +--------+ + + + [...] [place] | | | | | | [id number] Accession | | | | | | Number: [id number] | | | | | | Collection Date: | | | | | | 07/02/2015Sublabeled | | | | | | H&E 1 to 5 | | | | | | 5 | | | | | | Final Pathologic | | | | | | Diagnosis:Left thyroid | | | | | | with nodule, lobectomy | | | | | | ([id number], 07.02.15): | | | | | | [...] | + + + + + | [facility][1] | [address] | [place] [address] | | | PATHOLOGY | [address] | | | + + + + + documented in this encounter Visit Diagnoses Not on filedocumented in this encounter"
--- OUTSIDE RECORDS SUMMARY | ~2019-01-21 | XMS | Encounter Summary ---
Demographics + + + | Address | [address] | | | [place] [address] | + + + | Home Phone | | + + + | Preferred Language | Unknown | + + + | Marital Status | | + + + | Episcopal Affiliation | Unknown | + + + | Race | Unknown | + + + | Ethnic Group | Unknown | + + + Author + + + | Author | [facility] | | | and [place] | + + + | Organization | [facility] | | | [...] Team Providers + +------+ + | Care Tile Erector Name | Role | Phone | + +------+ + | Devante Mercer MD | PCP | | + +------+ + Encounter Details +--------+ + + + + | Date | Type | Department | Care Team | Description | +--------+ + + + + | 11/12/ | Telephone | [facility] | [facility] | | | 2019 | | CENTER CV INTRA OP | [address] | | | | | [address] | [facility] | | | | | [place], [place] | [place], [place] | | | | | [address] | [address] | | | | | [phone] | | | +--------+ + + + [...] | | | | | [place] | | | | | | [address] | | | | | | | | +--------+---------+ + + + documented as of this encounter Visit Diagnoses Not on filedocumented in this encounter"
--- OUTSIDE RECORDS SUMMARY | ~2019-01-21 | XMS | Encounter Summary ---
Demographics + + + | Address | [address] | | | [place] [address] | + + + | Home Phone | | + + + | Preferred Language | Unknown | + + + | Marital Status | | + + + | Rastafari Affiliation | Unknown | + + + [...] Team Providers + +------+ + | Care Billboard Poster Helper Name | Role | Phone | + +------+ + | Devante Mercer MD | PCP | | + +------+ + Encounter Details +--------+ + + + + | Date | Type | Department | Care Team | Description | +--------+ + + + + | 05/03/ | Orders Only | [facility] | Conversion | | | 2018 | | CONVERSION DEP [address] | Transaction, | | | | | [address] | Provider Unknown | | | | | [place], [place] | [phone] | | | | | [address] | | | | | | [phone] | | | +--------+ + + + [...] [place] | | | | | | [address] | | | | | | | | +--------+---------+ + + + documented as of this encounter Visit Diagnoses Not on filedocumented in this encounter"
--- OUTSIDE RECORDS SUMMARY | ~2019-01-21 | XMS | Encounter Summary ---
Demographics + + + | Address | [address] | | | [place] [address] | + + + | Home Phone | | + + + | Preferred Language | Unknown | + + + | Marital Status | Single | + + + | Jainism Affiliation [...] Team Providers + +------+ + | Care Clinic Coordinator Name | Role | Phone | + +------+ + PCP | Unavailable | + +------+ + Encounter Details +--------+ + + + + | Date | Type | Department | Care Team | Description | +--------+ + + + + | 03/19/ | Results | NON-[facility] | [facility], | | | 2009 | Only | Department | [facility] | | | | | | Clinic Dermatology | | | | | | [address] | | | | | | [place], [place] | | | | | | [address] | | | | | | | [...] + + | DERMATOPATHOLOGY(WET | Routin | 03/19/2009 | | Results for this | | [facility]) | e | | | procedure are in the | | | | | | results section. | + +--------+ + + + documented in this encounter Results DERMATOPATHOLOGY(WET [facility]) (03/19/2009) + + + + + + | Component | Value | Ref Range | Performed | Pathologist | | | | | At | Signature | + + + + + + | DERMATOPATH | SOURCE OF SPECIMEN:A | | [facility] | | | OLOGY(WET | FIRST TISSUE LEVEL IV | | DERMATOPATH | | | MNT) | [address] CLINICAL | | OLOGY | | | | DESCRIPTION:Shave, rt. | | | | | | lower back; ovoid foy | | | | | | and brown macule; 4 x 8 | | | | | | mm; R/O nevus | | | | | | vsmelanoma. GROSS | | | | | | DESCRIPTION:Rt. lower | | | | | | back. The specimen is | | | | | | received in formalin, | | | | | | labeled rt. lowerback, | | | | | | with the patient's name | | | | | | and consists of a pale | | | | | | foy and brown | | | | | | shavebiopsy measuring | | | | | | 1.4 x 1.1 cm. The | | | | | | specimen is sectioned | | | | | | into fivesegments and | | | | | | entirely submitted in | | | | | | one cassette. | | | | | | MICROSCOPIC | | | | | | DESCRIPTION:There is a | | | | | | small to moderately | | | | | | broad, symmetrical, and | | | | | | well | | | | | | circumscribedmelanocytic | | | | | | neoplasm characterized | | | | | | by small, round to oval | | | | | | nests and | | | | | | singlemelanocytes along | | | | | | the basal layer of thin, | | | | | | hyperplastic, and | | | | | | hyperpigmentedrete | | | | | | ridges. The | | | | | | melanocytic nuclei are | | | | | | small and uniform, and | | | | | | most of thecells have | | | | | | cytoplasm containing | | | | | | melanin, also extending | | | | | | throughout theepidermis | | | | | | including the stratum | | | | | | corneum and in | | | | | | melanophages in the | | | | | | fibroticpapillary | | | | | | dermis. 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 | | | | | | NOTE: The nevus | | | | | | appears to be completely | | | | | | excised in these | | | | | | sections. | | | | | | KPW:db03/24/09 My | | | | | | [...] Anda | | | | | | StaceyPathologistNaderi | | | | | | alexsandra Signed 03/26/2009 | | | | + + + + + + + + | Specimen | + + | Other | + + + + + + + | Performing | Address | City/State/Zipcode | Phone Number | | Organization | | | | + + + + + | [facility] | [address], [address] | [place] [address] | | | DERMATOPATHOLOGY | [address] | | | + + + + + documented in this encounter Visit Diagnoses Not on filedocumented in this encounter"
--- OUTSIDE RECORDS SUMMARY | ~2019-01-21 | XMS | Encounter Summary ---
Demographics + + + | Address | [address] | | | [place] [address] | + + + | Home Phone | | + + + | Preferred Language | Unknown | + + + | Marital Status | Single | + + + | Spiritism Affiliation | Unknown | + + + | Race | Unknown | + + + | Ethnic Group | Other Race | + + + Author + + + | Author | [facility] | + + + | Organization | [facility] | + + + | Address | Unknown | + + + | Phone | Unavailable | + + + Care Team Providers + +------+ + | Care Sales Audit Clerk Name | Role | Phone | + +------+ + PCP | Unavailable | + +------+ + Encounter Details +--------+ + + + + | Date | Type | Department | Care Team | Description | +--------+ + + + + | 03/19/ | Results | [facility] | [facility], | | | 2009 | Only | Department | [facility] | | | | | | Clinic Dermatology | | | | | | [address] | | | | | | [place], [place] | | | | | | [address] | | | | | | | [...] | DERMATOPATH | | | MNT) | [address] CLINICAL | | OLOGY | | | [...] + + | [facility] | [address], [address] | [place] [address] | | | DERMATOPATHOLOGY | [address] | | | + + + + + documented in this encounter Visit Diagnoses Not on filedocumented in this encounter"
--- OUTSIDE RECORDS SUMMARY | ~2019-01-21 | XMS | Clinical Summary ---
Demographics + + + | Address | [address] | | | [place] [address] | + + + | Home Phone | | + + + | Preferred Language | Unknown | + + + | Marital Status | | + + + | Buddhism Affiliation | Unknown | + + + | Race | Unknown | + + + | Ethnic Group | Unknown | + + + Author + + + | Author | [facility] | | | and [place] | + + + | Organization | [facility] | | | [...] Team Providers + +------+ + | Care Twister Frame Tender Name | Role | Phone | + [...] automatically from request for surgery | | [id number] | + + + + + + [...] | | | | | | fibrillation ([facility]) | +--------+ + + + + | 11/14/ | Office | Cardiology | Denise Chakraborty, | Paroxysmal atrial | | 2018 | Visit | | MD | fibrillation ([facility]) | | | | | | [...] | Father | | | heart disease ([place]), HTN,Hyperlipidemia | | | | (Age | [...] [place] | | | | | | [address] | | | | | | | [...] 52cm | Lead | | [place] | [id number] | 04/05/ | 7741 | | - [id number]: Qty: 1 on | | | SCIENTIFIC | [id number] | 2020 | /[id number] | | 01/12/2019 by Leland Ulloa, | | | MIAH - BSCI | 57 | | 7 / | | MD at [facility] | | | | | | | | [facility] | | | | | | | + +--------+-------+ +--------+--------+--------+ | Lead Pacer Actv Fix Str 45cm | Lead | N/A: | [place] | [id number] | 04/23/ | 7740 | | - [id number]: Qty: 1 | | Heart | SCIENTIFIC | [id number] | 2020 | /[id number] | | on 01/12/2019 by Artemio, | | | MIAH - BSCI | 26 | | 43 / | | MD Leland at [facility] | | | | | | | | [facility] | | | | | | | + +--------+-------+ +--------+--------+--------+ | Pacemaker Accolade Dr Armstrong Mri | Pacema | N/A: | KARELY | [id number] | 10/18/ | L331 | | - [id number]: Qty: 1 on | ker | Heart | SCIENTIFIC | [id number] | 2020 | /[id number] | | 01/12/2019 by Leland Ulloa, | | | MIAH - BSCI | 65 | | 0 / | | at [facility] | | | | | | | | [facility] | | | | | [...] | | | | | by [employer] [place] Read Only, | | | | | | [employer]CA Wendy (062), | | | | | | market editor Martell Kelly | | | | | | (480) on 01/21/2019 | | | | | [...] | | | POC | performed at [facility];[address] | | LABORATORY | | | | [address];[place], [place] | | | | | | [address] | | | | + + + + + + + + | Specimen | + + | | + + + + + + + | Performing | Address | City/State/Zipcode | Phone Number | | Organization | | | | + + + + + | [facility] | [address] | [place] [address] | [phone] | + + + + + XR [...] permanent pacemaker, | | | MRI compatible, Biopharmacopae unit. Equipments:Generator: [employer] | | | [employer] DR IS-1 (). Model #L331, serial #[id number] | | | lead: PCA Audit IS-1 Bi-positive fix RA/RV 45 | | | cm, model #7740, serial #[id number].RV lead: [employer] | | | MRI IS-1 Bi-positive fix RA/RV 52 cm, model #7741, serial # [id number]. | | | Measurements:RA 3.3 mV, 0.9 V at 0.4 ms, impedance 652.RV 25 mV, 1.0 V | | | at 0.4 ms, impedance 955. Final settingsDDDR, 50/130. | | |RV lead: PCA Audit IS-1 Bi-positive fix RA/RV 52 cm, | | |model #7741, serial # [id number]. | | | | | |Measurements: | [...] 0.08Comment: Testing | 0.00 - 0.10 | [facility] | | | Absolute | performed at [facility], [address] | [address] | LABORATORY | | | | [address], | | | | | | [place] [address] | | | | + + + + + + + + | Specimen | + + | Blood | + + + + + + + | Performing | Address | City/State/Zipcode | Phone Number | | Organization | | | | + + + + + | [facility] | [address] | [place] [address] | [phone] | + + + + + T4, Free (01/12/2019 5:39 AM PST) + + + + + + | Component | Value | Ref Range | Performed | Pathologist | | | | | At | Signature | + + + + + + | FT4 | 1.4Comment: Testing | 0.7 - 1.5 ng/dL | [facility] | | | | performed at [facility], [address] | | LABORATORY | | | | [address], | | | | | | [place] [address] | | | | + + + + + + + + | Specimen | + + | Blood | + + + + + + + | Performing | Address | City/State/Zipcode | Phone Number | | Organization | | | | + + + + + | [facility] | [address] | [place] [address] | [phone] | + + + + + Magnesium [...] Testing | 1.7 - 2.4 mg/dL | [facility] | | | | performed at [facility], [address] | | LABORATORY | | | | [address], | | | | | | [place] [address] | | | | + + + + + + + + | Specimen | + + | Blood | + + + + + + + | Performing | Address | City/State/Zipcode | Phone Number | | Organization | | | | + + + + + | [facility] | [address] | [place] [address] | [phone] | + + + + + Basic [...] | | | | | performed at [facility], [address] | | | | | | [facility], | | | | | | [place] [address] | | | | + + + + + + + + | Specimen | + + | Blood | + + + + + + + | Performing | Address | City/State/Zipcode | Phone Number | | Organization | | | | + + + + + | [facility] | [address] | [place] [address] | [phone] | + + + + + XR [...] 6.784 (H)Comment: | 0.450 - 5.100 | [facility] | | | | Testing performed at | uIU/mL | LABORATORY | | | | [facility];[address] | | | | | | [place] [address] | | | | + + + + + + + + | Specimen | + + | Blood | + + + + + + + | Performing | Address | City/State/Zipcode | Phone Number | | Organization | | | | + + + + + | [facility] | [address] | [place] [address] | [phone] | + + + + + Hemoglobin A1C (01/11/2019 2:35 PM PST) + + + + + + | Component | Value | Ref Range | Performed | Pathologist | | | | | At | Signature | + + + + + + | Hemoglobin | 9.8 (H)Comment: HbA1c | 4.0 - 6.0 % | [facility] | | | A1c | method [...] | 235 (H)Comment: | <154 mg/dL | [facility] | | | Average | Estimated Average | | LABORATORY | | | Glucose | Glucose calculated from | | | | | | hemoglobin A1c by use of | | | | | | the ADArecommended | | | | | | formula.Testing | | | | | | performed at [facility], [address] | | | | | | [facility], | | | | | | [place] [address] | | | | + + + + + + + + | Specimen | + + | Blood | + + + + + + + | Performing | Address | City/State/Zipcode | Phone Number | | Organization | | | | + + + + + | [facility] | [address] | [place] [address] | [phone] | + + + + + from [...] +--------+ +---------+--------+ | MEDICARE | MEDICA | [id number] | 09/03/18 | [phone] | | Medica | | | RE | | 95-Pre | 5 | | re | | | PART A | | sent | | | | | | AND B | | | | | | + +--------+ +--------+ +---------+--------+ | MEDICARE SUPPLEMENT | MEDICA | [id number] | 11/13/19 | [phone] | | Indemn [...] sonal | | | 3 (Home) | [address] | + +--------+ +--------+ + + Advance Directives + + + + + | Type | Date Recorded | Patient | Explanation | | | | Water Filter Cleaner | | + + + + + | Power of | | | | | Storekeeper Helper | | | | + + + [...]
--- OUTSIDE RECORDS SUMMARY | ~2019-01-21 | XMS | Encounter Summary ---
Demographics + + + | Address | [address] | | | [place] [address] | + + + | Home Phone | | + + + | Preferred Language | Unknown | + + + | Marital Status | | + + + | Samaritan Affiliation | Unknown | + + + | Race | Unknown | + + + | Ethnic Group | Unknown | + + + Author + + + | Author | [facility] | | | and [place] | + + + | Organization | [facility] | | [...] Team Providers + +------+ + | Care Special Client Bus Driver Name | Role | Phone | [...] [place] F | | | | | [place] | | [place] | | | | | CARDIOVERSIO | | [place] [address] | | | | | N ELECTIVE | | Phone: | | | | | ARRHYTHMIA | | [phone] | | | | | EXTERNAL CV | | Fax: | | | | | EP | | [phone] | | | | | CARDIOVERSIO | | | | | | | N | | | +--------+--------+ + + + + Encounter Details +--------+ + + + + | Date | Type | Department | Care Team | Description | +--------+ + + + + | 11/13/ | Hospital | [facility] | Gideon Sevilla | Persistent atrial | | 2019 | [facility] | [facility] | MD [address] | fibrillation (HCC); | | | | LAB [address] | Wendy Mccartney, [place] | Persistent atrial | | | | [place], [place] | [place], [place] | fibrillation (HCC) | | | | [address] | [address] | | | | | [phone] | | | +--------+ + + + [...] You can't be awakened Date Last Reviewed: 12/22/201519997333-5051 [email or web address]. [address] [place] [address], [place] [address]. All righ ts reserved. This information is [...] cardioversion pads were placed Date Last Reviewed: 03/06/201619991992-6328 [email or web address]. [address] [place] [address]. All righ ts reserved. This information is [...] | | | | | [place] | | | | | | [address] | | | | | | | [...] | >60Comment: GFR <60: | >60 | KR | | | GFR | CHRONIC KIDNEY [...] | | | | | performed at [facility] | | | | | | [facility];[place], [place] | | | | | | [address] | | | | + + + + + + + + | Specimen | + + | Blood | + + + + + + + | Performing | Address | City/State/Zipcode | Phone Number | | Organization | | | | + + + + + | [facility] | [address] | [place] [address] | [phone] | + + + + + CBC [...] | | | Absolute | performed at [facility];[address] | [address] | LABORATORY | | | | [address];[place] | | | | | | [address] | | | | + + + + + + + + | Specimen | + + | Blood | + + + + + + + | Performing | Address | City/State/Zipcode | Phone Number | | Organization | | | | + + + + + | [facility] | [address] | [place] [address] | [phone] | + + + + + ECG [...] | | | POC | performed at [facility];[address] | | LABORATORY | | | | [address];[place] | | | | | | [address] | | | | + + + + + + + + | Specimen | + + | | + + + + + + + | Performing | Address | City/State/Zipcode | Phone Number | | Organization | | | | + + + + + | [facility] | [address] | [place] [address] | [phone] | + + + + + documented [...] | | blood glucose < 50, Starting Mon | | | 11/13/18 at 0747, Give [...] or escalating | | | pain, Starting Mon11/13/18 at | | | 0747, For 4 doses, (2 doses | | | maximum for opioid naive, 4 doses | | | maximum for opioid tolerant) | | | First dose must be lowest dose. | | | Use Pasero Sedation Scale. | | | [Opioid tolerant = One week or | | | longer, inmtah-rjd-nltdn use of | | | at least [...] 6:42 | | | | | Intravenous, CAR RACER, Starting | | AM PDT | | | | | 11/13/18 at 0609, For 1 dose, | | | | | | | Pre-op | | | | | | + +---------+ +---+ + + +---+---+ | | | +---+---+ documented in this encounter
--- OUTSIDE RECORDS SUMMARY | ~2019-01-21 | XMS | Encounter Summary ---
Demographics + + + | Address | [address] | | | [place] [address] | + + + | Home Phone | | + + + | Preferred Language | Unknown | + + + | Marital Status | | + + + | Worship Affiliation | Unknown | + + + | Race | Unknown | + + + | Ethnic Group | Unknown | + + + Author + + + | Author | [facility] | | | and [place] | + + + | Organization | [facility] | | | and [...] Team Providers + +------+ + | Care Salt Manager Name | Role | Phone | + [...] Description | +--------+---------+ + + + | 11/14/ | Office | [facility] | Palmer Robertvicente, | Paroxysmal atrial | | 2019 | Visit | [facility] | MD Eduardo AGUILLON | fibrillation (HCC) | | | | [address] | [place], [place] | (Primary Dx); | | | | [address] | [address] | Essential | | | | [place] | | hypertension; Mixed | | | | [address] | | hyperlipidemia | | | | [phone] | | | +--------+---------+ + + + [...] + + + | Blood Pressure | 120/62 | 11/14/2018 9:11 AM | | | | | PDT | | + + + + + | Pulse | 46 | 11/14/2018 9:11 AM | | | | | PDT | | + + + + + | Temperature | - | - | | + + + + + | Respiratory Rate | - | - | | + + + + + | Oxygen Saturation | 99% | 11/14/2018 9:11 AM | | | | | PDT | | + + + + + | Inhaled Oxygen | - | - | | | Concentration | | | | + + + + + | Weight | 65.6 kg (144 lb 9.6 | 11/14/2018 9:11 AM | | | | oz) | PDT | | + + + + + | Height | 149.9 cm (4' 11") | 11/14/2018 9:11 AM | | | | | PDT | | + + + + + | Body Mass Index | 29.21 | 11/14/2018 9:11 AM | | | | | PDT | | + + + + + documented in this encounter Progress Notes Denise Pinto MD - 11/14/2018 9:15 AM PDTFormatting of this note might be different f rom the original. Date of visit: 11/14/2018 Primary Care Physician: Devante Mercer MD CHIEF COMPLAINT: Chief Complaint Patient presents with Follow-up HISTORY OF PRESENT ILLNESS: Francisca is 88 y.o. here for follow-up visit. Has been feeling overall well since yesterday after the cardioversion. Complaining of sinus congestion. No fever or chills. Hospitalized again in September 2018 due to [...] chart. Medications: Outpatient Encounter Medications as of 11/14/2018 Medication Sig Dispense Refill amiodarone (PACERONE) 200 [...] facility-administered encounter medications on file as of 11/14/2018. Allergies Allergies Allergen Reactions Celecoxib Hives and Rash Warfarin Diarrhea Diarrhea REVIEW OF SYSTEMS: Constitutional: Positive for mild fatigue. No fever, chills, and rigors. No report of weig ht change. HEENT: Negative for nosebleeds, ear discharge, positive for nasal congestion. Eyes: Negative for visual disturbance, redness, or [...] or anxiety. PHYSICAL EXAM Vital Signs: BP 120/62 | Pulse (!) 46 | Ht 1.499 m (4' 11") | Wt 65.6 kg (144 lb 9.6 oz) | SpO2 99% | BMI 29.21 kg/m GENERAL APPEARANCE: Alert, oriented, cooperative, no [...] flutter/fibrillation. States post cardioversion. Rhythm control stra tegy. 2. Sinus bradycardia currently asymptomatic. 3. Hypertension blood pressures controlled. 4. Hypothyroidism. 5. Mild pulmonary hypertension. 6. Mild mitral regurgitation. 7. Chronic kidney disease stage II. Plan: Reviewed patient hospitalization, had 2 cardioversions one in September and another yesterday. Currently in sinus bradycardia asymptomatic. We will continue with rhythm control strategy currently on amiodarone 200 mg daily. Diltiazem and metoprolol were stopped secondary to bradycardia. 1. Continue with anticoagulation. Continue with rhythm control. 2. Continue to monitor and patient symptomology, consider Holter monitor evaluation. 3. Continue the blood pressure control. 4. Follow-up in 1 month or earlier if [...] [place] | | | | | | [address] | | | | | | | | +--------+---------+ + + + documented as of this encounter Procedures + +--------+ + + + | Procedure Name | Priori | Date/Time | Associated Diagnosis | Comments | | | ty | | | | + +--------+ + + + | LABS - EXTERNAL SCAN | | 10/09/2018 | | Results for this | | | | 12:00 AM | | procedure are in the | | | | PDT | | results section. | + +--------+ + + + documented in this encounter Results LABS - EXTERNAL SCAN (10/09/2018 12:00 AM PDT) + + + | Narrative | Performed At | + + + | Ordered by an | | | unspecified provider. | | + + + documented in this encounter Visit Diagnoses + + | Diagnosis | + + | Paroxysmal atrial fibrillation (HCC) - Primary Atrial fibrillation | + + | Essential hypertension Unspecified essential hypertension | + + | Mixed hyperlipidemia | + + documented in this encounter
--- OUTSIDE RECORDS SUMMARY | ~2019-01-21 | XMS | Encounter Summary ---
Demographics + + + | Address | [address] | | | [place] [address] | + + + | Home Phone | | + + + | Preferred Language | Unknown | + + + | Marital Status | | + + + | Mu-Ism Affiliation | Unknown | + + + | Race | Unknown | + + + | Ethnic Group | Unknown | + + + Author + + + | Author | [facility] | | | and [place] | + + + | Organization | [facility] | | [...] Team Providers + +------+ + | Care Debridging Machine Operator Name | Role | Phone [...] [facility] | | | | [facility] | MAXINE MORAN MD | | | | | [place] | [address] | | | | | [address] | | | | | | [phone] | | | +--------+ + + + [...] [place] | | | | | | [address] | | | | | | | | +--------+---------+ + + + documented as of this encounter Visit Diagnoses Not on filedocumented in this encounter"
--- OUTSIDE RECORDS SUMMARY | ~2019-01-21 | XMS | Encounter Summary ---
Demographics + + + | Address | [address] | | | [place] [address] | + + + | Home Phone | | + + + | Preferred Language | Unknown | + + + | Marital Status | | + + + | Orthodox Affiliation | Unknown | + + + | Race | Unknown | + + + | Ethnic Group | Unknown | + + + Author + + + | Author | [facility] | | | and [place] | + + + | Organization | [facility] | | | [...] Team Providers + +------+ + | Care Senior Policy Analyst Name | Role | Phone | + [...] Juaquin F | | | | | [place] | | [place] | | | | | CARDIOVERSIO | | [place] [address] | | | | | N ELECTIVE | | Phone: | | | | | ARRHYTHMIA | | [phone] | | | | | EXTERNAL CV | | Fax: | | | | | EP | | [phone] | | | | | CARDIOVERSIO | | | | | | | N | | | +--------+--------+ + + + + Encounter Details +--------+---------+ + + + | Date | Type | Department | Care Team | Description | +--------+---------+ + + + | 11/13/ | Surgery | [facility] | Gideon Sevilla | CV EP CARDIOVERSION | | 2019 | | [facility] | MD Trent [address] | | | | | LAB [address] | [facility] | | | | | [place], [place] | [place], [place] | | | | | [address] | [address] | | | | | [phone] | | | +--------+---------+ + + + [...] You can't be awakened Date Last Reviewed: 12/22/201519994327-2885 [employer]. [address] [place] [address]. All righ ts reserved. This information is [...] cardioversion pads were placed Date Last Reviewed: 03/06/201619994679-8547 [employer]. [address] [place] [address]. All righ ts reserved. This information is [...] | | | | | | [place], [place] | | | | | | [address] | | | | | | | [...] | | | | | | Art Hernandez;[place], [place] | | | | | | [address] | | | | + + + + + + + + | Specimen | + + | Blood | + + + + + + + | Performing | Address | City/State/Zipcode | Phone Number | | Organization | | | | + + + + + | [facility] | [address] | [place] [address] | [phone] | + + + + + CBC [...] | | | Absolute | performed at [facility];[address] | K/uL | LABORATORY | | | | [address];[place] | | | | | | [address] | | | | + + + + + + + + | Specimen | + + | Blood | + + + + + + + | Performing | Address | City/State/Zipcode | Phone Number | | Organization | | | | + + + + + | [facility] | [address] | [place] [address] | [phone] | + + + + + ECG [...] | | | POC | performed at [facility];[address] | | LABORATORY | | | | [address];[place] | | | | | | [address] | | | | + + + + + + + + | Specimen | + + | | + + + + + + + | Performing | Address | City/State/Zipcode | Phone Number | | Organization | | | | + + + + + | [facility] | [address] | [place] [address] | [phone] | + + + + + documented [...] One week or | | | longer, cmzori-veb-xuqlo use of | | | at least [...] 6:42 | | | | | Intravenous, FOLDED CLOTH TAPER, Starting | | AM PDT | | | | | 11/13/18 at 0609, For 1 dose, | | | | | | | Pre-op | | | | | | + +---------+ +---+ + + +---+---+ | | | +---+---+ documented in this encounter
--- OUTSIDE RECORDS SUMMARY | ~2019-01-21 | XMS | Clinical Summary ---
Demographics + + + | Address | [address] | | | [place] [address] | + + + | Home Phone | | + + + | Preferred Language | Unknown | + + + | Marital Status | Single | + + + | Taoist Affiliation | Unknown | + + + | Race | Unknown | + + + | Ethnic Group | Other Race | + + + Author + + + | Author | [facility] | + + + | Organization | [facility] | + + + | Address | Unknown | + + + | Phone | Unavailable | + + + Care Team Providers + +------+ + | Care Licensed Occupational Therapist Name | Role | Phone | + +------+ + PCP | Unavailable | + +------+ + Source Comments RODO is fully live on both [facility] Ambulatory and [facility] Allergies Not on File Medications Not on file Active Problems Not [...] | + + Last Filed Vital Signs Not on file Plan of Treatment + + + + + | Health Maintenance | Due Date | Last Done | Comments | + + + + + | Pneumococcal | | | | | vaccination (1 of 2 | 5 | | | | - PCV13) | | | | + + + + + | Influenza (Flu) | | | | | vaccination (#1) | 9 | | | + + + + + Results Not on filefrom Last 3 Months Insurance + +--------+ +--------+ + +--------+ | Payer | Benefi | Subscriber | Effect | Phone | Address | Type | | | t Plan | ID | zeyad | | | | | | / | | Dates | | | | | | Group | | | | | | + +--------+ +--------+ + +--------+ | MEDICARE | MEDICA | xxxxxxxxxx | 09/03/18 | [phone] | [address] | Medica | | | RE A & | | [address] | [address] | [address] | re | | | B | | sent | | [place], [place] | | | | | | | | [address] | | + +--------+ +--------+ + +--------+ | COMMERCIAL GROUP | COMMER | [id number] | Effect | | | Indemn | | | CIAL | | zeyad | | | ity | | | GROUP | | for | | | | | | | | all | | | | | | | | dates | | | | + +--------+ +--------+ + +--------+ + +--------+ +--------+ + + | Guarantor Name | Accoun | Relation to | Date | Phone | Billing Address | | | t Type | Patient | of | | | | | | | | | | + +--------+ +--------+ + + | Francisca Clark | Person | Self | [birth year] | [address] | | | al/Fam | | 1931 | [phone] | [place] [address] | | | sonal | | | 3 (Home) | | + +--------+ +--------+ + +"
--- OUTSIDE RECORDS SUMMARY | ~2019-01-21 | XMS | Encounter Summary ---
Demographics + + + | Address | [address] | | | [place] [address] | + + + | Home Phone | | + + + | Preferred Language | Unknown | + + + | Marital Status | | + + + | Caodaism Affiliation | Unknown | + + + | Race | Unknown | + + + | Ethnic Group | Unknown | + + + Author + + + | Author | [facility] | | | and [place] | + + + | Organization | [facility] | | [...] Team Providers + +------+ + | Care Spout Tender Name | Role | Phone | [...] + + | 01/11/ | Hospital | [facility] | George Muro | Essential | | 2019 - | Encounter | [facility] | MD Petra Go | hypertension; | | | | CARE FLOOR [address] | [place] | Paroxysmal atrial | | 01/13/ | | [address] | [address] | fibrillation (HCC); | | 2019 | | [place], [place] | | Symptomatic | | | | [address] | Bettye Cheney, | bradycardia; Type 2 | | | | [phone] | DO [address] | diabetes mellitus | | | | | [place] [address] | with stage 2 chronic | | | | | [phone] | kidney disease, | | | | [...] presented to emergency department of [facility] in [facility] today w ith severe dizziness and shortness of breath secondary to bradycardia. In emergency department she was found to be bradycardic with documented heart rate as low a s 34.Blood work-up was essentially normal. Shows sinus bradycardia with heart rate of 47/min. She was transferred to [facility] for Cardiology evaluation for possible pacemaker. Dr. [...] Information: Follow up: Denise Chakraborty MD [address] [facility] [address] In 2 weeks For follow up Discharge [...] sent through Care Everywhere.Pacemaker, Linda ng with (Greenlandic)Pacemaker Implantation, Discharge Instructions for (Greenlandic)documented in t his encounter Medications at Time [...] Abraham MD - 01/13/2019 8:15 AM PST [facility] Service: Cardiology Progress Note Name of Kerrick Kleaner Operator: Denise Chakraborty MD I have seen the [...] this morning hence she was evaluated in [facility] where she was found roderick ycardic [...] 09/13/2018 TSH 6.784 (H) 01/11/2019 EK01/10/2019 From [facility] showed sinus bradycardia with heart rate [...] might be different f rom the original. [facility] Adult Hospitalist Progress Note Hospital Day: 1 HPI SUMMARY: The patient is a 88 y.o. female with significant past medical history of paroxysmal atrial fibrillation and was cardioverted twice in the past and follows Dr. Chakraborty, type 2 diabete s mellitus, patient hypertension, chronic kidney disease stage II, hypothyroidism presented to emergency department of [facility] in [facility] today with severe di zziness and shortness of breath secondary to bradycardia. In emergency department she was found to be bradycardic with documented heart rate as low a s 34. Blood work-up is essentially normal. Shows sinus bradycardia with heart rate of 47/m in. She was transferred to [facility] for Cardiology evaluation for possible pacemaker. Dr. [...] M D - 01/12/2019 7:18 AM PST [facility] Service: Cardiology Progress Note Name of Kerrick Kleaner Operator: Denise Chakraborty MD I have seen the [...] this morning hence she was evaluated in [facility] where she was found roderick ycardic [...] 09/13/2018 TSH 6.784 (H) 01/11/2019 EK01/10/2019 From [facility] showed sinus bradycardia with heart rate [...] recheck 164/71, discussed with primary RN at [facility]. documented in this en counter [...] [place] | | | | | | [id number] | | | | | | | [...] Testing | 65 - 99 mg/dL | [facility] | | | POC | performed at [facility];[address] | | LABORATORY | | | | [address];[place], [place] | | | | | | [address] | | | | + + + + + + + + | Specimen | + + | | + + + + + + + | Performing | Address | City/State/Zipcode | Phone Number | | Organization | | | | + + + + + | [facility] | [address] | [place] [address] | [phone] | + + + + + POC [...] [place] | | | | | | [address] | | | | + + + + + + + + | Specimen | + + | | + + + + + + + | Performing | Address | City/State/Zipcode | Phone Number | | Organization | | | | + + + + + | [facility] | [address] | [place] [address] | [phone] | + + + + + XR [...] [place] | | | | | | [address] | | | | + + + + + + + + | Specimen | + + | | + + + + + + + | Performing | Address | City/State/Zipcode | Phone Number | | Organization | | | | + + + + + | [facility] | [address] | [place] [address] | [phone] | + + + + + POC Glucose (01/12/2019 4:13 PM PST) + + + + + + | Component | Value | Ref Range | Performed | Pathologist | | | | | At | Signature | + + + + + + | Glucose, | 362 (H)Comment: Testing | 65 - 99 mg/dL | [facility] | | | POC | performed at [facility];[address] | | LABORATORY | | | | [address];[place] | | | | | | [address] | | | | + + + + + + + + | Specimen | + + | | + + + + + + + | Performing | Address | City/State/Zipcode | Phone Number | | Organization | | | | + + + + + | [facility] | [address] | [place] [address] | [phone] | + + + + + POC Glucose (01/12/2019 11:11 AM PST) + + + + + + | Component | Value | Ref Range | Performed | Pathologist | | | | | At | Signature | + + + + + + | Glucose, | 270 (H)Comment: Testing | 65 - 99 mg/dL | [facility] | | | POC | performed at [facility];[address] | | LABORATORY | | | | [address];[place], [place] | | | | | | [address] | | | | + + + + + + + + | Specimen | + + | | + + + + + + + | Performing | Address | City/State/Zipcode | Phone Number | | Organization | | | | + + + + + | [facility] | [address] | [place] [address] | [phone] | + + + + + CV EP PROCEDURE (01/12/2019 10:47 AM PST) + + | Specimen | + + | | + + + + + | Narrative | Performed At | + + + | | | | ConclusionSuccessful insertion of dual-chamber permanent pacemaker, | | | MRI compatible, US PREVENTIVE MEDICINE unit. Equipments:Generator: [employer] | | | V[facility] [address] ISJai1 (). Model #L331, serial #[id number] | | | lead: Transbiomed IS-1 Bi-positive fix RA/RV 45 | | | cm, model #7740, serial #[id number].RV lead: [employer] | | | WeYAP IS-1 Bi-positive fix RA/RV 52 cm, model #7741, serial # [id number]. | | | Measurements:RA 3.3 mV, 0.9 V at 0.4 ms, impedance 652.RV 25 mV, 1.0 V | | | at 0.4 ms, impedance 955. Final settingsDDDR, 50/130. | | |RV lead: US PREVENTIVE MEDICINE, Accruit MRI IS-1 Bi-positive fix RA/RV 52 cm, | | |model #7741, serial # [id number]. | | | | | |Measurements: | [...] Testing | 65 - 99 mg/dL | [facility] | | | POC | performed at [facility];[address] | | LABORATORY | | | | [facility];[place], [place] | | | | | | [address] | | | | + + + + + + + + | Specimen | + + | | + + + + + + + | Performing | Address | City/State/Zipcode | Phone Number | | Organization | | | | + + + + + | [facility] | [address] | [place] [address] | [phone] | + + + + + T4, Free (01/12/2019 5:39 AM PST) + + + + + + | Component | Value | Ref Range | Performed | Pathologist | | | | | At | Signature | + + + + + + | FT4 | 1.4Comment: Testing | 0.7 - 1.5 ng/dL | [facility] | | | | performed at [facility], [address] | | LABORATORY | | | | [facility], | | | | | | [place] [address] | | | | + + + + + + + + | Specimen | + + | Blood | + + + + + + + | Performing | Address | City/State/Zipcode | Phone Number | | Organization | | | | + + + + + | [facility] | [address] | [place] [address] | [phone] | + + + + + Magnesium (01/12/2019 5:39 AM PST) + + + + + + | Component | Value | Ref Range | Performed | Pathologist | | | | | At | Signature | + + + + + + | Magnesium | 1.7Comment: Testing | 1.7 - 2.4 mg/dL | [facility] | | | | performed at [facility], [address] | | LABORATORY | | | | [address], | | | | | | [place] [address] | | | | + + + + + + + + | Specimen | + + | Blood | + + + + + + + | Performing | Address | City/State/Zipcode | Phone Number | | Organization | | | | + + + + + | [facility] | [address] | [place] [address] | [phone] | + + + + + Basic [...] 59 (L)Comment: GFR <60: | >60 | [facility] | | | GFR | CHRONIC KIDNEY [...] | | | | | performed at [facility], [address] | | | | | | [facility], | | | | | | [place] [address] | | | | + + + + + + + + | Specimen | + + | Blood | + + + + + + + | Performing | Address | City/State/Zipcode | Phone Number | | Organization | | | | + + + + + | [facility] | [address] | [place] [address] | [phone] | + + + + + CBC [...] | | | Absolute | performed at [facility], [address] | K/uL | LABORATORY | | | | [address], | | | | | | [place] [address] | | | | + + + + + + + + | Specimen | + + | Blood | + + + + + + + | Performing | Address | City/State/Zipcode | Phone Number | | Organization | | | | + + + + + | [facility] | [address] | [place] [address] | [phone] | + + + + + POC [...] [place] | | | | | | [address] | | | | + + + + + + + + | Specimen | + + | | + + + + + + + | Performing | Address | City/State/Zipcode | Phone Number | | Organization | | | | + + + + + | [facility] | [address] | [place] [address] | [phone] | + + + + + POC Glucose (01/11/2019 7:07 PM PST) + + + + + + | Component | Value | Ref Range | Performed | Pathologist | | | | | At | Signature | + + + + + + | Glucose, | 175 (H)Comment: Testing | 65 - 99 mg/dL | [facility] | | | POC | performed at [facility];[address] | | LABORATORY | | | | [address];[place] | | | | | | [address] | | | | + + + + + + + + | Specimen | + + | | + + + + + + + | Performing | Address | City/State/Zipcode | Phone Number | | Organization | | | | + + + + + | [facility] | [address] | [place] [address] | [phone] | + + + + + POC [...] | LABORATORY | | | | [address];[place], [place] | | | | | | [address] | | | | + + + + + + + + | Specimen | + + | | + + + + + + + | Performing | Address | City/State/Zipcode | Phone Number | | Organization | | | | + + + + + | [facility] | [address] | [place] [address] | [phone] | + + + + + XR [...] Testing | 1.7 - 2.4 mg/dL | [facility] | | | | performed at [facility];[address] | | LABORATORY | | | | [address];[place], [place] | | | | | | [address] | | | | + + + + + + + + | Specimen | + + | Blood | + + + + + + + | Performing | Address | City/State/Zipcode | Phone Number | | Organization | | | | + + + + + | [facility] | [address] | [place] [address] | [phone] | + + + + + TSH (01/11/2019 2:35 PM PST) + + + + + + | Component | Value | Ref Range | Performed | Pathologist | | | | | At | Signature | + + + + + + | TSH | 6.784 (H)Comment: | 0.450 - 5.100 | [facility] | | | | Testing performed at | uIU/mL | LABORATORY | | | | [facility];[address] | | | | | | [address];[place] [address] | | | | + + + + + + + + | Specimen | + + | Blood | + + + + + + + | Performing | Address | City/State/Zipcode | Phone Number | | Organization | | | | + + + + + | [facility] | [address] | [place] [address] | [phone] | + + + + + Hemoglobin A1C (01/11/2019 2:35 PM PST) + + + + + + | Component | Value | Ref Range | Performed | Pathologist | | | | | At | Signature | + + + + + + | Hemoglobin | 9.8 (H)Comment: HbA1c | 4.0 - 6.0 % | [facility] | | | A1c | method is [...] | 235 (H)Comment: | <154 mg/dL | [facility] | | | Average | Estimated Average | | LABORATORY | | | Glucose | Glucose calculated from | | | | | | hemoglobin A1c by use of | | | | | | the ADArecommended | | | | | | formula.Testing | | | | | | performed at [facility], [address] | | | | | | [facility], | | | | | | [place] [address] | | | | + + + + + + + + | Specimen | + + | Blood | + + + + + + + | Performing | Address | City/State/Zipcode | Phone Number | | Organization | | | | + + + + + | [facility] | [address] | [place] [address] | [phone] | + + + + + documented [...] | | | | AC, NPO, Daytime 2353-8073 Use | | | | | | | NIGHT DOSE for doses scheduled: | | | | | | | HS, 3AM, Nighttime 8930-9727 | | | | | | | [...]
--- OUTSIDE RECORDS SUMMARY | ~2019-01-21 | XMS | Encounter Summary ---
Demographics + + + | Address | [address] | | | [place] [address] | + + + | Home Phone | | + + + | Preferred Language | Unknown | + + + | Marital Status | | + + + | Mormonism Affiliation | Unknown | + + + | Race | Unknown | + + + | Ethnic Group | Unknown | + + + Author + + + | Author | [facility] | | | and [place] | + + + | Organization | [facility] | [...] Team Providers + +------+ + | Care Loom Changeover Operator Name | Role | Phone | [...] + + | 11/14/ | Office | [facility] | Palmer Robertvicente, | Paroxysmal atrial | | 2019 | Visit | [facility]OLOG[facility] [place] | MD Eduardo AGUILLON | fibrillation (HCC) | | | | [address] | [place], [place] | (Primary Dx); | | | | [address] | [id number] | Essential | | | | [place] | | hypertension; Mixed | | | | [address] | | hyperlipidemia | | | | [phone] | | | +--------+---------+ + + + [...] [place] | | | | | | [address] | | | | | | | [...]
--- OUTSIDE RECORDS SUMMARY | ~2019-01-21 | XMS | Encounter Summary ---
Demographics + + + | Address | [address] | | | [place] [address] | + + + | Home Phone | | + + + | Preferred Language | Unknown | + + + | Marital Status | | + + + | Mormon Affiliation | Unknown | + + + | Race | Unknown | + + + | Ethnic Group | Unknown | + + + Author + + + | Author | [facility] | | | and [place] | + + + | Organization | [facility] | | [...] + + | 01/21/ | Office | [facility] | Cammie Fuentes | Visit for wound | | 2019 | Visit | [facility] [place] | [address] | check (Primary Dx); | | | | [address] | [address] | Pacemaker; | | | | [address] | [place] [address] | Paroxysmal atrial | | | | [place] | [phone] | fibrillation (HCC) | | | | [address] | | | | | | [phone] | | | +--------+---------+ + + + [...] do, you may have restrictions until your wood processing worker clears you for unrestricted activity. You can [...] those made by radio transmitting to wers, "OnTheList" radios, and heavy-duty electrical equipment. Don't lean over the open kam of a running car. A running engine creates an electrical f ield. Most household and yard appliances will not cause any problems. If you use any large p ower tools, such as an industrial oracle soa architect, talk with your doctor. Follow-up care See your wood processing worker in the next 7 to 10 days. [...] pacemaker is capable of remot e monitoring. [id number] Call 911 if you have: Chest pain [...] [place] | | | | | | [address] | | | | | | | [...] | | | | | by [employer] [place] Read Only, | | | | | | ICA Pal ([id number]), | | | | | | design editor Martell Kelly | | | | [...]
--- OUTSIDE RECORDS SUMMARY | ~2019-01-21 | XMS | Encounter Summary ---
Demographics + + + | Address | [address] | | | [place] [address] | + + + | Home Phone [...] Team Providers + +------+ + | Care Tear Down Man Name | Role | Phone | + [...] | | | | | fibrillation | [place], [place] | [place], | | | | | Type 2 | [address] | [place] [address] | | | | | diabetes | Phone: | Phone: | | | | | mellitus | [phone] | [phone] | | | | | with stage 3 | Fax: | Fax: | | | | | chronic | [phone] | [phone] | | | | | kidney | [...] + + | 10/24/ | Office | [facility] | Gideon Sevilla | Persistent atrial | | 2019 | Visit | CARDIOLOGY [place] | MD [address] | fibrillation (HCC) | | | | [address] | Emerging Threats [facility] | (Primary Dx) | | | | [place] | [place] | | | | | [address] | [address] | | | | | [phone] | | | +--------+---------+ + + + [...] details but she [facility] for atrial fibrillation. She was previously on anticoagulation with warfarin. She was hospitalized for weakness and occasional shortness of breath with ac tivity in September 2018. A persistent atrial dysrhythmia was noted and she ultimately underwent cardioversion with mandaen of sinus rhythm. She was then placed [...] more recently and cardioversion was performed with mandaen of sinus rhythm. She believes she may [...] that if significant bradycardia is noted following mandaen of sinus r hythm she could require [...] [place] | | | | | | [address] | | | | | | | [...] | | | | | by [employer] [place] Read Only, | | | | | | ICA Pal ([id number]), | | | | | | scientific publications editor Martell Kelly | | | | | | ([id number]) on 10/24/2018 | | | | | [...]
--- OUTSIDE RECORDS SUMMARY | ~2019-01-21 | XMS | Encounter Summary ---
Demographics + + + | Address | [address] | | | [place] [address] | + + + | Home Phone [...] Team Providers + +------+ + | Care Elevator Examiner And Adjuster Name | Role | Phone | + +------+ + | Devante Mercer MD | PCP | | + +------+ + Encounter Details +--------+ + + + + | Date | Type | Department | Care Team | Description | +--------+ + + + + | 09/05/ | Orders Only | [facility] | Denise Chakraborty, | | | 2019 | | CARDIOLOGY [place] | [address] | | | | | [address] | [place], [place] | | | | | [place], [place] | [address] | | | | | [address] | | | | | | [phone] | | | +--------+ + + + [...] [place] | | | | | | [address] | | | | | | | | +--------+---------+ + + + documented as of this encounter Visit Diagnoses Not on filedocumented in this encounter"
--- OUTSIDE RECORDS SUMMARY | ~2019-01-21 | XMS | Clinical Summary ---
Demographics + + + | Address | [address] | | | [place] [address] | + + + | Home Phone | | + + + | Preferred Language | Unknown | + + + | Marital Status | Single | + + + | Sikhism Affiliation | Unknown | + + + | Race | Unknown | + + + | Ethnic Group | Other Race | + + + Author + + + | Author | [facility] | + + + | Organization | [facility] | + + + | Address | Unknown | + + + | Phone | Unavailable | + + + Care Team Providers + +------+ + | Care Etl Analyst Developer Name | Role | Phone | + +------+ + PCP | Unavailable | + +------+ + Source Comments RODO is fully live on both [facility] and [facility] InPatient.[facility] Allergies Not on File Medications Not on [...] | B | | sent | | [place], [place] | | | | | | | | [address] | | + +--------+ +--------+ + +--------+ [...] | 1931 | [phone] | [place] [address] | | | sonal | | | 3 (Home) | | + +--------+ +--------+ + +"
--- OUTSIDE RECORDS SUMMARY | ~2019-01-21 | XMS | Encounter Summary ---
Demographics + + + | Address | [address] | | | [place] [address] | + + + | Home Phone [...] Team Providers + +------+ + | Care Plate Cleaner Name | Role | Phone | [...] Provider Unknown | | | | | [place], [place] | [phone] | | | | | [address] | | | | | | [phone] | | | +--------+ + + + [...] [place] | | | | | | [address] | | | | | | | | +--------+---------+ + + + documented as of this encounter Visit Diagnoses Not on filedocumented in this encounter"
--- OUTSIDE RECORDS SUMMARY | ~2019-01-21 | XMS | Encounter Summary ---
Demographics + + + | Address | [address] | | | [place] [address] | + + + | Home Phone | | + + + | Preferred Language | Unknown | + + + | Marital Status | | + + + | Advent Affiliation | Unknown | + + + | Race | Unknown | + + + | Ethnic Group | Unknown | + + + Author + + + | Author | [facility] | | | and [place] | + + + | Organization | [facility] | | | [...] Team Providers + +------+ + | Care Copper Plater Name | Role | Phone | + +------+ + | Devante Mercer MD | PCP | | + +------+ + Encounter Details +--------+ + + + + | Date | Type | Department | Care Team | Description | +--------+ + + + + | 09/05/ | Orders Only | [facility] | Denise Chakraborty, | | | 2019 | | CARDIOLOGY [place] | [address] | | | | | [address] | [place], [place] | | | | | [place], [place] | [address] | | | | | [address] | | | | | | [phone] | | | +--------+ + + + [...] [place] | | | | | | [address] | | | | | | | | +--------+---------+ + + + documented as of this encounter Visit Diagnoses Not on filedocumented in this encounter"
--- OUTSIDE RECORDS SUMMARY | ~2019-01-21 | XMS | Encounter Summary ---
Demographics + + + | Address | [address] | | | [place] [address] | + + + | Home Phone [...] Team Providers + +------+ + | Care Golf Club Weighter Name | Role | Phone | + [...] [place] F | | | | | [place] | | [place] | | | | | CARDIOVERSIO | | [place] [address] | | | | | N ELECTIVE | | Phone: | | | | | ARRHYTHMIA | | [phone] | | | | | EXTERNAL CV | | Fax: | | | | | EP | | [phone] | | | | | CARDIOVERSIO | | | | | | | N | | | +--------+--------+ + + + + Encounter Details +--------+ + + + + | Date | Type | Department | Care Team | Description | +--------+ + + + + | 11/13/ | Hospital | [facility] | Gideon Sevilla | Persistent atrial | | 2019 | [facility] | [facility] | [address] | fibrillation (HCC); | | | | LAB [address] | Wendy Mccartney, [place] | Persistent atrial | | | | [place], [place] | [place], [place] | fibrillation (HCC) | | | | [address] | [address] | | | | | [phone] | | | +--------+ + + + [...] You can't be awakened Date Last Reviewed: 12/22/201519999475-3014 [email or web address]. [address] [place] [address], [place] [address]. All righ ts reserved. This information is [...] cardioversion pads were placed Date Last Reviewed: 03/06/201619999172-9070 [email or web address]. [address] [place] [address]. All righ ts reserved. This information is [...] | | | | | [place] | | | | | | [address] | | | | | | | [...] | | | | | performed at [facility] | | | | | | [facility];[place], [place] | | | | | | [address] | | | | + + + + + + + + | Specimen | + + | Blood | + + + + + + + | Performing | Address | City/State/Zipcode | Phone Number | | Organization | | | | + + + + + | [facility] | [address] | [place] [address] | [phone] | + + + + + CBC [...] | | | Absolute | performed at [facility];[address] | [address] | LABORATORY | | | | [address];[place] | | | | | | [address] | | | | + + + + + + + + | Specimen | + + | Blood | + + + + + + + | Performing | Address | City/State/Zipcode | Phone Number | | Organization | | | | + + + + + | [facility] | [address] | [place] [address] | [phone] | + + + + + ECG [...] | | | POC | performed at [facility];[address] | | LABORATORY | | | | [address];[place] | | | | | | [address] | | | | + + + + + + + + | Specimen | + + | | + + + + + + + | Performing | Address | City/State/Zipcode | Phone Number | | Organization | | | | + + + + + | [facility] | [address] | [place] [address] | [phone] | + + + + + documented [...] One week or | | | longer, pjurfk-ijc-ckkwx use of | | | at least [...] 6:42 | | | | | Intravenous, WOOD SCRAP HANDLER, Starting | | AM PDT | | | | | 11/13/18 at 0609, For 1 dose, | | | | | | | Pre-op | | | | | | + +---------+ +---+ + + +---+---+ | | | +---+---+ documented in this encounter
--- OUTSIDE RECORDS SUMMARY | ~2019-01-21 | XMS | Encounter Summary ---
Demographics + + + | Address | [address] | | | [place] [address] | + + + | Home Phone | | + + + | Preferred Language | Unknown | + + + | Marital Status | | + + + | Religion Affiliation | Unknown | + + + [...] Team Providers + +------+ + | Care Dog Obedience Instructor Name | Role | Phone | + [...] + + | 11/28/ | Office | [facility] | [place], [place], | Atypical atrial | | 2019 | Visit | CARDIOLOGY [place] | [address] | flutter (HCC) | | | | [address] | [place], [place] | (Primary Dx); | | | | [address] | [phone] | Essential | | | | [place] | | hypertension; | | | | [address] | | Paroxysmal atrial | | | | [phone] | | fibrillation (HCC) | +--------+---------+ + [...] 9.6 oz) | SpO2 97% | B SD 28.60 kg/m GENERAL APPEARANCE: Alert, oriented, cooperative, [...] | | | | | [place], [place] | | | | | | [address] | | | | | | | [...]
--- OUTSIDE RECORDS SUMMARY | ~2019-01-21 | XMS | Encounter Summary ---
Demographics + + + | Address | [address] | | | [place] [address] | + + + | Home Phone | | + + + | Preferred Language | Unknown | + + + | Marital Status | | + + + | Judaism Affiliation | Unknown | + + + | Race | Unknown | + + + | Ethnic Group | Unknown | + + + Author + + + | Author | [facility] | | | and [place] | + + + | Organization | [facility] | | | [...] Team Providers + +------+ + | Care Suction Drum Drier Operator Name | Role | Phone | [...] [place] F | | | | | [place] | | [place] | | | | | CARDIOVERSI[place] | | [place] [address] | | | | | N ELECTIVE | | Phone: | | | | | ARRHYTHMIA | | [phone] | | | | | EXTERNAL CV | | Fax: | | | | | EP | | [phone] | | | | | CARDIOVERSIO | | | | | | | N | | | +--------+--------+ + + + + Encounter Details +--------+ + + + + | Date | Type | Department | Care Team | Description | +--------+ + + + + | 11/13/ | Anesthesia | [facility] | Rivas Dumas, | | | 2019 | Event | [facility] | [address] | | | | | [address] | [place] [address] | | | | | [place], [place] | [phone] | | | | | [address] | | | | | | [phone] | | | +--------+ + + + [...] 11/17/18 1432 by | | eral | [id number] catheter system; | Zahira Mar RN | [...] | | | | | [place] | | | | | | [address] | | | | | | | [...]
[~2019-01-21 16:05] MED LIST changes: +ISOSORBIDE MONO30 MG PO; +PACERONE200 MG PO; +ZESTRIL40 MG PO
--- OUTSIDE RECORDS SUMMARY | 2019-01-21 16:08 | XMS ---
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 E.D. VISIT COUNT (12 MO.) 1 [facility] 6 [facility] [place] TOTAL 7 NOTE: Visits indicate total known visits. 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 TYPE: Emergency DIAGNOSES: - Bradycardia, unspecified - Shortness of Breath 09/01/2018 17:34 [facility] [place] TYPE: Emergency COMPLAINT: - DIFFICULTY BREATHING DIAGNOSES: - Dyspnea, unspecified - Allergy status to other antibiotic agents status - 1 Type 2 diabetes mellitus without complications - Essential (primary) hypertension - Other alf (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 therapy 07/09/2018 09:04 [facility] [place] TYPE: Emergency COMPLAINT: - WEAKNESS DIAGNOSES: - Unspecified atrial fibrillation - extermination inspector (current) use of oral hypoglycemic drugs - 1 Type 2 diabetes mellitus without complications - Allergy status to other antibiotic agents status - Hyperlipidemia, unspecified - Personal history of nicotine dependence - 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 - Weakness - Essential (primary) hypertension 06/11/2018 18:42 [facility] TYPE: Emergency COMPLAINT: - WEAKNESS INPATIENT VISIT TRACKING (12 MO.) 09/07/2018 01:10 [facility] [place] TYPE: General Medicine DIAGNOSES: - Bradycardia, unspecified - Altered mental status, unspecified - Unspecified atrial fibrillation 06/12/2018 12:40 [facility] [place] TYPE: Critical Care COMPLAINT: - SYMPTOMATIC BRADYCARDIA DIAGNOSES: - Legal blindness, 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[place] - half-way (current) use of anticoagulants - Acute kidney failure, unspecified - Hypertensive heart disease with heart failure - Chronic diastolic (congestive) heart failure - Dehydration - Gastro-esophageal reflux disease without esophagitis - Hypertensive heart disease with heart failure - Gastro-esophageal reflux disease without esophagitis - Chronic diastolic (congestive) heart failure - half-way (current) use of oral hypoglycemic drugs - 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 - 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, unsp, stage unspecified - 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, unsp, stage unspecified - Other alf (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 therapy - Hyperlipidemia, unspecified - Sick sinus syndrome - Hyperlipidemia, unspecified - Dehydration - Sick sinus syndrome - Legal blindness, 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[place] - Hypothyroidism, unspecified - Allergy status to oth drug/meds/biol subst status - Hypothyroidism, unspecified - Unspecified atrial fibrillation - 1 Type 2 diabetes mellitus without complications - Acute kidney failure, unspecified - Allergy status to oth drug/meds/biol subst status - extermination inspector (current) use of anticoagulants - half-way (current) use of inhaled steroids - extermination inspector (current) use of inhaled steroids - half-way (current) use of oral hypoglycemic drugs - 1 Type 2 diabetes mellitus without complications [email or web address]
[2019-01-21] MEDS ORDERED: AUGMENTIN 875-1 EACH PO (17:48)
== END 2019-01-21 19:11 | disposition home or self-care (01) ==
LOC: ED 16:05
DX: S62.636B Displaced fracture of distal phalanx of right little finger, initial encounter for open fracture (principal); S68.624A Partial traumatic transphalangeal amputation of right ring finger, initial encounter; X58.XXXA Exposure to other specified factors, initial encounter; E11.9 Type 2 diabetes mellitus without complications; I10 Essential (primary) hypertension; I48.91 Unspecified atrial fibrillation; E78.5 Hyperlipidemia, unspecified; Z79.899 Other long term (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 therapy; Z79.84 Long term (current) use of oral hypoglycemic drugs; Z88.8 Allergy status to other drugs, medicaments and biological substances
CPT/HCPCS: 73130; 90471; 90714; 99283-25